=== PATIENT | male | born 1945 | race African-American/Black ===

== ENCOUNTER 2016-12-11 17:01 | Inpatient (IN) | payer MEDICARE, MEDICAID ==
[~2016-12-11] VITALS: Ht 182.9 cm; Wt 89.8 kg
[~2016-12-11 17:01] MED LIST: AMLO-512 PO; BUME1TAB30 PO; CILO100T PO; CLOP75 PO; COLE625 PO; FINA5TAB41 PO; HYDR-4173 PO; INSLAN SQ; INSU3INS5 SQ; ISOS30TA6 PO; PRED20 PO; ROSU20 PO; SODI650T PO; TAMS0.4C32 PO; TIOT4MIS3 IH
[2016-12-11] MEDS ORDERED: ALBUTEROL SULFATE 5 MG/ML 20 ML NEB SOLN [BULK] NEB ONE ×2 (17:15→19:00)
[2016-12-11] MEDS ORDERED: IPRATROPIUM BROMIDE 0.5 MG/2.5 ML NEB SOLUTION NEB ONE ×2 (17:15→19:00)
[2016-12-11] MEDS ORDERED: MethylPREDNISolone SOD SUCC 125 MG/2 ML VIAL IVP ONE (17:15)
[2016-12-11] MEDS ORDERED: 0.9% SODIUM CHLORIDE 5 ML NEB SOLUTION NEB ONE (17:16)
[2016-12-11 17:22] LABS: GLUCOSE,POINT OF CARE 289 MG/DL (70-110)
[2016-12-11] MEDS ORDERED: LISI-661 PO (17:35)
[2016-12-11] MEDS ORDERED: METO50 PO (17:35)
[2016-12-11] MEDS ORDERED: GABA-529 PO (17:35)
[2016-12-11] MEDS ORDERED: FURO40 PO (17:35)
[2016-12-11] MEDS ORDERED: RANO500T3 PO (17:35)
[2016-12-11 17:37] LABS: BASOPHILS % (AUTO) 0.8 % (0.0-2.0); EOSINOPHILS % (AUTO) 13.3 % (1.0-6.0); HEMATOCRIT 28.8 % (41-53); HEMOGLOBIN 9.4 g/dL (13.5-17.5); LYMPHOCYTES # (AUTO) 1.6 K/uL (1.0-4.8); LYMPHOCYTES % (AUTO) 28.7 % (22.0-44.0); MEAN CORPUSCULAR HEMOGLOBIN 30.2 pg (26.0-34.0); MEAN CORPUSCULAR HGB CONC 32.7 G/dL (31.0-37.0); MEAN CORPUSCULAR VOLUME 92 fL (80-100); MONOCYTES # (AUTO) 0.5 K/uL (0.1-1.0); MONOCYTES % (AUTO) 9.9 % (2.0-9.0); NEUTROPHILS # (AUTO) 2.6 K/uL (1.8-7.7); NEUTROPHILS % (AUTO) 47.3 % (40.0-70.0); PLATELET COUNT (AUTO) 243 K/uL (150-450); RED BLOOD CELL COUNT(AUTO) 3.12 MIL/uL (4.50-5.90); RED CELL DISTRIBUTION WIDTH 14.6 % (11.5-14.5); WHITE BLOOD COUNT (AUTO) 5.5 K/uL (4.5-11.0)
[2016-12-11 17:49] LABS: CALCIUM, TOTAL 8.4 mg/dL (8.8-10.5); CREATININE 2.38 mg/dL (0.60-1.30); POTASSIUM 4.8 mmol/L (3.5-5.1)
[2016-12-11 17:55] LABS: ALBUMIN 3.3 g/dL (3.4-5.0); BILIRUBIN,TOTAL 0.3 mg/dL (0.1-1.0); TOTAL PROTEIN, SERUM 6.7 g/dL (6.4-8.2)
[2016-12-11] MEDS ORDERED: ONDANSETRON HCL 4 MG/2 ML VIAL IVP PRN (18:45)
[2016-12-11] MEDS ORDERED: ACETAMINOPHEN 325 MG TABLET PO PRN (18:45)
[2016-12-11] MEDS ORDERED: CefTRIAXone 1 GM/DEXTROSE 50 ML IV ONE (18:45)
[2016-12-11] MEDS ORDERED: 0.9% SODIUM CHLORIDE 10 ML SYRINGE IVP PRN (18:45)
[2016-12-11] MEDS ORDERED: GABA-531 PO (18:49)
[2016-12-11] MEDS ORDERED: IPRATROPIUM BROMIDE 0.5 MG/2.5 ML NEB SOLUTION NEB SCH (19:00)
[2016-12-11] MEDS ORDERED: ALBUTEROL SULFATE 2.5 MG/0.5 ML NEB SOLUTION NEB SCH (19:00)
[2016-12-11] MEDS ORDERED: OXYGEN THERAPY IH SCH (20:00)
[2016-12-11 21:06] VITALS: BP 180/82
[2016-12-11] MEDS ORDERED: INSULIN DETEMIR 100 UNITS/ML SQ SCH (22:30)
[2016-12-11 22:33] VITALS: BP 159/73
[2016-12-11] MEDS ORDERED: DEXTROSE 50%-WATER 25 GM/50 ML SYRINGE IVP PRN (22:45)
[2016-12-11] MEDS: METOPROLOL TARTRATE 50 MG TABLET PO SCH (22:48)
[2016-12-11] MEDS: INSULIN DETEMIR 100 UNITS/ML SQ SCH (22:50)
[2016-12-11] MEDS: INSULIN ASPART 100 UNITS/ML SQ PRN (22:51)
[2016-12-11 23:17] VITALS: BP 155/76
[2016-12-11] MEDS: ALBUTEROL SULFATE 2.5 MG/0.5 ML NEB SOLUTION NEB PRN (23:53)
[2016-12-11] MEDS: IPRATROPIUM BROMIDE 0.5 MG/2.5 ML NEB SOLUTION NEB PRN (23:53)
[2016-12-12] MEDS: RANOLAZINE 500 MG SR TABLET PO SCH ×3 (00:12→21:02)
[2016-12-12] MEDS: HydrALAZINE HCL 25 MG TABLET PO SCH ×3 (00:12→21:02)
[2016-12-12] MEDS: SODIUM BICARBONATE 650 MG TABLET PO SCH ×3 (00:12→21:02)
[2016-12-12] MEDS: HEPARIN SODIUM,PORCINE 5,000 UNITS/ML VIAL SQ SCH ×4 (00:13→23:34)
[2016-12-12] MEDS: MethylPREDNISolone SOD SUCC 40 MG/ML VIAL IVP SCH ×4 (00:13→23:34)
[2016-12-12] MEDS: ROSUVASTATIN CALCIUM 20 MG TABLET PO SCH ×2 (00:13→21:02)
[2016-12-12] MEDS ORDERED: INFLUENZA VIRUS VACCINE QVS 2016-17 (3YR+)/PF 60 MCG/0.5 ML SYRINGE IM ONE (00:30)
[2016-12-12] MEDS ORDERED: CALCIUM CARBONATE 500 MG CHEWABLE TABLET CHEW PRN (02:45)
[2016-12-12 04:35] VITALS: BP 149/71
[2016-12-12] MEDS: ALBUTEROL SULFATE 2.5 MG/0.5 ML NEB SOLUTION NEB PRN ×3 (04:39→15:53)
[2016-12-12] MEDS: IPRATROPIUM BROMIDE 0.5 MG/2.5 ML NEB SOLUTION NEB PRN ×3 (04:39→15:53)
[2016-12-12] MEDS: CILOSTAZOL 100 MG TABLET PO SCH ×2 (06:25→17:26)
[2016-12-12] MEDS: INSULIN ASPART 100 UNITS/ML SQ PRN ×4 (06:27→21:12)
[2016-12-12 06:37] LABS: EOSINOPHILS % (AUTO) 0.04 % (1.0-6.0); HEMOGLOBIN 9.5 g/dL (13.5-17.5); LYMPHOCYTES # (AUTO) 0.6 K/uL (1.0-4.8); LYMPHOCYTES % (AUTO) 11.2 % (22.0-44.0); MEAN CORPUSCULAR HEMOGLOBIN 30.9 pg (26.0-34.0); MEAN CORPUSCULAR HGB CONC 33.9 G/dL (31.0-37.0); MEAN CORPUSCULAR VOLUME 91 fL (80-100); MONOCYTES % (AUTO) 0.5 % (2.0-9.0); NEUTROPHILS # (AUTO) 4.5 K/uL (1.8-7.7); PLATELET COUNT (AUTO) 236 K/uL (150-450); RED BLOOD CELL COUNT(AUTO) 3.08 MIL/uL (4.50-5.90); WHITE BLOOD COUNT (AUTO) 5.1 K/uL (4.5-11.0)
[2016-12-12 06:47] LABS: GLUCOSE COMMENT 1 Doctor Notified; GLUCOSE,POINT OF CARE 425 MG/DL (70-110)
[2016-12-12 07:02] LABS: ALBUMIN 3.1 g/dL (3.4-5.0); BILIRUBIN,TOTAL 0.2 mg/dL (0.1-1.0); CALCIUM, TOTAL 8.8 mg/dL (8.8-10.5); CREATININE 2.14 mg/dL (0.60-1.30); MAGNESIUM 1.6 mg/dL (1.80-2.40); POTASSIUM 5.5 mmol/L (3.5-5.1); TOTAL PROTEIN, SERUM 6.6 g/dL (6.4-8.2)
[2016-12-12 07:03] LABS: NEUTROPHILS % (AUTO) 88.3 % (40.0-70.0)
[2016-12-12 07:21] VITALS: BP 170/85
[2016-12-12] MEDS: COLESEVELAM HCL 625 MG TABLET PO SCH ×3 (07:45→17:26)
[2016-12-12] MEDS: PANTOPRAZOLE SODIUM 40 MG/VIAL IVP SCH (07:46)
[2016-12-12] MEDS: TAMSULOSIN HCL 0.4 MG CAPSULE PO SCH (07:46)
[2016-12-12] MEDS: ISOSORBIDE MONONITRATE 30 MG ER TABLET PO SCH (07:46)
[2016-12-12] MEDS: GABAPENTIN 300 MG CAPSULE PO SCH ×3 (07:47→21:02)
[2016-12-12] MEDS: CLOPIDOGREL BISULFATE 75 MG TABLET PO SCH (07:47)
[2016-12-12] MEDS: FINASTERIDE 5 MG TABLET PO SCH (07:47)
[2016-12-12] MEDS: AmLODIPine BESYLATE 10 MG TABLET PO SCH (07:47)
[2016-12-12] MEDS: FUROSEMIDE 40 MG TABLET PO SCH (07:47)
[2016-12-12] MEDS: METOPROLOL TARTRATE 50 MG TABLET PO SCH ×2 (07:47→21:02)
[2016-12-12] MEDS: LISINOPRIL 10 MG TABLET PO SCH (07:48)
[2016-12-12 09:18] LABS: GLUCOSE COMMENT 1 Received Meds; GLUCOSE,POINT OF CARE 312 MG/DL (70-110)
[2016-12-12 10:37] VITALS: BP 123/62
[2016-12-12 11:37] VITALS: BP 131/71
[2016-12-12] MEDS ORDERED: OLODATEROL IH SCH (12:45)
[2016-12-12] MEDS ORDERED: TIOTROPIUM IH SCH (12:45)
[2016-12-12 15:46] VITALS: BP 152/74
[2016-12-12] MEDS ORDERED: SODIUM POLYSTYRENE SULFONATE 15 GM/60 ML SUSPENSION BOTTLE PO ONE (16:30)
[2016-12-12] MEDS ORDERED: SODIUM CHLORIDE 0.9% 100 ML ONE (17:23)
[2016-12-12] MEDS: CefTRIAXone 1 GM/DEXTROSE 50 ML IV SCH (17:26)
[2016-12-12] MEDS ORDERED: MAGNESIUM SULFATE 2 GM in DEXTROSE 5%-WATER 50 ML IV ONE (19:45)
[2016-12-12 20:15] VITALS: BP 129/71
[2016-12-12] MEDS: TIOTROPIUM IH SCH (21:00)
[2016-12-12] MEDS: OLODATEROL IH SCH (21:00)
[2016-12-12] MEDS: INSULIN DETEMIR 100 UNITS/ML SQ SCH (21:11)
[2016-12-13 00:06] VITALS: BP 117/62
[2016-12-13] MEDS: TIOTROPIUM IH SCH (01:20)
[2016-12-13] MEDS: OLODATEROL IH SCH (01:20)
[2016-12-13 05:39] VITALS: BP 139/74
[2016-12-13 05:47] LABS: GLUCOSE COMMENT 1 Received Meds; GLUCOSE,POINT OF CARE 142 MG/DL (70-110)
[2016-12-13] MEDS: CILOSTAZOL 100 MG TABLET PO SCH ×2 (06:29→16:41)
[2016-12-13 07:04] LABS: BASOPHILS % (AUTO) 0.1 % (0.0-2.0); EOSINOPHILS % (AUTO) 0 % (1.0-6.0); HEMATOCRIT 28.4 % (41-53); HEMOGLOBIN 9.3 g/dL (13.5-17.5); LYMPHOCYTES # (AUTO) 0.7 K/uL (1.0-4.8); LYMPHOCYTES % (AUTO) 7.3 % (22.0-44.0); MEAN CORPUSCULAR HEMOGLOBIN 30.5 pg (26.0-34.0); MEAN CORPUSCULAR HGB CONC 32.7 G/dL (31.0-37.0); MEAN CORPUSCULAR VOLUME 93 fL (80-100); MONOCYTES # (AUTO) 0.3 K/uL (0.1-1.0); MONOCYTES % (AUTO) 2.6 % (2.0-9.0); NEUTROPHILS # (AUTO) 9.1 K/uL (1.8-7.7); PLATELET COUNT (AUTO) 254 K/uL (150-450); RED BLOOD CELL COUNT(AUTO) 3.05 MIL/uL (4.50-5.90); RED CELL DISTRIBUTION WIDTH 14.8 % (11.5-14.5); WHITE BLOOD COUNT (AUTO) 10.1 K/uL (4.5-11.0)
[2016-12-13 07:29] LABS: CALCIUM, TOTAL 8.6 mg/dL (8.8-10.5); CREATININE 2.36 mg/dL (0.60-1.30); POTASSIUM 4.4 mmol/L (3.5-5.1)
[2016-12-13 07:53] LABS: MAGNESIUM 2.1 mg/dL (1.80-2.40)
[2016-12-13 07:56] VITALS: BP 148/73
[2016-12-13] MEDS: PANTOPRAZOLE SODIUM 40 MG/VIAL IVP SCH (08:36)
[2016-12-13] MEDS: MethylPREDNISolone SOD SUCC 40 MG/ML VIAL IVP SCH (08:36)
[2016-12-13] MEDS: HEPARIN SODIUM,PORCINE 5,000 UNITS/ML VIAL SQ SCH ×3 (08:36→23:56)
[2016-12-13] MEDS: COLESEVELAM HCL 625 MG TABLET PO SCH ×3 (08:36→16:42)
[2016-12-13] MEDS: GABAPENTIN 300 MG CAPSULE PO SCH ×3 (08:37→20:32)
[2016-12-13] MEDS: METOPROLOL TARTRATE 50 MG TABLET PO SCH ×2 (08:37→20:35)
[2016-12-13] MEDS: AmLODIPine BESYLATE 10 MG TABLET PO SCH (08:37)
[2016-12-13] MEDS: FUROSEMIDE 40 MG TABLET PO SCH (08:37)
[2016-12-13] MEDS: TAMSULOSIN HCL 0.4 MG CAPSULE PO SCH (08:37)
[2016-12-13] MEDS: ISOSORBIDE MONONITRATE 30 MG ER TABLET PO SCH (08:37)
[2016-12-13] MEDS: HydrALAZINE HCL 25 MG TABLET PO SCH ×2 (08:37→20:32)
[2016-12-13] MEDS: RANOLAZINE 500 MG SR TABLET PO SCH ×2 (08:38→20:32)
[2016-12-13] MEDS: LISINOPRIL 10 MG TABLET PO SCH (08:38)
[2016-12-13] MEDS: FINASTERIDE 5 MG TABLET PO SCH (08:38)
[2016-12-13] MEDS: CLOPIDOGREL BISULFATE 75 MG TABLET PO SCH (08:38)
[2016-12-13] MEDS: SODIUM BICARBONATE 650 MG TABLET PO SCH ×2 (08:38→20:32)
[2016-12-13 11:43] VITALS: BP 131/61
[2016-12-13] MEDS: INSULIN ASPART 100 UNITS/ML SQ PRN ×3 (12:00→20:33)
[2016-12-13 14:23] LABS: GLUCOSE COMMENT 1 Received Meds; GLUCOSE,POINT OF CARE 219 MG/DL (70-110)
[2016-12-13 14:23] LABS: GLUCOSE COMMENT 1 Received Meds; GLUCOSE,POINT OF CARE 358 MG/DL (70-110)
[2016-12-13 14:23] LABS: GLUCOSE,POINT OF CARE 173 MG/DL (70-110)
[2016-12-13 15:30] VITALS: BP 140/61
[2016-12-13] MEDS: ALBUTEROL SULFATE 2.5 MG/0.5 ML NEB SOLUTION NEB PRN (16:55)
[2016-12-13] MEDS: IPRATROPIUM BROMIDE 0.5 MG/2.5 ML NEB SOLUTION NEB PRN (16:56)
[2016-12-13] MEDS: CefTRIAXone 1 GM/DEXTROSE 50 ML IV SCH (17:08)
[2016-12-13 19:26] VITALS: BP 134/71
[2016-12-13] MEDS: ROSUVASTATIN CALCIUM 20 MG TABLET PO SCH (20:32)
[2016-12-13] MEDS: PredniSONE 20 MG TABLET PO SCH (20:32)
[2016-12-13] MEDS: INSULIN DETEMIR 100 UNITS/ML SQ SCH (20:34)
[2016-12-14 00:34] VITALS: BP 119/62
[2016-12-14 04:33] VITALS: BP 116/52
[2016-12-14] MEDS: CILOSTAZOL 100 MG TABLET PO SCH (06:01)
[2016-12-14 07:27] LABS: GLUCOSE,POINT OF CARE 268 MG/DL (70-110)
[2016-12-14 07:27] LABS: GLUCOSE,POINT OF CARE 81 MG/DL (70-110)
[2016-12-14 07:27] LABS: GLUCOSE COMMENT 1 Received Meds; GLUCOSE,POINT OF CARE 265 MG/DL (70-110)
[2016-12-14 07:32] VITALS: BP 155/76
[2016-12-14] MEDS: COLESEVELAM HCL 625 MG TABLET PO SCH ×2 (08:07→12:14)
[2016-12-14] MEDS: PANTOPRAZOLE SODIUM 40 MG/VIAL IVP SCH (08:09)
[2016-12-14] MEDS: HEPARIN SODIUM,PORCINE 5,000 UNITS/ML VIAL SQ SCH ×2 (08:09→16:00)
[2016-12-14] MEDS: TAMSULOSIN HCL 0.4 MG CAPSULE PO SCH (08:09)
[2016-12-14] MEDS: PredniSONE 20 MG TABLET PO SCH (08:09)
[2016-12-14] MEDS: ISOSORBIDE MONONITRATE 30 MG ER TABLET PO SCH (08:09)
[2016-12-14] MEDS: AmLODIPine BESYLATE 10 MG TABLET PO SCH (08:09)
[2016-12-14] MEDS: GABAPENTIN 300 MG CAPSULE PO SCH ×2 (08:09→16:00)
[2016-12-14] MEDS: CLOPIDOGREL BISULFATE 75 MG TABLET PO SCH (08:09)
[2016-12-14] MEDS: FUROSEMIDE 40 MG TABLET PO SCH (08:10)
[2016-12-14] MEDS: LISINOPRIL 10 MG TABLET PO SCH (08:10)
[2016-12-14] MEDS: METOPROLOL TARTRATE 50 MG TABLET PO SCH (08:10)
[2016-12-14] MEDS: FINASTERIDE 5 MG TABLET PO SCH (08:10)
[2016-12-14] MEDS: SODIUM BICARBONATE 650 MG TABLET PO SCH (08:10)
[2016-12-14] MEDS: RANOLAZINE 500 MG SR TABLET PO SCH (08:11)
[2016-12-14] MEDS: HydrALAZINE HCL 25 MG TABLET PO SCH (08:11)
[2016-12-14 11:16] VITALS: BP 130/70
[2016-12-14] MEDS: INSULIN ASPART 100 UNITS/ML SQ PRN (12:18)
[2016-12-18 06:58] LABS: GLUCOSE,POINT OF CARE 98 MG/DL (70-110)
[2016-12-18 06:58] LABS: GLUCOSE COMMENT 1 Received Meds; GLUCOSE,POINT OF CARE 203 MG/DL (70-110)
[2016-12-18 06:59] LABS: GLUCOSE COMMENT 1 Received Meds; GLUCOSE,POINT OF CARE 146 MG/DL (70-110)
== END 2016-12-14 16:09 | disposition home or self-care (01) | DRG 291 ==
LOC: EMS 17:03 → 5S 19:08
PROVIDERS: ADMIT Family Medicine; ATTEND Family Medicine
DX: I13.0 Hypertensive heart and chronic kidney disease with heart failure and stage 1 through stage 4 chronic kidney disease, or unspecified chronic kidney disease (principal); I50.33 Acute on chronic diastolic (congestive) heart failure; J96.00 Acute respiratory failure, unspecified whether with hypoxia or hypercapnia; N17.9 Acute kidney failure, unspecified; J44.1 Chronic obstructive pulmonary disease with (acute) exacerbation; I25.10 Atherosclerotic heart disease of native coronary artery without angina pectoris; E78.5 Hyperlipidemia, unspecified; E11.22 Type 2 diabetes mellitus with diabetic chronic kidney disease; E11.65 Type 2 diabetes mellitus with hyperglycemia; E11.51 Type 2 diabetes mellitus with diabetic peripheral angiopathy without gangrene; E78.00 Pure hypercholesterolemia, unspecified; E87.6 Hypokalemia; E87.5 Hyperkalemia; I73.9 Peripheral vascular disease, unspecified; K27.9 Peptic ulcer, site unspecified, unspecified as acute or chronic, without hemorrhage or perforation; N18.3 Chronic kidney disease, stage 3 (moderate); Z87.891 Personal history of nicotine dependence; Z88.8 Allergy status to other drugs, medicaments and biological substances; Z28.21 Immunization not carried out because of patient refusal; Z79.02 Long term (current) use of antithrombotics/antiplatelets; Z79.4 Long term (current) use of insulin; Z79.51 Long term (current) use of inhaled steroids; Z79.899 Other long term (current) drug therapy
CPT/HCPCS: 82962; 83605; 83735; 87040; 93005; 93306; 94640; 94644; 96365; 96375; 99285; C9113; J0696; J1644; J2920; J2930; J3475; J7050; J7060

== ENCOUNTER 2016-12-22 10:23 | Emergency (ER) | payer MEDICARE, MEDICAID ==
[~2016-12-22] VITALS: Ht 185.4 cm; Wt 109.0 kg
[~2016-12-22 10:23] MED LIST changes: -BUME1TAB30 PO; +FURO40 PO; +GABA-531 PO; +LISI-661 PO; +METO50 PO; +RANO500T3 PO
[2016-12-22 12:21] LABS: BASOPHILS # (AUTO) 0.02 K/uL (0.00-0.20); BASOPHILS % (AUTO) 0.3 % (0.0-2.0); EOSINOPHILS # (AUTO) 0.21 K/uL (0.00-0.70); EOSINOPHILS % (AUTO) 3.64 % (1.0-6.0); HEMATOCRIT 25.9 % (41-53); HEMOGLOBIN 8.7 g/dL (13.5-17.5); LYMPHOCYTES % (AUTO) 18.3 % (22.0-44.0); MEAN CORPUSCULAR HEMOGLOBIN 30.8 pg (26.0-34.0); MEAN CORPUSCULAR HGB CONC 33.6 G/dL (31.0-37.0); MEAN CORPUSCULAR VOLUME 92 fL (80-100); MONOCYTES # (AUTO) 0.6 K/uL (0.1-1.0); MONOCYTES % (AUTO) 10.8 % (2.0-9.0); NEUTROPHILS # (AUTO) 3.8 K/uL (1.8-7.7); NEUTROPHILS % (AUTO) 66.9 % (40.0-70.0); PLATELET COUNT (AUTO) 200 K/uL (150-450); RED BLOOD CELL COUNT(AUTO) 2.82 MIL/uL (4.50-5.90); RED CELL DISTRIBUTION WIDTH 14.9 % (11.5-14.5); WHITE BLOOD COUNT (AUTO) 5.7 K/uL (4.5-11.0)
[2016-12-22 12:36] LABS: ANION GAP 8 mmol/L (8-16); CALCIUM, TOTAL 8.7 mg/dL (8.8-10.5); CARBON DIOXIDE 30 mmol/L (22-29); CHLORIDE 98 mmol/L (98-107); CREATININE 2.72 mg/dL (0.60-1.30); GLOMERULAR FILTR. RATE CALC 28 mL/min (>60); POTASSIUM 4.9 mmol/L (3.5-5.1); SODIUM SERUM 136 mmol/L (136-145); UREA NITROGEN, BLOOD 41 mg/dL (7-18)
[2016-12-22 12:54] LABS: B-TYPE NATRIURETIC PEPTIDE 106 pg/mL (0-100)
[2016-12-22 13:02] LABS: GLUCOSE,POINT OF CARE 275 MG/DL (70-110)
[2016-12-22 13:05] LABS: ALANINE AMINOTRANSFERASE 23 U/L (12-78); ALBUMIN 3.1 g/dL (3.4-5.0); ASPARTATE AMINOTRANSFERASE 12 U/L (15-37); BILIRUBIN,TOTAL 0.3 mg/dL (0.1-1.0); CREATINE KINASE MB 1.9 ng/mL (0-5); CREATINE KINASE, TOTAL 161 U/L (39-308); TOTAL PROTEIN, SERUM 6.9 g/dL (6.4-8.2)
[2016-12-22] MEDS ORDERED: HydrALAZINE HCL 25 MG TABLET PO ONE (13:15)
[2016-12-22] MEDS ORDERED: LISINOPRIL 10 MG TABLET PO ONE (13:15)
[2016-12-22] MEDS ORDERED: AmLODIPine BESYLATE 5 MG TABLET PO ONE (13:15)
[2016-12-22] MEDS ORDERED: ISOSORBIDE MONONITRATE 20 MG TABLET PO ONE (13:15)
[2016-12-22] MEDS ORDERED: FUROSEMIDE 20 MG TABLET PO ONE (13:15)
[2016-12-22] MEDS ORDERED: METOPROLOL TARTRATE 50 MG TABLET PO ONE (13:15)
[2016-12-22] MEDS ORDERED: INSULIN REGULAR, HUMAN 100 UNITS/ML SQ ONE (13:15)
[2016-12-22 13:43] LABS: ADD UA MICROSCOPIC YES; APPEARANCE,URINE CLEAR (CLEAR); GLUCOSE, URINE (UA) 250 mg/dL (NEGATIVE); KETONES,URINE NEGATIVE (NEGATIVE); LEUKOCYTE ESTERASE ,URINE NEGATIVE (NEGATIVE); OCCULT BLOOD,URINE NEGATIVE (NEGATIVE); PH,URINE 7.5 (5.0-8.0); PROTEIN,URINE TRACE (NEGATIVE)
[2016-12-22 13:47] LABS: RBC,URINE None Seen /HPF (0-2); WBC,URINE None Seen /HPF (0-5)
[2016-12-22] MEDS ORDERED: ALBUTEROL SULFATE 2.5 MG/0.5 ML NEB SOLUTION NEB ONE (16:00)
[2016-12-22] MEDS ORDERED: IPRATROPIUM BROMIDE 0.5 MG/2.5 ML NEB SOLUTION NEB ONE (16:00)
[2016-12-22] MEDS ORDERED: MORPHINE SULFATE 4 MG/ML SYRINGE IVP ONE (16:15)
[2016-12-22] MEDS ORDERED: ONDANSETRON HCL 4 MG/2 ML VIAL IVP ONE (16:15)
[2016-12-22 17:54] VITALS: BP 145/72
== END 2016-12-22 18:04 | disposition home or self-care (01) ==
LOC: EMS 10:24
DX: I80.01 Phlebitis and thrombophlebitis of superficial vessels of right lower extremity (principal); R60.9 Edema, unspecified; E11.65 Type 2 diabetes mellitus with hyperglycemia; D64.9 Anemia, unspecified; E11.22 Type 2 diabetes mellitus with diabetic chronic kidney disease; N18.9 Chronic kidney disease, unspecified; I11.0 Hypertensive heart disease with heart failure; I50.9 Heart failure, unspecified; E78.00 Pure hypercholesterolemia, unspecified; J45.909 Unspecified asthma, uncomplicated; J44.9 Chronic obstructive pulmonary disease, unspecified; Z79.4 Long term (current) use of insulin
CPT/HCPCS: 36415; 71010; 80053; 81001; 82550; 82553; 82962; 83690; 83735; 83880; 84484; 85025; 85379; 93970; 94640; 96372; 96374; 96375; 99285; J1815; J2270; J2405; 93005

== ENCOUNTER 2017-01-21 22:35 | Emergency (ER) | payer MEDICARE, MEDICAID ==
[~2017-01-21] VITALS: Ht 182.9 cm; Wt 118.2 kg
[2017-01-21 23:06] LABS: GLUCOSE,POINT OF CARE 247 MG/DL (70-110)
[2017-01-21 23:12] LABS: BASOPHILS # (AUTO) 0.04 K/uL (0.00-0.20); BASOPHILS % (AUTO) 0.8 % (0.0-2.0); EOSINOPHILS # (AUTO) 0.18 K/uL (0.00-0.70); EOSINOPHILS % (AUTO) 3.42 % (1.0-6.0); HEMATOCRIT 24.7 % (41-53); HEMOGLOBIN 8.1 g/dL (13.5-17.5); LYMPHOCYTES # (AUTO) 1.5 K/uL (1.0-4.8); LYMPHOCYTES % (AUTO) 26.7 % (22.0-44.0); MEAN CORPUSCULAR HEMOGLOBIN 30.7 pg (26.0-34.0); MEAN CORPUSCULAR HGB CONC 32.6 G/dL (31.0-37.0); MEAN CORPUSCULAR VOLUME 94 fL (80-100); MONOCYTES # (AUTO) 0.7 K/uL (0.1-1.0); MONOCYTES % (AUTO) 12.3 % (2.0-9.0); NEUTROPHILS # (AUTO) 3.1 K/uL (1.8-7.7); NEUTROPHILS % (AUTO) 56.7 % (40.0-70.0); PLATELET COUNT (AUTO) 404 K/uL (150-450); RED BLOOD CELL COUNT(AUTO) 2.63 MIL/uL (4.50-5.90); RED CELL DISTRIBUTION WIDTH 16.6 % (11.5-14.5); WHITE BLOOD COUNT (AUTO) 5.4 K/uL (4.5-11.0)
[2017-01-21 23:24] LABS: INR 1.1 (0.9-1.1); PROTHROMBIN TIME 11.4 SEC (9.4-11.6)
[2017-01-21 23:25] LABS: APPEARANCE,URINE CLEAR (CLEAR); GLUCOSE, URINE (UA) 500 mg/dL (NEGATIVE); KETONES,URINE NEGATIVE (NEGATIVE); LEUKOCYTE ESTERASE ,URINE NEGATIVE (NEGATIVE); OCCULT BLOOD,URINE NEGATIVE (NEGATIVE); PH,URINE 6.5 (5.0-8.0); PROTEIN,URINE POS 1+ (NEGATIVE)
[2017-01-21 23:28] LABS: ANION GAP 9 mmol/L (8-16); CALCIUM, TOTAL 8.7 mg/dL (8.8-10.5); CARBON DIOXIDE 27 mmol/L (22-29); CHLORIDE 103 mmol/L (98-107); CREATININE 2.13 mg/dL (0.60-1.30); GLOMERULAR FILTR. RATE CALC 37 mL/min (>60); POTASSIUM 4.5 mmol/L (3.5-5.1); SODIUM SERUM 139 mmol/L (136-145); UREA NITROGEN, BLOOD 26 mg/dL (7-18)
[2017-01-21 23:28] LABS: ADD UA MICROSCOPIC YES
[2017-01-21 23:39] LABS: B-TYPE NATRIURETIC PEPTIDE 125 pg/mL (0-100)
[2017-01-21 23:47] LABS: RBC,URINE None Seen /HPF (0-2); WBC,URINE None Seen /HPF (0-5)
[2017-01-21 23:53] LABS: ALANINE AMINOTRANSFERASE 18 U/L (12-78); ALBUMIN 2.7 g/dL (3.4-5.0); ASPARTATE AMINOTRANSFERASE 10 U/L (15-37); BILIRUBIN,TOTAL 0.2 mg/dL (0.1-1.0); CREATINE KINASE MB 1.2 ng/mL (0-5); CREATINE KINASE, TOTAL 129 U/L (39-308)
[2017-01-22] MEDS ORDERED: 0.9% SODIUM CHLORIDE 5 ML NEB SOLUTION NEB ONE (00:09)
[2017-01-22] MEDS ORDERED: ALBUTEROL SULFATE 5 MG/ML 20 ML NEB SOLN [BULK] NEB ONE (00:15)
[2017-01-22] MEDS ORDERED: MethylPREDNISolone SOD SUCC 125 MG/2 ML VIAL IVP ONE (00:15)
[2017-01-22] MEDS ORDERED: IPRATROPIUM BROMIDE 0.5 MG/2.5 ML NEB SOLUTION NEB ONE (00:15)
[2017-01-22 01:35] VITALS: BP 159/73
== END 2017-01-22 01:40 | disposition home or self-care (01) ==
LOC: EMS 23:31
DX: J40 Bronchitis, not specified as acute or chronic (principal); J44.9 Chronic obstructive pulmonary disease, unspecified; J45.909 Unspecified asthma, uncomplicated; I25.10 Atherosclerotic heart disease of native coronary artery without angina pectoris; I11.0 Hypertensive heart disease with heart failure; E78.00 Pure hypercholesterolemia, unspecified; I50.9 Heart failure, unspecified; E11.9 Type 2 diabetes mellitus without complications; Z79.4 Long term (current) use of insulin
CPT/HCPCS: 36415; 71010; 80053; 81001; 82550; 82553; 82962; 83880; 84484; 85025; 85610; 85730; 93005; 94640; 96374; 99285; J2930

== ENCOUNTER 2017-04-30 11:21 | Emergency (ER) | payer MEDICARE, MEDICAID ==
[~2017-04-30] VITALS: Ht 182.9 cm; Wt 90.9 kg
[~2017-04-30 11:21] MED LIST changes: +CEFTR1IV IV; +CHLO240L TP; -INSLAN SQ; +INSU100V12 SQ; +MULT-1203 PO
[2017-04-30 11:37] LABS: GLUCOSE,POINT OF CARE 291 MG/DL (70-110)
[2017-04-30 14:50] VITALS: BP 200/108
== END 2017-04-30 15:17 | disposition home or self-care (01) ==
LOC: EMS 11:23
DX: R60.0 Localized edema (principal); I11.0 Hypertensive heart disease with heart failure; I50.9 Heart failure, unspecified; I25.10 Atherosclerotic heart disease of native coronary artery without angina pectoris; E11.9 Type 2 diabetes mellitus without complications; E78.00 Pure hypercholesterolemia, unspecified; J45.909 Unspecified asthma, uncomplicated; J44.9 Chronic obstructive pulmonary disease, unspecified; Z79.4 Long term (current) use of insulin
CPT/HCPCS: 82962; 93971; 99284

== ENCOUNTER 2017-05-20 07:56 | Emergency (ER) | payer MEDICARE, MEDICAID ==
[~2017-05-20] VITALS: Ht 182.9 cm; Wt 88.6 kg
[~2017-05-20 07:56] MED LIST changes: -CEFTR1IV IV; -CHLO240L TP; -TIOT4MIS3 IH
[2017-05-20 08:33] LABS: GLUCOSE,POINT OF CARE 301 MG/DL (70-110)
[2017-05-20 08:59] VITALS: BP 141/82
[2017-05-20] MEDS ORDERED: BACITRACIN 0.9 GM PACKET OINTMENT TP ONE (09:00)
== END 2017-05-20 09:43 | disposition home or self-care (01) ==
LOC: EMS 08:00
DX: S80.811A Abrasion, right lower leg, initial encounter (principal); J45.909 Unspecified asthma, uncomplicated; I11.0 Hypertensive heart disease with heart failure; I50.9 Heart failure, unspecified; E11.9 Type 2 diabetes mellitus without complications; J44.9 Chronic obstructive pulmonary disease, unspecified; E78.00 Pure hypercholesterolemia, unspecified; I25.10 Atherosclerotic heart disease of native coronary artery without angina pectoris; Z79.4 Long term (current) use of insulin; X58.XXXA Exposure to other specified factors, initial encounter; Y93.89 Activity, other specified; Y92.89 Other specified places as the place of occurrence of the external cause; Y99.8 Other external cause status
CPT/HCPCS: 82962; 99283

== ENCOUNTER 2017-06-03 07:56 | Emergency (ER) | payer MEDICARE, MEDICAID ==
[~2017-06-03] VITALS: Ht 182.9 cm; Wt 90.9 kg
[2017-06-03 08:08] LABS: GLUCOSE,POINT OF CARE 291 MG/DL (70-110)
[2017-06-03] MEDS ORDERED: SODIUM CHLORIDE 0.9% 500 ML IV ONE (08:45)
[2017-06-03 09:12] LABS: BASOPHILS % (AUTO) 1.1 % (0.0-2.0); EOSINOPHILS % (AUTO) 7.8 % (1.0-6.0); HEMATOCRIT 26.3 % (41-53); HEMOGLOBIN 8.8 g/dL (13.5-17.5); LYMPHOCYTES # (AUTO) 1.1 K/uL (1.0-4.8); LYMPHOCYTES % (AUTO) 25.8 % (22.0-44.0); MEAN CORPUSCULAR HEMOGLOBIN 30.3 pg (26.0-34.0); MEAN CORPUSCULAR HGB CONC 33.4 G/dL (31.0-37.0); MEAN CORPUSCULAR VOLUME 91 fL (80-100); MONOCYTES # (AUTO) 0.5 K/uL (0.1-1.0); MONOCYTES % (AUTO) 12.8 % (2.0-9.0); NEUTROPHILS # (AUTO) 2.2 K/uL (1.8-7.7); NEUTROPHILS % (AUTO) 52.5 % (40.0-70.0); PLATELET COUNT (AUTO) 292 K/uL (150-450); RED CELL DISTRIBUTION WIDTH 16.1 % (11.5-14.5); WHITE BLOOD COUNT (AUTO) 4.2 K/uL (4.5-11.0)
[2017-06-03 09:19] LABS: CALCIUM, TOTAL 8.8 mg/dL (8.8-10.5); CREATININE 2.79 mg/dL (0.60-1.30); POTASSIUM 5.1 mmol/L (3.5-5.1)
[2017-06-03 09:25] LABS: ALBUMIN 3.1 g/dL (3.4-5.0); BILIRUBIN,TOTAL 0.3 mg/dL (0.1-1.0); TOTAL PROTEIN, SERUM 6.5 g/dL (6.4-8.2)
[2017-06-03 09:42] LABS: APPEARANCE,URINE CLEAR (CLEAR); GLUCOSE, URINE (UA) 250 mg/dL (NEGATIVE); KETONES,URINE NEGATIVE (NEGATIVE); LEUKOCYTE ESTERASE ,URINE NEGATIVE (NEGATIVE); OCCULT BLOOD,URINE NEGATIVE (NEGATIVE); PH,URINE 5.5 (5.0-8.0); PROTEIN,URINE POS 1+ (NEGATIVE)
[2017-06-03 09:43] LABS: ADD UA MICROSCOPIC YES
[2017-06-03 09:51] LABS: RBC,URINE 0-2 /HPF (0-2); SQUAMOUS EPITHELIAL CELL,UR Few /LPF (None Seen); WBC,URINE 0-2 /HPF (0-5)
[2017-06-03 10:07] LABS: GLUCOSE,POINT OF CARE 250 MG/DL (70-110)
[2017-06-03 10:17] LABS: GLUCOSE,POINT OF CARE 248 MG/DL (70-110)
[2017-06-03 12:55] VITALS: BP 118/75
== END 2017-06-03 16:20 | disposition left against medical advice (07) ==
LOC: EMS 07:59
DX: M54.5 Low back pain (principal); F99 Mental disorder, not otherwise specified; G89.29 Other chronic pain; J45.909 Unspecified asthma, uncomplicated; I11.0 Hypertensive heart disease with heart failure; I50.9 Heart failure, unspecified; E11.9 Type 2 diabetes mellitus without complications; J44.9 Chronic obstructive pulmonary disease, unspecified; I25.10 Atherosclerotic heart disease of native coronary artery without angina pectoris; E78.00 Pure hypercholesterolemia, unspecified; Z79.4 Long term (current) use of insulin
CPT/HCPCS: 36415; 72148; 80053; 81001; 82962; 85025; 96360; 99285; J7040

== ENCOUNTER 2017-06-20 14:18 | Emergency (ER) | payer MEDICARE, MEDICAID ==
[~2017-06-20] VITALS: Ht 182.9 cm; Wt 90.9 kg
[2017-06-20 14:40] VITALS: BP 149/79
== END 2017-06-20 15:42 | disposition home or self-care (01) ==
LOC: EMS 14:20
DX: B01.9 Varicella without complication (principal); B02.9 Zoster without complications; J45.909 Unspecified asthma, uncomplicated; I25.10 Atherosclerotic heart disease of native coronary artery without angina pectoris; I11.0 Hypertensive heart disease with heart failure; I50.9 Heart failure, unspecified; E11.9 Type 2 diabetes mellitus without complications; J44.9 Chronic obstructive pulmonary disease, unspecified; E78.00 Pure hypercholesterolemia, unspecified; Z79.4 Long term (current) use of insulin
CPT/HCPCS: 82962; 99282

== ENCOUNTER 2017-10-22 06:39 | Emergency (ER) | payer MEDICARE, MEDICAID ==
[~2017-10-22] VITALS: Ht 182.9 cm; Wt 94.5 kg
[2017-10-22 07:14] LABS: BASOPHILS # (AUTO) 0.03 K/uL (0.00-0.20); BASOPHILS % (AUTO) 0.6 % (0.0-2.0); EOSINOPHILS # (AUTO) 0.12 K/uL (0.00-0.70); EOSINOPHILS % (AUTO) 2.37 % (1.0-6.0); HEMATOCRIT 27.5 % (41-53); HEMOGLOBIN 9.2 g/dL (13.5-17.5); LYMPHOCYTES # (AUTO) 0.9 K/uL (1.0-4.8); LYMPHOCYTES % (AUTO) 18.6 % (22.0-44.0); MEAN CORPUSCULAR HEMOGLOBIN 30.7 pg (26.0-34.0); MEAN CORPUSCULAR HGB CONC 33.5 G/dL (31.0-37.0); MEAN CORPUSCULAR VOLUME 92 fL (80-100); MONOCYTES # (AUTO) 0.5 K/uL (0.1-1.0); MONOCYTES % (AUTO) 10.7 % (2.0-9.0); NEUTROPHILS # (AUTO) 3.4 K/uL (1.8-7.7); NEUTROPHILS % (AUTO) 67.7 % (40.0-70.0); PLATELET COUNT (AUTO) 193 K/uL (150-450); RED CELL DISTRIBUTION WIDTH 15.6 % (11.5-14.5)
[2017-10-22] MEDS ORDERED: IPRATROPIUM BROMIDE 0.5 MG/2.5 ML NEB SOLUTION NEB ONE (07:15)
[2017-10-22] MEDS ORDERED: ALBUTEROL SULFATE 2.5 MG/0.5 ML NEB SOLUTION NEB ONE (07:15)
[2017-10-22] MEDS ORDERED: ALBUTEROL SULFATE HFA 90 MCG/PUFF 8 GM INHALER IH ONE (07:15)
[2017-10-22 07:24] LABS: ANION GAP 7 mmol/L (8-16); CALCIUM, TOTAL 8.4 mg/dL (8.8-10.5); CARBON DIOXIDE 26 mmol/L (22-29); CHLORIDE 105 mmol/L (98-107); CREATININE 2.46 mg/dL (0.60-1.30); GLOMERULAR FILTR. RATE CALC 31 mL/min (>60); GLUCOSE,RANDOM 100 mg/dL (70-110); POTASSIUM 4.7 mmol/L (3.5-5.1); SODIUM SERUM 138 mmol/L (136-145); UREA NITROGEN, BLOOD 26 mg/dL (7-18)
[2017-10-22 07:28] LABS: B-TYPE NATRIURETIC PEPTIDE 176 pg/mL (0-100)
[2017-10-22 07:32] LABS: GLUCOSE,POINT OF CARE 95 MG/DL (70-110)
[2017-10-22 07:49] LABS: ALANINE AMINOTRANSFERASE 25 U/L (12-78); ALBUMIN 3.1 g/dL (3.4-5.0); ALKALINE PHOSPHATASE 113 U/L (46-116); ASPARTATE AMINOTRANSFERASE 19 U/L (15-37); BILIRUBIN,TOTAL 0.3 mg/dL (0.1-1.0); CREATINE KINASE MB 3.4 ng/mL (0-5); CREATINE KINASE, TOTAL 226 U/L (39-308); TOTAL PROTEIN, SERUM 6.7 g/dL (6.4-8.2)
[2017-10-22 07:53] LABS: PROTHROMBIN TIME 10.9 SEC (9.4-11.6)
[2017-10-22 08:23] LABS: APPEARANCE,URINE CLEAR (CLEAR); BILIRUBIN,URINE NEGATIVE (NEGATIVE); GLUCOSE, URINE (UA) NEGATIVE (NEGATIVE); KETONES,URINE NEGATIVE (NEGATIVE); LEUKOCYTE ESTERASE ,URINE NEGATIVE (NEGATIVE); NITRATE,URINE NEGATIVE (NEGATIVE); OCCULT BLOOD,URINE NEGATIVE (NEGATIVE); PH,URINE 6.5 (5.0-8.0); UROBILINOGEN,URINE 0.2 mg/dL (<=1.0)
[2017-10-22] MEDS ORDERED: FUROSEMIDE 20 MG TABLET PO ONE (08:30)
[2017-10-22 09:31] LABS: PROTEIN,URINE SEE CONFIRM (NEGATIVE); SULFOSALICYLIC ACID,URINE 2+ (Negative)
[2017-10-22 09:40] LABS: BACTERIA,URINE None Seen /HPF (None Seen); RBC,URINE 0-2 /HPF (0-2); WBC,URINE 0-2 /HPF (0-5)
[2017-10-22 09:41] LABS: SQUAMOUS EPITHELIAL CELL,UR Few /LPF (None Seen)
[2017-10-22 09:42] LABS: RENAL EPITHELIAL CELLS,URINE Rare /LPF (None Seen); TRANSITIONAL EPI CELLS,URINE None Seen /LPF (None Seen)
[2017-10-22 10:05] VITALS: BP 152/75
== END 2017-10-22 10:32 | disposition home or self-care (01) ==
LOC: EMS 06:41
DX: I11.0 Hypertensive heart disease with heart failure (principal); I50.9 Heart failure, unspecified; J32.9 Chronic sinusitis, unspecified; J06.9 Acute upper respiratory infection, unspecified; I25.10 Atherosclerotic heart disease of native coronary artery without angina pectoris; E78.00 Pure hypercholesterolemia, unspecified; J45.909 Unspecified asthma, uncomplicated; J44.9 Chronic obstructive pulmonary disease, unspecified; E11.9 Type 2 diabetes mellitus without complications; Z79.4 Long term (current) use of insulin
CPT/HCPCS: 82962; 93005; 94640; 99285; J3535

== ENCOUNTER 2017-10-25 01:41 | Emergency (ER) | payer MEDICARE, MEDICAID ==
[~2017-10-25] VITALS: Ht 182.9 cm; Wt 94.5 kg
[2017-10-25 01:57] LABS: GLUCOSE,POINT OF CARE 242 MG/DL (70-110)
[2017-10-25 02:11] LABS: BASOPHILS % (AUTO) 0.8 % (0.0-2.0); EOSINOPHILS % (AUTO) 3.5 % (1.0-6.0); HEMATOCRIT 28.2 % (41-53); HEMOGLOBIN 9.5 g/dL (13.5-17.5); LYMPHOCYTES % (AUTO) 20.3 % (22.0-44.0); MEAN CORPUSCULAR HEMOGLOBIN 30.4 pg (26.0-34.0); MEAN CORPUSCULAR HGB CONC 33.9 G/dL (31.0-37.0); MEAN CORPUSCULAR VOLUME 90 fL (80-100); MONOCYTES # (AUTO) 0.7 K/uL (0.1-1.0); MONOCYTES % (AUTO) 14.1 % (2.0-9.0); NEUTROPHILS # (AUTO) 3.1 K/uL (1.8-7.7); NEUTROPHILS % (AUTO) 61.3 % (40.0-70.0); PLATELET COUNT (AUTO) 201 K/uL (150-450); RED BLOOD CELL COUNT(AUTO) 3.14 MIL/uL (4.50-5.90); RED CELL DISTRIBUTION WIDTH 14.7 % (11.5-14.5)
[2017-10-25] MEDS ORDERED: MethylPREDNISolone SOD SUCC 125 MG/2 ML VIAL IVP ONE (02:15)
[2017-10-25] MEDS ORDERED: ALBUTEROL SULFATE 2.5 MG/0.5 ML NEB SOLUTION NEB ONE (02:15)
[2017-10-25] MEDS ORDERED: IPRATROPIUM BROMIDE 0.5 MG/2.5 ML NEB SOLUTION NEB ONE (02:15)
[2017-10-25 02:23] LABS: PROTHROMBIN TIME 10.5 SEC (9.4-11.6)
[2017-10-25 02:24] LABS: ANION GAP 7 mmol/L (8-16); CALCIUM, TOTAL 8.2 mg/dL (8.8-10.5); CARBON DIOXIDE 26 mmol/L (22-29); CHLORIDE 102 mmol/L (98-107); CREATININE 2.67 mg/dL (0.60-1.30); GLOMERULAR FILTR. RATE CALC 29 mL/min (>60); GLUCOSE,RANDOM 245 mg/dL (70-110); POTASSIUM 4.4 mmol/L (3.5-5.1); SODIUM SERUM 135 mmol/L (136-145); UREA NITROGEN, BLOOD 30 mg/dL (7-18)
[2017-10-25 02:34] LABS: B-TYPE NATRIURETIC PEPTIDE 68 pg/mL (0-100)
[2017-10-25 02:48] LABS: ALANINE AMINOTRANSFERASE 21 U/L (12-78); ALBUMIN 3.1 g/dL (3.4-5.0); ALKALINE PHOSPHATASE 129 U/L (46-116); ASPARTATE AMINOTRANSFERASE 19 U/L (15-37); BILIRUBIN,TOTAL 0.3 mg/dL (0.1-1.0); CREATINE KINASE MB 4.1 ng/mL (0-5); CREATINE KINASE, TOTAL 379 U/L (39-308); TOTAL PROTEIN, SERUM 6.6 g/dL (6.4-8.2)
[2017-10-25 03:55] VITALS: BP 155/80
[2017-10-25] MEDS ORDERED: ALBUTEROL SULFATE HFA 90 MCG/PUFF 8 GM INHALER IH ONE (05:00)
== END 2017-10-25 04:56 | disposition home or self-care (01) ==
LOC: EMS 01:43
DX: J44.1 Chronic obstructive pulmonary disease with (acute) exacerbation (principal); I11.0 Hypertensive heart disease with heart failure; I50.9 Heart failure, unspecified; I25.10 Atherosclerotic heart disease of native coronary artery without angina pectoris; E11.9 Type 2 diabetes mellitus without complications; E78.00 Pure hypercholesterolemia, unspecified; J45.901 Unspecified asthma with (acute) exacerbation; Z79.4 Long term (current) use of insulin
CPT/HCPCS: 36415; 71045; 80053; 82550; 82553; 82962; 83605; 83880; 84484; 85025; 85610; 85730; 93005; 94640; 96374; 99285; J2930; J3535

== ENCOUNTER 2017-11-14 06:18 | Day surgery (SDC) | payer MEDICARE, MEDICAID ==
[~2017-11-14] VITALS: Ht 175.3 cm; Wt 93.6 kg
[2017-11-14] MEDS ORDERED: MIDAZOLAM HCL 2 MG/2 ML VIAL IVP ONE (06:19)
[2017-11-14] MEDS ORDERED: FentaNYL CITRATE-PF 100 MCG/2 ML VIAL IVP ONE (06:19)
[2017-11-14] MEDS ORDERED: RINGERS SOLUTION,LACTATED 0 ML IV ONE (06:29)
[2017-11-14] MEDS ORDERED: MOXIFLOXACIN HCL 0.5% 3 ML OPHTHALMIC SOLUTION ONE (06:30)
[2017-11-14] MEDS ORDERED: KETOROLAC TROMETHAMINE 0.5% 5 ML OPHTHALMIC SOLUTION ONE (06:30)
[2017-11-14] MEDS ORDERED: PHENYLEPHRINE HCL 2.5% 2 ML OPHTHALMIC SOLUTION ONE (06:30)
[2017-11-14] MEDS ORDERED: TROPICAMIDE 1% 2 ML OPHTHALMIC SOLUTION ONE (06:30)
[2017-11-14] MEDS ORDERED: KETOROLAC TROMETHAMINE 0.5% 5 ML OPHTHALMIC SOLUTION OD ONE (06:45)
[2017-11-14] MEDS ORDERED: MOXIFLOXACIN HCL 0.5% 3 ML OPHTHALMIC SOLUTION OD ONE (07:00)
[2017-11-14] MEDS ORDERED: 0.9% SODIUM CHLORIDE 10 ML SYRINGE IVP PRN (07:00)
[2017-11-14] MEDS ORDERED: DICLOFENAC SODIUM 0.1% 2.5 ML OPHTHALMIC SOLUTION OD ONE (07:00)
[2017-11-14] MEDS ORDERED: SODIUM CHLORIDE 0.9% 500 ML IV ONE ×2 (07:00→07:17)
[2017-11-14 07:18] LABS: GLUCOMETER DEV NAME(LOC) SDS 5; GLUCOSE,POINT OF CARE 251 MG/DL (70-110)
[2017-11-14] MEDS: TROPICAMIDE 1% 2 ML OPHTHALMIC SOLUTION OD SCH ×2 (07:23→07:28)
[2017-11-14] MEDS: PHENYLEPHRINE HCL 2.5% 2 ML OPHTHALMIC SOLUTION OD SCH ×2 (07:23→07:28)
[2017-11-14] MEDS ORDERED: TETRACAINE HCL VISCOUS 0.5% 5 ML OPHTHALMIC SOLUTION ONE (18:16)
[2017-11-14] MEDS ORDERED: HYALURONATE SOD/CHONDROITIN SOD 0.5 ML VIAL IO ONE (18:16)
[2017-11-14] MEDS ORDERED: POVIDONE-IODINE 10% 15 ML SOLUTION UD ONE (18:16)
[2017-11-14] MEDS ORDERED: HYALURONATE SODIUM 12 MG/ML 0.8 ML SYRINGE IO ONE (18:16)
[2017-11-14] MEDS ORDERED: LIDOCAINE HCL 1% 20 ML VIAL ONE (18:16)
[2017-11-14] MEDS ORDERED: DEXAMETHASONE SOD PHOS 4 MG/ML VIAL ONE (18:16)
== END 2017-11-14 09:35 | disposition home or self-care (01) ==
LOC: SURGERY 06:18
PROVIDERS: ATTEND Specialist
DX: E11.36 Type 2 diabetes mellitus with diabetic cataract (principal); H25.011 Cortical age-related cataract, right eye; F10.21 Alcohol dependence, in remission; J44.9 Chronic obstructive pulmonary disease, unspecified; E11.22 Type 2 diabetes mellitus with diabetic chronic kidney disease; I12.9 Hypertensive chronic kidney disease with stage 1 through stage 4 chronic kidney disease, or unspecified chronic kidney disease; N18.9 Chronic kidney disease, unspecified; M19.90 Unspecified osteoarthritis, unspecified site; I11.0 Hypertensive heart disease with heart failure; I50.9 Heart failure, unspecified; I25.10 Atherosclerotic heart disease of native coronary artery without angina pectoris; E78.00 Pure hypercholesterolemia, unspecified; F14.11 Cocaine abuse, in remission; Z95.1 Presence of aortocoronary bypass graft; Z79.4 Long term (current) use of insulin; Z95.5 Presence of coronary angioplasty implant and graft; Z98.890 Other specified postprocedural states; Z87.891 Personal history of nicotine dependence; Z79.899 Other long term (current) drug therapy
CPT/HCPCS: 66982; 82962; C1780; J2250; J3010; J7040; J1100; J3490; J7120

== ENCOUNTER 2017-11-20 09:08 | Emergency (ER) | payer MEDICARE, MEDICAID ==
[~2017-11-20] VITALS: Ht 182.9 cm; Wt 91.8 kg
[2017-11-20 09:23] LABS: GLUCOSE,POINT OF CARE 289 MG/DL (70-110)
[2017-11-20] MEDS ORDERED: HYDROCODONE/ACETAMINOPHEN 5-325 MG TABLET PO ONE (10:45)
[2017-11-20 11:18] LABS: BASOPHILS % (AUTO) 0.4 % (0.0-2.0); EOSINOPHILS % (AUTO) 1.9 % (1.0-6.0); HEMATOCRIT 30.4 % (41-53); HEMOGLOBIN 10.4 g/dL (13.5-17.5); LYMPHOCYTES % (AUTO) 26.5 % (22.0-44.0); MEAN CORPUSCULAR HEMOGLOBIN 30.5 pg (26.0-34.0); MEAN CORPUSCULAR HGB CONC 34.2 G/dL (31.0-37.0); MEAN CORPUSCULAR VOLUME 89 fL (80-100); MONOCYTES # (AUTO) 0.5 K/uL (0.1-1.0); MONOCYTES % (AUTO) 12.8 % (2.0-9.0); NEUTROPHILS # (AUTO) 2.2 K/uL (1.8-7.7); NEUTROPHILS % (AUTO) 58.4 % (40.0-70.0); PLATELET COUNT (AUTO) 197 K/uL (150-450); RED CELL DISTRIBUTION WIDTH 14.9 % (11.5-14.5)
[2017-11-20 11:23] LABS: CALCIUM, TOTAL 8.5 mg/dL (8.8-10.5); CREATININE 2.48 mg/dL (0.60-1.30)
[2017-11-20 11:30] LABS: ALBUMIN 2.9 g/dL (3.4-5.0); BILIRUBIN,TOTAL 0.3 mg/dL (0.1-1.0); TOTAL PROTEIN, SERUM 6.2 g/dL (6.4-8.2)
[2017-11-20 12:20] LABS: PROTHROMBIN TIME 10.5 SEC (9.4-11.6)
[2017-11-20 13:56] VITALS: BP 162/91
== END 2017-11-20 14:25 | disposition home or self-care (01) ==
LOC: EMS 09:11
DX: R60.0 Localized edema (principal); M79.89 Other specified soft tissue disorders; J45.909 Unspecified asthma, uncomplicated; I25.10 Atherosclerotic heart disease of native coronary artery without angina pectoris; J44.9 Chronic obstructive pulmonary disease, unspecified; I11.0 Hypertensive heart disease with heart failure; I50.9 Heart failure, unspecified; E78.00 Pure hypercholesterolemia, unspecified; E11.9 Type 2 diabetes mellitus without complications; Z79.4 Long term (current) use of insulin
CPT/HCPCS: 82962; 85379; 86850; 86900; 86901; 93925; 93970; 99285

== ENCOUNTER 2017-12-10 19:26 | Emergency (ER) | payer MEDICARE, MEDICAID ==
[~2017-12-10] VITALS: Ht 182.9 cm; Wt 113.6 kg
[2017-12-10 19:56] VITALS: BP 121/67
[2017-12-10] MEDS ORDERED: OXYC30TA2 PO (20:01)
[2017-12-10] MEDS ORDERED: MORP100T6 PO (20:01)
[2017-12-10 20:02] LABS: GLUCOSE,POINT OF CARE 241 MG/DL (70-110)
[2017-12-10 20:39] LABS: BASOPHILS % (AUTO) 0.5 % (0.0-2.0); EOSINOPHILS % (AUTO) 2.2 % (1.0-6.0); HEMATOCRIT 30.7 % (41-53); HEMOGLOBIN 10.6 g/dL (13.5-17.5); LYMPHOCYTES # (AUTO) 1.3 K/uL (1.0-4.8); LYMPHOCYTES % (AUTO) 28.7 % (22.0-44.0); MEAN CORPUSCULAR HEMOGLOBIN 30.7 pg (26.0-34.0); MEAN CORPUSCULAR HGB CONC 34.5 G/dL (31.0-37.0); MEAN CORPUSCULAR VOLUME 89 fL (80-100); MONOCYTES # (AUTO) 0.6 K/uL (0.1-1.0); MONOCYTES % (AUTO) 13.5 % (2.0-9.0); NEUTROPHILS # (AUTO) 2.4 K/uL (1.8-7.7); NEUTROPHILS % (AUTO) 55.1 % (40.0-70.0); PLATELET COUNT (AUTO) 260 K/uL (150-450); RED BLOOD CELL COUNT(AUTO) 3.46 MIL/uL (4.50-5.90); RED CELL DISTRIBUTION WIDTH 14.9 % (11.5-14.5)
[2017-12-10 20:48] LABS: CREATININE 3.15 mg/dL (0.60-1.30); POTASSIUM 3.9 mmol/L (3.5-5.1)
[2017-12-10 20:53] LABS: ALBUMIN 3.1 g/dL (3.4-5.0); BILIRUBIN,TOTAL 0.2 mg/dL (0.1-1.0); TOTAL PROTEIN, SERUM 6.6 g/dL (6.4-8.2)
== END 2017-12-10 21:14 | disposition left against medical advice (07) ==
LOC: EMS 19:28
DX: R25.2 Cramp and spasm (principal); Z53.21 Procedure and treatment not carried out due to patient leaving prior to being seen by health care provider
CPT/HCPCS: 82962

== ENCOUNTER 2018-02-17 10:42 | Emergency (ER) | payer MEDICARE, MEDICAID ==
[~2018-02-17] VITALS: Ht 182.9 cm; Wt 90.5 kg
[~2018-02-17 10:42] MED LIST changes: -CLOP75 PO; -COLE625 PO; +MORP100T6 PO; +OXYC30TA2 PO
[2018-02-17 10:57] LABS: GLUCOSE,POINT OF CARE 277 MG/DL (70-110)
[2018-02-17 11:09] LABS: BASOPHILS % (AUTO) 1.1 % (0.0-2.0); EOSINOPHILS % (AUTO) 4.3 % (1.0-6.0); HEMATOCRIT 31.2 % (41-53); HEMOGLOBIN 10.8 g/dL (13.5-17.5); LYMPHOCYTES # (AUTO) 1.6 K/uL (1.0-4.8); LYMPHOCYTES % (AUTO) 36.4 % (22.0-44.0); MEAN CORPUSCULAR HEMOGLOBIN 30.9 pg (26.0-34.0); MEAN CORPUSCULAR HGB CONC 34.5 G/dL (31.0-37.0); MEAN CORPUSCULAR VOLUME 90 fL (80-100); MONOCYTES # (AUTO) 0.5 K/uL (0.1-1.0); MONOCYTES % (AUTO) 10.4 % (2.0-9.0); NEUTROPHILS # (AUTO) 2.1 K/uL (1.8-7.7); NEUTROPHILS % (AUTO) 47.8 % (40.0-70.0); PLATELET COUNT (AUTO) 215 K/uL (150-450); RED BLOOD CELL COUNT(AUTO) 3.48 MIL/uL (4.50-5.90); RED CELL DISTRIBUTION WIDTH 13.8 % (11.5-14.5)
[2018-02-17 11:24] LABS: CALCIUM, TOTAL 8.6 mg/dL (8.8-10.5); CREATININE 2.88 mg/dL (0.60-1.30); POTASSIUM 4.5 mmol/L (3.5-5.1)
[2018-02-17 11:30] LABS: ALBUMIN 3.1 g/dL (3.4-5.0); BILIRUBIN,TOTAL 0.3 mg/dL (0.1-1.0); TOTAL PROTEIN, SERUM 6.8 g/dL (6.4-8.2)
[2018-02-17] MEDS ORDERED: ALBUTEROL SULFATE HFA 90 MCG/PUFF 8 GM INHALER IH ONE (12:15)
[2018-02-17] MEDS ORDERED: PredniSONE 20 MG TABLET PO ONE (12:15)
[2018-02-17 13:10] VITALS: BP 161/100
== END 2018-02-17 13:11 | disposition home or self-care (01) ==
LOC: EMS 10:43
DX: J45.901 Unspecified asthma with (acute) exacerbation (principal); J44.1 Chronic obstructive pulmonary disease with (acute) exacerbation; E11.65 Type 2 diabetes mellitus with hyperglycemia; N19 Unspecified kidney failure; I11.0 Hypertensive heart disease with heart failure; I50.9 Heart failure, unspecified; I25.10 Atherosclerotic heart disease of native coronary artery without angina pectoris; E78.00 Pure hypercholesterolemia, unspecified; Z79.4 Long term (current) use of insulin
CPT/HCPCS: 36415; 71045; 80053; 82962; 83880; 84484; 85025; 93005; 94640; 99285; J7512; J3535

== ENCOUNTER 2018-05-26 01:05 | Inpatient (IN) | payer MEDICARE, MEDICAID ==
[~2018-05-26] VITALS: Ht 182.9 cm; Wt 94.4 kg
[~2018-05-26 01:05] MED LIST changes: +ADV250 IH; -AMLO-512 PO; +ASPI-1182 PO; +CLOP75TA32 PO; +COLE625 PO; -HYDR-4173 PO; +INSLAN SQ; -INSU100V12 SQ; -ISOS30TA6 PO; -LISI-661 PO; +METO-558 PO; -METO50 PO; -MORP100T6 PO; -OXYC30TA2 PO; +PRED10 PO
[2018-05-26 01:23] LABS: GLUCOSE,POINT OF CARE 201 MG/DL (70-110)
[2018-05-26 01:42] LABS: BASOPHILS % (AUTO) 1.1 % (0.0-2.0); EOSINOPHILS % (AUTO) 6.5 % (1.0-6.0); HEMATOCRIT 29.7 % (41-53); HEMOGLOBIN 10.2 g/dL (13.5-17.5); LYMPHOCYTES # (AUTO) 1.9 K/uL (1.0-4.8); MEAN CORPUSCULAR HEMOGLOBIN 31.3 pg (26.0-34.0); MEAN CORPUSCULAR HGB CONC 34.5 G/dL (31.0-37.0); MEAN CORPUSCULAR VOLUME 91 fL (80-100); MONOCYTES # (AUTO) 0.6 K/uL (0.1-1.0); MONOCYTES % (AUTO) 11.4 % (2.0-9.0); NEUTROPHILS # (AUTO) 2.5 K/uL (1.8-7.7); PLATELET COUNT (AUTO) 282 K/uL (150-450); RED BLOOD CELL COUNT(AUTO) 3.27 MIL/uL (4.50-5.90); RED CELL DISTRIBUTION WIDTH 14.3 % (11.5-14.5)
[2018-05-26 01:46] LABS: CALCIUM, TOTAL 8.7 mg/dL (8.8-10.5); CREATININE 2.57 mg/dL (0.60-1.30); POTASSIUM 3.4 mmol/L (3.5-5.1)
[2018-05-26 01:48] LABS: PROTHROMBIN TIME 10.5 SEC (9.4-11.6)
[2018-05-26 02:12] LABS: ALBUMIN 2.7 g/dL (3.4-5.0); BILIRUBIN,TOTAL 0.2 mg/dL (0.1-1.0); CKMB RELATIVE INDEX 1.3 % (0.0-4.0); CREATINE KINASE MB 5.9 ng/mL (0-5); TOTAL PROTEIN, SERUM 6.7 g/dL (6.4-8.2)
[2018-05-26] MEDS ORDERED: FUROSEMIDE 40 MG/4 ML VIAL IVP ONE ×2 (02:30→14:00)
[2018-05-26] MEDS ORDERED: ALBUTEROL SULFATE 5 MG/ML 20 ML NEB SOLN [BULK] NEB ONE (02:30)
[2018-05-26] MEDS ORDERED: ASPIRIN 81 MG CHEWABLE TABLET PO ONE (02:30)
[2018-05-26] MEDS ORDERED: NITROGLYCERIN 2% (1 GM=INCH) PACKET TP ONE (02:30)
[2018-05-26] MEDS ORDERED: IPRATROPIUM BROMIDE 0.5 MG/2.5 ML NEB SOLUTION NEB ONE (02:30)
[2018-05-26] MEDS ORDERED: 0.9% SODIUM CHLORIDE 10 ML SYRINGE IVP PRN (02:45)
[2018-05-26] MEDS ORDERED: ONDANSETRON HCL 4 MG/2 ML VIAL IVP PRN ×2 (02:45→10:30)
[2018-05-26] MEDS ORDERED: ACETAMINOPHEN 325 MG TABLET PO PRN ×2 (02:45→10:30)
[2018-05-26] MEDS ORDERED: 0.9% SODIUM CHLORIDE 5 ML NEB SOLUTION NEB ONE (02:45)
[2018-05-26] MEDS: IPRATROPIUM BROMIDE 0.5 MG/2.5 ML NEB SOLUTION NEB SCH ×5 (03:00→18:56)
[2018-05-26] MEDS: ALBUTEROL SULFATE 2.5 MG/0.5 ML NEB SOLUTION NEB SCH ×5 (03:00→18:56)
[2018-05-26 03:37] LABS: APPEARANCE,URINE CLEAR (CLEAR); BILIRUBIN,URINE NEGATIVE (NEGATIVE); GLUCOSE, URINE (UA) 250 mg/dL (NEGATIVE); KETONES,URINE NEGATIVE (NEGATIVE); LEUKOCYTE ESTERASE ,URINE NEGATIVE (NEGATIVE); NITRATE,URINE NEGATIVE (NEGATIVE); OCCULT BLOOD,URINE TRACE (NEGATIVE); PROTEIN,URINE SEE CONFIRM (NEGATIVE); UROBILINOGEN,URINE 0.2 mg/dL (<=1.0)
[2018-05-26 04:16] LABS: BACTERIA,URINE None Seen /HPF (None Seen); SQUAMOUS EPITHELIAL CELL,UR Rare /LPF (None Seen); SULFOSALICYLIC ACID,URINE 2+ (Negative); WBC,URINE 0-2 /HPF (0-5)
[2018-05-26] MEDS ORDERED: NITROGLYCERIN 0.4 MG SUBLINGUAL TABLET #25 SL ONE (04:30)
[2018-05-26] MEDS ORDERED: ZOLPIDEM TARTRATE 5 MG TABLET PO PRN (10:30)
[2018-05-26] MEDS ORDERED: DEXTROSE 50%-WATER 25 GM/50 ML SYRINGE IVP PRN (10:45)
[2018-05-26] MEDS: FUROSEMIDE 40 MG/4 ML VIAL IVP SCH ×2 (11:11→20:56)
[2018-05-26] MEDS: TAMSULOSIN HCL 0.4 MG CAPSULE PO SCH (11:12)
[2018-05-26] MEDS: PANTOPRAZOLE SODIUM 40 MG/VIAL IVP SCH (11:12)
[2018-05-26] MEDS: DOCUSATE SODIUM 100 MG CAPSULE PO SCH ×2 (11:12→20:56)
[2018-05-26] MEDS: ASPIRIN 81 MG CHEWABLE TABLET PO SCH (11:12)
[2018-05-26] MEDS: CLOPIDOGREL BISULFATE 75 MG TABLET PO SCH (11:12)
[2018-05-26] MEDS: RANOLAZINE 500 MG SR TABLET PO SCH ×2 (11:13→22:14)
[2018-05-26] MEDS: METOPROLOL SUCCINATE 50 MG ER TABLET PO SCH ×2 (11:13→20:57)
[2018-05-26] MEDS: FINASTERIDE 5 MG TABLET PO SCH (11:13)
[2018-05-26] MEDS: SODIUM BICARBONATE 650 MG TABLET PO SCH ×2 (11:13→22:14)
[2018-05-26 11:23] LABS: GLUCOSE,POINT OF CARE 192 MG/DL (70-110)
[2018-05-26] MEDS: INSULIN LISPRO 100 UNITS/ML SQ PRN ×3 (11:25→21:01)
[2018-05-26] MEDS: IPRATROPIUM BROMIDE 0.5 MG/2.5 ML NEB SOLUTION NEB PRN ×3 (12:35→23:36)
[2018-05-26] MEDS: ALBUTEROL SULFATE 2.5 MG/0.5 ML NEB SOLUTION NEB PRN ×3 (12:35→23:36)
[2018-05-26] MEDS ORDERED: HydrALAZINE HCL 20 MG/ML VIAL IVP PRN (14:00)
[2018-05-26] MEDS: GABAPENTIN 300 MG CAPSULE PO SCH ×2 (15:25→20:57)
[2018-05-26] MEDS ORDERED: HydrALAZINE HCL 25 MG TABLET PO ONE (16:00)
[2018-05-26] MEDS ORDERED: MethylPREDNISolone SOD SUCC 40 MG/ML VIAL IVP ONE (16:00)
[2018-05-26] MEDS ORDERED: CARVEDILOL 3.125 MG TABLET PO ONE (17:00)
[2018-05-26 17:06] VITALS: BP 177/101
[2018-05-26] MEDS: CILOSTAZOL 100 MG TABLET PO SCH (17:30)
[2018-05-26] MEDS: COLESEVELAM HCL 625 MG TABLET PO SCH (18:00)
[2018-05-26 19:35] VITALS: BP 169/96
[2018-05-26] MEDS: ROSUVASTATIN CALCIUM 20 MG TABLET PO SCH (20:57)
[2018-05-26] MEDS: INSULIN GLARGINE,HUM.REC.ANLOG 100 UNITS/ML SQ SCH (21:00)
[2018-05-26 21:48] LABS: GLUCOMETER DEV NAME(LOC) 5N 1P; GLUCOSE,POINT OF CARE 299 MG/DL (70-110)
[2018-05-26] MEDS: MethylPREDNISolone SOD SUCC 125 MG/2 ML VIAL IVP SCH (23:37)
[2018-05-26 23:38] VITALS: BP 179/99
[2018-05-27] MEDS: IPRATROPIUM BROMIDE 0.5 MG/2.5 ML NEB SOLUTION NEB SCH ×4 (02:19→19:57)
[2018-05-27] MEDS: ALBUTEROL SULFATE 2.5 MG/0.5 ML NEB SOLUTION NEB SCH ×4 (02:19→19:57)
[2018-05-27 05:00] VITALS: BP 179/88
[2018-05-27] MEDS: CILOSTAZOL 100 MG TABLET PO SCH ×2 (05:39→18:01)
[2018-05-27] MEDS: INSULIN LISPRO 100 UNITS/ML SQ PRN ×3 (05:41→18:04)
[2018-05-27 07:44] VITALS: BP 152/77
[2018-05-27 07:55] LABS: BASOPHILS % (AUTO) 0.2 % (0.0-2.0); EOSINOPHILS % (AUTO) 0 % (1.0-6.0); HEMATOCRIT 31.4 % (41-53); HEMOGLOBIN 10.6 g/dL (13.5-17.5); LYMPHOCYTES # (AUTO) 0.8 K/uL (1.0-4.8); LYMPHOCYTES % (AUTO) 13.5 % (22.0-44.0); MEAN CORPUSCULAR HEMOGLOBIN 30.9 pg (26.0-34.0); MEAN CORPUSCULAR HGB CONC 33.8 G/dL (31.0-37.0); MEAN CORPUSCULAR VOLUME 91 fL (80-100); MONOCYTES % (AUTO) 0.7 % (2.0-9.0); NEUTROPHILS # (AUTO) 4.8 K/uL (1.8-7.7); PLATELET COUNT (AUTO) 314 K/uL (150-450); RED BLOOD CELL COUNT(AUTO) 3.43 MIL/uL (4.50-5.90); RED CELL DISTRIBUTION WIDTH 14.5 % (11.5-14.5)
[2018-05-27 08:00] LABS: NEUTROPHILS % (AUTO) 85.6 % (40.0-70.0)
[2018-05-27] MEDS: MethylPREDNISolone SOD SUCC 125 MG/2 ML VIAL IVP SCH (08:05)
[2018-05-27] MEDS: COLESEVELAM HCL 625 MG TABLET PO SCH ×3 (08:05→18:00)
[2018-05-27] MEDS: PANTOPRAZOLE SODIUM 40 MG/VIAL IVP SCH (08:06)
[2018-05-27] MEDS: ASPIRIN 81 MG CHEWABLE TABLET PO SCH (08:06)
[2018-05-27] MEDS: FUROSEMIDE 40 MG/4 ML VIAL IVP SCH ×2 (08:06→20:20)
[2018-05-27] MEDS: RANOLAZINE 500 MG SR TABLET PO SCH ×2 (08:07→20:20)
[2018-05-27] MEDS: TAMSULOSIN HCL 0.4 MG CAPSULE PO SCH (08:07)
[2018-05-27] MEDS: GABAPENTIN 300 MG CAPSULE PO SCH ×3 (08:07→20:21)
[2018-05-27] MEDS: FINASTERIDE 5 MG TABLET PO SCH (08:07)
[2018-05-27] MEDS: CLOPIDOGREL BISULFATE 75 MG TABLET PO SCH (08:07)
[2018-05-27] MEDS: METOPROLOL SUCCINATE 50 MG ER TABLET PO SCH ×2 (08:08→20:21)
[2018-05-27] MEDS: SODIUM BICARBONATE 650 MG TABLET PO SCH ×2 (08:08→20:20)
[2018-05-27] MEDS: DOCUSATE SODIUM 100 MG CAPSULE PO SCH ×2 (08:11→20:21)
[2018-05-27 08:34] LABS: ALBUMIN 2.7 g/dL (3.4-5.0); BILIRUBIN,TOTAL 0.3 mg/dL (0.1-1.0); CALCIUM, TOTAL 8.7 mg/dL (8.8-10.5); CREATININE 2.81 mg/dL (0.60-1.30); MAGNESIUM 1.8 mg/dL (1.80-2.40); POTASSIUM 4.6 mmol/L (3.5-5.1); TOTAL PROTEIN, SERUM 6.9 g/dL (6.4-8.2)
[2018-05-27 08:43] LABS: GLUCOMETER DEV NAME(LOC) 5N 1P; GLUCOSE,POINT OF CARE 377 MG/DL (70-110)
[2018-05-27] MEDS: IPRATROPIUM BROMIDE 0.5 MG/2.5 ML NEB SOLUTION NEB PRN ×2 (11:38→16:58)
[2018-05-27] MEDS: ALBUTEROL SULFATE 2.5 MG/0.5 ML NEB SOLUTION NEB PRN ×2 (11:38→16:58)
[2018-05-27 11:40] VITALS: BP 134/69
[2018-05-27 12:35] LABS: GLUCOMETER DEV NAME(LOC) 5S 1M; GLUCOSE,POINT OF CARE 160 MG/DL (70-110)
[2018-05-27] MEDS ORDERED: INSULIN GLARGINE,HUM.REC.ANLOG 100 UNITS/ML SQ ONE (12:45)
[2018-05-27 15:50] VITALS: BP 130/86
[2018-05-27] MEDS ORDERED: INSULIN LISPRO 100 UNITS/ML SQ ONE (17:00)
[2018-05-27] MEDS: PredniSONE 20 MG TABLET PO SCH (20:16)
[2018-05-27] MEDS: ROSUVASTATIN CALCIUM 20 MG TABLET PO SCH (20:20)
[2018-05-27] MEDS: INSULIN GLARGINE,HUM.REC.ANLOG 100 UNITS/ML SQ SCH (20:23)
[2018-05-27 20:34] VITALS: BP 143/78
[2018-05-27 21:08] LABS: GLUCOMETER DEV NAME(LOC) 5N 1P; GLUCOSE,POINT OF CARE 360 MG/DL (70-110)
[2018-05-27 21:09] LABS: GLUCOMETER DEV NAME(LOC) 5N 1P; GLUCOSE,POINT OF CARE 452 MG/DL (70-110)
[2018-05-27 21:09] LABS: GLUCOMETER DEV NAME(LOC) 5N 1P; GLUCOSE,POINT OF CARE 431 MG/DL (70-110)
[2018-05-27 21:09] LABS: GLUCOMETER DEV NAME(LOC) 5N 1P; GLUCOSE,POINT OF CARE 314 MG/DL (70-110)
[2018-05-27 21:09] LABS: GLUCOMETER DEV NAME(LOC) 5N 1P; GLUCOSE,POINT OF CARE 449 MG/DL (70-110)
[2018-05-28 00:24] VITALS: BP 149/82
[2018-05-28] MEDS: IPRATROPIUM BROMIDE 0.5 MG/2.5 ML NEB SOLUTION NEB PRN ×4 (00:39→21:35)
[2018-05-28] MEDS: ALBUTEROL SULFATE 2.5 MG/0.5 ML NEB SOLUTION NEB PRN ×4 (00:39→21:35)
[2018-05-28 01:39] LABS: GLUCOMETER DEV NAME(LOC) 5S 1M; GLUCOSE,POINT OF CARE 164 MG/DL (70-110)
[2018-05-28] MEDS: IPRATROPIUM BROMIDE 0.5 MG/2.5 ML NEB SOLUTION NEB SCH ×4 (02:00→18:58)
[2018-05-28] MEDS: ALBUTEROL SULFATE 2.5 MG/0.5 ML NEB SOLUTION NEB SCH ×4 (02:00→18:58)
[2018-05-28 04:33] VITALS: BP 156/80
[2018-05-28] MEDS: CILOSTAZOL 100 MG TABLET PO SCH ×2 (06:10→17:05)
[2018-05-28] MEDS: INSULIN LISPRO 100 UNITS/ML SQ PRN ×3 (06:11→20:18)
[2018-05-28 07:46] VITALS: BP 170/89
[2018-05-28] MEDS: PANTOPRAZOLE SODIUM 40 MG/VIAL IVP SCH (08:30)
[2018-05-28] MEDS: COLESEVELAM HCL 625 MG TABLET PO SCH ×3 (08:31→17:05)
[2018-05-28] MEDS: RANOLAZINE 500 MG SR TABLET PO SCH ×2 (08:32→20:08)
[2018-05-28] MEDS: SODIUM BICARBONATE 650 MG TABLET PO SCH ×2 (08:32→20:08)
[2018-05-28] MEDS: FUROSEMIDE 40 MG/4 ML VIAL IVP SCH (08:41)
[2018-05-28] MEDS: FINASTERIDE 5 MG TABLET PO SCH (08:41)
[2018-05-28] MEDS: ASPIRIN 81 MG CHEWABLE TABLET PO SCH (08:41)
[2018-05-28] MEDS: GABAPENTIN 300 MG CAPSULE PO SCH ×3 (08:41→20:08)
[2018-05-28] MEDS: METOPROLOL SUCCINATE 50 MG ER TABLET PO SCH ×2 (08:41→20:08)
[2018-05-28] MEDS: CLOPIDOGREL BISULFATE 75 MG TABLET PO SCH (08:42)
[2018-05-28] MEDS: DOCUSATE SODIUM 100 MG CAPSULE PO SCH ×2 (08:43→20:08)
[2018-05-28] MEDS: TAMSULOSIN HCL 0.4 MG CAPSULE PO SCH (08:55)
[2018-05-28] MEDS: PredniSONE 20 MG TABLET PO SCH (08:56)
[2018-05-28 11:40] VITALS: BP 144/85
[2018-05-28 15:39] VITALS: BP 141/81
[2018-05-28] MEDS ORDERED: DEXTROSE 50%-WATER 25 GM/50 ML SYRINGE IVP PRN (17:30)
[2018-05-28] MEDS ORDERED: INSULIN LISPRO 100 UNITS/ML SQ ONE (17:30)
[2018-05-28] MEDS: ROSUVASTATIN CALCIUM 20 MG TABLET PO SCH (20:08)
[2018-05-28 20:25] VITALS: BP 152/89
[2018-05-28 20:39] LABS: GLUCOMETER DEV NAME(LOC) 5N 1P; GLUCOSE,POINT OF CARE 345 MG/DL (70-110)
[2018-05-28 20:39] LABS: GLUCOMETER DEV NAME(LOC) 5N 1P; GLUCOSE,POINT OF CARE 286 MG/DL (70-110)
[2018-05-28 20:39] LABS: GLUCOMETER DEV NAME(LOC) 5N 1P; GLUCOSE,POINT OF CARE 396 MG/DL (70-110)
[2018-05-28] MEDS ORDERED: INSULIN GLARGINE,HUM.REC.ANLOG 100 UNITS/ML SQ SCH (21:00)
[2018-05-29 00:25] VITALS: BP 158/97
[2018-05-29] MEDS: IPRATROPIUM BROMIDE 0.5 MG/2.5 ML NEB SOLUTION NEB SCH ×3 (02:37→14:29)
[2018-05-29] MEDS: ALBUTEROL SULFATE 2.5 MG/0.5 ML NEB SOLUTION NEB SCH ×3 (02:38→14:29)
[2018-05-29 05:22] VITALS: BP 155/91
[2018-05-29 05:59] LABS: GLUCOMETER DEV NAME(LOC) 5S 1M; GLUCOSE,POINT OF CARE 500 MG/DL (70-110)
[2018-05-29 05:59] LABS: GLUCOMETER DEV NAME(LOC) 5S 1M; GLUCOSE,POINT OF CARE 496 MG/DL (70-110)
[2018-05-29] MEDS: CILOSTAZOL 100 MG TABLET PO SCH ×2 (06:20→17:11)
[2018-05-29] MEDS: INSULIN LISPRO 100 UNITS/ML SQ PRN ×2 (06:21→18:03)
[2018-05-29 07:34] LABS: GLUCOMETER DEV NAME(LOC) 5N 1P; GLUCOSE,POINT OF CARE 253 MG/DL (70-110)
[2018-05-29 07:49] VITALS: BP 184/102
[2018-05-29] MEDS: METOPROLOL SUCCINATE 50 MG ER TABLET PO SCH (08:27)
[2018-05-29] MEDS: SODIUM BICARBONATE 650 MG TABLET PO SCH (08:27)
[2018-05-29] MEDS: TAMSULOSIN HCL 0.4 MG CAPSULE PO SCH (08:27)
[2018-05-29] MEDS: RANOLAZINE 500 MG SR TABLET PO SCH (08:27)
[2018-05-29] MEDS: COLESEVELAM HCL 625 MG TABLET PO SCH ×3 (08:28→18:01)
[2018-05-29] MEDS: CLOPIDOGREL BISULFATE 75 MG TABLET PO SCH (08:28)
[2018-05-29] MEDS: GABAPENTIN 300 MG CAPSULE PO SCH ×2 (08:28→17:11)
[2018-05-29] MEDS: DOCUSATE SODIUM 100 MG CAPSULE PO SCH (08:28)
[2018-05-29] MEDS: ASPIRIN 81 MG CHEWABLE TABLET PO SCH (08:28)
[2018-05-29] MEDS: FINASTERIDE 5 MG TABLET PO SCH (08:28)
[2018-05-29] MEDS: PredniSONE 20 MG TABLET PO SCH (08:28)
[2018-05-29] MEDS: PANTOPRAZOLE SODIUM 40 MG/VIAL IVP SCH (08:29)
[2018-05-29] MEDS ORDERED: TIOTROPIUM BROMIDE 18 MCG/INH HANDIHALER [5] IH SCH (10:00)
[2018-05-29 11:30] VITALS: BP 135/92
[2018-05-29 16:01] VITALS: BP 153/88
[2018-05-29] MEDS ORDERED: PRED5 PO (17:28)
[2018-05-29] MEDS: ALBUTEROL SULFATE 2.5 MG/0.5 ML NEB SOLUTION NEB PRN (17:48)
[2018-05-29] MEDS: IPRATROPIUM BROMIDE 0.5 MG/2.5 ML NEB SOLUTION NEB PRN (17:48)
[2018-05-29 17:53] LABS: GLUCOMETER DEV NAME(LOC) 5N 1P; GLUCOSE,POINT OF CARE 209 MG/DL (70-110)
[2018-05-29 17:53] LABS: GLUCOMETER DEV NAME(LOC) 5N 1P; GLUCOSE,POINT OF CARE 488 MG/DL (70-110)
[2018-05-30] MEDS ORDERED: PredniSONE 20 MG TABLET PO SCH (09:00)
== END 2018-05-29 18:10 | disposition home or self-care (01) | DRG 291 ==
LOC: EMS 01:06 → 5N 16:02
PROVIDERS: ADMIT Internal Medicine; ATTEND Internal Medicine
DX: I13.0 Hypertensive heart and chronic kidney disease with heart failure and stage 1 through stage 4 chronic kidney disease, or unspecified chronic kidney disease (principal); I50.33 Acute on chronic diastolic (congestive) heart failure; J44.1 Chronic obstructive pulmonary disease with (acute) exacerbation; N18.4 Chronic kidney disease, stage 4 (severe); I25.10 Atherosclerotic heart disease of native coronary artery without angina pectoris; E78.00 Pure hypercholesterolemia, unspecified; D64.9 Anemia, unspecified; E11.22 Type 2 diabetes mellitus with diabetic chronic kidney disease; R62.7 Adult failure to thrive; E78.5 Hyperlipidemia, unspecified; E11.65 Type 2 diabetes mellitus with hyperglycemia; K27.9 Peptic ulcer, site unspecified, unspecified as acute or chronic, without hemorrhage or perforation; Z86.718 Personal history of other venous thrombosis and embolism; Z82.5 Family history of asthma and other chronic lower respiratory diseases; Z82.49 Family history of ischemic heart disease and other diseases of the circulatory system; Z83.3 Family history of diabetes mellitus; Z87.891 Personal history of nicotine dependence; Z95.5 Presence of coronary angioplasty implant and graft; Z91.19 Patient's noncompliance with other medical treatment and regimen
CPT/HCPCS: 83735; 93005; 93306; 94640; 94644; 96374; 99285; C9113; J0360; J1815; J1940; J2920; J2930

== ENCOUNTER 2018-06-15 10:15 | Emergency (ER) | payer MEDICARE, MEDICAID ==
[~2018-06-15] VITALS: Ht 182.9 cm; Wt 93.2 kg
[~2018-06-15 10:15] MED LIST changes: -FURO40 PO; -INSU3INS5 SQ; -METO-558 PO; +METO25 PO; -PRED10 PO; -PRED20 PO; +PRED5 PO
[2018-06-15] MEDS ORDERED: SODIUM CHLORIDE 0.9% 2,000 ML IV ONE (11:04)
[2018-06-15 11:13] LABS: BASOPHILS % (AUTO) 0.9 % (0.0-2.0); EOSINOPHILS % (AUTO) 0.2 % (1.0-6.0); HEMATOCRIT 32.8 % (41-53); LYMPHOCYTES # (AUTO) 0.9 K/uL (1.0-4.8); LYMPHOCYTES % (AUTO) 14.8 % (22.0-44.0); MEAN CORPUSCULAR HEMOGLOBIN 30.8 pg (26.0-34.0); MEAN CORPUSCULAR HGB CONC 33.4 G/dL (31.0-37.0); MEAN CORPUSCULAR VOLUME 92 fL (80-100); MONOCYTES # (AUTO) 0.7 K/uL (0.1-1.0); MONOCYTES % (AUTO) 11.8 % (2.0-9.0); NEUTROPHILS # (AUTO) 4.3 K/uL (1.8-7.7); NEUTROPHILS % (AUTO) 72.3 % (40.0-70.0); PLATELET COUNT (AUTO) 220 K/uL (150-450); RED BLOOD CELL COUNT(AUTO) 3.56 MIL/uL (4.50-5.90); RED CELL DISTRIBUTION WIDTH 14.5 % (11.5-14.5)
[2018-06-15] MEDS ORDERED: INSULIN REGULAR, HUMAN 100 UNITS/ML IVP ONE (11:15)
[2018-06-15 11:19] LABS: APPEARANCE,URINE CLEAR (CLEAR); BILIRUBIN,URINE NEGATIVE (NEGATIVE); GLUCOSE, URINE (UA) >=1000 mg/dL (NEGATIVE); KETONES,URINE NEGATIVE (NEGATIVE); LEUKOCYTE ESTERASE ,URINE NEGATIVE (NEGATIVE); NITRATE,URINE NEGATIVE (NEGATIVE); OCCULT BLOOD,URINE NEGATIVE (NEGATIVE); PH,URINE 5.5 (5.0-8.0); PROTEIN,URINE SEE CONFIRM (NEGATIVE); UROBILINOGEN,URINE 0.2 mg/dL (<=1.0)
[2018-06-15 11:28] LABS: BACTERIA,URINE None Seen /HPF (None Seen); RBC,URINE None Seen /HPF (0-2); SULFOSALICYLIC ACID,URINE 2+ (Negative); WBC,URINE 0-2 /HPF (0-5)
[2018-06-15 12:08] LABS: ALBUMIN 2.9 g/dL (3.4-5.0); BILIRUBIN,TOTAL 0.3 mg/dL (0.1-1.0); CALCIUM, TOTAL 8.7 mg/dL (8.8-10.5); CREATININE 2.94 mg/dL (0.60-1.30); POTASSIUM 4.4 mmol/L (3.5-5.1)
[2018-06-15 12:54] LABS: GLUCOSE,POINT OF CARE 206 MG/DL (70-110)
[2018-06-15 13:17] VITALS: BP 145/65
== END 2018-06-15 13:37 | disposition home or self-care (01) ==
LOC: EMS 10:19
DX: E11.65 Type 2 diabetes mellitus with hyperglycemia (principal); E11.22 Type 2 diabetes mellitus with diabetic chronic kidney disease; I13.0 Hypertensive heart and chronic kidney disease with heart failure and stage 1 through stage 4 chronic kidney disease, or unspecified chronic kidney disease; N17.9 Acute kidney failure, unspecified; N18.9 Chronic kidney disease, unspecified; I50.9 Heart failure, unspecified; E86.0 Dehydration; I25.10 Atherosclerotic heart disease of native coronary artery without angina pectoris; E78.00 Pure hypercholesterolemia, unspecified; Z86.718 Personal history of other venous thrombosis and embolism; Z79.01 Long term (current) use of anticoagulants; Z79.82 Long term (current) use of aspirin; Z79.4 Long term (current) use of insulin; Z79.899 Other long term (current) drug therapy
CPT/HCPCS: 36415; 80053; 81001; 82962; 83690; 83880; 84484; 85025; 96361; 96374; 99284; J1815; J7030

== ENCOUNTER 2018-07-02 20:22 | Inpatient (IN) | payer MEDICARE, MEDICAID ==
[~2018-07-02] VITALS: Ht 182.9 cm; Wt 92.8 kg
[2018-07-02 20:39] LABS: GLUCOSE,POINT OF CARE > 600 MG/DL (70-110)
[2018-07-02 20:51] LABS: BASOPHILS % (AUTO) 0.3 % (0.0-2.0); EOSINOPHILS % (AUTO) 0.1 % (1.0-6.0); HEMOGLOBIN 10.2 g/dL (13.5-17.5); LYMPHOCYTES # (AUTO) 0.5 K/uL (1.0-4.8); LYMPHOCYTES % (AUTO) 7.2 % (22.0-44.0); MEAN CORPUSCULAR HEMOGLOBIN 31.1 pg (26.0-34.0); MEAN CORPUSCULAR HGB CONC 32.9 G/dL (31.0-37.0); MEAN CORPUSCULAR VOLUME 94 fL (80-100); MONOCYTES % (AUTO) 0.5 % (2.0-9.0); NEUTROPHILS # (AUTO) 6.1 K/uL (1.8-7.7); NEUTROPHILS % (AUTO) 91.9 % (40.0-70.0); PLATELET COUNT (AUTO) 281 K/uL (150-450); RED BLOOD CELL COUNT(AUTO) 3.29 MIL/uL (4.50-5.90); RED CELL DISTRIBUTION WIDTH 14.6 % (11.5-14.5)
[2018-07-02 21:04] LABS: PROTHROMBIN TIME 10.3 SEC (9.4-11.6)
[2018-07-02 21:22] LABS: APPEARANCE,URINE CLEAR (CLEAR); BILIRUBIN,URINE NEGATIVE (NEGATIVE); GLUCOSE, URINE (UA) >=1000 mg/dL (NEGATIVE); KETONES,URINE NEGATIVE (NEGATIVE); LEUKOCYTE ESTERASE ,URINE NEGATIVE (NEGATIVE); NITRATE,URINE NEGATIVE (NEGATIVE); OCCULT BLOOD,URINE TRACE (NEGATIVE); PROTEIN,URINE SEE CONFIRM (NEGATIVE); UROBILINOGEN,URINE 0.2 mg/dL (<=1.0)
[2018-07-02 21:24] LABS: ALBUMIN 2.4 g/dL (3.4-5.0); BILIRUBIN,TOTAL 0.3 mg/dL (0.1-1.0); CALCIUM, TOTAL 8.6 mg/dL (8.8-10.5); CREATININE 2.8 mg/dL (0.60-1.30); POTASSIUM 5.7 mmol/L (3.5-5.1); TOTAL PROTEIN, SERUM 6.9 g/dL (6.4-8.2)
[2018-07-02] MEDS ORDERED: INSULIN REGULAR, HUMAN 100 UNITS/ML IVP ONE ×2 (21:30→23:15)
[2018-07-02 21:34] LABS: BACTERIA,URINE None Seen /HPF (None Seen); SQUAMOUS EPITHELIAL CELL,UR Rare /LPF (None Seen); SULFOSALICYLIC ACID,URINE 2+ (Negative); WBC,URINE 0-2 /HPF (0-5)
[2018-07-02] MEDS ORDERED: IPRATROPIUM BROMIDE 0.5 MG/2.5 ML NEB SOLUTION NEB ONE (21:45)
[2018-07-02] MEDS ORDERED: ALBUTEROL SULFATE 2.5 MG/0.5 ML NEB SOLUTION NEB ONE (21:45)
[2018-07-02] MEDS ORDERED: SODIUM CHLORIDE 0.9% 500 ML IV ONE (22:00)
[2018-07-02] MEDS ORDERED: SODIUM POLYSTYRENE SULFONATE 15 GM/60 ML SUSPENSION BOTTLE PO ONE ×2 (22:15→23:30)
[2018-07-02] MEDS ORDERED: CALCIUM GLUCONATE 0.465 MEQ/ML 10 ML VIAL IVP ONE (22:15)
[2018-07-02] MEDS ORDERED: ACETAMINOPHEN 325 MG TABLET PO PRN ×2 (22:30→23:00)
[2018-07-02] MEDS ORDERED: ONDANSETRON HCL 4 MG/2 ML VIAL IVP PRN ×2 (22:30→23:00)
[2018-07-02] MEDS ORDERED: 0.9% SODIUM CHLORIDE 10 ML SYRINGE IVP PRN (22:30)
[2018-07-02 22:54] LABS: GLUCOSE,POINT OF CARE 503 MG/DL (70-110)
[2018-07-02] MEDS ORDERED: MORPHINE SULFATE 2 MG/ML SYRINGE IVP PRN (23:00)
[2018-07-02] MEDS ORDERED: MAGNESIUM HYDROXIDE SUSPENSION 30 ML UDCUP PO PRN (23:00)
[2018-07-02] MEDS ORDERED: ZOLPIDEM TARTRATE 10 MG TABLET PO PRN (23:00)
[2018-07-02] MEDS ORDERED: HYDROCODONE/ACETAMINOPHEN 5-325 MG TABLET PO PRN (23:00)
[2018-07-02] MEDS ORDERED: DEXTROSE 50%-WATER 25 GM/50 ML SYRINGE IVP PRN (23:00)
[2018-07-03 00:29] LABS: GLUCOSE,POINT OF CARE 546 MG/DL (70-110)
[2018-07-03] MEDS: NITROGLYCERIN 2% (1 GM=INCH) PACKET TP SCH ×5 (00:34→23:59)
[2018-07-03] MEDS: MethylPREDNISolone SOD SUCC 125 MG/2 ML VIAL IVP SCH ×2 (00:35→07:00)
[2018-07-03 02:55] VITALS: BP 195/100
[2018-07-03] MEDS: ALBUTEROL SULFATE 2.5 MG/0.5 ML NEB SOLUTION NEB PRN ×2 (03:12→09:18)
[2018-07-03] MEDS: IPRATROPIUM BROMIDE 0.5 MG/2.5 ML NEB SOLUTION NEB PRN ×3 (03:12→14:44)
[2018-07-03] MEDS ORDERED: -PHARMACY VACCINE NOTE- MISC ONE (03:30)
[2018-07-03] MEDS: HydrALAZINE HCL 20 MG/ML VIAL IVP PRN ×2 (04:34→23:59)
[2018-07-03] MEDS: CILOSTAZOL 100 MG TABLET PO SCH ×2 (07:00→18:03)
[2018-07-03 07:18] LABS: CHOL/HDL RATIO 4.2 (4.2-7.3)
[2018-07-03] MEDS ORDERED: INSULIN LISPRO 100 UNITS/ML SQ ONE (07:30)
[2018-07-03 07:46] VITALS: BP 177/90
[2018-07-03] MEDS: INSULIN GLARGINE,HUM.REC.ANLOG 100 UNITS/ML SQ SCH ×2 (08:21→21:19)
[2018-07-03] MEDS: GABAPENTIN 300 MG CAPSULE PO SCH ×3 (08:22→21:03)
[2018-07-03] MEDS: ASPIRIN 81 MG EC TABLET PO SCH (08:22)
[2018-07-03] MEDS: MULTIVITAMINS, THERAPEUTIC TABLET PO SCH (08:22)
[2018-07-03] MEDS: RANOLAZINE 500 MG ER TABLET PO SCH ×2 (08:23→21:02)
[2018-07-03] MEDS: METOPROLOL TARTRATE 25 MG TABLET PO SCH ×2 (08:23→21:03)
[2018-07-03] MEDS: TAMSULOSIN HCL 0.4 MG CAPSULE PO SCH (08:23)
[2018-07-03] MEDS: COLESEVELAM HCL 625 MG TABLET PO SCH ×3 (08:23→18:04)
[2018-07-03] MEDS: FINASTERIDE 5 MG TABLET PO SCH (08:23)
[2018-07-03] MEDS: DOCUSATE SODIUM 100 MG CAPSULE PO SCH ×2 (08:23→21:03)
[2018-07-03] MEDS: CLOPIDOGREL BISULFATE 75 MG TABLET PO SCH (08:23)
[2018-07-03] MEDS: SODIUM BICARBONATE 650 MG TABLET PO SCH ×2 (08:23→21:02)
[2018-07-03] MEDS: PANTOPRAZOLE SODIUM 40 MG/VIAL IVP SCH (08:24)
[2018-07-03] MEDS ORDERED: ASPIRIN 81 MG CHEWABLE TABLET PO SCH (09:00)
[2018-07-03] MEDS ORDERED: CloNIDine HCL 0.1 MG TABLET PO PRN (11:15)
[2018-07-03 11:31] LABS: CALCIUM, TOTAL 8.9 mg/dL (8.8-10.5); CREATININE 2.63 mg/dL (0.60-1.30); POTASSIUM 4.7 mmol/L (3.5-5.1)
[2018-07-03 11:35] VITALS: BP 150/83
[2018-07-03] MEDS: MethylPREDNISolone SOD SUCC 40 MG/ML VIAL IVP SCH ×3 (11:55→23:59)
[2018-07-03] MEDS: LOSARTAN POTASSIUM 50 MG TABLET PO SCH ×2 (11:55→21:03)
[2018-07-03] MEDS: INSULIN LISPRO 100 UNITS/ML SQ PRN ×2 (11:56→21:20)
[2018-07-03 13:32] LABS: AMPHET/METH SCREEN,URINE NEGATIVE (NEGATIVE); BARBITURATE SCREEN, URINE NEGATIVE (NEGATIVE); BENZODIAZEPINES SCREEN,URINE NEGATIVE (NEGATIVE); CANNABINOID SCREEN,URINE NEGATIVE (NEGATIVE); COCAINE SCREEN,URINE NEGATIVE (NEGATIVE); METHADONE SCREEN, URINE NEGATIVE (NEGATIVE); OPIATE SCREEN,URINE NEGATIVE (NEGATIVE)
[2018-07-03 13:33] LABS: PHENCYCLIDINE SCREEN,URINE NEGATIVE (NEGATIVE)
[2018-07-03] MEDS: ALBUTEROL SULFATE 2.5 MG/0.5 ML NEB SOLUTION NEB SCH ×2 (14:44→19:41)
[2018-07-03 15:28] VITALS: BP 122/64
[2018-07-03 16:49] LABS: GLUCOMETER DEV NAME(LOC) 5N 1P; GLUCOSE,POINT OF CARE 452 MG/DL (70-110)
[2018-07-03 16:50] LABS: GLUCOMETER DEV NAME(LOC) 5S 2Q; GLUCOSE,POINT OF CARE 517 MG/DL (70-110)
[2018-07-03 16:50] LABS: GLUCOMETER DEV NAME(LOC) 5N 1P; GLUCOSE,POINT OF CARE 497 MG/DL (70-110)
[2018-07-03 16:50] LABS: GLUCOMETER DEV NAME(LOC) 5S 1M; GLUCOSE,POINT OF CARE 119 MG/DL (70-110)
[2018-07-03 16:50] LABS: GLUCOMETER DEV NAME(LOC) 5N 1P; GLUCOSE,POINT OF CARE 368 MG/DL (70-110)
[2018-07-03] MEDS: HEPARIN SODIUM,PORCINE 5,000 UNITS/ML VIAL SQ SCH ×2 (18:04→23:59)
[2018-07-03 19:16] VITALS: BP 139/74
[2018-07-03] MEDS: IPRATROPIUM BROMIDE 0.5 MG/2.5 ML NEB SOLUTION NEB SCH (19:41)
[2018-07-03] MEDS ORDERED: ROSUVASTATIN CALCIUM 20 MG TABLET PO SCH (21:00)
[2018-07-03 23:13] VITALS: BP 148/80
[2018-07-04] MEDS: ALBUTEROL SULFATE 2.5 MG/0.5 ML NEB SOLUTION NEB SCH ×2 (01:54→07:38)
[2018-07-04] MEDS: IPRATROPIUM BROMIDE 0.5 MG/2.5 ML NEB SOLUTION NEB SCH ×2 (01:54→07:37)
[2018-07-04 04:13] VITALS: BP 139/81
[2018-07-04] MEDS: CILOSTAZOL 100 MG TABLET PO SCH (05:41)
[2018-07-04] MEDS: MethylPREDNISolone SOD SUCC 40 MG/ML VIAL IVP SCH (05:42)
[2018-07-04] MEDS: NITROGLYCERIN 2% (1 GM=INCH) PACKET TP SCH (05:42)
[2018-07-04] MEDS: INSULIN LISPRO 100 UNITS/ML SQ PRN (05:49)
[2018-07-04 07:09] VITALS: BP 144/89
[2018-07-04] MEDS: PANTOPRAZOLE SODIUM 40 MG/VIAL IVP SCH (08:22)
[2018-07-04] MEDS: HEPARIN SODIUM,PORCINE 5,000 UNITS/ML VIAL SQ SCH (08:22)
[2018-07-04] MEDS: GABAPENTIN 300 MG CAPSULE PO SCH (08:22)
[2018-07-04] MEDS: TAMSULOSIN HCL 0.4 MG CAPSULE PO SCH (08:23)
[2018-07-04] MEDS: LOSARTAN POTASSIUM 50 MG TABLET PO SCH (08:23)
[2018-07-04] MEDS: DOCUSATE SODIUM 100 MG CAPSULE PO SCH (08:23)
[2018-07-04] MEDS: COLESEVELAM HCL 625 MG TABLET PO SCH (08:23)
[2018-07-04] MEDS: SODIUM BICARBONATE 650 MG TABLET PO SCH (08:23)
[2018-07-04] MEDS: FINASTERIDE 5 MG TABLET PO SCH (08:23)
[2018-07-04] MEDS: METOPROLOL TARTRATE 25 MG TABLET PO SCH (08:23)
[2018-07-04] MEDS: CLOPIDOGREL BISULFATE 75 MG TABLET PO SCH (08:23)
[2018-07-04] MEDS: MULTIVITAMINS, THERAPEUTIC TABLET PO SCH (08:23)
[2018-07-04] MEDS: RANOLAZINE 500 MG ER TABLET PO SCH (08:23)
[2018-07-04] MEDS: ASPIRIN 81 MG EC TABLET PO SCH (08:24)
[2018-07-04] MEDS: INSULIN GLARGINE,HUM.REC.ANLOG 100 UNITS/ML SQ SCH (09:53)
[2018-07-04 11:45] VITALS: BP 161/96
[2018-07-04 12:20] LABS: GLUCOMETER DEV NAME(LOC) 5N 1P; GLUCOSE,POINT OF CARE 339 MG/DL (70-110)
[2018-07-04 12:20] LABS: GLUCOMETER DEV NAME(LOC) 5N 1P; GLUCOSE,POINT OF CARE 373 MG/DL (70-110)
[2018-07-06 20:34] LABS: GLUCOMETER DEV NAME(LOC) 5S 1M; GLUCOSE,POINT OF CARE 176 MG/DL (70-110)
[2018-07-07 13:04] LABS: GLUCOMETER DEV NAME(LOC) 5S 2Q; GLUCOSE,POINT OF CARE 422 MG/DL (70-110)
== END 2018-07-04 11:30 | disposition home or self-care (01) | DRG 191 ==
LOC: EMS 20:23 → 5S 22:30
PROVIDERS: ADMIT Hospitalist; ATTEND Hospitalist
DX: J44.1 Chronic obstructive pulmonary disease with (acute) exacerbation (principal); N18.4 Chronic kidney disease, stage 4 (severe); I13.0 Hypertensive heart and chronic kidney disease with heart failure and stage 1 through stage 4 chronic kidney disease, or unspecified chronic kidney disease; E11.65 Type 2 diabetes mellitus with hyperglycemia; I25.10 Atherosclerotic heart disease of native coronary artery without angina pectoris; E11.22 Type 2 diabetes mellitus with diabetic chronic kidney disease; N40.0 Benign prostatic hyperplasia without lower urinary tract symptoms; E11.40 Type 2 diabetes mellitus with diabetic neuropathy, unspecified; E78.00 Pure hypercholesterolemia, unspecified; E78.5 Hyperlipidemia, unspecified; E87.5 Hyperkalemia; F17.200 Nicotine dependence, unspecified, uncomplicated; G89.4 Chronic pain syndrome; I50.9 Heart failure, unspecified; T38.0X5A Adverse effect of glucocorticoids and synthetic analogues, initial encounter; Z79.4 Long term (current) use of insulin; Z82.49 Family history of ischemic heart disease and other diseases of the circulatory system; Z83.3 Family history of diabetes mellitus; Z95.5 Presence of coronary angioplasty implant and graft; Z23 Encounter for immunization; Z79.899 Other long term (current) drug therapy; Z79.82 Long term (current) use of aspirin; Z91.19 Patient's noncompliance with other medical treatment and regimen; Y92.89 Other specified places as the place of occurrence of the external cause
CPT/HCPCS: 80307; 82948; 84132; 87081; 93005; 94640; 96361; 96374; 99285; C9113; J0360; J0610; J1644; J1815; J2920; J2930; J7030

== ENCOUNTER 2018-07-22 23:31 | Inpatient (IN) | payer MEDICARE, MEDICAID ==
[~2018-07-22] VITALS: Ht 182.9 cm; Wt 94.1 kg
[~2018-07-22 23:31] MED LIST changes: -CILO100T PO; -PRED5 PO
[2018-07-23] VITALS (7 sets, daily range): BP systolic 152–195; BP diastolic 85–111
[2018-07-23 00:03] LABS: BASOPHILS % (AUTO) 1.3 % (0.0-2.0); EOSINOPHILS % (AUTO) 3.7 % (1.0-6.0); HEMATOCRIT 28.3 % (41-53); HEMOGLOBIN 9.5 g/dL (13.5-17.5); LYMPHOCYTES # (AUTO) 1.6 K/uL (1.0-4.8); LYMPHOCYTES % (AUTO) 34.6 % (22.0-44.0); MEAN CORPUSCULAR HGB CONC 33.6 G/dL (31.0-37.0); MEAN CORPUSCULAR VOLUME 92 fL (80-100); MONOCYTES # (AUTO) 0.6 K/uL (0.1-1.0); MONOCYTES % (AUTO) 12.3 % (2.0-9.0); NEUTROPHILS # (AUTO) 2.2 K/uL (1.8-7.7); NEUTROPHILS % (AUTO) 48.1 % (40.0-70.0); PLATELET COUNT (AUTO) 254 K/uL (150-450); RED BLOOD CELL COUNT(AUTO) 3.07 MIL/uL (4.50-5.90); RED CELL DISTRIBUTION WIDTH 14.8 % (11.5-14.5)
[2018-07-23 00:13] LABS: PROTHROMBIN TIME 10.7 SEC (9.4-11.6)
[2018-07-23 00:14] LABS: CREATININE 2.22 mg/dL (0.60-1.30); POTASSIUM 3.9 mmol/L (3.5-5.1)
[2018-07-23 00:38] LABS: GLUCOSE,POINT OF CARE 77 MG/DL (70-110)
[2018-07-23 00:39] LABS: ALBUMIN 2.6 g/dL (3.4-5.0); BILIRUBIN,TOTAL 0.3 mg/dL (0.1-1.0); TOTAL PROTEIN, SERUM 6.5 g/dL (6.4-8.2)
[2018-07-23] MEDS ORDERED: 0.9% SODIUM CHLORIDE 5 ML NEB SOLUTION NEB ONE (00:45)
[2018-07-23] MEDS ORDERED: ALBUTEROL SULFATE 5 MG/ML 20 ML NEB SOLN [BULK] NEB ONE (00:45)
[2018-07-23] MEDS ORDERED: FUROSEMIDE 40 MG/4 ML VIAL IVP ONE (00:45)
[2018-07-23] MEDS ORDERED: MethylPREDNISolone SOD SUCC 125 MG/2 ML VIAL IVP ONE (00:45)
[2018-07-23] MEDS ORDERED: IPRATROPIUM BROMIDE 0.5 MG/2.5 ML NEB SOLUTION NEB ONE (00:45)
[2018-07-23] MEDS ORDERED: ASPIRIN 325 MG TABLET PO ONE (00:45)
[2018-07-23] MEDS ORDERED: IPRATROPIUM BROMIDE 0.5 MG/2.5 ML NEB SOLUTION NEB PRN (01:00)
[2018-07-23] MEDS ORDERED: ACETAMINOPHEN 325 MG TABLET PO PRN ×2 (01:00→01:45)
[2018-07-23] MEDS ORDERED: CefTRIAXone SODIUM 1 GM in DEXTROSE 5%-WATER 10 ML IV ONE (01:00)
[2018-07-23] MEDS ORDERED: ALBUTEROL SULFATE 2.5 MG/0.5 ML NEB SOLUTION NEB PRN ×2 (01:00→13:15)
[2018-07-23] MEDS ORDERED: ONDANSETRON HCL 4 MG/2 ML VIAL IVP PRN ×2 (01:00→01:45)
[2018-07-23] MEDS ORDERED: OXYGEN THERAPY IH SCH (01:00)
[2018-07-23] MEDS ORDERED: 0.9% SODIUM CHLORIDE 10 ML SYRINGE IVP PRN (01:00)
[2018-07-23] MEDS ORDERED: MAGNESIUM HYDROXIDE SUSPENSION 30 ML UDCUP PO PRN (01:45)
[2018-07-23] MEDS ORDERED: ZOLPIDEM TARTRATE 5 MG TABLET PO PRN (01:45)
[2018-07-23] MEDS ORDERED: BISACODYL 10 MG RECTAL RECTAL SUPPOSITORY PR PRN (01:45)
[2018-07-23] MEDS ORDERED: MORPHINE SULFATE 4 MG/ML SYRINGE IVP PRN (01:45)
[2018-07-23] MEDS ORDERED: OxyCODONE HCL/ACETAMINOPHEN 5-325 MG TABLET PO PRN (01:45)
[2018-07-23 02:05] LABS: APPEARANCE,URINE CLEAR (CLEAR); BILIRUBIN,URINE NEGATIVE (NEGATIVE); GLUCOSE, URINE (UA) NEGATIVE (NEGATIVE); KETONES,URINE NEGATIVE (NEGATIVE); LEUKOCYTE ESTERASE ,URINE NEGATIVE (NEGATIVE); NITRATE,URINE NEGATIVE (NEGATIVE); OCCULT BLOOD,URINE NEGATIVE (NEGATIVE); PROTEIN,URINE SEE CONFIRM (NEGATIVE); UROBILINOGEN,URINE 0.2 mg/dL (<=1.0)
[2018-07-23 02:23] LABS: SULFOSALICYLIC ACID,URINE 2+ (Negative)
[2018-07-23 02:24] LABS: BACTERIA,URINE None Seen /HPF (None Seen); RBC,URINE 0-2 /HPF (0-2); SQUAMOUS EPITHELIAL CELL,UR Rare /LPF (None Seen); WBC,URINE 0-2 /HPF (0-5)
[2018-07-23] MEDS ORDERED: IPRATROPIUM BROMIDE 0.5 MG/2.5 ML NEB SOLUTION NEB SCH (03:00)
[2018-07-23] MEDS ORDERED: ALBUTEROL SULFATE 2.5 MG/0.5 ML NEB SOLUTION NEB SCH (03:00)
[2018-07-23] MEDS ORDERED: GLUCAGON,HUMAN RECOMBINANT 1 MG VIAL IM PRN (05:30)
[2018-07-23] MEDS ORDERED: INSULIN LISPRO 100 UNITS/ML SQ PRN (05:30)
[2018-07-23] MEDS ORDERED: DEXTROSE 50%-WATER 25 GM/50 ML SYG IVP PRN (05:30)
[2018-07-23 07:49] LABS: INFLUENZA TYPE A NEGATIVE FOR TYPE A (NEGATIVE); INFLUENZA TYPE B NEGATIVE FOR TYPE B (NEGATIVE)
[2018-07-23] MEDS: HEPARIN SODIUM,PORCINE 5,000 UNITS/ML VIAL SQ SCH ×2 (07:54→20:55)
[2018-07-23] MEDS: RANOLAZINE 500 MG ER TABLET PO SCH ×2 (07:54→20:55)
[2018-07-23] MEDS: GABAPENTIN 300 MG CAPSULE PO SCH ×3 (07:54→20:54)
[2018-07-23] MEDS: FINASTERIDE 5 MG TABLET PO SCH (07:54)
[2018-07-23] MEDS: FUROSEMIDE 40 MG/4 ML VIAL IVP SCH (07:54)
[2018-07-23] MEDS: METOPROLOL TARTRATE 25 MG TABLET PO SCH ×2 (07:54→20:54)
[2018-07-23] MEDS: COLESEVELAM HCL 625 MG TABLET PO SCH ×3 (07:55→16:58)
[2018-07-23] MEDS: TAMSULOSIN HCL 0.4 MG CAPSULE PO SCH (07:55)
[2018-07-23] MEDS: SODIUM BICARBONATE 650 MG TABLET PO SCH ×2 (07:55→20:55)
[2018-07-23] MEDS: INSULIN GLARGINE,HUM.REC.ANLOG 100 UNITS/ML SQ SCH ×2 (07:57→21:00)
[2018-07-23 07:58] LABS: GLUCOMETER DEV NAME(LOC) 5S 1N; GLUCOSE,POINT OF CARE 109 MG/DL (70-110)
[2018-07-23] MEDS: IPRATROPIUM BROMIDE 0.5 MG/2.5 ML NEB SOLUTION NEB PRN ×3 (08:37→21:04)
[2018-07-23] MEDS: ALBUTEROL SULFATE 2.5 MG/0.5 ML NEB SOLUTION NEB PRN ×3 (08:37→21:04)
[2018-07-23] MEDS ORDERED: PANTOPRAZOLE SODIUM 40 MG/VIAL IVP SCH (09:00)
[2018-07-23] MEDS: CloNIDine HCL 0.1 MG TABLET PO PRN ×2 (11:45→20:54)
[2018-07-23] MEDS ORDERED: MULTIVITAMINS WITH IRON TABLET PO ONE (11:45)
[2018-07-23] MEDS: INSULIN LISPRO 100 UNITS/ML SQ PRN ×2 (11:47→17:01)
[2018-07-23] MEDS: ROSUVASTATIN CALCIUM 20 MG TABLET PO SCH (20:55)
[2018-07-23] MEDS ORDERED: METOPROLOL TARTRATE 25 MG TABLET PO SCH (21:00)
[2018-07-23 23:08] LABS: GLUCOMETER DEV NAME(LOC) 5S 2R; GLUCOSE,POINT OF CARE 204 MG/DL (70-110)
[2018-07-23 23:08] LABS: GLUCOMETER DEV NAME(LOC) 5S 2R; GLUCOSE,POINT OF CARE 360 MG/DL (70-110)
[2018-07-23 23:08] LABS: GLUCOMETER DEV NAME(LOC) 5S 2R; GLUCOSE,POINT OF CARE 222 MG/DL (70-110)
[2018-07-24 04:47] VITALS: BP 184/92
[2018-07-24] MEDS: CloNIDine HCL 0.1 MG TABLET PO PRN (04:50)
[2018-07-24] MEDS: INSULIN LISPRO 100 UNITS/ML SQ PRN ×3 (05:43→17:31)
[2018-07-24 06:10] LABS: BASOPHILS % (AUTO) 0.3 % (0.0-2.0); EOSINOPHILS % (AUTO) 0 % (1.0-6.0); HEMATOCRIT 26.2 % (41-53); LYMPHOCYTES % (AUTO) 15.7 % (22.0-44.0); MEAN CORPUSCULAR HEMOGLOBIN 31.4 pg (26.0-34.0); MEAN CORPUSCULAR HGB CONC 34.4 G/dL (31.0-37.0); MEAN CORPUSCULAR VOLUME 91 fL (80-100); MONOCYTES # (AUTO) 0.7 K/uL (0.1-1.0); MONOCYTES % (AUTO) 11.1 % (2.0-9.0); NEUTROPHILS # (AUTO) 4.7 K/uL (1.8-7.7); NEUTROPHILS % (AUTO) 72.9 % (40.0-70.0); PLATELET COUNT (AUTO) 262 K/uL (150-450); RED BLOOD CELL COUNT(AUTO) 2.87 MIL/uL (4.50-5.90); RED CELL DISTRIBUTION WIDTH 15.3 % (11.5-14.5)
[2018-07-24 06:22] LABS: ALBUMIN 2.5 g/dL (3.4-5.0); BILIRUBIN,TOTAL 0.2 mg/dL (0.1-1.0); CALCIUM, TOTAL 8.4 mg/dL (8.8-10.5); CREATININE 2.86 mg/dL (0.60-1.30); MAGNESIUM 1.8 mg/dL (1.80-2.40); PHOSPHORUS 4.6 mg/dL (2.5-4.9); TOTAL PROTEIN, SERUM 6.2 g/dL (6.4-8.2)
[2018-07-24 07:12] VITALS: BP 139/88
[2018-07-24] MEDS: HEPARIN SODIUM,PORCINE 5,000 UNITS/ML VIAL SQ SCH ×2 (08:03→20:41)
[2018-07-24] MEDS: FUROSEMIDE 40 MG/4 ML VIAL IVP SCH (08:03)
[2018-07-24] MEDS: COLESEVELAM HCL 625 MG TABLET PO SCH ×3 (08:04→17:30)
[2018-07-24] MEDS: FINASTERIDE 5 MG TABLET PO SCH (08:04)
[2018-07-24] MEDS: GABAPENTIN 300 MG CAPSULE PO SCH ×3 (08:04→20:40)
[2018-07-24] MEDS: SODIUM BICARBONATE 650 MG TABLET PO SCH ×2 (08:04→20:40)
[2018-07-24] MEDS: CefTRIAXone SODIUM 2 GM in DEXTROSE 5%-WATER 20 ML IV SCH (08:04)
[2018-07-24] MEDS: METOPROLOL TARTRATE 25 MG TABLET PO SCH ×2 (08:04→20:40)
[2018-07-24] MEDS: RANOLAZINE 500 MG ER TABLET PO SCH ×2 (08:04→20:40)
[2018-07-24] MEDS: TAMSULOSIN HCL 0.4 MG CAPSULE PO SCH (08:04)
[2018-07-24] MEDS: INSULIN GLARGINE,HUM.REC.ANLOG 100 UNITS/ML SQ SCH ×2 (08:14→20:44)
[2018-07-24] MEDS: ALBUTEROL SULFATE 2.5 MG/0.5 ML NEB SOLUTION NEB PRN ×2 (09:28→20:53)
[2018-07-24] MEDS: IPRATROPIUM BROMIDE 0.5 MG/2.5 ML NEB SOLUTION NEB PRN ×2 (09:28→20:53)
[2018-07-24 11:04] VITALS: BP 149/87
[2018-07-24 15:12] VITALS: BP 150/85
[2018-07-24 19:55] VITALS: BP 154/87
[2018-07-24] MEDS: ROSUVASTATIN CALCIUM 20 MG TABLET PO SCH (20:40)
[2018-07-24 21:09] LABS: GLUCOMETER DEV NAME(LOC) 5N 1P; GLUCOSE,POINT OF CARE 182 MG/DL (70-110)
[2018-07-24 21:09] LABS: GLUCOMETER DEV NAME(LOC) 5N 1P; GLUCOSE,POINT OF CARE 265 MG/DL (70-110)
[2018-07-24 21:09] LABS: GLUCOMETER DEV NAME(LOC) 5N 1P; GLUCOSE,POINT OF CARE 266 MG/DL (70-110)
[2018-07-24 21:09] LABS: GLUCOMETER DEV NAME(LOC) 5S 2R; GLUCOSE,POINT OF CARE 312 MG/DL (70-110)
[2018-07-24 21:09] LABS: GLUCOMETER DEV NAME(LOC) 5N 1P; GLUCOSE,POINT OF CARE 287 MG/DL (70-110)
[2018-07-24 21:10] LABS: GLUCOMETER DEV NAME(LOC) 5S 2R; GLUCOSE,POINT OF CARE 366 MG/DL (70-110)
[2018-07-25 00:41] VITALS: BP 154/90
[2018-07-25 05:09] VITALS: BP 142/87
[2018-07-25] MEDS: INSULIN LISPRO 100 UNITS/ML SQ PRN ×2 (06:03→12:19)
[2018-07-25 06:30] LABS: BASOPHILS % (AUTO) 0.9 % (0.0-2.0); EOSINOPHILS % (AUTO) 1.7 % (1.0-6.0); HEMATOCRIT 27.2 % (41-53); HEMOGLOBIN 9.3 g/dL (13.5-17.5); LYMPHOCYTES # (AUTO) 1.5 K/uL (1.0-4.8); MEAN CORPUSCULAR HEMOGLOBIN 31.8 pg (26.0-34.0); MEAN CORPUSCULAR HGB CONC 34.4 G/dL (31.0-37.0); MEAN CORPUSCULAR VOLUME 93 fL (80-100); MONOCYTES # (AUTO) 0.5 K/uL (0.1-1.0); MONOCYTES % (AUTO) 10.7 % (2.0-9.0); NEUTROPHILS # (AUTO) 2.8 K/uL (1.8-7.7); NEUTROPHILS % (AUTO) 56.7 % (40.0-70.0); PLATELET COUNT (AUTO) 269 K/uL (150-450); RED BLOOD CELL COUNT(AUTO) 2.94 MIL/uL (4.50-5.90); RED CELL DISTRIBUTION WIDTH 14.8 % (11.5-14.5)
[2018-07-25 06:35] LABS: CALCIUM, TOTAL 8.2 mg/dL (8.8-10.5); CREATININE 2.98 mg/dL (0.60-1.30); POTASSIUM 4.7 mmol/L (3.5-5.1)
[2018-07-25 07:43] VITALS: BP 148/78
[2018-07-25] MEDS: IPRATROPIUM BROMIDE 0.5 MG/2.5 ML NEB SOLUTION NEB PRN (08:30)
[2018-07-25] MEDS: ALBUTEROL SULFATE 2.5 MG/0.5 ML NEB SOLUTION NEB PRN (08:30)
[2018-07-25] MEDS: INSULIN GLARGINE,HUM.REC.ANLOG 100 UNITS/ML SQ SCH (09:00)
[2018-07-25] MEDS: COLESEVELAM HCL 625 MG TABLET PO SCH ×2 (09:17→12:18)
[2018-07-25] MEDS: CefTRIAXone SODIUM 2 GM in DEXTROSE 5%-WATER 20 ML IV SCH (09:18)
[2018-07-25] MEDS: TAMSULOSIN HCL 0.4 MG CAPSULE PO SCH (09:19)
[2018-07-25] MEDS: GABAPENTIN 300 MG CAPSULE PO SCH (09:19)
[2018-07-25] MEDS: METOPROLOL TARTRATE 25 MG TABLET PO SCH (09:19)
[2018-07-25] MEDS: FINASTERIDE 5 MG TABLET PO SCH (09:20)
[2018-07-25] MEDS: RANOLAZINE 500 MG ER TABLET PO SCH (09:21)
[2018-07-25] MEDS: SODIUM BICARBONATE 650 MG TABLET PO SCH (09:22)
[2018-07-25] MEDS: HEPARIN SODIUM,PORCINE 5,000 UNITS/ML VIAL SQ SCH (09:22)
[2018-07-25 11:21] VITALS: BP 144/79
[2018-07-25] MEDS ORDERED: METO25 PO (11:48)
[2018-07-26 06:03] LABS: GLUCOMETER DEV NAME(LOC) 5S 2R; GLUCOSE,POINT OF CARE 143 MG/DL (70-110)
[2018-07-26 06:03] LABS: GLUCOMETER DEV NAME(LOC) 5S 2R; GLUCOSE,POINT OF CARE 203 MG/DL (70-110)
[2018-07-26 12:04] LABS: GLUCOMETER DEV NAME(LOC) 5S 1N; GLUCOSE,POINT OF CARE 244 MG/DL (70-110)
[2018-07-26 12:04] LABS: GLUCOMETER DEV NAME(LOC) 5S 1N; GLUCOSE,POINT OF CARE 256 MG/DL (70-110)
[2018-07-26 12:04] LABS: GLUCOMETER DEV NAME(LOC) 5S 1N; GLUCOSE,POINT OF CARE 273 MG/DL (70-110)
== END 2018-07-25 13:15 | disposition home or self-care (01) | DRG 291 ==
LOC: EMS 23:31 → 5S 07-23 00:48
PROVIDERS: ADMIT Internal Medicine; ATTEND Internal Medicine
DX: I13.2 Hypertensive heart and chronic kidney disease with heart failure and with stage 5 chronic kidney disease, or end stage renal disease (principal); I50.43 Acute on chronic combined systolic (congestive) and diastolic (congestive) heart failure; J44.1 Chronic obstructive pulmonary disease with (acute) exacerbation; N25.81 Secondary hyperparathyroidism of renal origin; E87.1 Hypo-osmolality and hyponatremia; N18.5 Chronic kidney disease, stage 5; I25.10 Atherosclerotic heart disease of native coronary artery without angina pectoris; E78.00 Pure hypercholesterolemia, unspecified; D63.8 Anemia in other chronic diseases classified elsewhere; E11.22 Type 2 diabetes mellitus with diabetic chronic kidney disease; E11.65 Type 2 diabetes mellitus with hyperglycemia; E78.5 Hyperlipidemia, unspecified; E87.5 Hyperkalemia; R06.03 Acute respiratory distress; F32.9 Major depressive disorder, single episode, unspecified; G89.4 Chronic pain syndrome; K21.9 Gastro-esophageal reflux disease without esophagitis; R62.7 Adult failure to thrive; Z82.49 Family history of ischemic heart disease and other diseases of the circulatory system; Z83.3 Family history of diabetes mellitus; Z86.718 Personal history of other venous thrombosis and embolism; Z95.5 Presence of coronary angioplasty implant and graft; Z95.820 Peripheral vascular angioplasty status with implants and grafts; Z79.899 Other long term (current) drug therapy; Z79.82 Long term (current) use of aspirin; Z79.4 Long term (current) use of insulin
CPT/HCPCS: 83735; 84100; 87804; 93005; 93306; 94640; 94644; 96374; 96375; 99291; G0378; J0696; J1644; J1815; J1940; J2930; J7060

== ENCOUNTER → 2018-08-01 | Outpatient (CLI) | payer MEDICARE, MEDICAID ==
[~2018-08-01] VITALS: Ht 182.9 cm; Wt 92.0 kg
[2018-08-01 12:36] VITALS: BP 147/71
[2018-08-01 13:23] LABS: GLUCOMETER DEV NAME(LOC) SHC; GLUCOSE,POINT OF CARE 286 MG/DL (70-110)
== END | disposition home or self-care (01) ==
LOC: SRCNTR 12:34
PROVIDERS: ATTEND Hospitalist
DX: I11.0 Hypertensive heart disease with heart failure (principal); I50.9 Heart failure, unspecified; E78.5 Hyperlipidemia, unspecified; J44.9 Chronic obstructive pulmonary disease, unspecified; I25.10 Atherosclerotic heart disease of native coronary artery without angina pectoris; E11.9 Type 2 diabetes mellitus without complications; E78.00 Pure hypercholesterolemia, unspecified; I82.409 Acute embolism and thrombosis of unspecified deep veins of unspecified lower extremity
CPT/HCPCS: 82962; G0463

== ENCOUNTER 2018-08-06 22:59 | Emergency (ER) | payer MEDICARE, MEDICAID ==
[~2018-08-06] VITALS: Ht 182.9 cm; Wt 93.2 kg
[2018-08-06 23:39] LABS: BASOPHILS % (AUTO) 1.2 % (0.0-2.0); EOSINOPHILS % (AUTO) 2.1 % (1.0-6.0); HEMATOCRIT 29.8 % (41-53); HEMOGLOBIN 10.1 g/dL (13.5-17.5); LYMPHOCYTES # (AUTO) 1.5 K/uL (1.0-4.8); LYMPHOCYTES % (AUTO) 30.7 % (22.0-44.0); MEAN CORPUSCULAR HEMOGLOBIN 31.3 pg (26.0-34.0); MEAN CORPUSCULAR VOLUME 92 fL (80-100); MONOCYTES # (AUTO) 0.5 K/uL (0.1-1.0); MONOCYTES % (AUTO) 9.2 % (2.0-9.0); NEUTROPHILS # (AUTO) 2.8 K/uL (1.8-7.7); NEUTROPHILS % (AUTO) 56.8 % (40.0-70.0); PLATELET COUNT (AUTO) 215 K/uL (150-450); RED BLOOD CELL COUNT(AUTO) 3.24 MIL/uL (4.50-5.90); RED CELL DISTRIBUTION WIDTH 14.3 % (11.5-14.5)
[2018-08-06 23:51] LABS: CALCIUM, TOTAL 8.3 mg/dL (8.8-10.5); CREATININE 2.81 mg/dL (0.60-1.30); POTASSIUM 3.6 mmol/L (3.5-5.1); PROTHROMBIN TIME 10.6 SEC (9.4-11.6)
[2018-08-07] MEDS ORDERED: NITROGLYCERIN 2% (1 GM=INCH) PACKET TP ONE
[2018-08-07] MEDS ORDERED: FUROSEMIDE 40 MG/4 ML VIAL IVP ONE
[2018-08-07 00:15] LABS: ALBUMIN 2.8 g/dL (3.4-5.0); BILIRUBIN,TOTAL 0.2 mg/dL (0.1-1.0); TOTAL PROTEIN, SERUM 6.4 g/dL (6.4-8.2)
[2018-08-07 00:41] LABS: APPEARANCE,URINE CLEAR (CLEAR); BILIRUBIN,URINE NEGATIVE (NEGATIVE); GLUCOSE, URINE (UA) 250 mg/dL (NEGATIVE); KETONES,URINE NEGATIVE (NEGATIVE); LEUKOCYTE ESTERASE ,URINE NEGATIVE (NEGATIVE); NITRATE,URINE NEGATIVE (NEGATIVE); OCCULT BLOOD,URINE NEGATIVE (NEGATIVE); PROTEIN,URINE SEE CONFIRM (NEGATIVE); UROBILINOGEN,URINE 0.2 mg/dL (<=1.0)
[2018-08-07 00:58] LABS: SULFOSALICYLIC ACID,URINE 3+ (Negative)
[2018-08-07 00:59] LABS: BACTERIA,URINE Few /HPF (None Seen); RBC,URINE 0-2 /HPF (0-2); SQUAMOUS EPITHELIAL CELL,UR Few /LPF (None Seen); WBC,URINE 0-2 /HPF (0-5)
[2018-08-07] MEDS ORDERED: IPRATROPIUM BROMIDE 0.5 MG/2.5 ML NEB SOLUTION NEB ONE (02:00)
[2018-08-07] MEDS ORDERED: ALBUTEROL SULFATE 5 MG/ML 20 ML NEB SOLN [BULK] NEB ONE (02:00)
[2018-08-07] MEDS ORDERED: 0.9% SODIUM CHLORIDE 5 ML NEB SOLUTION NEB ONE (02:06)
[2018-08-07 03:37] VITALS: BP 139/70
== END 2018-08-07 04:39 | disposition home or self-care (01) ==
LOC: EMS 23:00
DX: J44.1 Chronic obstructive pulmonary disease with (acute) exacerbation (principal); I25.10 Atherosclerotic heart disease of native coronary artery without angina pectoris; I11.0 Hypertensive heart disease with heart failure; I50.9 Heart failure, unspecified; E11.9 Type 2 diabetes mellitus without complications; E78.00 Pure hypercholesterolemia, unspecified; Z86.718 Personal history of other venous thrombosis and embolism; Z98.890 Other specified postprocedural states; Z79.82 Long term (current) use of aspirin; Z79.4 Long term (current) use of insulin; Z79.899 Other long term (current) drug therapy
CPT/HCPCS: 36415; 71045; 80053; 81001; 82550; 83880; 84484; 85025; 85610; 85730; 93005; 94644; 96374; 99285; J1940

== ENCOUNTER 2018-08-29 22:17 | Emergency (ER) | payer MEDICARE, MEDICAID ==
[~2018-08-29] VITALS: Ht 182.9 cm; Wt 93.2 kg
[2018-08-29 22:38] LABS: GLUCOSE,POINT OF CARE 166 MG/DL (70-110)
[2018-08-29 22:42] LABS: BASOPHILS % (AUTO) 1.2 % (0.0-2.0); EOSINOPHILS % (AUTO) 4.3 % (1.0-6.0); HEMATOCRIT 29.7 % (41-53); HEMOGLOBIN 10.3 g/dL (13.5-17.5); LYMPHOCYTES # (AUTO) 1.4 K/uL (1.0-4.8); LYMPHOCYTES % (AUTO) 32.9 % (22.0-44.0); MEAN CORPUSCULAR HEMOGLOBIN 31.4 pg (26.0-34.0); MEAN CORPUSCULAR HGB CONC 34.5 G/dL (31.0-37.0); MEAN CORPUSCULAR VOLUME 91 fL (80-100); MONOCYTES # (AUTO) 0.5 K/uL (0.1-1.0); MONOCYTES % (AUTO) 12.1 % (2.0-9.0); NEUTROPHILS # (AUTO) 2.2 K/uL (1.8-7.7); NEUTROPHILS % (AUTO) 49.5 % (40.0-70.0); PLATELET COUNT (AUTO) 265 K/uL (150-450); RED BLOOD CELL COUNT(AUTO) 3.27 MIL/uL (4.50-5.90); RED CELL DISTRIBUTION WIDTH 14.3 % (11.5-14.5)
[2018-08-29 22:56] LABS: CALCIUM, TOTAL 8.3 mg/dL (8.8-10.5); CREATININE 2.71 mg/dL (0.60-1.30); POTASSIUM 4.1 mmol/L (3.5-5.1)
[2018-08-29] MEDS ORDERED: DiphenhydrAMINE HCL 50 MG/ML VIAL IVP ONE (23:15)
[2018-08-29 23:21] LABS: ALBUMIN 3.1 g/dL (3.4-5.0); BILIRUBIN,TOTAL 0.2 mg/dL (0.1-1.0); TOTAL PROTEIN, SERUM 6.5 g/dL (6.4-8.2)
[2018-08-29] MEDS ORDERED: PredniSONE 20 MG TABLET PO ONE (23:30)
[2018-08-30 00:06] VITALS: BP 190/78
== END 2018-08-30 00:16 | disposition home or self-care (01) ==
LOC: EMS 22:18
DX: I11.0 Hypertensive heart disease with heart failure (principal); I50.9 Heart failure, unspecified; R21 Rash and other nonspecific skin eruption; E11.9 Type 2 diabetes mellitus without complications; J44.9 Chronic obstructive pulmonary disease, unspecified; I25.10 Atherosclerotic heart disease of native coronary artery without angina pectoris; Z79.82 Long term (current) use of aspirin; Z79.84 Long term (current) use of oral hypoglycemic drugs
CPT/HCPCS: 71045; 80053; 82550; 82962; 83880; 84484; 85025; 85610; 85730; 93005; 96374; 99285; J1200; J7512

== ENCOUNTER 2018-08-30 06:37 | Emergency (ER) | payer MEDICARE, MEDICAID ==
[~2018-08-30] VITALS: Ht 182.9 cm; Wt 93.1 kg
[2018-08-30 06:49] LABS: GLUCOSE,POINT OF CARE 286 MG/DL (70-110)
[2018-08-30 06:53] VITALS: BP 128/95
[2018-08-30] MEDS: MethylPREDNISolone SOD SUCC 125 MG/2 ML VIAL IVP ONE (06:53)
[2018-08-30] MEDS ORDERED: 0.9% SODIUM CHLORIDE 5 ML NEB SOLUTION NEB ONE (06:56)
[2018-08-30] MEDS: IPRATROPIUM BROMIDE 0.5 MG/2.5 ML NEB SOLUTION NEB ONE (07:02)
[2018-08-30] MEDS: ALBUTEROL SULFATE 5 MG/ML 20 ML NEB SOLN [BULK] NEB ONE (07:02)
[2018-08-30] MEDS: ALBUTEROL SULFATE HFA 90 MCG/PUFF 8 GM INHALER IH ONE (08:25)
== END 2018-08-30 09:05 | disposition home or self-care (01) ==
LOC: EMS 06:38
DX: J44.9 Chronic obstructive pulmonary disease, unspecified (principal); L29.9 Pruritus, unspecified; I25.10 Atherosclerotic heart disease of native coronary artery without angina pectoris; I11.0 Hypertensive heart disease with heart failure; I50.9 Heart failure, unspecified; E11.9 Type 2 diabetes mellitus without complications; F19.90 Other psychoactive substance use, unspecified, uncomplicated; Z95.1 Presence of aortocoronary bypass graft; Z79.4 Long term (current) use of insulin; Z79.82 Long term (current) use of aspirin
CPT/HCPCS: 82962; 94644; 96374; 99285; J2930; J3535

== ENCOUNTER 2018-09-03 10:33 | Inpatient (IN) | payer MEDICARE, MEDICAID ==
[~2018-09-03] VITALS: Ht 182.9 cm; Wt 101.2 kg
[2018-09-03 10:59] LABS: GLUCOSE,POINT OF CARE 209 MG/DL (70-110)
[2018-09-03 11:01] LABS: BASOPHILS % (AUTO) 0.4 % (0.0-2.0); EOSINOPHILS % (AUTO) 1.1 % (1.0-6.0); HEMATOCRIT 31.8 % (41-53); HEMOGLOBIN 10.8 g/dL (13.5-17.5); LYMPHOCYTES # (AUTO) 1.5 K/uL (1.0-4.8); LYMPHOCYTES % (AUTO) 22.4 % (22.0-44.0); MEAN CORPUSCULAR HEMOGLOBIN 31.5 pg (26.0-34.0); MEAN CORPUSCULAR VOLUME 93 fL (80-100); MONOCYTES # (AUTO) 0.7 K/uL (0.1-1.0); MONOCYTES % (AUTO) 10.5 % (2.0-9.0); NEUTROPHILS # (AUTO) 4.5 K/uL (1.8-7.7); NEUTROPHILS % (AUTO) 65.6 % (40.0-70.0); PLATELET COUNT (AUTO) 258 K/uL (150-450); RED BLOOD CELL COUNT(AUTO) 3.43 MIL/uL (4.50-5.90); RED CELL DISTRIBUTION WIDTH 14.7 % (11.5-14.5)
[2018-09-03 11:09] LABS: PROTHROMBIN TIME 10.8 SEC (9.4-11.6)
[2018-09-03 11:12] LABS: CALCIUM, TOTAL 8.4 mg/dL (8.8-10.5); CREATININE 2.77 mg/dL (0.60-1.30); POTASSIUM 3.9 mmol/L (3.5-5.1)
[2018-09-03 11:38] LABS: BILIRUBIN,TOTAL 0.3 mg/dL (0.1-1.0); TOTAL PROTEIN, SERUM 6.5 g/dL (6.4-8.2)
[2018-09-03] MEDS ORDERED: NITROGLYCERIN 2% (1 GM=INCH) PACKET TP ONE (11:45)
[2018-09-03] MEDS ORDERED: IPRATROPIUM BROMIDE 0.5 MG/2.5 ML NEB SOLUTION NEB ONE (11:45)
[2018-09-03] MEDS ORDERED: ALBUTEROL SULFATE 2.5 MG/0.5 ML NEB SOLUTION NEB ONE (11:45)
[2018-09-03] MEDS ORDERED: ACETAMINOPHEN 325 MG TABLET PO PRN (12:30)
[2018-09-03] MEDS ORDERED: HYDROCODONE/ACETAMINOPHEN 5-325 MG TABLET PO PRN (12:30)
[2018-09-03 12:50] VITALS: BP 163/85
[2018-09-03] MEDS ORDERED: SODIUM CHLORIDE 0.9% 250 ML IV ONE (13:20)
[2018-09-03] MEDS: CefTRIAXone 1 GM/DEXTROSE 50 ML IV SCH (14:43)
[2018-09-03] MEDS: IPRATROPIUM BROMIDE 0.5 MG/2.5 ML NEB SOLUTION NEB SCH ×3 (15:00→23:00)
[2018-09-03] MEDS: ALBUTEROL SULFATE 2.5 MG/0.5 ML NEB SOLUTION NEB SCH ×3 (15:00→23:00)
[2018-09-03 15:19] VITALS: BP 141/80
[2018-09-03] MEDS: HEPARIN SODIUM,PORCINE 5,000 UNITS/ML VIAL SQ SCH ×2 (15:23→23:25)
[2018-09-03] MEDS: GABAPENTIN 300 MG CAPSULE PO SCH ×2 (15:23→20:17)
[2018-09-03] MEDS: AZITHROMYCIN 500 MG/NS 250 ML IV SCH (15:23)
[2018-09-03] MEDS: COLESEVELAM HCL 625 MG TABLET PO SCH (17:52)
[2018-09-03] MEDS: MethylPREDNISolone SOD SUCC 125 MG/2 ML VIAL IVP SCH ×2 (17:53→23:25)
[2018-09-03] MEDS: NITROGLYCERIN 2% (1 GM=INCH) PACKET TP SCH ×2 (17:53→23:25)
[2018-09-03] MEDS: ALBUTEROL SULFATE 2.5 MG/0.5 ML NEB SOLUTION NEB PRN (17:54)
[2018-09-03] MEDS: IPRATROPIUM BROMIDE 0.5 MG/2.5 ML NEB SOLUTION NEB PRN (17:54)
[2018-09-03 20:09] VITALS: BP 159/93
[2018-09-03 20:14] LABS: GLUCOMETER DEV NAME(LOC) 5N.2; GLUCOSE,POINT OF CARE 215 MG/DL (70-110)
[2018-09-03 20:14] LABS: GLUCOMETER DEV NAME(LOC) 5S.1; GLUCOSE,POINT OF CARE 183 MG/DL (70-110)
[2018-09-03] MEDS: SODIUM BICARBONATE 650 MG TABLET PO SCH (20:17)
[2018-09-03] MEDS: METOPROLOL TARTRATE 25 MG TABLET PO SCH (20:17)
[2018-09-03] MEDS: DOCUSATE SODIUM 100 MG CAPSULE PO SCH (20:17)
[2018-09-03] MEDS: RANOLAZINE 500 MG ER TABLET PO SCH (20:17)
[2018-09-03] MEDS: ROSUVASTATIN CALCIUM 20 MG TABLET PO SCH (20:18)
[2018-09-03] MEDS: INSULIN LISPRO 100 UNITS/ML SQ PRN (21:18)
[2018-09-03] MEDS: INSULIN GLARGINE,HUM.REC.ANLOG 100 UNITS/ML SQ SCH (21:18)
[2018-09-03 23:42] VITALS: BP 156/80
[2018-09-04] VITALS (7 sets, daily range): BP systolic 139–186; BP diastolic 78–106
[2018-09-04] MEDS: IPRATROPIUM BROMIDE 0.5 MG/2.5 ML NEB SOLUTION NEB PRN (01:41)
[2018-09-04] MEDS: ALBUTEROL SULFATE 2.5 MG/0.5 ML NEB SOLUTION NEB PRN (01:41)
[2018-09-04] MEDS: ALBUTEROL SULFATE 2.5 MG/0.5 ML NEB SOLUTION NEB SCH ×6 (03:47→23:02)
[2018-09-04] MEDS: IPRATROPIUM BROMIDE 0.5 MG/2.5 ML NEB SOLUTION NEB SCH ×6 (03:47→23:02)
[2018-09-04] MEDS: MethylPREDNISolone SOD SUCC 125 MG/2 ML VIAL IVP SCH ×4 (05:03→23:54)
[2018-09-04] MEDS: NITROGLYCERIN 2% (1 GM=INCH) PACKET TP SCH ×4 (05:13→23:54)
[2018-09-04] MEDS: LISINOPRIL 20 MG TABLET PO SCH (05:42)
[2018-09-04] MEDS: INSULIN LISPRO 100 UNITS/ML SQ PRN ×3 (06:13→21:00)
[2018-09-04] MEDS: HEPARIN SODIUM,PORCINE 5,000 UNITS/ML VIAL SQ SCH ×3 (07:44→23:54)
[2018-09-04] MEDS: COLESEVELAM HCL 625 MG TABLET PO SCH ×3 (07:44→17:36)
[2018-09-04] MEDS: METOPROLOL TARTRATE 25 MG TABLET PO SCH ×2 (07:47→20:58)
[2018-09-04] MEDS: ROSUVASTATIN CALCIUM 20 MG TABLET PO SCH (07:53)
[2018-09-04] MEDS: ASPIRIN 81 MG EC TABLET PO SCH (07:54)
[2018-09-04] MEDS: RANOLAZINE 500 MG ER TABLET PO SCH ×2 (07:54→20:58)
[2018-09-04] MEDS: GABAPENTIN 300 MG CAPSULE PO SCH ×3 (07:54→20:58)
[2018-09-04] MEDS: CLOPIDOGREL BISULFATE 75 MG TABLET PO SCH (07:54)
[2018-09-04] MEDS: TAMSULOSIN HCL 0.4 MG CAPSULE PO SCH (07:54)
[2018-09-04] MEDS: MULTIVITAMINS, THERAPEUTIC TABLET PO SCH (07:54)
[2018-09-04] MEDS: SODIUM BICARBONATE 650 MG TABLET PO SCH ×2 (07:54→20:58)
[2018-09-04] MEDS: PANTOPRAZOLE SODIUM 40 MG/VIAL IVP SCH (07:55)
[2018-09-04] MEDS: FINASTERIDE 5 MG TABLET PO SCH (07:55)
[2018-09-04] MEDS: DOCUSATE SODIUM 100 MG CAPSULE PO SCH ×2 (07:55→20:57)
[2018-09-04] MEDS: INSULIN GLARGINE,HUM.REC.ANLOG 100 UNITS/ML SQ SCH ×2 (07:56→21:01)
[2018-09-04] MEDS ORDERED: INSULIN LISPRO 100 UNITS/ML SQ ONE (12:15)
[2018-09-04] MEDS ORDERED: CloNIDine HCL 0.1 MG TABLET PO ONE (12:15)
[2018-09-04] MEDS: CefTRIAXone 1 GM/DEXTROSE 50 ML IV SCH (12:24)
[2018-09-04] MEDS: AZITHROMYCIN 500 MG/NS 250 ML IV SCH (13:37)
[2018-09-04 14:04] LABS: GLUCOMETER DEV NAME(LOC) 5N.2; GLUCOSE,POINT OF CARE 291 MG/DL (70-110)
[2018-09-04 14:04] LABS: GLUCOMETER DEV NAME(LOC) 5N.2; GLUCOSE,POINT OF CARE 405 MG/DL (70-110)
[2018-09-04 17:14] LABS: GLUCOMETER DEV NAME(LOC) 5N.1; GLUCOSE,POINT OF CARE 413 MG/DL (70-110)
[2018-09-04 17:15] LABS: GLUCOMETER DEV NAME(LOC) 5N.1; GLUCOSE,POINT OF CARE 306 MG/DL (70-110)
[2018-09-04 18:24] LABS: GLUCOMETER DEV NAME(LOC) 5S.1; GLUCOSE,POINT OF CARE 268 MG/DL (70-110)
[2018-09-05 00:04] LABS: GLUCOMETER DEV NAME(LOC) 5N.1; GLUCOSE,POINT OF CARE 373 MG/DL (70-110)
[2018-09-05] MEDS: ALBUTEROL SULFATE 2.5 MG/0.5 ML NEB SOLUTION NEB SCH ×6 (03:08→22:49)
[2018-09-05] MEDS: IPRATROPIUM BROMIDE 0.5 MG/2.5 ML NEB SOLUTION NEB SCH ×6 (03:08→22:49)
[2018-09-05 04:31] VITALS: BP 157/95
[2018-09-05] MEDS: NITROGLYCERIN 2% (1 GM=INCH) PACKET TP SCH ×3 (06:01→18:19)
[2018-09-05] MEDS: MethylPREDNISolone SOD SUCC 125 MG/2 ML VIAL IVP SCH ×3 (06:01→18:19)
[2018-09-05] MEDS: INSULIN LISPRO 100 UNITS/ML SQ PRN ×4 (06:09→20:50)
[2018-09-05 07:34] VITALS: BP 142/78
[2018-09-05] MEDS: CLOPIDOGREL BISULFATE 75 MG TABLET PO SCH (08:56)
[2018-09-05] MEDS: GABAPENTIN 300 MG CAPSULE PO SCH ×3 (08:56→20:46)
[2018-09-05] MEDS: TAMSULOSIN HCL 0.4 MG CAPSULE PO SCH (08:56)
[2018-09-05] MEDS: LISINOPRIL 20 MG TABLET PO SCH (08:57)
[2018-09-05] MEDS: METOPROLOL TARTRATE 25 MG TABLET PO SCH ×2 (08:57→20:46)
[2018-09-05] MEDS: ASPIRIN 81 MG EC TABLET PO SCH (08:57)
[2018-09-05] MEDS: FINASTERIDE 5 MG TABLET PO SCH (08:57)
[2018-09-05] MEDS: COLESEVELAM HCL 625 MG TABLET PO SCH ×3 (08:57→18:19)
[2018-09-05] MEDS: MULTIVITAMINS, THERAPEUTIC TABLET PO SCH (08:57)
[2018-09-05] MEDS: DOCUSATE SODIUM 100 MG CAPSULE PO SCH ×2 (08:57→20:46)
[2018-09-05] MEDS: PANTOPRAZOLE SODIUM 40 MG/VIAL IVP SCH (08:57)
[2018-09-05] MEDS: SODIUM BICARBONATE 650 MG TABLET PO SCH ×2 (08:57→20:46)
[2018-09-05] MEDS: RANOLAZINE 500 MG ER TABLET PO SCH ×2 (08:58→20:46)
[2018-09-05] MEDS: INSULIN GLARGINE,HUM.REC.ANLOG 100 UNITS/ML SQ SCH ×2 (09:01→20:51)
[2018-09-05] MEDS: HEPARIN SODIUM,PORCINE 5,000 UNITS/ML VIAL SQ SCH ×2 (09:12→15:51)
[2018-09-05 11:49] LABS: GLUCOMETER DEV NAME(LOC) 5N.2; GLUCOSE,POINT OF CARE 231 MG/DL (70-110)
[2018-09-05 12:20] VITALS: BP 162/99
[2018-09-05] MEDS: CefTRIAXone 1 GM/DEXTROSE 50 ML IV SCH (12:47)
[2018-09-05] MEDS: AZITHROMYCIN 500 MG/NS 250 ML IV SCH (13:54)
[2018-09-05 15:52] VITALS: BP 147/95
[2018-09-05 17:34] LABS: GLUCOMETER DEV NAME(LOC) 5N.1; GLUCOSE,POINT OF CARE 353 MG/DL (70-110)
[2018-09-05 19:28] VITALS: BP 151/93
[2018-09-05] MEDS: ROSUVASTATIN CALCIUM 20 MG TABLET PO SCH (20:46)
[2018-09-05 21:14] LABS: GLUCOMETER DEV NAME(LOC) 5S.1; GLUCOSE,POINT OF CARE 274 MG/DL (70-110)
[2018-09-05 21:14] LABS: GLUCOMETER DEV NAME(LOC) 5N.2; GLUCOSE,POINT OF CARE 310 MG/DL (70-110)
[2018-09-05 23:42] VITALS: BP 134/83
[2018-09-06] MEDS: NITROGLYCERIN 2% (1 GM=INCH) PACKET TP SCH ×5 (00:26→23:47)
[2018-09-06] MEDS: HEPARIN SODIUM,PORCINE 5,000 UNITS/ML VIAL SQ SCH ×4 (00:26→23:47)
[2018-09-06] MEDS: MethylPREDNISolone SOD SUCC 125 MG/2 ML VIAL IVP SCH ×5 (00:26→23:47)
[2018-09-06] MEDS: ALBUTEROL SULFATE 2.5 MG/0.5 ML NEB SOLUTION NEB SCH ×6 (02:41→23:40)
[2018-09-06] MEDS: IPRATROPIUM BROMIDE 0.5 MG/2.5 ML NEB SOLUTION NEB SCH ×6 (02:41→23:40)
[2018-09-06 04:37] VITALS: BP 145/99
[2018-09-06] MEDS: INSULIN LISPRO 100 UNITS/ML SQ PRN ×4 (06:10→20:51)
[2018-09-06 07:27] VITALS: BP 193/107
[2018-09-06 07:33] LABS: EOSINOPHILS % (AUTO) 0 % (1.0-6.0); HEMATOCRIT 29.2 % (41-53); LYMPHOCYTES # (AUTO) 0.5 K/uL (1.0-4.8); LYMPHOCYTES % (AUTO) 4.7 % (22.0-44.0); MEAN CORPUSCULAR HEMOGLOBIN 31.4 pg (26.0-34.0); MEAN CORPUSCULAR HGB CONC 34.4 G/dL (31.0-37.0); MEAN CORPUSCULAR VOLUME 91 fL (80-100); MONOCYTES # (AUTO) 0.1 K/uL (0.1-1.0); MONOCYTES % (AUTO) 1.4 % (2.0-9.0); NEUTROPHILS # (AUTO) 9.8 K/uL (1.8-7.7); PLATELET COUNT (AUTO) 251 K/uL (150-450); RED BLOOD CELL COUNT(AUTO) 3.19 MIL/uL (4.50-5.90); RED CELL DISTRIBUTION WIDTH 14.9 % (11.5-14.5)
[2018-09-06 07:38] LABS: NEUTROPHILS % (AUTO) 93.9 % (40.0-70.0)
[2018-09-06 07:39] LABS: GLUCOMETER DEV NAME(LOC) 5S.2; GLUCOSE,POINT OF CARE 282 MG/DL (70-110)
[2018-09-06 07:47] LABS: ALBUMIN 2.7 g/dL (3.4-5.0); BILIRUBIN,TOTAL 0.2 mg/dL (0.1-1.0); CALCIUM, TOTAL 8.8 mg/dL (8.8-10.5); CREATININE 3.25 mg/dL (0.60-1.30); MAGNESIUM 2.3 mg/dL (1.80-2.40); POTASSIUM 5.4 mmol/L (3.5-5.1); TOTAL PROTEIN, SERUM 6.3 g/dL (6.4-8.2)
[2018-09-06 08:14] LABS: APPEARANCE,URINE CLEAR (CLEAR); BILIRUBIN,URINE NEGATIVE (NEGATIVE); GLUCOSE, URINE (UA) 100 mg/dL (NEGATIVE); KETONES,URINE NEGATIVE (NEGATIVE); LEUKOCYTE ESTERASE ,URINE NEGATIVE (NEGATIVE); NITRATE,URINE NEGATIVE (NEGATIVE); OCCULT BLOOD,URINE NEGATIVE (NEGATIVE); PROTEIN,URINE SEE CONFIRM (NEGATIVE); UROBILINOGEN,URINE 0.2 mg/dL (<=1.0)
[2018-09-06 08:33] LABS: BACTERIA,URINE None Seen /HPF (None Seen); RBC,URINE None Seen /HPF (0-2); SULFOSALICYLIC ACID,URINE 2+ (Negative); WBC,URINE None Seen /HPF (0-5)
[2018-09-06] MEDS: ASPIRIN 81 MG EC TABLET PO SCH (08:43)
[2018-09-06] MEDS: PANTOPRAZOLE SODIUM 40 MG/VIAL IVP SCH (08:43)
[2018-09-06] MEDS: COLESEVELAM HCL 625 MG TABLET PO SCH ×3 (08:43→17:58)
[2018-09-06] MEDS: METOPROLOL TARTRATE 25 MG TABLET PO SCH (08:43)
[2018-09-06] MEDS: MULTIVITAMINS, THERAPEUTIC TABLET PO SCH (08:43)
[2018-09-06] MEDS: RANOLAZINE 500 MG ER TABLET PO SCH ×2 (08:43→20:53)
[2018-09-06] MEDS: LISINOPRIL 20 MG TABLET PO SCH (08:44)
[2018-09-06] MEDS: SODIUM BICARBONATE 650 MG TABLET PO SCH ×2 (08:44→20:52)
[2018-09-06] MEDS: DOCUSATE SODIUM 100 MG CAPSULE PO SCH ×2 (08:44→20:53)
[2018-09-06] MEDS: FINASTERIDE 5 MG TABLET PO SCH (08:44)
[2018-09-06] MEDS: CLOPIDOGREL BISULFATE 75 MG TABLET PO SCH (08:44)
[2018-09-06] MEDS: TAMSULOSIN HCL 0.4 MG CAPSULE PO SCH (08:44)
[2018-09-06] MEDS: GABAPENTIN 300 MG CAPSULE PO SCH ×3 (08:44→20:53)
[2018-09-06] MEDS: INSULIN GLARGINE,HUM.REC.ANLOG 100 UNITS/ML SQ SCH ×2 (08:49→20:51)
[2018-09-06 10:58] VITALS: BP 159/106
[2018-09-06] MEDS ORDERED: SODIUM POLYSTYRENE SULFONATE 15 GM/60 ML SUSPENSION BOTTLE PO ONE (11:00)
[2018-09-06] MEDS: OxyCODONE HCL/ACETAMINOPHEN 5-325 MG TABLET PO PRN (11:08)
[2018-09-06] MEDS: AmLODIPine BESYLATE 5 MG TABLET PO SCH (11:09)
[2018-09-06] MEDS: CefTRIAXone 1 GM/DEXTROSE 50 ML IV SCH (13:24)
[2018-09-06] MEDS: AZITHROMYCIN 500 MG/NS 250 ML IV SCH (14:00)
[2018-09-06 15:28] VITALS: BP 157/100
[2018-09-06] MEDS: MAGNESIUM HYDROXIDE SUSPENSION 30 ML UDCUP PO PRN (15:32)
[2018-09-06] MEDS: ISOSORB DINIT/HYDRALAZINE HCL 20-37.5 MG TABLET PO SCH ×2 (15:33→20:52)
[2018-09-06] MEDS ORDERED: MAGNESIUM CITRATE 300 ML ORAL SOLUTION PO ONE (16:45)
[2018-09-06 17:20] LABS: GLUCOMETER DEV NAME(LOC) 5N.1; GLUCOSE,POINT OF CARE 314 MG/DL (70-110)
[2018-09-06] MEDS: ONDANSETRON HCL 4 MG/2 ML VIAL IVP PRN (20:12)
[2018-09-06 20:22] VITALS: BP 145/77
[2018-09-06] MEDS: CARVEDILOL 3.125 MG TABLET PO SCH (20:53)
[2018-09-06] MEDS: ROSUVASTATIN CALCIUM 20 MG TABLET PO SCH (20:53)
[2018-09-06 23:51] VITALS: BP 130/66
[2018-09-07] MEDS: GuaiFENesin/CODEINE [SUGAR FREE] 200-20MG/10 ML SYRUP UDCUP PO PRN (02:07)
[2018-09-07] MEDS: ALBUTEROL SULFATE 2.5 MG/0.5 ML NEB SOLUTION NEB SCH ×6 (02:55→23:10)
[2018-09-07] MEDS: IPRATROPIUM BROMIDE 0.5 MG/2.5 ML NEB SOLUTION NEB SCH ×6 (02:55→23:11)
[2018-09-07 03:21] VITALS: BP 152/77
[2018-09-07] MEDS: MethylPREDNISolone SOD SUCC 125 MG/2 ML VIAL IVP SCH ×4 (05:54→23:34)
[2018-09-07] MEDS: NITROGLYCERIN 2% (1 GM=INCH) PACKET TP SCH ×4 (05:54→23:34)
[2018-09-07 06:20] LABS: EOSINOPHILS % (AUTO) 0 % (1.0-6.0); HEMATOCRIT 30.4 % (41-53); HEMOGLOBIN 10.3 g/dL (13.5-17.5); LYMPHOCYTES # (AUTO) 0.4 K/uL (1.0-4.8); LYMPHOCYTES % (AUTO) 5.3 % (22.0-44.0); MEAN CORPUSCULAR HEMOGLOBIN 31.5 pg (26.0-34.0); MEAN CORPUSCULAR HGB CONC 33.8 G/dL (31.0-37.0); MEAN CORPUSCULAR VOLUME 93 fL (80-100); MONOCYTES # (AUTO) 0.2 K/uL (0.1-1.0); MONOCYTES % (AUTO) 2.1 % (2.0-9.0); NEUTROPHILS # (AUTO) 7.1 K/uL (1.8-7.7); PLATELET COUNT (AUTO) 244 K/uL (150-450); RED BLOOD CELL COUNT(AUTO) 3.26 MIL/uL (4.50-5.90); RED CELL DISTRIBUTION WIDTH 15.2 % (11.5-14.5)
[2018-09-07 06:41] LABS: ALBUMIN 2.8 g/dL (3.4-5.0); BILIRUBIN,TOTAL 0.2 mg/dL (0.1-1.0); CALCIUM, TOTAL 8.4 mg/dL (8.8-10.5); CREATININE 3.92 mg/dL (0.60-1.30); MAGNESIUM 3.8 mg/dL (1.80-2.40); TOTAL PROTEIN, SERUM 6.1 g/dL (6.4-8.2)
[2018-09-07 06:43] LABS: NEUTROPHILS % (AUTO) 92.6 % (40.0-70.0)
[2018-09-07 07:47] VITALS: BP 156/85
[2018-09-07 08:39] LABS: GLUCOMETER DEV NAME(LOC) 5N.2; GLUCOSE,POINT OF CARE 231 MG/DL (70-110)
[2018-09-07] MEDS: MAGNESIUM HYDROXIDE SUSPENSION 30 ML UDCUP PO PRN (08:49)
[2018-09-07] MEDS: PANTOPRAZOLE SODIUM 40 MG/VIAL IVP SCH (08:49)
[2018-09-07] MEDS: MULTIVITAMINS, THERAPEUTIC TABLET PO SCH (08:50)
[2018-09-07] MEDS: SODIUM BICARBONATE 650 MG TABLET PO SCH ×2 (08:50→20:28)
[2018-09-07] MEDS: RANOLAZINE 500 MG ER TABLET PO SCH ×2 (08:50→20:28)
[2018-09-07] MEDS: ISOSORB DINIT/HYDRALAZINE HCL 20-37.5 MG TABLET PO SCH ×3 (08:50→20:28)
[2018-09-07] MEDS: CLOPIDOGREL BISULFATE 75 MG TABLET PO SCH (08:50)
[2018-09-07] MEDS: CARVEDILOL 3.125 MG TABLET PO SCH ×2 (08:50→20:28)
[2018-09-07] MEDS: COLESEVELAM HCL 625 MG TABLET PO SCH ×3 (08:50→18:22)
[2018-09-07] MEDS: DOCUSATE SODIUM 100 MG CAPSULE PO SCH ×2 (08:50→20:28)
[2018-09-07] MEDS: TAMSULOSIN HCL 0.4 MG CAPSULE PO SCH (08:50)
[2018-09-07] MEDS: AmLODIPine BESYLATE 5 MG TABLET PO SCH (08:50)
[2018-09-07] MEDS: HEPARIN SODIUM,PORCINE 5,000 UNITS/ML VIAL SQ SCH ×3 (08:51→23:34)
[2018-09-07] MEDS: FINASTERIDE 5 MG TABLET PO SCH (08:51)
[2018-09-07] MEDS: GABAPENTIN 300 MG CAPSULE PO SCH ×3 (08:51→20:28)
[2018-09-07] MEDS: ASPIRIN 81 MG EC TABLET PO SCH (08:51)
[2018-09-07] MEDS: INSULIN GLARGINE,HUM.REC.ANLOG 100 UNITS/ML SQ SCH ×2 (08:57→20:29)
[2018-09-07] MEDS ORDERED: PEG 3350/NA SULF,BICARB,CL/KCL 4000 ML SOLUTION PO ONE (11:00)
[2018-09-07 11:38] VITALS: BP_SYST 137
[2018-09-07] MEDS ORDERED: BISACODYL 10 MG RECTAL RECTAL SUPPOSITORY PR ONE (11:45)
[2018-09-07] MEDS: INSULIN LISPRO 100 UNITS/ML SQ PRN (11:50)
[2018-09-07] MEDS: CefTRIAXone 1 GM/DEXTROSE 50 ML IV SCH (12:45)
[2018-09-07] MEDS: AZITHROMYCIN 500 MG/NS 250 ML IV SCH (13:50)
[2018-09-07 15:33] VITALS: BP 112/47
[2018-09-07 16:19] LABS: GLUCOMETER DEV NAME(LOC) 5S.1; GLUCOSE,POINT OF CARE 325 MG/DL (70-110)
[2018-09-07 16:19] LABS: GLUCOMETER DEV NAME(LOC) 5S.1; GLUCOSE,POINT OF CARE 297 MG/DL (70-110)
[2018-09-07] MEDS: ALBUTEROL SULFATE 2.5 MG/0.5 ML NEB SOLUTION NEB PRN (19:30)
[2018-09-07] MEDS: IPRATROPIUM BROMIDE 0.5 MG/2.5 ML NEB SOLUTION NEB PRN (19:31)
[2018-09-07 19:48] VITALS: BP 122/59
[2018-09-07] MEDS: ROSUVASTATIN CALCIUM 20 MG TABLET PO SCH (20:28)
[2018-09-07] MEDS: MORPHINE SULFATE 4 MG/ML SYRINGE IVP PRN (21:17)
[2018-09-07 23:37] VITALS: BP 123/65
[2018-09-08] MEDS: ALBUTEROL SULFATE 2.5 MG/0.5 ML NEB SOLUTION NEB SCH ×6 (03:15→22:40)
[2018-09-08] MEDS: IPRATROPIUM BROMIDE 0.5 MG/2.5 ML NEB SOLUTION NEB SCH ×6 (03:15→22:40)
[2018-09-08 03:20] VITALS: BP 147/74
[2018-09-08] MEDS: MORPHINE SULFATE 4 MG/ML SYRINGE IVP PRN ×2 (03:22→22:36)
[2018-09-08] MEDS: MethylPREDNISolone SOD SUCC 125 MG/2 ML VIAL IVP SCH ×3 (05:33→17:11)
[2018-09-08] MEDS: NITROGLYCERIN 2% (1 GM=INCH) PACKET TP SCH ×3 (05:33→17:11)
[2018-09-08] MEDS: INSULIN LISPRO 100 UNITS/ML SQ PRN ×2 (05:41→11:50)
[2018-09-08 06:12] LABS: GLUCOMETER DEV NAME(LOC) 5S.1; GLUCOSE,POINT OF CARE 136 MG/DL (70-110)
[2018-09-08 06:12] LABS: GLUCOMETER DEV NAME(LOC) 5S.1; GLUCOSE,POINT OF CARE 160 MG/DL (70-110)
[2018-09-08] MEDS: PANTOPRAZOLE SODIUM 40 MG/VIAL IVP SCH (08:16)
[2018-09-08] MEDS: ASPIRIN 81 MG EC TABLET PO SCH (08:17)
[2018-09-08] MEDS: TAMSULOSIN HCL 0.4 MG CAPSULE PO SCH (08:17)
[2018-09-08] MEDS: MULTIVITAMINS, THERAPEUTIC TABLET PO SCH (08:17)
[2018-09-08] MEDS: FINASTERIDE 5 MG TABLET PO SCH (08:17)
[2018-09-08] MEDS: CARVEDILOL 3.125 MG TABLET PO SCH ×2 (08:17→21:17)
[2018-09-08] MEDS: DOCUSATE SODIUM 100 MG CAPSULE PO SCH ×2 (08:17→21:16)
[2018-09-08] MEDS: CLOPIDOGREL BISULFATE 75 MG TABLET PO SCH (08:17)
[2018-09-08] MEDS: GABAPENTIN 300 MG CAPSULE PO SCH ×3 (08:17→21:17)
[2018-09-08] MEDS: AmLODIPine BESYLATE 5 MG TABLET PO SCH (08:17)
[2018-09-08] MEDS: COLESEVELAM HCL 625 MG TABLET PO SCH ×3 (08:18→17:11)
[2018-09-08] MEDS: RANOLAZINE 500 MG ER TABLET PO SCH (08:18)
[2018-09-08] MEDS: ISOSORB DINIT/HYDRALAZINE HCL 20-37.5 MG TABLET PO SCH ×3 (08:18→21:16)
[2018-09-08] MEDS: HEPARIN SODIUM,PORCINE 5,000 UNITS/ML VIAL SQ SCH ×2 (08:18→17:11)
[2018-09-08] MEDS: SODIUM BICARBONATE 650 MG TABLET PO SCH ×2 (08:18→21:17)
[2018-09-08] MEDS: INSULIN GLARGINE,HUM.REC.ANLOG 100 UNITS/ML SQ SCH ×2 (08:20→21:00)
[2018-09-08 08:44] VITALS: BP 134/70
[2018-09-08 11:35] LABS: GLUCOMETER DEV NAME(LOC) 5S.2; GLUCOSE,POINT OF CARE 217 MG/DL (70-110)
[2018-09-08 11:35] LABS: GLUCOMETER DEV NAME(LOC) 5S.2; GLUCOSE,POINT OF CARE 213 MG/DL (70-110)
[2018-09-08 12:10] LABS: GLUCOMETER DEV NAME(LOC) 5N.2; GLUCOSE,POINT OF CARE 94 MG/DL (70-110)
[2018-09-08 12:10] LABS: GLUCOMETER DEV NAME(LOC) 5N.2; GLUCOSE,POINT OF CARE 263 MG/DL (70-110)
[2018-09-08 12:38] VITALS: BP 148/74
[2018-09-08] MEDS: CefTRIAXone 1 GM/DEXTROSE 50 ML IV SCH (13:47)
[2018-09-08] MEDS: AZITHROMYCIN 500 MG/NS 250 ML IV SCH (14:21)
[2018-09-08 15:46] LABS: CREATININE 5.04 mg/dL (0.60-1.30)
[2018-09-08 15:47] LABS: POTASSIUM 6.3 mmol/L (3.5-5.1)
[2018-09-08] MEDS ORDERED: INSULIN LISPRO 100 UNITS/ML SQ ONE (16:45)
[2018-09-08] MEDS ORDERED: SODIUM POLYSTYRENE SULFONATE 15 GM/60 ML SUSPENSION BOTTLE PO ONE ×2 (16:45→22:15)
[2018-09-08 17:02] VITALS: BP 118/76
[2018-09-08 19:51] VITALS: BP 119/63
[2018-09-08 19:54] LABS: GLUCOMETER DEV NAME(LOC) 5S.1; GLUCOSE,POINT OF CARE 163 MG/DL (70-110)
[2018-09-08 19:54] LABS: GLUCOMETER DEV NAME(LOC) 5S.2; GLUCOSE,POINT OF CARE 190 MG/DL (70-110)
[2018-09-08] MEDS: BUMETANIDE 0.25 MG/ML 4 ML VIAL IVP SCH (21:16)
[2018-09-08] MEDS: ROSUVASTATIN CALCIUM 20 MG TABLET PO SCH (21:17)
[2018-09-08] MEDS: GuaiFENesin/CODEINE [SUGAR FREE] 200-20MG/10 ML SYRUP UDCUP PO PRN (21:23)
[2018-09-08 21:47] LABS: ALBUMIN 2.8 g/dL (3.4-5.0); CALCIUM, TOTAL 8.1 mg/dL (8.8-10.5); CREATININE 5.54 mg/dL (0.60-1.30); PHOSPHORUS 7.5 mg/dL (2.5-4.9)
[2018-09-08 21:49] LABS: POTASSIUM 6.3 mmol/L (3.5-5.1)
[2018-09-08] MEDS: ONDANSETRON HCL 4 MG/2 ML VIAL IVP PRN (22:00)
[2018-09-08 23:40] VITALS: BP 128/55
[2018-09-09] MEDS: NITROGLYCERIN 2% (1 GM=INCH) PACKET TP SCH ×5 (00:03→23:32)
[2018-09-09] MEDS: MethylPREDNISolone SOD SUCC 125 MG/2 ML VIAL IVP SCH ×5 (00:04→23:32)
[2018-09-09] MEDS: IPRATROPIUM BROMIDE 0.5 MG/2.5 ML NEB SOLUTION NEB SCH ×6 (02:57→22:40)
[2018-09-09] MEDS: ALBUTEROL SULFATE 2.5 MG/0.5 ML NEB SOLUTION NEB SCH ×6 (02:57→22:40)
[2018-09-09 03:09] LABS: GLUCOMETER DEV NAME(LOC) 5S.1; GLUCOSE,POINT OF CARE 74 MG/DL (70-110)
[2018-09-09] MEDS: SODIUM BICARBONATE 650 MG TABLET PO SCH ×7 (03:54→23:32)
[2018-09-09 05:10] VITALS: BP 130/54
[2018-09-09 06:14] LABS: EOSINOPHILS % (AUTO) 0 % (1.0-6.0); HEMATOCRIT 29.5 % (41-53); LYMPHOCYTES # (AUTO) 0.4 K/uL (1.0-4.8); LYMPHOCYTES % (AUTO) 4.7 % (22.0-44.0); MEAN CORPUSCULAR HEMOGLOBIN 31.8 pg (26.0-34.0); MEAN CORPUSCULAR HGB CONC 34.1 G/dL (31.0-37.0); MEAN CORPUSCULAR VOLUME 93 fL (80-100); MONOCYTES # (AUTO) 0.2 K/uL (0.1-1.0); MONOCYTES % (AUTO) 2.3 % (2.0-9.0); NEUTROPHILS # (AUTO) 7.3 K/uL (1.8-7.7); PLATELET COUNT (AUTO) 219 K/uL (150-450); RED BLOOD CELL COUNT(AUTO) 3.16 MIL/uL (4.50-5.90)
[2018-09-09 06:30] LABS: ALBUMIN 2.6 g/dL (3.4-5.0); BILIRUBIN,TOTAL 0.3 mg/dL (0.1-1.0); CALCIUM, TOTAL 8.3 mg/dL (8.8-10.5); CREATININE 5.79 mg/dL (0.60-1.30); PHOSPHORUS 7.9 mg/dL (2.5-4.9); TOTAL PROTEIN, SERUM 5.9 g/dL (6.4-8.2)
[2018-09-09 07:14] LABS: MAGNESIUM 4.6 mg/dL (1.80-2.40); POTASSIUM 6.2 mmol/L (3.5-5.1)
[2018-09-09 07:15] VITALS: BP 137/72
[2018-09-09 07:19] LABS: GLUCOMETER DEV NAME(LOC) 5S.2; GLUCOSE,POINT OF CARE 160 MG/DL (70-110)
[2018-09-09] MEDS: COLESEVELAM HCL 625 MG TABLET PO SCH ×3 (08:00→17:15)
[2018-09-09] MEDS ORDERED: SODIUM POLYSTYRENE SULFONATE 15 GM/60 ML SUSPENSION BOTTLE PO ONE (08:00)
[2018-09-09] MEDS: HEPARIN SODIUM,PORCINE 5,000 UNITS/ML VIAL SQ SCH ×4 (08:00→23:32)
[2018-09-09] MEDS: MAGNESIUM HYDROXIDE SUSPENSION 30 ML UDCUP PO PRN (08:46)
[2018-09-09] MEDS: ISOSORB DINIT/HYDRALAZINE HCL 20-37.5 MG TABLET PO SCH ×3 (09:00→20:46)
[2018-09-09] MEDS: BUMETANIDE 0.25 MG/ML 4 ML VIAL IVP SCH ×2 (09:00→20:45)
[2018-09-09] MEDS: ASPIRIN 81 MG EC TABLET PO SCH (09:00)
[2018-09-09] MEDS: CLOPIDOGREL BISULFATE 75 MG TABLET PO SCH (09:00)
[2018-09-09] MEDS: CARVEDILOL 3.125 MG TABLET PO SCH ×2 (09:00→20:46)
[2018-09-09] MEDS: TAMSULOSIN HCL 0.4 MG CAPSULE PO SCH (09:00)
[2018-09-09] MEDS: MULTIVITAMINS, THERAPEUTIC TABLET PO SCH (09:00)
[2018-09-09] MEDS: INSULIN GLARGINE,HUM.REC.ANLOG 100 UNITS/ML SQ SCH ×2 (09:00→20:44)
[2018-09-09] MEDS: FINASTERIDE 5 MG TABLET PO SCH (09:00)
[2018-09-09] MEDS: GABAPENTIN 100 MG CAPSULE PO SCH ×3 (09:00→20:45)
[2018-09-09] MEDS ORDERED: LIDOCAINE/PF 1% 30 ML VIAL ONE (09:27)
[2018-09-09] MEDS ORDERED: HEPARIN SODIUM 1000 UNITS/NS 500 ML ONE (09:27)
[2018-09-09] MEDS ORDERED: HEPARIN SODIUM,PORCINE 1,000 UNITS/ML 10 ML VIAL ONE (09:27)
[2018-09-09 11:25] VITALS: BP 156/79
[2018-09-09] MEDS ORDERED: HEPARIN SODIUM,PORCINE 1,000 UNITS/ML VIAL IVP ONE ×3 (12:00→15:00)
[2018-09-09] MEDS: INSULIN LISPRO 100 UNITS/ML SQ PRN ×2 (12:02→20:45)
[2018-09-09] MEDS ORDERED: SODIUM CHLORIDE 0.9% 1,000 ML IV ONE (13:55)
[2018-09-09] MEDS ORDERED: MANNITOL 25%-12.5 GM/50 ML VIAL IVP PRN (15:00)
[2018-09-09] MEDS: ONDANSETRON HCL 4 MG/2 ML VIAL IVP PRN ×2 (15:38→21:56)
[2018-09-09 15:43] VITALS: BP 132/72
[2018-09-09] MEDS: CefTRIAXone 1 GM/DEXTROSE 50 ML IV SCH (16:57)
[2018-09-09] MEDS: PANTOPRAZOLE SODIUM 40 MG/VIAL IVP SCH (17:03)
[2018-09-09] MEDS: DOCUSATE SODIUM 100 MG CAPSULE PO SCH ×2 (17:09→20:46)
[2018-09-09] MEDS: AZITHROMYCIN 500 MG/NS 250 ML IV SCH (18:14)
[2018-09-09 19:44] LABS: GLUCOMETER DEV NAME(LOC) 5S.2; GLUCOSE,POINT OF CARE 157 MG/DL (70-110)
[2018-09-09 19:49] LABS: GLUCOMETER DEV NAME(LOC) 5S.1; GLUCOSE,POINT OF CARE 171 MG/DL (70-110)
[2018-09-09 19:49] LABS: GLUCOMETER DEV NAME(LOC) 5S.1; GLUCOSE,POINT OF CARE 190 MG/DL (70-110)
[2018-09-09 19:49] LABS: GLUCOMETER DEV NAME(LOC) 5S.1; GLUCOSE,POINT OF CARE 212 MG/DL (70-110)
[2018-09-09 19:51] VITALS: BP 140/84
[2018-09-09] MEDS: ROSUVASTATIN CALCIUM 10 MG TABLET PO SCH (20:49)
[2018-09-09 23:11] VITALS: BP 153/56
[2018-09-10] VITALS (7 sets, daily range): BP systolic 121–163; BP diastolic 69–87
[2018-09-10] MEDS: ALBUTEROL SULFATE 2.5 MG/0.5 ML NEB SOLUTION NEB SCH ×6 (02:43→23:25)
[2018-09-10] MEDS: IPRATROPIUM BROMIDE 0.5 MG/2.5 ML NEB SOLUTION NEB SCH ×6 (02:43→23:25)
[2018-09-10] MEDS: SODIUM BICARBONATE 650 MG TABLET PO SCH ×5 (03:30→20:30)
[2018-09-10] MEDS: ONDANSETRON HCL 4 MG/2 ML VIAL IVP PRN ×2 (04:02→11:39)
[2018-09-10 05:40] LABS: EOSINOPHILS % (AUTO) 0 % (1.0-6.0); HEMATOCRIT 29.8 % (41-53); LYMPHOCYTES # (AUTO) 0.3 K/uL (1.0-4.8); LYMPHOCYTES % (AUTO) 3.5 % (22.0-44.0); MEAN CORPUSCULAR HEMOGLOBIN 31.4 pg (26.0-34.0); MEAN CORPUSCULAR HGB CONC 33.7 G/dL (31.0-37.0); MEAN CORPUSCULAR VOLUME 93 fL (80-100); MONOCYTES # (AUTO) 0.2 K/uL (0.1-1.0); NEUTROPHILS # (AUTO) 7.1 K/uL (1.8-7.7); PLATELET COUNT (AUTO) 194 K/uL (150-450); RED CELL DISTRIBUTION WIDTH 14.7 % (11.5-14.5)
[2018-09-10 05:45] LABS: NEUTROPHILS % (AUTO) 93.5 % (40.0-70.0)
[2018-09-10] MEDS: MethylPREDNISolone SOD SUCC 125 MG/2 ML VIAL IVP SCH ×2 (05:59→12:47)
[2018-09-10] MEDS: NITROGLYCERIN 2% (1 GM=INCH) PACKET TP SCH ×4 (05:59→23:59)
[2018-09-10] MEDS: INSULIN LISPRO 100 UNITS/ML SQ PRN ×2 (06:01→18:32)
[2018-09-10 06:04] LABS: ALBUMIN 2.5 g/dL (3.4-5.0); BILIRUBIN,TOTAL 0.2 mg/dL (0.1-1.0); CALCIUM, TOTAL 7.8 mg/dL (8.8-10.5); CREATININE 4.62 mg/dL (0.60-1.30); MAGNESIUM 3.9 mg/dL (1.80-2.40); TOTAL PROTEIN, SERUM 5.8 g/dL (6.4-8.2)
[2018-09-10] MEDS ORDERED: SODIUM CHLORIDE 0.9% 1,000 ML IV ONE (06:27)
[2018-09-10] MEDS: HEPARIN SODIUM,PORCINE 5,000 UNITS/ML VIAL SQ SCH (08:00)
[2018-09-10] MEDS: COLESEVELAM HCL 625 MG TABLET PO SCH ×3 (08:00→18:30)
[2018-09-10] MEDS ORDERED: DiphenhydrAMINE HCL 50 MG/ML VIAL IVP ONE (08:30)
[2018-09-10] MEDS: PANTOPRAZOLE SODIUM 40 MG/VIAL IVP SCH (08:41)
[2018-09-10] MEDS: MULTIVITAMINS, THERAPEUTIC TABLET PO SCH ×2 (09:00→18:30)
[2018-09-10] MEDS: GABAPENTIN 100 MG CAPSULE PO SCH ×3 (09:00→20:28)
[2018-09-10] MEDS: ISOSORB DINIT/HYDRALAZINE HCL 20-37.5 MG TABLET PO SCH ×3 (09:00→20:30)
[2018-09-10] MEDS: CLOPIDOGREL BISULFATE 75 MG TABLET PO SCH (09:00)
[2018-09-10] MEDS: CARVEDILOL 3.125 MG TABLET PO SCH ×2 (09:00→20:29)
[2018-09-10] MEDS: INSULIN GLARGINE,HUM.REC.ANLOG 100 UNITS/ML SQ SCH ×2 (09:00→21:00)
[2018-09-10] MEDS: FINASTERIDE 5 MG TABLET PO SCH ×2 (09:00→18:30)
[2018-09-10] MEDS: TAMSULOSIN HCL 0.4 MG CAPSULE PO SCH ×2 (09:00→18:30)
[2018-09-10] MEDS: DOCUSATE SODIUM 100 MG CAPSULE PO SCH ×2 (09:00→20:28)
[2018-09-10] MEDS: EPOETIN ALFA 10,000 UNITS/ML VIAL SQ SCH (11:39)
[2018-09-10] MEDS ORDERED: MANNITOL 25%-12.5 GM/50 ML VIAL IVP ONE (12:00)
[2018-09-10] MEDS ORDERED: HEPARIN SODIUM,PORCINE 1,000 UNITS/ML VIAL IVP ONE (12:00)
[2018-09-10] MEDS: CefTRIAXone 1 GM/DEXTROSE 50 ML IV SCH (12:48)
[2018-09-10 13:29] LABS: GLUCOMETER DEV NAME(LOC) 5S.2; GLUCOSE,POINT OF CARE 160 MG/DL (70-110)
[2018-09-10 13:29] LABS: GLUCOMETER DEV NAME(LOC) 5S.2; GLUCOSE,POINT OF CARE 244 MG/DL (70-110)
[2018-09-10 13:29] LABS: GLUCOMETER DEV NAME(LOC) 5S.2; GLUCOSE,POINT OF CARE 173 MG/DL (70-110)
[2018-09-10 13:30] LABS: GLUCOMETER DEV NAME(LOC) 5S.1; GLUCOSE,POINT OF CARE 171 MG/DL (70-110)
[2018-09-10] MEDS: AZITHROMYCIN 500 MG/NS 250 ML IV SCH (14:11)
[2018-09-10] MEDS ORDERED: HydrALAZINE HCL 20 MG/ML VIAL IVP PRN (16:45)
[2018-09-10] MEDS: ROSUVASTATIN CALCIUM 10 MG TABLET PO SCH (20:28)
[2018-09-10 21:18] LABS: GLUCOMETER DEV NAME(LOC) 5S.1; GLUCOSE,POINT OF CARE 189 MG/DL (70-110)
[2018-09-10 21:19] LABS: GLUCOMETER DEV NAME(LOC) 5S.2; GLUCOSE,POINT OF CARE 192 MG/DL (70-110)
[2018-09-11 01:31] LABS: EOSINOPHILS % (AUTO) 0 % (1.0-6.0); HEMATOCRIT 26.1 % (41-53); HEMOGLOBIN 8.9 g/dL (13.5-17.5); LYMPHOCYTES # (AUTO) 0.4 K/uL (1.0-4.8); LYMPHOCYTES % (AUTO) 5.5 % (22.0-44.0); MEAN CORPUSCULAR HEMOGLOBIN 31.6 pg (26.0-34.0); MEAN CORPUSCULAR VOLUME 93 fL (80-100); MONOCYTES # (AUTO) 0.8 K/uL (0.1-1.0); MONOCYTES % (AUTO) 9.7 % (2.0-9.0); NEUTROPHILS # (AUTO) 6.9 K/uL (1.8-7.7); NEUTROPHILS % (AUTO) 84.8 % (40.0-70.0); PLATELET COUNT (AUTO) 154 K/uL (150-450); RED BLOOD CELL COUNT(AUTO) 2.81 MIL/uL (4.50-5.90); RED CELL DISTRIBUTION WIDTH 14.8 % (11.5-14.5)
[2018-09-11] MEDS: ALBUTEROL SULFATE 2.5 MG/0.5 ML NEB SOLUTION NEB SCH ×6 (03:42→23:00)
[2018-09-11] MEDS: IPRATROPIUM BROMIDE 0.5 MG/2.5 ML NEB SOLUTION NEB SCH ×6 (03:42→23:00)
[2018-09-11] MEDS: SODIUM BICARBONATE 650 MG TABLET PO SCH ×7 (04:00→23:51)
[2018-09-11 04:14] VITALS: BP 155/84
[2018-09-11] MEDS: MethylPREDNISolone SOD SUCC 40 MG/ML VIAL IVP SCH ×2 (05:20)
[2018-09-11] MEDS: NITROGLYCERIN 2% (1 GM=INCH) PACKET TP SCH ×4 (05:20→23:51)
[2018-09-11] MEDS ORDERED: SODIUM CHLORIDE 0.9% 1,000 ML IV ONE ×2 (06:30→06:36)
[2018-09-11 06:41] LABS: BASOPHILS % (AUTO) 0.1 % (0.0-2.0); EOSINOPHILS % (AUTO) 0 % (1.0-6.0); HEMATOCRIT 27.8 % (41-53); HEMOGLOBIN 9.6 g/dL (13.5-17.5); LYMPHOCYTES # (AUTO) 0.5 K/uL (1.0-4.8); MEAN CORPUSCULAR HEMOGLOBIN 31.4 pg (26.0-34.0); MEAN CORPUSCULAR HGB CONC 34.4 G/dL (31.0-37.0); MEAN CORPUSCULAR VOLUME 91 fL (80-100); MONOCYTES # (AUTO) 0.4 K/uL (0.1-1.0); MONOCYTES % (AUTO) 3.9 % (2.0-9.0); NEUTROPHILS # (AUTO) 8.6 K/uL (1.8-7.7); PLATELET COUNT (AUTO) 165 K/uL (150-450); RED BLOOD CELL COUNT(AUTO) 3.05 MIL/uL (4.50-5.90); RED CELL DISTRIBUTION WIDTH 14.2 % (11.5-14.5)
[2018-09-11 06:49] LABS: INR 1.1 (0.9-1.1); PROTHROMBIN TIME 11.3 SEC (9.4-11.6)
[2018-09-11] MEDS ORDERED: FentaNYL CITRATE-PF 100 MCG/2 ML VIAL ONE (06:50)
[2018-09-11] MEDS ORDERED: MIDAZOLAM HCL 5 MG/ML VIAL ONE (06:50)
[2018-09-11 07:20] LABS: ALBUMIN 2.3 g/dL (3.4-5.0); BILIRUBIN,TOTAL 0.3 mg/dL (0.1-1.0); CALCIUM, TOTAL 7.7 mg/dL (8.8-10.5); CREATININE 3.89 mg/dL (0.60-1.30); MAGNESIUM 3.1 mg/dL (1.80-2.40); POTASSIUM 4.8 mmol/L (3.5-5.1); TOTAL PROTEIN, SERUM 5.4 g/dL (6.4-8.2)
[2018-09-11] MEDS ORDERED: PEG 3350/NA SULF,BICARB,CL/KCL 4000 ML SOLUTION PO ONE (07:45)
[2018-09-11 08:43] VITALS: BP 166/78
[2018-09-11] MEDS ORDERED: PredniSONE 10 MG TABLET PO SCH (09:00)
[2018-09-11] MEDS: CLOPIDOGREL BISULFATE 75 MG TABLET PO SCH (09:00)
[2018-09-11] MEDS: PANTOPRAZOLE SODIUM 40 MG/VIAL IVP SCH (09:35)
[2018-09-11] MEDS: TAMSULOSIN HCL 0.4 MG CAPSULE PO SCH (09:35)
[2018-09-11] MEDS: DOCUSATE SODIUM 100 MG CAPSULE PO SCH ×2 (09:35→20:02)
[2018-09-11] MEDS: ISOSORB DINIT/HYDRALAZINE HCL 20-37.5 MG TABLET PO SCH ×3 (09:35→20:01)
[2018-09-11] MEDS: FINASTERIDE 5 MG TABLET PO SCH (09:36)
[2018-09-11] MEDS: MULTIVITAMINS, THERAPEUTIC TABLET PO SCH (09:36)
[2018-09-11] MEDS: GABAPENTIN 100 MG CAPSULE PO SCH ×3 (09:36→20:01)
[2018-09-11] MEDS: COLESEVELAM HCL 625 MG TABLET PO SCH ×3 (09:36→17:42)
[2018-09-11] MEDS: CARVEDILOL 3.125 MG TABLET PO SCH ×2 (09:36→20:02)
[2018-09-11] MEDS: INSULIN GLARGINE,HUM.REC.ANLOG 100 UNITS/ML SQ SCH ×2 (09:38→20:05)
[2018-09-11 11:33] VITALS: BP 142/90
[2018-09-11] MEDS ORDERED: LIDOCAINE/PF 2% 5 ML SYRINGE IVP ONE (12:00)
[2018-09-11] MEDS ORDERED: PROPOFOL 1% 20 ML VIAL IVP ONE (12:00)
[2018-09-11] MEDS: CefTRIAXone 1 GM/DEXTROSE 50 ML IV SCH (12:02)
[2018-09-11] MEDS: INSULIN LISPRO 100 UNITS/ML SQ PRN ×3 (12:03→20:04)
[2018-09-11] MEDS: AZITHROMYCIN 500 MG/NS 250 ML IV SCH (13:29)
[2018-09-11 15:09] LABS: GLUCOMETER DEV NAME(LOC) 5S.2; GLUCOSE,POINT OF CARE 200 MG/DL (70-110)
[2018-09-11 15:46] VITALS: BP 150/88
[2018-09-11 19:50] VITALS: BP 152/73
[2018-09-11] MEDS: ROSUVASTATIN CALCIUM 10 MG TABLET PO SCH (20:01)
[2018-09-11 21:39] LABS: GLUCOMETER DEV NAME(LOC) 5N.2; GLUCOSE,POINT OF CARE 298 MG/DL (70-110)
[2018-09-11 21:39] LABS: GLUCOMETER DEV NAME(LOC) 5N.2; GLUCOSE,POINT OF CARE 382 MG/DL (70-110)
[2018-09-12] VITALS (7 sets, daily range): BP systolic 97–146; BP diastolic 51–92
[2018-09-12] MEDS: MORPHINE SULFATE 4 MG/ML SYRINGE IVP PRN ×2 (01:41→16:10)
[2018-09-12] MEDS: IPRATROPIUM BROMIDE 0.5 MG/2.5 ML NEB SOLUTION NEB SCH ×6 (02:48→22:32)
[2018-09-12] MEDS: ALBUTEROL SULFATE 2.5 MG/0.5 ML NEB SOLUTION NEB SCH ×6 (02:48→22:32)
[2018-09-12] MEDS: SODIUM BICARBONATE 650 MG TABLET PO SCH ×6 (03:13→23:24)
[2018-09-12] MEDS: NITROGLYCERIN 2% (1 GM=INCH) PACKET TP SCH ×4 (05:53→23:15)
[2018-09-12] MEDS: INSULIN LISPRO 100 UNITS/ML SQ PRN ×2 (05:54→17:31)
[2018-09-12 06:33] LABS: BASOPHILS % (AUTO) 0.1 % (0.0-2.0); EOSINOPHILS % (AUTO) 0 % (1.0-6.0); HEMATOCRIT 25.3 % (41-53); HEMOGLOBIN 8.8 g/dL (13.5-17.5); LYMPHOCYTES # (AUTO) 0.7 K/uL (1.0-4.8); LYMPHOCYTES % (AUTO) 8.1 % (22.0-44.0); MEAN CORPUSCULAR HGB CONC 34.7 G/dL (31.0-37.0); MEAN CORPUSCULAR VOLUME 92 fL (80-100); MONOCYTES # (AUTO) 0.9 K/uL (0.1-1.0); MONOCYTES % (AUTO) 10.1 % (2.0-9.0); NEUTROPHILS # (AUTO) 7.5 K/uL (1.8-7.7); NEUTROPHILS % (AUTO) 81.7 % (40.0-70.0); PLATELET COUNT (AUTO) 128 K/uL (150-450); RED BLOOD CELL COUNT(AUTO) 2.74 MIL/uL (4.50-5.90); RED CELL DISTRIBUTION WIDTH 14.2 % (11.5-14.5)
[2018-09-12 07:05] LABS: ALBUMIN 2.2 g/dL (3.4-5.0); BILIRUBIN,TOTAL 0.2 mg/dL (0.1-1.0); CALCIUM, TOTAL 7.5 mg/dL (8.8-10.5); CREATININE 3.73 mg/dL (0.60-1.30); MAGNESIUM 3.2 mg/dL (1.80-2.40); POTASSIUM 4.1 mmol/L (3.5-5.1); TOTAL PROTEIN, SERUM 5.3 g/dL (6.4-8.2)
[2018-09-12] MEDS: INSULIN GLARGINE,HUM.REC.ANLOG 100 UNITS/ML SQ SCH ×2 (08:29→20:20)
[2018-09-12] MEDS: ISOSORB DINIT/HYDRALAZINE HCL 20-37.5 MG TABLET PO SCH ×3 (09:00→19:47)
[2018-09-12] MEDS: ONDANSETRON HCL 4 MG/2 ML VIAL IVP PRN ×2 (11:32→21:50)
[2018-09-12] MEDS: COLESEVELAM HCL 625 MG TABLET PO SCH ×3 (12:00→17:24)
[2018-09-12] MEDS: PANTOPRAZOLE SODIUM 40 MG/VIAL IVP SCH (12:37)
[2018-09-12] MEDS: EPOETIN ALFA 10,000 UNITS/ML VIAL SQ SCH (12:37)
[2018-09-12] MEDS: TAMSULOSIN HCL 0.4 MG CAPSULE PO SCH (12:40)
[2018-09-12] MEDS: FINASTERIDE 5 MG TABLET PO SCH (12:41)
[2018-09-12] MEDS: GABAPENTIN 100 MG CAPSULE PO SCH ×3 (12:41→19:47)
[2018-09-12] MEDS: DOCUSATE SODIUM 100 MG CAPSULE PO SCH ×2 (12:41→19:47)
[2018-09-12] MEDS: MULTIVITAMINS, THERAPEUTIC TABLET PO SCH (12:45)
[2018-09-12] MEDS: CLOPIDOGREL BISULFATE 75 MG TABLET PO SCH (12:46)
[2018-09-12] MEDS: CARVEDILOL 6.25 MG TABLET PO SCH ×2 (12:46→20:20)
[2018-09-12] MEDS: CefTRIAXone 1 GM/DEXTROSE 50 ML IV SCH (13:37)
[2018-09-12] MEDS: AZITHROMYCIN 500 MG/NS 250 ML IV SCH (13:47)
[2018-09-12 16:54] LABS: GLUCOMETER DEV NAME(LOC) 5S.2; GLUCOSE,POINT OF CARE 159 MG/DL (70-110)
[2018-09-12] MEDS: ROSUVASTATIN CALCIUM 10 MG TABLET PO SCH (19:47)
[2018-09-12] MEDS ORDERED: HEPARIN SODIUM,PORCINE 1,000 UNITS/ML VIAL ONE (20:49)
[2018-09-13] MEDS: ALBUTEROL SULFATE 2.5 MG/0.5 ML NEB SOLUTION NEB SCH ×6 (03:00→22:37)
[2018-09-13] MEDS: IPRATROPIUM BROMIDE 0.5 MG/2.5 ML NEB SOLUTION NEB SCH ×6 (03:00→22:36)
[2018-09-13] MEDS: SODIUM BICARBONATE 650 MG TABLET PO SCH ×6 (03:11→23:58)
[2018-09-13 05:23] VITALS: BP 122/53
[2018-09-13] MEDS: NITROGLYCERIN 2% (1 GM=INCH) PACKET TP SCH ×4 (06:07→23:58)
[2018-09-13 06:09] LABS: GLUCOMETER DEV NAME(LOC) 5S.2; GLUCOSE,POINT OF CARE 321 MG/DL (70-110)
[2018-09-13 06:12] LABS: BASOPHILS % (AUTO) 0.1 % (0.0-2.0); EOSINOPHILS % (AUTO) 0.4 % (1.0-6.0); HEMATOCRIT 22.7 % (41-53); HEMOGLOBIN 7.8 g/dL (13.5-17.5); LYMPHOCYTES # (AUTO) 0.7 K/uL (1.0-4.8); LYMPHOCYTES % (AUTO) 9.1 % (22.0-44.0); MEAN CORPUSCULAR HEMOGLOBIN 31.9 pg (26.0-34.0); MEAN CORPUSCULAR HGB CONC 34.4 G/dL (31.0-37.0); MEAN CORPUSCULAR VOLUME 93 fL (80-100); MONOCYTES % (AUTO) 13.2 % (2.0-9.0); NEUTROPHILS % (AUTO) 77.2 % (40.0-70.0); PLATELET COUNT (AUTO) 110 K/uL (150-450); RED BLOOD CELL COUNT(AUTO) 2.44 MIL/uL (4.50-5.90); RED CELL DISTRIBUTION WIDTH 14.2 % (11.5-14.5)
[2018-09-13 06:28] LABS: ALBUMIN 1.9 g/dL (3.4-5.0); BILIRUBIN,TOTAL 0.2 mg/dL (0.1-1.0); CALCIUM, TOTAL 7.4 mg/dL (8.8-10.5); CREATININE 3.31 mg/dL (0.60-1.30); MAGNESIUM 2.5 mg/dL (1.80-2.40); POTASSIUM 4.2 mmol/L (3.5-5.1); TOTAL PROTEIN, SERUM 4.2 g/dL (6.4-8.2)
[2018-09-13 07:45] VITALS: BP 138/73
[2018-09-13] MEDS: INSULIN GLARGINE,HUM.REC.ANLOG 100 UNITS/ML SQ SCH ×2 (08:26→20:12)
[2018-09-13] MEDS: TAMSULOSIN HCL 0.4 MG CAPSULE PO SCH (08:27)
[2018-09-13] MEDS: CARVEDILOL 6.25 MG TABLET PO SCH ×2 (08:27→20:11)
[2018-09-13] MEDS: PANTOPRAZOLE SODIUM 40 MG/VIAL IVP SCH (08:27)
[2018-09-13] MEDS: DOCUSATE SODIUM 100 MG CAPSULE PO SCH ×2 (08:27→20:11)
[2018-09-13] MEDS: FINASTERIDE 5 MG TABLET PO SCH (08:27)
[2018-09-13] MEDS: MULTIVITAMINS, THERAPEUTIC TABLET PO SCH (08:27)
[2018-09-13] MEDS: ISOSORB DINIT/HYDRALAZINE HCL 20-37.5 MG TABLET PO SCH ×3 (08:28→20:11)
[2018-09-13] MEDS: PARICALCITOL 1 MCG CAPSULE PO SCH (08:28)
[2018-09-13] MEDS: GABAPENTIN 100 MG CAPSULE PO SCH ×3 (08:28→20:11)
[2018-09-13] MEDS: COLESEVELAM HCL 625 MG TABLET PO SCH ×3 (08:28→17:24)
[2018-09-13 11:04] LABS: GLUCOMETER DEV NAME(LOC) 5N.1; GLUCOSE,POINT OF CARE 252 MG/DL (70-110)
[2018-09-13 11:04] LABS: GLUCOMETER DEV NAME(LOC) 5N.1; GLUCOSE,POINT OF CARE 286 MG/DL (70-110)
[2018-09-13 11:04] LABS: GLUCOMETER DEV NAME(LOC) 5N.1; GLUCOSE,POINT OF CARE 293 MG/DL (70-110)
[2018-09-13 11:09] LABS: GLUCOMETER DEV NAME(LOC) 5N.1; GLUCOSE,POINT OF CARE 148 MG/DL (70-110)
[2018-09-13 11:09] LABS: GLUCOMETER DEV NAME(LOC) 5S.1; GLUCOSE,POINT OF CARE 168 MG/DL (70-110)
[2018-09-13 11:14] VITALS: BP 111/57
[2018-09-13] MEDS: INSULIN LISPRO 100 UNITS/ML SQ PRN ×3 (11:42→20:13)
[2018-09-13] MEDS: CefTRIAXone 1 GM/DEXTROSE 50 ML IV SCH (12:09)
[2018-09-13] MEDS: AZITHROMYCIN 500 MG/NS 250 ML IV SCH (12:09)
[2018-09-13] MEDS: LACTULOSE 20 GM/30 ML SOLUTION UDCUP PO PRN (14:34)
[2018-09-13 14:58] VITALS: BP 122/67
[2018-09-13 15:30] LABS: PHOSPHORUS 5.5 mg/dL (2.5-4.9)
[2018-09-13 18:04] LABS: GLUCOMETER DEV NAME(LOC) 5S.2; GLUCOSE,POINT OF CARE 158 MG/DL (70-110)
[2018-09-13 18:04] LABS: GLUCOMETER DEV NAME(LOC) 5S.2; GLUCOSE,POINT OF CARE 230 MG/DL (70-110)
[2018-09-13 20:11] VITALS: BP 133/59
[2018-09-13] MEDS: ROSUVASTATIN CALCIUM 10 MG TABLET PO SCH (20:11)
[2018-09-14 00:19] VITALS: BP 140/70
[2018-09-14] MEDS: SODIUM BICARBONATE 650 MG TABLET PO SCH ×5 (03:17→20:06)
[2018-09-14] MEDS: MORPHINE SULFATE 4 MG/ML SYRINGE IVP PRN ×2 (03:18→22:07)
[2018-09-14 03:54] LABS: GLUCOMETER DEV NAME(LOC) 5N.1; GLUCOSE,POINT OF CARE 229 MG/DL (70-110)
[2018-09-14] MEDS: IPRATROPIUM BROMIDE 0.5 MG/2.5 ML NEB SOLUTION NEB SCH ×6 (04:32→22:22)
[2018-09-14] MEDS: ALBUTEROL SULFATE 2.5 MG/0.5 ML NEB SOLUTION NEB SCH ×6 (04:32→22:22)
[2018-09-14 04:57] VITALS: BP 146/81
[2018-09-14] MEDS: INSULIN LISPRO 100 UNITS/ML SQ PRN ×3 (05:54→20:09)
[2018-09-14] MEDS: NITROGLYCERIN 2% (1 GM=INCH) PACKET TP SCH ×3 (05:55→18:05)
[2018-09-14 06:20] LABS: BASOPHILS % (AUTO) 0.1 % (0.0-2.0); EOSINOPHILS % (AUTO) 1.6 % (1.0-6.0); LYMPHOCYTES # (AUTO) 0.8 K/uL (1.0-4.8); LYMPHOCYTES % (AUTO) 9.5 % (22.0-44.0); MEAN CORPUSCULAR HEMOGLOBIN 32.1 pg (26.0-34.0); MEAN CORPUSCULAR HGB CONC 34.8 G/dL (31.0-37.0); MEAN CORPUSCULAR VOLUME 92 fL (80-100); MONOCYTES # (AUTO) 0.9 K/uL (0.1-1.0); MONOCYTES % (AUTO) 10.7 % (2.0-9.0); NEUTROPHILS # (AUTO) 6.6 K/uL (1.8-7.7); NEUTROPHILS % (AUTO) 78.1 % (40.0-70.0); PLATELET COUNT (AUTO) 118 K/uL (150-450); RED CELL DISTRIBUTION WIDTH 14.5 % (11.5-14.5)
[2018-09-14 06:49] LABS: CALCIUM, TOTAL 8.1 mg/dL (8.8-10.5); CREATININE 3.63 mg/dL (0.60-1.30); PHOSPHORUS 4.8 mg/dL (2.5-4.9); POTASSIUM 4.5 mmol/L (3.5-5.1)
[2018-09-14] MEDS ORDERED: SODIUM CHLORIDE 0.9% 2,000 ML IV ONE (07:49)
[2018-09-14 07:51] VITALS: BP 158/81
[2018-09-14] MEDS: COLESEVELAM HCL 625 MG TABLET PO SCH ×2 (08:00→12:22)
[2018-09-14] MEDS: INSULIN GLARGINE,HUM.REC.ANLOG 100 UNITS/ML SQ SCH ×2 (09:00→20:08)
[2018-09-14] MEDS: ISOSORB DINIT/HYDRALAZINE HCL 20-37.5 MG TABLET PO SCH ×3 (09:00→20:06)
[2018-09-14 11:45] VITALS: BP 136/65
[2018-09-14] MEDS ORDERED: EPOETIN ALFA 10,000 UNITS/ML VIAL SQ ONE (11:45)
[2018-09-14] MEDS: TAMSULOSIN HCL 0.4 MG CAPSULE PO SCH (12:21)
[2018-09-14] MEDS: VITAMIN B COMP/VIT C/FOLIC ACID CAPSULE PO SCH (12:21)
[2018-09-14] MEDS: PANTOPRAZOLE SODIUM 40 MG/VIAL IVP SCH (12:21)
[2018-09-14] MEDS: DOCUSATE SODIUM 100 MG CAPSULE PO SCH ×2 (12:21→20:14)
[2018-09-14] MEDS: FOLIC ACID 1 MG TABLET PO SCH (12:21)
[2018-09-14] MEDS: CARVEDILOL 6.25 MG TABLET PO SCH ×2 (12:22→20:07)
[2018-09-14] MEDS: FINASTERIDE 5 MG TABLET PO SCH (12:22)
[2018-09-14] MEDS: GABAPENTIN 100 MG CAPSULE PO SCH ×3 (12:23→20:07)
[2018-09-14] MEDS: PredniSONE 20 MG TABLET PO SCH (12:24)
[2018-09-14] MEDS: EPOETIN ALFA 10,000 UNITS/ML VIAL SQ SCH (12:24)
[2018-09-14] MEDS: PYRIDOXINE HCL 50 MG TABLET PO SCH (12:35)
[2018-09-14] MEDS: SOD FERRIC GLUC COMPLX/SUCROSE 125 MG in SODIUM CHLORIDE 0.9% 100 ML IV SCH (12:35)
[2018-09-14] MEDS: CefTRIAXone 1 GM/DEXTROSE 50 ML IV SCH (14:39)
[2018-09-14] MEDS ORDERED: BISACODYL 10 MG RECTAL RECTAL SUPPOSITORY PR PRN (14:45)
[2018-09-14] MEDS: AZITHROMYCIN 500 MG/NS 250 ML IV SCH (15:20)
[2018-09-14 15:47] VITALS: BP 158/76
[2018-09-14 20:02] VITALS: BP 143/69
[2018-09-14] MEDS: ROSUVASTATIN CALCIUM 10 MG TABLET PO SCH (20:07)
[2018-09-14 20:44] LABS: GLUCOMETER DEV NAME(LOC) 5N.1; GLUCOSE,POINT OF CARE 323 MG/DL (70-110)
[2018-09-15] VITALS (7 sets, daily range): BP systolic 115–153; BP diastolic 57–81
[2018-09-15] MEDS: NITROGLYCERIN 2% (1 GM=INCH) PACKET TP SCH ×5 (00:12→23:51)
[2018-09-15] MEDS: SODIUM BICARBONATE 650 MG TABLET PO SCH ×7 (00:12→23:51)
[2018-09-15 01:19] LABS: GLUCOMETER DEV NAME(LOC) 5N.2; GLUCOSE,POINT OF CARE 107 MG/DL (70-110)
[2018-09-15 01:19] LABS: GLUCOMETER DEV NAME(LOC) 5N.2; GLUCOSE,POINT OF CARE 198 MG/DL (70-110)
[2018-09-15] MEDS: ALBUTEROL SULFATE 2.5 MG/0.5 ML NEB SOLUTION NEB SCH ×6 (03:00→23:00)
[2018-09-15] MEDS: IPRATROPIUM BROMIDE 0.5 MG/2.5 ML NEB SOLUTION NEB SCH ×6 (03:00→23:00)
[2018-09-15] MEDS: ALBUTEROL SULFATE 2.5 MG/0.5 ML NEB SOLUTION NEB PRN (04:23)
[2018-09-15] MEDS: IPRATROPIUM BROMIDE 0.5 MG/2.5 ML NEB SOLUTION NEB PRN (04:23)
[2018-09-15 06:09] LABS: BASOPHILS % (AUTO) 0.1 % (0.0-2.0); EOSINOPHILS % (AUTO) 0.3 % (1.0-6.0); HEMATOCRIT 22.7 % (41-53); LYMPHOCYTES # (AUTO) 0.7 K/uL (1.0-4.8); LYMPHOCYTES % (AUTO) 7.1 % (22.0-44.0); MEAN CORPUSCULAR HEMOGLOBIN 32.1 pg (26.0-34.0); MEAN CORPUSCULAR VOLUME 92 fL (80-100); MONOCYTES # (AUTO) 0.6 K/uL (0.1-1.0); MONOCYTES % (AUTO) 6.2 % (2.0-9.0); NEUTROPHILS # (AUTO) 8.9 K/uL (1.8-7.7); PLATELET COUNT (AUTO) 123 K/uL (150-450); RED BLOOD CELL COUNT(AUTO) 2.48 MIL/uL (4.50-5.90); RED CELL DISTRIBUTION WIDTH 14.3 % (11.5-14.5)
[2018-09-15 06:24] LABS: ALBUMIN 1.9 g/dL (3.4-5.0); CALCIUM, TOTAL 7.7 mg/dL (8.8-10.5); CREATININE 2.52 mg/dL (0.60-1.30); PHOSPHORUS 3.5 mg/dL (2.5-4.9); POTASSIUM 4.1 mmol/L (3.5-5.1)
[2018-09-15 06:55] LABS: NEUTROPHILS % (AUTO) 86.3 % (40.0-70.0)
[2018-09-15 07:54] LABS: GLUCOMETER DEV NAME(LOC) 5S.1; GLUCOSE,POINT OF CARE 366 MG/DL (70-110)
[2018-09-15] MEDS: PANTOPRAZOLE SODIUM 40 MG/VIAL IVP SCH (08:54)
[2018-09-15] MEDS: VITAMIN B COMP/VIT C/FOLIC ACID CAPSULE PO SCH (08:55)
[2018-09-15] MEDS: CARVEDILOL 6.25 MG TABLET PO SCH ×2 (08:55→20:11)
[2018-09-15] MEDS: FOLIC ACID 1 MG TABLET PO SCH (08:56)
[2018-09-15] MEDS: FINASTERIDE 5 MG TABLET PO SCH (08:56)
[2018-09-15] MEDS: PredniSONE 20 MG TABLET PO SCH (08:56)
[2018-09-15] MEDS: TAMSULOSIN HCL 0.4 MG CAPSULE PO SCH (08:56)
[2018-09-15] MEDS: DOCUSATE SODIUM 100 MG CAPSULE PO SCH ×2 (08:56→20:10)
[2018-09-15] MEDS: ISOSORB DINIT/HYDRALAZINE HCL 20-37.5 MG TABLET PO SCH ×3 (08:57→20:10)
[2018-09-15] MEDS: GABAPENTIN 100 MG CAPSULE PO SCH ×3 (08:57→20:10)
[2018-09-15] MEDS: PYRIDOXINE HCL 50 MG TABLET PO SCH (08:57)
[2018-09-15] MEDS: INSULIN GLARGINE,HUM.REC.ANLOG 100 UNITS/ML SQ SCH ×2 (09:00→20:38)
[2018-09-15] MEDS: SOD FERRIC GLUC COMPLX/SUCROSE 125 MG in SODIUM CHLORIDE 0.9% 100 ML IV SCH (12:17)
[2018-09-15] MEDS: INSULIN LISPRO 100 UNITS/ML SQ PRN ×3 (12:24→20:37)
[2018-09-15 13:58] LABS: GLUCOMETER DEV NAME(LOC) 5S.2; GLUCOSE,POINT OF CARE 130 MG/DL (70-110)
[2018-09-15 13:59] LABS: GLUCOMETER DEV NAME(LOC) 5S.2; GLUCOSE,POINT OF CARE 167 MG/DL (70-110)
[2018-09-15] MEDS ORDERED: BUME1TAB17 PO (13:59)
[2018-09-15] MEDS: CefTRIAXone 1 GM/DEXTROSE 50 ML IV SCH (14:00)
[2018-09-15] MEDS: AZITHROMYCIN 500 MG/NS 250 ML IV SCH (15:04)
[2018-09-15] MEDS: LACTULOSE 20 GM/30 ML SOLUTION UDCUP PO PRN (15:57)
[2018-09-15] MEDS ORDERED: LIDOCAINE/PF 1% 2 ML VIAL INJ ONE (18:20)
[2018-09-15] MEDS ORDERED: HEPARIN SODIUM,PORCINE 1,000 UNITS/ML VIAL IVP ONE (18:20)
[2018-09-15] MEDS: ROSUVASTATIN CALCIUM 10 MG TABLET PO SCH (20:10)
[2018-09-15] MEDS: MORPHINE SULFATE 4 MG/ML SYRINGE IVP PRN (20:14)
[2018-09-15 23:24] LABS: GLUCOMETER DEV NAME(LOC) 5S.1; GLUCOSE,POINT OF CARE 222 MG/DL (70-110)
[2018-09-15 23:24] LABS: GLUCOMETER DEV NAME(LOC) 5S.1; GLUCOSE,POINT OF CARE 393 MG/DL (70-110)
[2018-09-15 23:24] LABS: GLUCOMETER DEV NAME(LOC) 5N.1; GLUCOSE,POINT OF CARE 341 MG/DL (70-110)
[2018-09-16] VITALS (7 sets, daily range): BP systolic 124–169; BP diastolic 60–101
[2018-09-16] MEDS: IPRATROPIUM BROMIDE 0.5 MG/2.5 ML NEB SOLUTION NEB PRN (00:03)
[2018-09-16] MEDS: ALBUTEROL SULFATE 2.5 MG/0.5 ML NEB SOLUTION NEB PRN (00:03)
[2018-09-16] MEDS: IPRATROPIUM BROMIDE 0.5 MG/2.5 ML NEB SOLUTION NEB SCH ×6 (02:41→22:01)
[2018-09-16] MEDS: ALBUTEROL SULFATE 2.5 MG/0.5 ML NEB SOLUTION NEB SCH ×6 (02:41→22:01)
[2018-09-16] MEDS: SODIUM BICARBONATE 650 MG TABLET PO SCH ×6 (03:00→23:52)
[2018-09-16] MEDS: MORPHINE SULFATE 4 MG/ML SYRINGE IVP PRN (03:01)
[2018-09-16] MEDS: INSULIN LISPRO 100 UNITS/ML SQ PRN ×2 (06:10→21:29)
[2018-09-16 06:45] LABS: BASOPHILS % (AUTO) 0.2 % (0.0-2.0); EOSINOPHILS % (AUTO) 0.4 % (1.0-6.0); HEMATOCRIT 22.4 % (41-53); HEMOGLOBIN 7.6 g/dL (13.5-17.5); LYMPHOCYTES # (AUTO) 1.1 K/uL (1.0-4.8); MEAN CORPUSCULAR HEMOGLOBIN 31.4 pg (26.0-34.0); MEAN CORPUSCULAR HGB CONC 33.9 G/dL (31.0-37.0); MEAN CORPUSCULAR VOLUME 93 fL (80-100); MONOCYTES % (AUTO) 7.1 % (2.0-9.0); NEUTROPHILS # (AUTO) 11.6 K/uL (1.8-7.7); NEUTROPHILS % (AUTO) 84.3 % (40.0-70.0); PLATELET COUNT (AUTO) 161 K/uL (150-450); RED BLOOD CELL COUNT(AUTO) 2.42 MIL/uL (4.50-5.90); RED CELL DISTRIBUTION WIDTH 14.3 % (11.5-14.5)
[2018-09-16 06:47] LABS: CALCIUM, TOTAL 8.2 mg/dL (8.8-10.5); CREATININE 2.65 mg/dL (0.60-1.30)
[2018-09-16] MEDS: NITROGLYCERIN 2% (1 GM=INCH) PACKET TP SCH ×4 (06:57→23:52)
[2018-09-16] MEDS: GABAPENTIN 100 MG CAPSULE PO SCH ×3 (09:00→21:23)
[2018-09-16] MEDS: ISOSORB DINIT/HYDRALAZINE HCL 20-37.5 MG TABLET PO SCH ×3 (09:00→21:23)
[2018-09-16] MEDS: CARVEDILOL 6.25 MG TABLET PO SCH ×2 (09:00→21:23)
[2018-09-16] MEDS: INSULIN GLARGINE,HUM.REC.ANLOG 100 UNITS/ML SQ SCH ×2 (09:00→21:00)
[2018-09-16] MEDS: PANTOPRAZOLE SODIUM 40 MG/VIAL IVP SCH (09:16)
[2018-09-16] MEDS: DOCUSATE SODIUM 100 MG CAPSULE PO SCH ×2 (09:16→21:23)
[2018-09-16] MEDS ORDERED: LIDOCAINE/PF 1% 30 ML VIAL ONE (11:59)
[2018-09-16] MEDS ORDERED: HEPARIN SODIUM 1000 UNITS/NS 500 ML ONE (11:59)
[2018-09-16] MEDS ORDERED: HEPARIN SODIUM,PORCINE 1,000 UNITS/ML 10 ML VIAL ONE (11:59)
[2018-09-16] MEDS: SOD FERRIC GLUC COMPLX/SUCROSE 125 MG in SODIUM CHLORIDE 0.9% 100 ML IV SCH (12:00)
[2018-09-16] MEDS: OxyCODONE HCL/ACETAMINOPHEN 5-325 MG TABLET PO PRN (12:09)
[2018-09-16] MEDS ORDERED: SODIUM CHLORIDE 0.9% 500 ML IV ONE (15:23)
[2018-09-16] MEDS: PYRIDOXINE HCL 50 MG TABLET PO SCH (16:11)
[2018-09-16] MEDS: TAMSULOSIN HCL 0.4 MG CAPSULE PO SCH (16:11)
[2018-09-16] MEDS: FOLIC ACID 1 MG TABLET PO SCH (16:11)
[2018-09-16] MEDS: CefTRIAXone 1 GM/DEXTROSE 50 ML IV SCH (16:13)
[2018-09-16] MEDS: SENNA 187 MG TABLET PO PRN (16:13)
[2018-09-16] MEDS: FINASTERIDE 5 MG TABLET PO SCH (16:14)
[2018-09-16] MEDS: VITAMIN B COMP/VIT C/FOLIC ACID CAPSULE PO SCH (16:14)
[2018-09-16] MEDS: PARICALCITOL 1 MCG CAPSULE PO SCH (16:14)
[2018-09-16] MEDS: AZITHROMYCIN 500 MG/NS 250 ML IV SCH (16:57)
[2018-09-16] MEDS ORDERED: HEPARIN SODIUM,PORCINE 1,000 UNITS/ML VIAL IVP ONE (18:25)
[2018-09-16 20:04] LABS: GLUCOMETER DEV NAME(LOC) 5N.1; GLUCOSE,POINT OF CARE 198 MG/DL (70-110)
[2018-09-16 20:04] LABS: GLUCOMETER DEV NAME(LOC) 5N.1; GLUCOSE,POINT OF CARE 146 MG/DL (70-110)
[2018-09-16 20:04] LABS: GLUCOMETER DEV NAME(LOC) 5N.2; GLUCOSE,POINT OF CARE 213 MG/DL (70-110)
[2018-09-16] MEDS: ROSUVASTATIN CALCIUM 10 MG TABLET PO SCH (21:23)
[2018-09-16] MEDS: ZOLPIDEM TARTRATE 10 MG TABLET PO PRN (21:23)
[2018-09-16] MEDS: LACTULOSE 20 GM/30 ML SOLUTION UDCUP PO PRN (21:24)
[2018-09-17] VITALS (7 sets, daily range): BP systolic 118–160; BP diastolic 68–77
[2018-09-17] MEDS: ALBUTEROL SULFATE 2.5 MG/0.5 ML NEB SOLUTION NEB PRN (00:34)
[2018-09-17] MEDS: IPRATROPIUM BROMIDE 0.5 MG/2.5 ML NEB SOLUTION NEB PRN (00:34)
[2018-09-17 01:28] LABS: GLUCOMETER DEV NAME(LOC) 5S.2; GLUCOSE,POINT OF CARE 214 MG/DL (70-110)
[2018-09-17] MEDS: ALBUTEROL SULFATE 2.5 MG/0.5 ML NEB SOLUTION NEB SCH ×6 (03:00→23:53)
[2018-09-17] MEDS: IPRATROPIUM BROMIDE 0.5 MG/2.5 ML NEB SOLUTION NEB SCH ×6 (03:00→23:53)
[2018-09-17] MEDS: MORPHINE SULFATE 4 MG/ML SYRINGE IVP PRN (03:03)
[2018-09-17] MEDS: SODIUM BICARBONATE 650 MG TABLET PO SCH ×5 (04:49→21:33)
[2018-09-17] MEDS: NITROGLYCERIN 2% (1 GM=INCH) PACKET TP SCH ×3 (05:19→18:00)
[2018-09-17] MEDS: INSULIN LISPRO 100 UNITS/ML SQ PRN ×3 (05:22→18:04)
[2018-09-17 07:28] LABS: BASOPHILS % (AUTO) 0.1 % (0.0-2.0); EOSINOPHILS % (AUTO) 1.4 % (1.0-6.0); HEMATOCRIT 22.3 % (41-53); HEMOGLOBIN 7.5 g/dL (13.5-17.5); LYMPHOCYTES # (AUTO) 0.9 K/uL (1.0-4.8); LYMPHOCYTES % (AUTO) 10.2 % (22.0-44.0); MEAN CORPUSCULAR HEMOGLOBIN 31.5 pg (26.0-34.0); MEAN CORPUSCULAR HGB CONC 33.8 G/dL (31.0-37.0); MEAN CORPUSCULAR VOLUME 93 fL (80-100); MONOCYTES # (AUTO) 0.9 K/uL (0.1-1.0); MONOCYTES % (AUTO) 10.1 % (2.0-9.0); NEUTROPHILS # (AUTO) 6.9 K/uL (1.8-7.7); NEUTROPHILS % (AUTO) 78.2 % (40.0-70.0); PLATELET COUNT (AUTO) 140 K/uL (150-450); RED BLOOD CELL COUNT(AUTO) 2.38 MIL/uL (4.50-5.90); RED CELL DISTRIBUTION WIDTH 14.1 % (11.5-14.5)
[2018-09-17 07:49] LABS: ALBUMIN 2.1 g/dL (3.4-5.0); BILIRUBIN,TOTAL 0.2 mg/dL (0.1-1.0); CALCIUM, TOTAL 7.8 mg/dL (8.8-10.5); CREATININE 2.29 mg/dL (0.60-1.30); MAGNESIUM 1.9 mg/dL (1.80-2.40); POTASSIUM 4.3 mmol/L (3.5-5.1); TOTAL PROTEIN, SERUM 4.9 g/dL (6.4-8.2)
[2018-09-17] MEDS: FOLIC ACID 1 MG TABLET PO SCH (08:05)
[2018-09-17] MEDS: FINASTERIDE 5 MG TABLET PO SCH (08:05)
[2018-09-17] MEDS: VITAMIN B COMP/VIT C/FOLIC ACID CAPSULE PO SCH (08:06)
[2018-09-17] MEDS: DOCUSATE SODIUM 100 MG CAPSULE PO SCH ×2 (08:06→21:33)
[2018-09-17] MEDS: PredniSONE 10 MG TABLET PO SCH (08:06)
[2018-09-17] MEDS: TAMSULOSIN HCL 0.4 MG CAPSULE PO SCH (08:07)
[2018-09-17] MEDS: GABAPENTIN 100 MG CAPSULE PO SCH ×3 (08:07→21:34)
[2018-09-17] MEDS: PYRIDOXINE HCL 50 MG TABLET PO SCH (08:08)
[2018-09-17] MEDS: PANTOPRAZOLE SODIUM 40 MG/VIAL IVP SCH (08:08)
[2018-09-17] MEDS: CARVEDILOL 6.25 MG TABLET PO SCH ×2 (08:09→21:33)
[2018-09-17] MEDS: ISOSORB DINIT/HYDRALAZINE HCL 20-37.5 MG TABLET PO SCH ×3 (08:09→21:33)
[2018-09-17] MEDS: INSULIN GLARGINE,HUM.REC.ANLOG 100 UNITS/ML SQ SCH ×2 (08:11→21:46)
[2018-09-17] MEDS: EPOETIN ALFA 10,000 UNITS/ML VIAL SQ SCH (08:12)
[2018-09-17] MEDS: SOD FERRIC GLUC COMPLX/SUCROSE 125 MG in SODIUM CHLORIDE 0.9% 100 ML IV SCH (12:24)
[2018-09-17 19:04] LABS: GLUCOMETER DEV NAME(LOC) 5S.2; GLUCOSE,POINT OF CARE 171 MG/DL (70-110)
[2018-09-17] MEDS: OxyCODONE HCL/ACETAMINOPHEN 5-325 MG TABLET PO PRN (19:58)
[2018-09-17] MEDS: ROSUVASTATIN CALCIUM 10 MG TABLET PO SCH (21:34)
[2018-09-17] MEDS: ZOLPIDEM TARTRATE 10 MG TABLET PO PRN (22:24)
[2018-09-18] VITALS (7 sets, daily range): BP systolic 127–190; BP diastolic 63–98
[2018-09-18] MEDS: SODIUM BICARBONATE 650 MG TABLET PO SCH ×7 (01:06→23:38)
[2018-09-18] MEDS: NITROGLYCERIN 2% (1 GM=INCH) PACKET TP SCH ×5 (01:06→23:38)
[2018-09-18] MEDS: IPRATROPIUM BROMIDE 0.5 MG/2.5 ML NEB SOLUTION NEB SCH ×6 (03:00→22:41)
[2018-09-18] MEDS: ALBUTEROL SULFATE 2.5 MG/0.5 ML NEB SOLUTION NEB SCH ×6 (03:00→22:41)
[2018-09-18 06:52] LABS: BASOPHILS % (AUTO) 0.2 % (0.0-2.0); EOSINOPHILS % (AUTO) 0.2 % (1.0-6.0); HEMATOCRIT 22.4 % (41-53); HEMOGLOBIN 7.8 g/dL (13.5-17.5); MEAN CORPUSCULAR HEMOGLOBIN 32.4 pg (26.0-34.0); MEAN CORPUSCULAR HGB CONC 34.8 G/dL (31.0-37.0); MEAN CORPUSCULAR VOLUME 93 fL (80-100); MONOCYTES # (AUTO) 1.1 K/uL (0.1-1.0); NEUTROPHILS # (AUTO) 7.8 K/uL (1.8-7.7); NEUTROPHILS % (AUTO) 78.6 % (40.0-70.0); PLATELET COUNT (AUTO) 145 K/uL (150-450); RED BLOOD CELL COUNT(AUTO) 2.41 MIL/uL (4.50-5.90); RED CELL DISTRIBUTION WIDTH 14.3 % (11.5-14.5)
[2018-09-18 07:22] LABS: ALBUMIN 2.3 g/dL (3.4-5.0); BILIRUBIN,TOTAL 0.2 mg/dL (0.1-1.0); CALCIUM, TOTAL 8.4 mg/dL (8.8-10.5); CREATININE 2.61 mg/dL (0.60-1.30); MAGNESIUM 2.1 mg/dL (1.80-2.40); POTASSIUM 4.3 mmol/L (3.5-5.1); TOTAL PROTEIN, SERUM 5.3 g/dL (6.4-8.2)
[2018-09-18 07:39] LABS: GLUCOMETER DEV NAME(LOC) 5S.2; GLUCOSE,POINT OF CARE 206 MG/DL (70-110)
[2018-09-18 07:39] LABS: GLUCOMETER DEV NAME(LOC) 5S.2; GLUCOSE,POINT OF CARE 307 MG/DL (70-110)
[2018-09-18 07:39] LABS: GLUCOMETER DEV NAME(LOC) 5S.2; GLUCOSE,POINT OF CARE 351 MG/DL (70-110)
[2018-09-18] MEDS: INSULIN GLARGINE,HUM.REC.ANLOG 100 UNITS/ML SQ SCH ×3 (08:48→23:51)
[2018-09-18] MEDS: ISOSORB DINIT/HYDRALAZINE HCL 20-37.5 MG TABLET PO SCH ×3 (09:51→20:21)
[2018-09-18] MEDS: CARVEDILOL 6.25 MG TABLET PO SCH ×2 (09:52→20:21)
[2018-09-18] MEDS: ONDANSETRON HCL 4 MG/2 ML VIAL IVP PRN (10:39)
[2018-09-18] MEDS: OxyCODONE HCL/ACETAMINOPHEN 5-325 MG TABLET PO PRN (11:14)
[2018-09-18 11:24] LABS: GLUCOMETER DEV NAME(LOC) 5N.1; GLUCOSE,POINT OF CARE 451 MG/DL (70-110)
[2018-09-18 11:24] LABS: GLUCOMETER DEV NAME(LOC) 5N.1; GLUCOSE,POINT OF CARE 405 MG/DL (70-110)
[2018-09-18 12:14] LABS: GLUCOMETER DEV NAME(LOC) 5S.1; GLUCOSE,POINT OF CARE 194 MG/DL (70-110)
[2018-09-18 12:14] LABS: GLUCOMETER DEV NAME(LOC) 5S.1; GLUCOSE,POINT OF CARE 158 MG/DL (70-110)
[2018-09-18] MEDS: SOD FERRIC GLUC COMPLX/SUCROSE 125 MG in SODIUM CHLORIDE 0.9% 100 ML IV SCH (13:20)
[2018-09-18] MEDS: PANTOPRAZOLE SODIUM 40 MG/VIAL IVP SCH (13:25)
[2018-09-18] MEDS: VITAMIN B COMP/VIT C/FOLIC ACID CAPSULE PO SCH (13:26)
[2018-09-18] MEDS: FINASTERIDE 5 MG TABLET PO SCH (13:26)
[2018-09-18] MEDS: DOCUSATE SODIUM 100 MG CAPSULE PO SCH ×2 (13:26→20:21)
[2018-09-18] MEDS: TAMSULOSIN HCL 0.4 MG CAPSULE PO SCH (13:26)
[2018-09-18] MEDS: FOLIC ACID 1 MG TABLET PO SCH (13:26)
[2018-09-18] MEDS: PYRIDOXINE HCL 50 MG TABLET PO SCH (13:27)
[2018-09-18] MEDS: GABAPENTIN 100 MG CAPSULE PO SCH ×3 (13:27→20:21)
[2018-09-18] MEDS: PredniSONE 10 MG TABLET PO SCH (13:27)
[2018-09-18] MEDS: PARICALCITOL 1 MCG CAPSULE PO SCH (13:28)
[2018-09-18] MEDS: INSULIN LISPRO 100 UNITS/ML SQ PRN (17:41)
[2018-09-18] MEDS ORDERED: DiphenhydrAMINE HCL 50 MG/ML VIAL IM ONE (18:27)
[2018-09-18] MEDS ORDERED: HEPARIN SODIUM,PORCINE 1,000 UNITS/ML VIAL IVP ONE (18:27)
[2018-09-18 19:34] LABS: GLUCOMETER DEV NAME(LOC) 5S.2; GLUCOSE,POINT OF CARE 311 MG/DL (70-110)
[2018-09-18] MEDS: ROSUVASTATIN CALCIUM 10 MG TABLET PO SCH (20:21)
[2018-09-19] MEDS: IPRATROPIUM BROMIDE 0.5 MG/2.5 ML NEB SOLUTION NEB SCH ×5 (02:30→18:49)
[2018-09-19] MEDS: ALBUTEROL SULFATE 2.5 MG/0.5 ML NEB SOLUTION NEB SCH ×5 (02:30→18:49)
[2018-09-19 02:54] LABS: GLUCOMETER DEV NAME(LOC) 5S.2; GLUCOSE,POINT OF CARE 332 MG/DL (70-110)
[2018-09-19 02:54] LABS: GLUCOMETER DEV NAME(LOC) 5S.1; GLUCOSE,POINT OF CARE 274 MG/DL (70-110)
[2018-09-19] MEDS: SODIUM BICARBONATE 650 MG TABLET PO SCH ×5 (04:04→20:49)
[2018-09-19 04:26] VITALS: BP 151/90
[2018-09-19] MEDS: INSULIN LISPRO 100 UNITS/ML SQ PRN ×3 (05:47→20:55)
[2018-09-19] MEDS: NITROGLYCERIN 2% (1 GM=INCH) PACKET TP SCH ×3 (05:54→18:04)
[2018-09-19 07:14] VITALS: BP 150/86
[2018-09-19] MEDS: PANTOPRAZOLE SODIUM 40 MG/VIAL IVP SCH (08:32)
[2018-09-19] MEDS: FOLIC ACID 1 MG TABLET PO SCH (08:33)
[2018-09-19] MEDS: FINASTERIDE 5 MG TABLET PO SCH (08:33)
[2018-09-19] MEDS: VITAMIN B COMP/VIT C/FOLIC ACID CAPSULE PO SCH (08:33)
[2018-09-19] MEDS: DOCUSATE SODIUM 100 MG CAPSULE PO SCH ×2 (08:33→20:49)
[2018-09-19] MEDS: CARVEDILOL 6.25 MG TABLET PO SCH ×2 (08:33→20:49)
[2018-09-19] MEDS: TAMSULOSIN HCL 0.4 MG CAPSULE PO SCH (08:33)
[2018-09-19] MEDS: EPOETIN ALFA 10,000 UNITS/ML VIAL SQ SCH (08:34)
[2018-09-19] MEDS: PYRIDOXINE HCL 50 MG TABLET PO SCH (08:35)
[2018-09-19] MEDS: SENNA 187 MG TABLET PO PRN (08:35)
[2018-09-19] MEDS: ISOSORB DINIT/HYDRALAZINE HCL 20-37.5 MG TABLET PO SCH ×3 (08:35→20:49)
[2018-09-19] MEDS: PredniSONE 10 MG TABLET PO SCH (08:36)
[2018-09-19] MEDS: GABAPENTIN 100 MG CAPSULE PO SCH ×3 (08:36→20:49)
[2018-09-19] MEDS: INSULIN GLARGINE,HUM.REC.ANLOG 100 UNITS/ML SQ SCH ×2 (08:37→22:49)
[2018-09-19 11:25] VITALS: BP 138/66
[2018-09-19] MEDS: SOD FERRIC GLUC COMPLX/SUCROSE 125 MG in SODIUM CHLORIDE 0.9% 100 ML IV SCH (11:59)
[2018-09-19 12:25] LABS: GLUCOMETER DEV NAME(LOC) 5S.1; GLUCOSE,POINT OF CARE 249 MG/DL (70-110)
[2018-09-19 16:37] VITALS: BP 158/80
[2018-09-19 18:45] LABS: GLUCOMETER DEV NAME(LOC) 5S.2; GLUCOSE,POINT OF CARE 341 MG/DL (70-110)
[2018-09-19 19:57] VITALS: BP 118/62
[2018-09-19] MEDS: BUMETANIDE 0.25 MG/ML 4 ML VIAL IVP SCH (20:49)
[2018-09-19] MEDS: ROSUVASTATIN CALCIUM 10 MG TABLET PO SCH (20:49)
[2018-09-19 22:49] LABS: GLUCOMETER DEV NAME(LOC) 5S.1; GLUCOSE,POINT OF CARE 444 MG/DL (70-110)
[2018-09-19 22:49] LABS: GLUCOMETER DEV NAME(LOC) 5S.1; GLUCOSE,POINT OF CARE 347 MG/DL (70-110)
[2018-09-19] MEDS: MORPHINE SULFATE 4 MG/ML SYRINGE IVP PRN (23:06)
[2018-09-20] MEDS: ALBUTEROL SULFATE 2.5 MG/0.5 ML NEB SOLUTION NEB SCH ×6 (00:21→19:00)
[2018-09-20] MEDS: IPRATROPIUM BROMIDE 0.5 MG/2.5 ML NEB SOLUTION NEB SCH ×6 (00:21→19:00)
[2018-09-20] MEDS: NITROGLYCERIN 2% (1 GM=INCH) PACKET TP SCH ×4 (00:37→17:45)
[2018-09-20] MEDS: SODIUM BICARBONATE 650 MG TABLET PO SCH ×6 (00:37→21:23)
[2018-09-20 00:48] VITALS: BP 132/63
[2018-09-20 00:59] LABS: GLUCOMETER DEV NAME(LOC) 5S.2; GLUCOSE,POINT OF CARE 249 MG/DL (70-110)
[2018-09-20] MEDS: OxyCODONE HCL/ACETAMINOPHEN 5-325 MG TABLET PO PRN (03:08)
[2018-09-20 04:05] VITALS: BP 133/73
[2018-09-20 06:40] LABS: GLUCOMETER DEV NAME(LOC) 5S.2; GLUCOSE,POINT OF CARE 107 MG/DL (70-110)
[2018-09-20 06:40] LABS: GLUCOMETER DEV NAME(LOC) 5S.2; GLUCOSE,POINT OF CARE 79 MG/DL (70-110)
[2018-09-20 07:44] VITALS: BP 133/79
[2018-09-20] MEDS: BUMETANIDE 0.25 MG/ML 4 ML VIAL IVP SCH ×2 (08:01→21:24)
[2018-09-20] MEDS: PANTOPRAZOLE SODIUM 40 MG/VIAL IVP SCH (08:01)
[2018-09-20] MEDS: FOLIC ACID 1 MG TABLET PO SCH (08:02)
[2018-09-20] MEDS: DOCUSATE SODIUM 100 MG CAPSULE PO SCH ×2 (08:02→21:26)
[2018-09-20] MEDS: PARICALCITOL 1 MCG CAPSULE PO SCH (08:02)
[2018-09-20] MEDS: TAMSULOSIN HCL 0.4 MG CAPSULE PO SCH (08:02)
[2018-09-20] MEDS: ISOSORB DINIT/HYDRALAZINE HCL 20-37.5 MG TABLET PO SCH ×3 (08:02→21:24)
[2018-09-20] MEDS: VITAMIN B COMP/VIT C/FOLIC ACID CAPSULE PO SCH (08:02)
[2018-09-20] MEDS: CARVEDILOL 6.25 MG TABLET PO SCH ×2 (08:02→21:25)
[2018-09-20] MEDS: FINASTERIDE 5 MG TABLET PO SCH (08:02)
[2018-09-20] MEDS: PYRIDOXINE HCL 50 MG TABLET PO SCH (08:03)
[2018-09-20] MEDS: GABAPENTIN 100 MG CAPSULE PO SCH ×3 (08:03→21:25)
[2018-09-20] MEDS: PredniSONE 10 MG TABLET PO SCH (08:03)
[2018-09-20] MEDS: INSULIN GLARGINE,HUM.REC.ANLOG 100 UNITS/ML SQ SCH ×2 (08:04→21:29)
[2018-09-20] MEDS: ONDANSETRON HCL 4 MG/2 ML VIAL IVP PRN (08:48)
[2018-09-20 11:29] VITALS: BP 143/67
[2018-09-20] MEDS ORDERED: SODIUM CHLORIDE 0.9% 100 ML ONE (11:45)
[2018-09-20] MEDS: SOD FERRIC GLUC COMPLX/SUCROSE 125 MG in SODIUM CHLORIDE 0.9% 100 ML IV SCH (11:54)
[2018-09-20] MEDS ORDERED: SODIUM CHLORIDE 0.9% 2,000 ML IV ONE (12:12)
[2018-09-20] MEDS ORDERED: HEPARIN SODIUM,PORCINE 1,000 UNITS/ML VIAL IVP ONE ×3 (14:00→16:50)
[2018-09-20] MEDS: GuaiFENesin/CODEINE [SUGAR FREE] 200-20MG/10 ML SYRUP UDCUP PO PRN (16:01)
[2018-09-20 16:40] VITALS: BP 139/72
[2018-09-20 20:02] VITALS: BP 114/85
[2018-09-20] MEDS: ROSUVASTATIN CALCIUM 10 MG TABLET PO SCH (21:24)
[2018-09-20] MEDS: INSULIN LISPRO 100 UNITS/ML SQ PRN (21:30)
[2018-09-21] VITALS (7 sets, daily range): BP systolic 128–159; BP diastolic 55–88
[2018-09-21 00:39] LABS: GLUCOMETER DEV NAME(LOC) 5S.1; GLUCOSE,POINT OF CARE 167 MG/DL (70-110)
[2018-09-21 00:40] LABS: GLUCOMETER DEV NAME(LOC) 5S.1; GLUCOSE,POINT OF CARE 306 MG/DL (70-110)
[2018-09-21 00:40] LABS: GLUCOMETER DEV NAME(LOC) 5S.2; GLUCOSE,POINT OF CARE 260 MG/DL (70-110)
[2018-09-21] MEDS: ALBUTEROL SULFATE 2.5 MG/0.5 ML NEB SOLUTION NEB SCH ×7 (00:50→23:03)
[2018-09-21] MEDS: SODIUM BICARBONATE 650 MG TABLET PO SCH ×7 (00:50→23:27)
[2018-09-21] MEDS: NITROGLYCERIN 2% (1 GM=INCH) PACKET TP SCH ×4 (00:50→23:28)
[2018-09-21] MEDS: IPRATROPIUM BROMIDE 0.5 MG/2.5 ML NEB SOLUTION NEB SCH ×7 (00:50→23:03)
[2018-09-21] MEDS: FINASTERIDE 5 MG TABLET PO SCH (07:55)
[2018-09-21] MEDS: FOLIC ACID 1 MG TABLET PO SCH (07:56)
[2018-09-21] MEDS: VITAMIN B COMP/VIT C/FOLIC ACID CAPSULE PO SCH (07:56)
[2018-09-21] MEDS: DOCUSATE SODIUM 100 MG CAPSULE PO SCH ×2 (07:56→20:15)
[2018-09-21] MEDS: TAMSULOSIN HCL 0.4 MG CAPSULE PO SCH (07:56)
[2018-09-21] MEDS: CARVEDILOL 6.25 MG TABLET PO SCH ×2 (07:56→20:16)
[2018-09-21] MEDS: ISOSORB DINIT/HYDRALAZINE HCL 20-37.5 MG TABLET PO SCH ×3 (07:56→20:15)
[2018-09-21] MEDS: PANTOPRAZOLE SODIUM 40 MG/VIAL IVP SCH (07:57)
[2018-09-21] MEDS: GABAPENTIN 100 MG CAPSULE PO SCH ×3 (07:57→20:16)
[2018-09-21] MEDS: PredniSONE 10 MG TABLET PO SCH (07:57)
[2018-09-21] MEDS: PYRIDOXINE HCL 50 MG TABLET PO SCH (07:57)
[2018-09-21 07:59] LABS: GLUCOMETER DEV NAME(LOC) 5S.1; GLUCOSE,POINT OF CARE 157 MG/DL (70-110)
[2018-09-21 07:59] LABS: GLUCOMETER DEV NAME(LOC) 5S.1; GLUCOSE,POINT OF CARE 99 MG/DL (70-110)
[2018-09-21] MEDS: EPOETIN ALFA 10,000 UNITS/ML VIAL SQ SCH (07:59)
[2018-09-21] MEDS: INSULIN GLARGINE,HUM.REC.ANLOG 100 UNITS/ML SQ SCH ×2 (08:08→20:18)
[2018-09-21] MEDS: BUMETANIDE 0.25 MG/ML 4 ML VIAL IVP SCH ×2 (08:56→20:15)
[2018-09-21] MEDS: IPRATROPIUM BROMIDE 0.5 MG/2.5 ML NEB SOLUTION NEB PRN (09:11)
[2018-09-21] MEDS: ALBUTEROL SULFATE 2.5 MG/0.5 ML NEB SOLUTION NEB PRN (09:11)
[2018-09-21] MEDS: SOD FERRIC GLUC COMPLX/SUCROSE 125 MG in SODIUM CHLORIDE 0.9% 100 ML IV SCH (11:10)
[2018-09-21] MEDS: INSULIN LISPRO 100 UNITS/ML SQ PRN ×2 (12:04→17:41)
[2018-09-21] MEDS: LACTULOSE 20 GM/30 ML SOLUTION UDCUP PO PRN (15:59)
[2018-09-21] MEDS: OxyCODONE HCL/ACETAMINOPHEN 5-325 MG TABLET PO PRN (17:44)
[2018-09-21 18:21] LABS: BASOPHILS % (AUTO) 0.3 % (0.0-2.0); EOSINOPHILS % (AUTO) 0 % (1.0-6.0); HEMATOCRIT 23.6 % (41-53); HEMOGLOBIN 7.9 g/dL (13.5-17.5); LYMPHOCYTES # (AUTO) 0.6 K/uL (1.0-4.8); LYMPHOCYTES % (AUTO) 6.9 % (22.0-44.0); MEAN CORPUSCULAR HEMOGLOBIN 32.6 pg (26.0-34.0); MEAN CORPUSCULAR HGB CONC 33.3 G/dL (31.0-37.0); MEAN CORPUSCULAR VOLUME 98 fL (80-100); MONOCYTES # (AUTO) 0.3 K/uL (0.1-1.0); MONOCYTES % (AUTO) 3.6 % (2.0-9.0); NEUTROPHILS # (AUTO) 7.4 K/uL (1.8-7.7); PLATELET COUNT (AUTO) 145 K/uL (150-450); RED BLOOD CELL COUNT(AUTO) 2.41 MIL/uL (4.50-5.90); RED CELL DISTRIBUTION WIDTH 15.3 % (11.5-14.5)
[2018-09-21 18:22] LABS: NEUTROPHILS % (AUTO) 89.2 % (40.0-70.0)
[2018-09-21 18:28] LABS: CALCIUM, TOTAL 8.3 mg/dL (8.8-10.5); CREATININE 2.92 mg/dL (0.60-1.30); POTASSIUM 5.3 mmol/L (3.5-5.1)
[2018-09-21] MEDS: ROSUVASTATIN CALCIUM 10 MG TABLET PO SCH (20:35)
[2018-09-22] MEDS: NITROGLYCERIN 2% (1 GM=INCH) PACKET TP SCH ×5 (00:47→23:42)
[2018-09-22] MEDS: MORPHINE SULFATE 4 MG/ML SYRINGE IVP PRN (01:44)
[2018-09-22] MEDS: IPRATROPIUM BROMIDE 0.5 MG/2.5 ML NEB SOLUTION NEB SCH ×6 (03:08→21:55)
[2018-09-22] MEDS: ALBUTEROL SULFATE 2.5 MG/0.5 ML NEB SOLUTION NEB SCH ×6 (03:08→21:55)
[2018-09-22] MEDS: SODIUM BICARBONATE 650 MG TABLET PO SCH ×6 (03:23→23:42)
[2018-09-22 04:24] VITALS: BP 159/78
[2018-09-22 07:32] VITALS: BP 128/75
[2018-09-22 07:50] LABS: GLUCOMETER DEV NAME(LOC) 5S.2; GLUCOSE,POINT OF CARE 310 MG/DL (70-110)
[2018-09-22 07:50] LABS: GLUCOMETER DEV NAME(LOC) 5S.1; GLUCOSE,POINT OF CARE 228 MG/DL (70-110)
[2018-09-22 07:50] LABS: GLUCOMETER DEV NAME(LOC) 5S.2; GLUCOSE,POINT OF CARE 308 MG/DL (70-110)
[2018-09-22 07:51] LABS: GLUCOMETER DEV NAME(LOC) 5S.1; GLUCOSE,POINT OF CARE 114 MG/DL (70-110)
[2018-09-22] MEDS: BUMETANIDE 0.25 MG/ML 4 ML VIAL IVP SCH ×2 (07:52→20:14)
[2018-09-22] MEDS: PYRIDOXINE HCL 50 MG TABLET PO SCH (08:49)
[2018-09-22] MEDS: VITAMIN B COMP/VIT C/FOLIC ACID CAPSULE PO SCH (08:49)
[2018-09-22] MEDS: DOCUSATE SODIUM 100 MG CAPSULE PO SCH ×2 (08:49→20:14)
[2018-09-22] MEDS: FINASTERIDE 5 MG TABLET PO SCH (08:49)
[2018-09-22] MEDS: TAMSULOSIN HCL 0.4 MG CAPSULE PO SCH (08:49)
[2018-09-22] MEDS: PANTOPRAZOLE SODIUM 40 MG/VIAL IVP SCH (08:49)
[2018-09-22] MEDS: ISOSORB DINIT/HYDRALAZINE HCL 20-37.5 MG TABLET PO SCH ×3 (08:50→20:14)
[2018-09-22] MEDS: FOLIC ACID 1 MG TABLET PO SCH (08:50)
[2018-09-22] MEDS: CARVEDILOL 6.25 MG TABLET PO SCH ×2 (08:50→20:14)
[2018-09-22] MEDS: PredniSONE 10 MG TABLET PO SCH (08:50)
[2018-09-22] MEDS: GABAPENTIN 100 MG CAPSULE PO SCH ×3 (08:50→20:14)
[2018-09-22] MEDS: INSULIN GLARGINE,HUM.REC.ANLOG 100 UNITS/ML SQ SCH ×2 (08:52→20:18)
[2018-09-22 11:34] VITALS: BP 129/68
[2018-09-22] MEDS: SOD FERRIC GLUC COMPLX/SUCROSE 125 MG in SODIUM CHLORIDE 0.9% 100 ML IV SCH (12:23)
[2018-09-22] MEDS: INSULIN LISPRO 100 UNITS/ML SQ PRN ×2 (12:25→18:16)
[2018-09-22 15:21] VITALS: BP 167/87
[2018-09-22 20:10] VITALS: BP 121/61
[2018-09-22] MEDS: FLUTICASONE PROPIONATE 50 MCG/SPRAY 16 GM NASAL SPRAY NASAL SCH (20:13)
[2018-09-22] MEDS: ROSUVASTATIN CALCIUM 10 MG TABLET PO SCH (20:14)
[2018-09-22] MEDS: ALBUTEROL SULFATE 2.5 MG/0.5 ML NEB SOLUTION NEB PRN (21:55)
[2018-09-22] MEDS: IPRATROPIUM BROMIDE 0.5 MG/2.5 ML NEB SOLUTION NEB PRN (21:55)
[2018-09-22 22:55] LABS: GLUCOMETER DEV NAME(LOC) 5S.1; GLUCOSE,POINT OF CARE 288 MG/DL (70-110)
[2018-09-22 22:55] LABS: GLUCOMETER DEV NAME(LOC) 5S.1; GLUCOSE,POINT OF CARE 309 MG/DL (70-110)
[2018-09-22 22:55] LABS: GLUCOMETER DEV NAME(LOC) 5S.1; GLUCOSE,POINT OF CARE 242 MG/DL (70-110)
[2018-09-23] VITALS (7 sets, daily range): BP systolic 134–176; BP diastolic 66–89
[2018-09-23] MEDS: MORPHINE SULFATE 4 MG/ML SYRINGE IVP PRN (00:47)
[2018-09-23] MEDS: IPRATROPIUM BROMIDE 0.5 MG/2.5 ML NEB SOLUTION NEB SCH ×6 (02:30→22:58)
[2018-09-23] MEDS: ALBUTEROL SULFATE 2.5 MG/0.5 ML NEB SOLUTION NEB SCH ×6 (02:31→22:58)
[2018-09-23] MEDS: SODIUM BICARBONATE 650 MG TABLET PO SCH ×6 (03:29→23:37)
[2018-09-23] MEDS: NITROGLYCERIN 2% (1 GM=INCH) PACKET TP SCH ×4 (05:19→23:37)
[2018-09-23] MEDS: FOLIC ACID 1 MG TABLET PO SCH (08:15)
[2018-09-23] MEDS: FLUTICASONE PROPIONATE 50 MCG/SPRAY 16 GM NASAL SPRAY NASAL SCH (08:15)
[2018-09-23] MEDS: CARVEDILOL 6.25 MG TABLET PO SCH ×2 (08:15→21:17)
[2018-09-23] MEDS: BUMETANIDE 0.25 MG/ML 4 ML VIAL IVP SCH ×2 (08:16→21:17)
[2018-09-23] MEDS: PYRIDOXINE HCL 50 MG TABLET PO SCH (08:17)
[2018-09-23] MEDS: FINASTERIDE 5 MG TABLET PO SCH (08:17)
[2018-09-23] MEDS: PANTOPRAZOLE SODIUM 40 MG/VIAL IVP SCH (08:18)
[2018-09-23] MEDS: TAMSULOSIN HCL 0.4 MG CAPSULE PO SCH (08:18)
[2018-09-23] MEDS: PARICALCITOL 1 MCG CAPSULE PO SCH (08:18)
[2018-09-23] MEDS: GABAPENTIN 100 MG CAPSULE PO SCH ×3 (08:21→21:18)
[2018-09-23] MEDS: DOCUSATE SODIUM 100 MG CAPSULE PO SCH ×2 (08:21→21:17)
[2018-09-23] MEDS: VITAMIN B COMP/VIT C/FOLIC ACID CAPSULE PO SCH (08:21)
[2018-09-23] MEDS: ISOSORB DINIT/HYDRALAZINE HCL 20-37.5 MG TABLET PO SCH ×2 (08:22→17:09)
[2018-09-23] MEDS: PredniSONE 10 MG TABLET PO SCH (08:22)
[2018-09-23] MEDS: INSULIN GLARGINE,HUM.REC.ANLOG 100 UNITS/ML SQ SCH ×2 (08:49→22:18)
[2018-09-23 11:34] LABS: GLUCOMETER DEV NAME(LOC) 5S.1; GLUCOSE,POINT OF CARE 167 MG/DL (70-110)
[2018-09-23 12:00] LABS: GLUCOMETER DEV NAME(LOC) 5S.2; GLUCOSE,POINT OF CARE 220 MG/DL (70-110)
[2018-09-23] MEDS: INSULIN LISPRO 100 UNITS/ML SQ PRN ×3 (12:09→22:14)
[2018-09-23 13:37] LABS: BASOPHILS % (AUTO) 0.5 % (0.0-2.0); EOSINOPHILS % (AUTO) 0 % (1.0-6.0); HEMATOCRIT 24.8 % (41-53); HEMOGLOBIN 8.4 g/dL (13.5-17.5); LYMPHOCYTES # (AUTO) 0.6 K/uL (1.0-4.8); LYMPHOCYTES % (AUTO) 6.7 % (22.0-44.0); MEAN CORPUSCULAR HEMOGLOBIN 33.4 pg (26.0-34.0); MEAN CORPUSCULAR HGB CONC 33.9 G/dL (31.0-37.0); MEAN CORPUSCULAR VOLUME 99 fL (80-100); MONOCYTES # (AUTO) 0.2 K/uL (0.1-1.0); MONOCYTES % (AUTO) 2.5 % (2.0-9.0); NEUTROPHILS # (AUTO) 7.9 K/uL (1.8-7.7); PLATELET COUNT (AUTO) 170 K/uL (150-450); RED BLOOD CELL COUNT(AUTO) 2.51 MIL/uL (4.50-5.90); RED CELL DISTRIBUTION WIDTH 16.4 % (11.5-14.5)
[2018-09-23 13:38] LABS: NEUTROPHILS % (AUTO) 90.3 % (40.0-70.0)
[2018-09-23 13:52] LABS: CALCIUM, TOTAL 8.3 mg/dL (8.8-10.5); CREATININE 2.77 mg/dL (0.60-1.30); POTASSIUM 5.1 mmol/L (3.5-5.1)
[2018-09-23] MEDS: SOD FERRIC GLUC COMPLX/SUCROSE 125 MG in SODIUM CHLORIDE 0.9% 100 ML IV SCH (13:56)
[2018-09-23 13:58] LABS: ALBUMIN 2.5 g/dL (3.4-5.0); BILIRUBIN,TOTAL 0.2 mg/dL (0.1-1.0); TOTAL PROTEIN, SERUM 5.5 g/dL (6.4-8.2)
[2018-09-23 16:03] LABS: CREATININE,URINE 78.3 mg/dL (30.0-125.0)
[2018-09-23 16:07] LABS: CREATININE,SERUM FOR CRCL 2.77 mg/dL (0.60-1.30)
[2018-09-23 18:11] LABS: GLUCOMETER DEV NAME(LOC) 5S.1; GLUCOSE,POINT OF CARE 353 MG/DL (70-110)
[2018-09-23] MEDS: ROSUVASTATIN CALCIUM 10 MG TABLET PO SCH (21:18)
[2018-09-24] VITALS (7 sets, daily range): BP systolic 111–154; BP diastolic 57–83
[2018-09-24] MEDS: ISOSORB DINIT/HYDRALAZINE HCL 20-37.5 MG TABLET PO SCH ×4 (00:14→21:30)
[2018-09-24] MEDS: MORPHINE SULFATE 4 MG/ML SYRINGE IVP PRN ×2 (02:27→16:45)
[2018-09-24] MEDS: IPRATROPIUM BROMIDE 0.5 MG/2.5 ML NEB SOLUTION NEB SCH ×6 (04:03→23:16)
[2018-09-24] MEDS: ALBUTEROL SULFATE 2.5 MG/0.5 ML NEB SOLUTION NEB SCH ×6 (04:03→23:16)
[2018-09-24] MEDS: SODIUM BICARBONATE 650 MG TABLET PO SCH ×6 (05:43→23:48)
[2018-09-24] MEDS: NITROGLYCERIN 2% (1 GM=INCH) PACKET TP SCH ×4 (05:44→23:47)
[2018-09-24 06:29] LABS: BASOPHILS % (AUTO) 0.6 % (0.0-2.0); EOSINOPHILS % (AUTO) 0.2 % (1.0-6.0); HEMOGLOBIN 7.9 g/dL (13.5-17.5); LYMPHOCYTES % (AUTO) 15.9 % (22.0-44.0); MEAN CORPUSCULAR HEMOGLOBIN 33.4 pg (26.0-34.0); MEAN CORPUSCULAR HGB CONC 34.4 G/dL (31.0-37.0); MEAN CORPUSCULAR VOLUME 97 fL (80-100); MONOCYTES # (AUTO) 0.6 K/uL (0.1-1.0); MONOCYTES % (AUTO) 9.8 % (2.0-9.0); NEUTROPHILS # (AUTO) 4.6 K/uL (1.8-7.7); NEUTROPHILS % (AUTO) 73.5 % (40.0-70.0); PLATELET COUNT (AUTO) 183 K/uL (150-450); RED BLOOD CELL COUNT(AUTO) 2.37 MIL/uL (4.50-5.90); RED CELL DISTRIBUTION WIDTH 17.8 % (11.5-14.5)
[2018-09-24] MEDS: INSULIN LISPRO 100 UNITS/ML SQ PRN ×3 (06:51→21:15)
[2018-09-24 07:24] LABS: ALBUMIN 2.5 g/dL (3.4-5.0); BILIRUBIN,TOTAL 0.2 mg/dL (0.1-1.0); CALCIUM, TOTAL 8.5 mg/dL (8.8-10.5); CREATININE 2.49 mg/dL (0.60-1.30); POTASSIUM 4.2 mmol/L (3.5-5.1); TOTAL PROTEIN, SERUM 5.4 g/dL (6.4-8.2)
[2018-09-24] MEDS: INSULIN GLARGINE,HUM.REC.ANLOG 100 UNITS/ML SQ SCH ×2 (08:30→21:16)
[2018-09-24] MEDS: EPOETIN ALFA 10,000 UNITS/ML VIAL SQ SCH (08:31)
[2018-09-24] MEDS: PANTOPRAZOLE SODIUM 40 MG/VIAL IVP SCH (08:32)
[2018-09-24] MEDS: CARVEDILOL 6.25 MG TABLET PO SCH ×2 (08:32→20:40)
[2018-09-24] MEDS: FINASTERIDE 5 MG TABLET PO SCH (08:32)
[2018-09-24] MEDS: GABAPENTIN 100 MG CAPSULE PO SCH ×3 (08:32→20:41)
[2018-09-24] MEDS: FOLIC ACID 1 MG TABLET PO SCH (08:32)
[2018-09-24] MEDS: TAMSULOSIN HCL 0.4 MG CAPSULE PO SCH (08:32)
[2018-09-24] MEDS: DOCUSATE SODIUM 100 MG CAPSULE PO SCH ×2 (08:32→20:40)
[2018-09-24] MEDS: VITAMIN B COMP/VIT C/FOLIC ACID CAPSULE PO SCH (08:32)
[2018-09-24] MEDS: PredniSONE 10 MG TABLET PO SCH (08:33)
[2018-09-24] MEDS: FLUTICASONE PROPIONATE 50 MCG/SPRAY 16 GM NASAL SPRAY NASAL SCH (08:33)
[2018-09-24] MEDS: PYRIDOXINE HCL 50 MG TABLET PO SCH (08:33)
[2018-09-24] MEDS: BUMETANIDE 0.25 MG/ML 4 ML VIAL IVP SCH (08:35)
[2018-09-24 11:25] LABS: SOURCE, BLOOD GAS ARTERIAL
[2018-09-24 11:42] LABS: ABG A-A DIFF O2 41.4 mmHg (10-20.0); ABG BASE EXCESS 2.5 mmol/L (-2.0-3.0); ABG CARBOXYHEMOGLOBIN 1.8 % (0.0-1.5); ABG HCO3 26.3 mmol/L (22.0-26.0); ABG METHEMOGLOBIN 0.6 % (0.0-1.5); ABG OXYGEN CONTENT 11.8 mL/dL (15.0-23.0); ABG OXYGEN SATURATION 89.2 % (95.0-98.0); ABG OXYHEMOGLOBIN 87.1 % (94.0-100.0); ABG PCO2 43 mmHg (35-45); ABG PH 7.414 (7.35-7.450); ABG TOTAL HEMOGLOBIN 9.6 G/dL (12.0-18.0); PO2, ARTERIAL BG 56.7 mmHg (75.0-83.0); SITE, BLOOD GAS LFT RADIAL
[2018-09-24 11:43] LABS: O2 DEVICE,BLOOD GAS ROOM AIR (ROOM AIR)
[2018-09-24 12:09] LABS: GLUCOMETER DEV NAME(LOC) 5S.1; GLUCOSE,POINT OF CARE 296 MG/DL (70-110)
[2018-09-24] MEDS: SOD FERRIC GLUC COMPLX/SUCROSE 125 MG in SODIUM CHLORIDE 0.9% 100 ML IV SCH (12:29)
[2018-09-24 12:30] LABS: GLUCOMETER DEV NAME(LOC) 5S.2; GLUCOSE,POINT OF CARE 194 MG/DL (70-110)
[2018-09-24] MEDS ORDERED: 0.9% SODIUM CHLORIDE 5 ML NEB SOLUTION NEB ONE (18:59)
[2018-09-24 19:54] LABS: GLUCOMETER DEV NAME(LOC) 5S.2; GLUCOSE,POINT OF CARE 266 MG/DL (70-110)
[2018-09-24] MEDS: ROSUVASTATIN CALCIUM 10 MG TABLET PO SCH (20:40)
[2018-09-24] MEDS: BUMETANIDE 1 MG TABLET PO SCH (20:41)
[2018-09-25 00:44] LABS: GLUCOMETER DEV NAME(LOC) 5S.1; GLUCOSE,POINT OF CARE 275 MG/DL (70-110)
[2018-09-25] MEDS: IPRATROPIUM BROMIDE 0.5 MG/2.5 ML NEB SOLUTION NEB SCH ×6 (03:35→19:50)
[2018-09-25] MEDS: ALBUTEROL SULFATE 2.5 MG/0.5 ML NEB SOLUTION NEB SCH ×6 (03:36→19:50)
[2018-09-25 04:30] VITALS: BP 131/67
[2018-09-25] MEDS: SODIUM BICARBONATE 650 MG TABLET PO SCH ×4 (04:41→15:34)
[2018-09-25] MEDS: NITROGLYCERIN 2% (1 GM=INCH) PACKET TP SCH ×3 (05:01→17:40)
[2018-09-25] MEDS: DEXTROSE 50%-WATER 25 GM/50 ML SYRINGE IVP PRN ×2 (05:23→12:16)
[2018-09-25 06:26] LABS: EOSINOPHILS % (AUTO) 0.2 % (1.0-6.0); HEMATOCRIT 23.6 % (41-53); HEMOGLOBIN 8.1 g/dL (13.5-17.5); LYMPHOCYTES # (AUTO) 0.8 K/uL (1.0-4.8); LYMPHOCYTES % (AUTO) 14.8 % (22.0-44.0); MEAN CORPUSCULAR HEMOGLOBIN 33.7 pg (26.0-34.0); MEAN CORPUSCULAR HGB CONC 34.3 G/dL (31.0-37.0); MEAN CORPUSCULAR VOLUME 98 fL (80-100); MONOCYTES # (AUTO) 0.5 K/uL (0.1-1.0); MONOCYTES % (AUTO) 9.9 % (2.0-9.0); NEUTROPHILS # (AUTO) 3.9 K/uL (1.8-7.7); NEUTROPHILS % (AUTO) 74.1 % (40.0-70.0); PLATELET COUNT (AUTO) 206 K/uL (150-450); RED BLOOD CELL COUNT(AUTO) 2.41 MIL/uL (4.50-5.90); RED CELL DISTRIBUTION WIDTH 18.2 % (11.5-14.5)
[2018-09-25 06:35] LABS: GLUCOMETER DEV NAME(LOC) 5S.2; GLUCOSE,POINT OF CARE 68 MG/DL (70-110)
[2018-09-25 06:37] LABS: ALBUMIN 2.4 g/dL (3.4-5.0); BILIRUBIN,TOTAL 0.2 mg/dL (0.1-1.0); CALCIUM, TOTAL 8.3 mg/dL (8.8-10.5); CREATININE 2.46 mg/dL (0.60-1.30); POTASSIUM 4.1 mmol/L (3.5-5.1); TOTAL PROTEIN, SERUM 5.2 g/dL (6.4-8.2)
[2018-09-25 07:18] VITALS: BP 144/76
[2018-09-25] MEDS: DOCUSATE SODIUM 100 MG CAPSULE PO SCH (08:43)
[2018-09-25] MEDS: VITAMIN B COMP/VIT C/FOLIC ACID CAPSULE PO SCH (08:43)
[2018-09-25] MEDS: PYRIDOXINE HCL 50 MG TABLET PO SCH (08:43)
[2018-09-25] MEDS: CARVEDILOL 6.25 MG TABLET PO SCH (08:43)
[2018-09-25] MEDS: FINASTERIDE 5 MG TABLET PO SCH (08:43)
[2018-09-25] MEDS: FOLIC ACID 1 MG TABLET PO SCH (08:43)
[2018-09-25] MEDS: GABAPENTIN 100 MG CAPSULE PO SCH ×2 (08:43→15:35)
[2018-09-25] MEDS: TAMSULOSIN HCL 0.4 MG CAPSULE PO SCH (08:43)
[2018-09-25] MEDS: PARICALCITOL 1 MCG CAPSULE PO SCH (08:44)
[2018-09-25] MEDS: FLUTICASONE PROPIONATE 50 MCG/SPRAY 16 GM NASAL SPRAY NASAL SCH (08:44)
[2018-09-25] MEDS: INSULIN GLARGINE,HUM.REC.ANLOG 100 UNITS/ML SQ SCH (08:44)
[2018-09-25] MEDS: PredniSONE 10 MG TABLET PO SCH (08:44)
[2018-09-25] MEDS: BUMETANIDE 1 MG TABLET PO SCH (08:44)
[2018-09-25] MEDS: PANTOPRAZOLE SODIUM 40 MG/VIAL IVP SCH (08:44)
[2018-09-25] MEDS: ISOSORB DINIT/HYDRALAZINE HCL 20-37.5 MG TABLET PO SCH ×2 (08:44→15:34)
[2018-09-25 11:28] VITALS: BP 155/79
[2018-09-25] MEDS: SOD FERRIC GLUC COMPLX/SUCROSE 125 MG in SODIUM CHLORIDE 0.9% 100 ML IV SCH (12:17)
[2018-09-25 15:52] VITALS: BP 176/90
[2018-09-25 16:32] VITALS: BP 142/78
[2018-09-25] MEDS ORDERED: AUD NEB (16:49)
[2018-09-25] MEDS ORDERED: EPOE20002 SQ (16:50)
[2018-09-25] MEDS ORDERED: FOLI1 PO (16:51)
[2018-09-25] MEDS ORDERED: ISOS1TAB2 PO (16:52)
[2018-09-25] MEDS ORDERED: NTP TD (16:54)
[2018-09-25] MEDS ORDERED: PARI1CAP PO (16:55)
[2018-09-25] MEDS ORDERED: PYRI50 PO (16:56)
[2018-09-25] MEDS ORDERED: PRED20 PO (16:57)
[2018-09-25] MEDS ORDERED: SODI650T PO (16:57)
[2018-09-25] MEDS ORDERED: FOLI1CAP2 PO (16:58)
[2018-09-25] MEDS ORDERED: INSU100V SQ (16:59)
[2018-09-25] MEDS ORDERED: GUAI5SYR4 PO (16:59)
[2018-09-25 17:20] LABS: GLUCOMETER DEV NAME(LOC) 5S.2; GLUCOSE,POINT OF CARE 58 MG/DL (70-110)
[2018-09-25 17:20] LABS: GLUCOMETER DEV NAME(LOC) 5S.2; GLUCOSE,POINT OF CARE 94 MG/DL (70-110)
[2018-09-25 17:20] LABS: GLUCOMETER DEV NAME(LOC) 5S.2; GLUCOSE,POINT OF CARE 219 MG/DL (70-110)
[2018-09-25 17:20] LABS: GLUCOMETER DEV NAME(LOC) 5S.2; GLUCOSE,POINT OF CARE 133 MG/DL (70-110)
[2018-09-25 17:20] LABS: GLUCOMETER DEV NAME(LOC) 5S.2; GLUCOSE,POINT OF CARE 72 MG/DL (70-110)
[2018-09-25] MEDS: INSULIN LISPRO 100 UNITS/ML SQ PRN (17:40)
[2018-09-25] MEDS: IPRATROPIUM BROMIDE 0.5 MG/2.5 ML NEB SOLUTION NEB PRN (18:01)
[2018-09-25] MEDS: ALBUTEROL SULFATE 2.5 MG/0.5 ML NEB SOLUTION NEB PRN (18:01)
[2018-09-25 19:32] VITALS: BP 156/87
[2018-09-26] LABS: GLUCOMETER DEV NAME(LOC) 5N.1; GLUCOSE,POINT OF CARE 143 MG/DL (70-110)
[2018-09-26 05:25] LABS: GLUCOMETER DEV NAME(LOC) 5S.1; GLUCOSE,POINT OF CARE 227 MG/DL (70-110)
== END 2018-09-25 20:00 | DRG 286 ==
LOC: EMS 10:35 → 5S 11:59
PROVIDERS: ADMIT Hospitalist; ATTEND Hospitalist
PROC: B548ZZA Ultrasonography of Superior Vena Cava, Guidance (ICD-10-PCS; 2018-09-09)
PROC: B5181ZA Fluoroscopy of Superior Vena Cava using Low Osmolar Contrast, Guidance (ICD-10-PCS; 2018-09-09)
PROC: B548ZZA Ultrasonography of Superior Vena Cava, Guidance (ICD-10-PCS; 2018-09-09)
PROC: 5A1D70Z Performance of Urinary Filtration, Intermittent, Less than 6 Hours Per Day (ICD-10-PCS; 2018-09-09)
PROC: 5A1D70Z Performance of Urinary Filtration, Intermittent, Less than 6 Hours Per Day (ICD-10-PCS; 2018-09-10)
PROC: 0DJ08ZZ Inspection of Upper Intestinal Tract, Via Natural or Artificial Opening Endoscopic (ICD-10-PCS; principal; 2018-09-11 07:30)
PROC: 5A1D70Z Performance of Urinary Filtration, Intermittent, Less than 6 Hours Per Day (ICD-10-PCS; 2018-09-12)
PROC: 5A1D70Z Performance of Urinary Filtration, Intermittent, Less than 6 Hours Per Day (ICD-10-PCS; 2018-09-14)
PROC: B2141ZZ Fluoroscopy of Right Heart using Low Osmolar Contrast (ICD-10-PCS; 2018-09-16)
PROC: 0JH63XZ Insertion of Tunneled Vascular Access Device into Chest Subcutaneous Tissue and Fascia, Percutaneous Approach (ICD-10-PCS; 2018-09-16)
PROC: 02H633Z Insertion of Infusion Device into Right Atrium, Percutaneous Approach (ICD-10-PCS; 2018-09-16)
PROC: B244ZZZ Ultrasonography of Right Heart (ICD-10-PCS; 2018-09-16)
PROC: 5A1D70Z Performance of Urinary Filtration, Intermittent, Less than 6 Hours Per Day (ICD-10-PCS; 2018-09-16)
PROC: 5A1D70Z Performance of Urinary Filtration, Intermittent, Less than 6 Hours Per Day (ICD-10-PCS; 2018-09-18)
PROC: 5A1D70Z Performance of Urinary Filtration, Intermittent, Less than 6 Hours Per Day (ICD-10-PCS; 2018-09-20)
DX: I13.2 Hypertensive heart and chronic kidney disease with heart failure and with stage 5 chronic kidney disease, or end stage renal disease (principal); N18.6 End stage renal disease; I50.43 Acute on chronic combined systolic (congestive) and diastolic (congestive) heart failure; J44.1 Chronic obstructive pulmonary disease with (acute) exacerbation; N25.81 Secondary hyperparathyroidism of renal origin; E46 Unspecified protein-calorie malnutrition; K92.2 Gastrointestinal hemorrhage, unspecified; N17.9 Acute kidney failure, unspecified; E11.9 Type 2 diabetes mellitus without complications; K20.9 Esophagitis, unspecified; J44.9 Chronic obstructive pulmonary disease, unspecified; N40.0 Benign prostatic hyperplasia without lower urinary tract symptoms; D63.1 Anemia in chronic kidney disease; I34.0 Nonrheumatic mitral (valve) insufficiency; E78.5 Hyperlipidemia, unspecified; I25.10 Atherosclerotic heart disease of native coronary artery without angina pectoris; E11.51 Type 2 diabetes mellitus with diabetic peripheral angiopathy without gangrene; E11.22 Type 2 diabetes mellitus with diabetic chronic kidney disease; E11.65 Type 2 diabetes mellitus with hyperglycemia; E83.39 Other disorders of phosphorus metabolism; E83.41 Hypermagnesemia; E83.51 Hypocalcemia; E87.5 Hyperkalemia; G89.4 Chronic pain syndrome; K59.00 Constipation, unspecified; R62.7 Adult failure to thrive; Z82.49 Family history of ischemic heart disease and other diseases of the circulatory system; Z87.891 Personal history of nicotine dependence; Z83.3 Family history of diabetes mellitus; Z95.5 Presence of coronary angioplasty implant and graft; Z99.2 Dependence on renal dialysis
CPT/HCPCS: 36245; 36556; 36561; 74018; 74176; 76000; 76770; 76937; 82575; 82728; 82805; 83540; 83550; 83735; 84100; 84132; 84153; 84156; 84166; 84466; 86704; 86706; 86850; 86900; 86901; 87081; 87340; 90686; 90935; 93005; 93306; 94640; 97116; 97161; 97166; 97535; C9113; G0378; J0360; J0456; J0696; J0885; J1200; J1644; J1815; J2150; J2250; J2270; J2405; J2704; J2916; J2920; J2930; J3010; J3490; J7030; J7040; J7050

== ENCOUNTER → 2018-10-10 | Outpatient (CLI) | payer MEDICARE, MEDICAID ==
[~2018-10-10] VITALS: Ht 182.9 cm; Wt 89.0 kg
[~2018-10-10] MED LIST changes: +ALBU8.5H8 IH; +APIX5TAB PO; +AUD NEB; +BUME1TAB17 PO; +CARV6 PO; -COLE625 PO; +DIPH25 PO; +EPOE20002 SQ; +FOLI1 PO; +FOLI1CAP2 PO; +HYDR25TA84 PO; +INSU100V; +IPRA4AER IH; +ISOS1TAB2 PO; +METR500 PO; +NTP TD; +PANT40TA25 PO; +PARI1CAP PO; +PRED20 PO; +PYRI100T2 PO; +PYRI50 PO; -ROSU20 PO; +ROSU20TA23 PO
[2018-10-10 08:28] VITALS: BP 193/91
== END | disposition home or self-care (01) ==
LOC: SRCNTR 08:19
PROVIDERS: ATTEND Hospitalist
DX: E78.5 Hyperlipidemia, unspecified (principal); J44.9 Chronic obstructive pulmonary disease, unspecified; I10 Essential (primary) hypertension; E11.65 Type 2 diabetes mellitus with hyperglycemia; I82.409 Acute embolism and thrombosis of unspecified deep veins of unspecified lower extremity
CPT/HCPCS: G0463

== ENCOUNTER 2018-10-22 01:49 | Emergency (ER) | payer MEDICARE, MEDICAID ==
[~2018-10-22] VITALS: Ht 182.9 cm; Wt 104.5 kg
[~2018-10-22 01:49] MED LIST changes: -APIX5TAB PO; -ASPI-1182 PO; -FOLI1 PO; -HYDR25TA84 PO; -INSU100V; +INSU100V SQ; -METR500 PO; -MULT-1203 PO; -PYRI100T2 PO; +ROSU20 PO; -ROSU20TA23 PO
[2018-10-22] MEDS ORDERED: MethylPREDNISolone SOD SUCC 125 MG/2 ML VIAL IVP ONE (02:15)
[2018-10-22] MEDS ORDERED: 0.9% SODIUM CHLORIDE 5 ML NEB SOLUTION NEB ONE (02:23)
[2018-10-22] MEDS ORDERED: ALBUTEROL SULFATE 5 MG/ML 20 ML NEB SOLN [BULK] NEB ONE (02:30)
[2018-10-22] MEDS ORDERED: IPRATROPIUM BROMIDE 0.5 MG/2.5 ML NEB SOLUTION NEB ONE (02:30)
[2018-10-22 02:44] LABS: BASOPHILS % (AUTO) 0.4 % (0.0-2.0); EOSINOPHILS % (AUTO) 0.4 % (1.0-6.0); HEMATOCRIT 32.9 % (41-53); HEMOGLOBIN 10.7 g/dL (13.5-17.5); LYMPHOCYTES # (AUTO) 1.2 K/uL (1.0-4.8); LYMPHOCYTES % (AUTO) 23.4 % (22.0-44.0); MEAN CORPUSCULAR HEMOGLOBIN 31.3 pg (26.0-34.0); MEAN CORPUSCULAR HGB CONC 32.6 G/dL (31.0-37.0); MEAN CORPUSCULAR VOLUME 96 fL (80-100); MONOCYTES # (AUTO) 0.7 K/uL (0.1-1.0); MONOCYTES % (AUTO) 12.3 % (2.0-9.0); NEUTROPHILS # (AUTO) 3.4 K/uL (1.8-7.7); NEUTROPHILS % (AUTO) 63.5 % (40.0-70.0); PLATELET COUNT (AUTO) 152 K/uL (150-450); RED BLOOD CELL COUNT(AUTO) 3.43 MIL/uL (4.50-5.90); RED CELL DISTRIBUTION WIDTH 17.1 % (11.5-14.5)
[2018-10-22 02:54] LABS: APPEARANCE,URINE CLEAR (CLEAR); BILIRUBIN,URINE NEGATIVE (NEGATIVE); GLUCOSE, URINE (UA) NEGATIVE (NEGATIVE); KETONES,URINE NEGATIVE (NEGATIVE); LEUKOCYTE ESTERASE ,URINE NEGATIVE (NEGATIVE); NITRATE,URINE NEGATIVE (NEGATIVE); OCCULT BLOOD,URINE SMALL (NEGATIVE); PH,URINE 5.5 (5.0-8.0); PROTEIN,URINE SEE CONFIRM (NEGATIVE); UROBILINOGEN,URINE 0.2 mg/dL (<=1.0)
[2018-10-22 02:55] LABS: CALCIUM, TOTAL 8.1 mg/dL (8.8-10.5); CREATININE 2.62 mg/dL (0.60-1.30); POTASSIUM 4.7 mmol/L (3.5-5.1)
[2018-10-22 02:56] LABS: PROTHROMBIN TIME 10.6 SEC (9.4-11.6)
[2018-10-22 03:02] LABS: ALBUMIN 2.5 g/dL (3.4-5.0); BILIRUBIN,TOTAL 0.3 mg/dL (0.1-1.0); TOTAL PROTEIN, SERUM 5.2 g/dL (6.4-8.2)
[2018-10-22 03:13] LABS: WBC,URINE 0-2 /HPF (0-5)
[2018-10-22 03:14] LABS: BACTERIA,URINE None Seen /HPF (None Seen); SQUAMOUS EPITHELIAL CELL,UR Few /LPF (None Seen); SULFOSALICYLIC ACID,URINE 3+ (Negative)
[2018-10-22 04:56] VITALS: BP 141/96
== END 2018-10-22 05:00 | disposition home or self-care (01) ==
LOC: EMS 01:50
DX: J44.9 Chronic obstructive pulmonary disease, unspecified (principal); N28.9 Disorder of kidney and ureter, unspecified; M79.89 Other specified soft tissue disorders; E11.9 Type 2 diabetes mellitus without complications; I25.10 Atherosclerotic heart disease of native coronary artery without angina pectoris; I11.0 Hypertensive heart disease with heart failure; I50.9 Heart failure, unspecified; Z95.1 Presence of aortocoronary bypass graft; F15.90 Other stimulant use, unspecified, uncomplicated; Z95.5 Presence of coronary angioplasty implant and graft; Z79.899 Other long term (current) drug therapy; Z79.4 Long term (current) use of insulin; Z88.8 Allergy status to other drugs, medicaments and biological substances
CPT/HCPCS: 36415; 71045; 80053; 81001; 82550; 82962; 83880; 84484; 85025; 85610; 85730; 93005; 93971; 94644; 96374; 99285; J2930

== ENCOUNTER → 2018-10-31 | Outpatient (CLI) | payer MEDICARE, MEDICAID ==
[~2018-10-31] VITALS: Ht 182.9 cm; Wt 94.0 kg
[~2018-10-31] MED LIST changes: +APIX5TAB PO; +ASPI-1182 PO; +FOLI1 PO; +HYDR25TA84 PO; +INSU100V; -INSU100V SQ; +METR500 PO; +MULT-1203 PO; +PYRI100T2 PO; -ROSU20 PO; +ROSU20TA23 PO
[2018-10-31 15:48] VITALS: BP 165/71
== END | disposition home or self-care (01) ==
LOC: SRCNTR 08:17
PROVIDERS: ATTEND Hospitalist
DX: E78.5 Hyperlipidemia, unspecified (principal); I10 Essential (primary) hypertension; E11.65 Type 2 diabetes mellitus with hyperglycemia; J44.9 Chronic obstructive pulmonary disease, unspecified; J18.9 Pneumonia, unspecified organism; R60.1 Generalized edema; I82.409 Acute embolism and thrombosis of unspecified deep veins of unspecified lower extremity
CPT/HCPCS: G0463

== ENCOUNTER 2018-11-07 22:49 | Inpatient (IN) | payer MEDICARE, MEDICAID ==
[~2018-11-07] VITALS: Ht 182.9 cm; Wt 91.8 kg
[~2018-11-07 22:49] MED LIST changes: -ASPI-1182 PO; -FOLI1 PO; -GABA-531 PO; -HYDR25TA84 PO; -INSU100V; +INSU100V SQ; -METO25 PO; -METR500 PO; -MULT-1203 PO; -NTP TD; -PRED20 PO; -PYRI100T2 PO; -PYRI50 PO; +ROSU20 PO; -ROSU20TA23 PO
[2018-11-07] MEDS ORDERED: ALBUTEROL SULFATE 5 MG/ML 20 ML NEB SOLN [BULK] NEB ONE (23:15)
[2018-11-07] MEDS ORDERED: IPRATROPIUM BROMIDE 0.5 MG/2.5 ML NEB SOLUTION NEB ONE (23:15)
[2018-11-07 23:26] LABS: BASOPHILS % (AUTO) 0.5 % (0.0-2.0); EOSINOPHILS % (AUTO) 0.3 % (1.0-6.0); HEMATOCRIT 29.9 % (41-53); HEMOGLOBIN 9.9 g/dL (13.5-17.5); LYMPHOCYTES # (AUTO) 1.5 K/uL (1.0-4.8); LYMPHOCYTES % (AUTO) 25.8 % (22.0-44.0); MEAN CORPUSCULAR HEMOGLOBIN 31.2 pg (26.0-34.0); MEAN CORPUSCULAR HGB CONC 33.1 G/dL (31.0-37.0); MEAN CORPUSCULAR VOLUME 94 fL (80-100); MONOCYTES # (AUTO) 0.6 K/uL (0.1-1.0); MONOCYTES % (AUTO) 11.2 % (2.0-9.0); NEUTROPHILS # (AUTO) 3.5 K/uL (1.8-7.7); NEUTROPHILS % (AUTO) 62.2 % (40.0-70.0); PLATELET COUNT (AUTO) 185 K/uL (150-450); RED BLOOD CELL COUNT(AUTO) 3.17 MIL/uL (4.50-5.90); RED CELL DISTRIBUTION WIDTH 16.6 % (11.5-14.5)
[2018-11-07] MEDS ORDERED: 0.9% SODIUM CHLORIDE 15 ML NEB SOLUTION NEB ONE (23:27)
[2018-11-07 23:38] LABS: CALCIUM, TOTAL 8.7 mg/dL (8.8-10.5); CREATININE 3.47 mg/dL (0.60-1.30); POTASSIUM 4.2 mmol/L (3.5-5.1)
[2018-11-07 23:44] LABS: ALBUMIN 2.5 g/dL (3.4-5.0); BILIRUBIN,TOTAL 0.2 mg/dL (0.1-1.0); TOTAL PROTEIN, SERUM 5.9 g/dL (6.4-8.2)
[2018-11-08 00:38] LABS: APPEARANCE,URINE CLEAR (CLEAR); BILIRUBIN,URINE NEGATIVE (NEGATIVE); GLUCOSE, URINE (UA) 250 mg/dL (NEGATIVE); KETONES,URINE NEGATIVE (NEGATIVE); LEUKOCYTE ESTERASE ,URINE NEGATIVE (NEGATIVE); NITRATE,URINE NEGATIVE (NEGATIVE); OCCULT BLOOD,URINE NEGATIVE (NEGATIVE); PROTEIN,URINE SEE CONFIRM (NEGATIVE)
[2018-11-08] MEDS ORDERED: NITROGLYCERIN 2% (1 GM=INCH) PACKET TP ONE (00:45)
[2018-11-08] MEDS ORDERED: FUROSEMIDE 40 MG/4 ML VIAL IVP ONE (00:45)
[2018-11-08 00:50] LABS: BACTERIA,URINE None Seen /HPF (None Seen); SQUAMOUS EPITHELIAL CELL,UR Few /LPF (None Seen); SULFOSALICYLIC ACID,URINE 3+ (Negative); WBC,URINE 0-2 /HPF (0-5)
[2018-11-08 01:09] LABS: GLUCOSE,POINT OF CARE 263 MG/DL (70-110)
[2018-11-08] MEDS ORDERED: ACETAMINOPHEN 325 MG TABLET PO PRN (02:00)
[2018-11-08] MEDS ORDERED: ONDANSETRON HCL 4 MG/2 ML VIAL IVP PRN ×2 (02:00→05:45)
[2018-11-08] MEDS ORDERED: 0.9% SODIUM CHLORIDE 10 ML SYRINGE IVP PRN ×2 (02:00→05:45)
[2018-11-08] MEDS ORDERED: ASPIRIN 81 MG CHEWABLE TABLET PO ONE (02:00)
[2018-11-08] MEDS ORDERED: CARVEDILOL 3.125 MG TABLET PO ONE (02:15)
[2018-11-08] MEDS ORDERED: NITROGLYCERIN 0.4 MG SUBLINGUAL TABLET #25 SL ONE (02:15)
[2018-11-08 03:00] VITALS: BP 167/102
[2018-11-08] MEDS ORDERED: ALBUTEROL SULFATE 2.5 MG/0.5 ML NEB SOLUTION NEB SCH (03:00)
[2018-11-08] MEDS ORDERED: IPRATROPIUM BROMIDE 0.5 MG/2.5 ML NEB SOLUTION NEB SCH (03:00)
[2018-11-08 05:00] VITALS: BP 166/100
[2018-11-08] MEDS ORDERED: ZOLPIDEM TARTRATE 5 MG TABLET PO PRN (05:45)
[2018-11-08] MEDS ORDERED: INSULIN LISPRO 100 UNITS/ML SQ PRN (05:45)
[2018-11-08] MEDS ORDERED: GLUCAGON,HUMAN RECOMBINANT 1 MG VIAL IM PRN (05:45)
[2018-11-08] MEDS: IPRATROPIUM BROMIDE 0.5 MG/2.5 ML NEB SOLUTION NEB SCH ×3 (07:32→19:53)
[2018-11-08] MEDS: ALBUTEROL SULFATE 2.5 MG/0.5 ML NEB SOLUTION NEB SCH ×3 (07:32→19:53)
[2018-11-08 08:01] VITALS: BP 185/103
[2018-11-08] MEDS: INSULIN GLARGINE,HUM.REC.ANLOG 100 UNITS/ML SQ SCH ×2 (09:00→21:00)
[2018-11-08] MEDS: FINASTERIDE 5 MG TABLET PO SCH (09:29)
[2018-11-08] MEDS: PANTOPRAZOLE SODIUM 40 MG/VIAL IVP SCH (09:29)
[2018-11-08] MEDS: TAMSULOSIN HCL 0.4 MG CAPSULE PO SCH (09:30)
[2018-11-08] MEDS: CLOPIDOGREL BISULFATE 75 MG TABLET PO SCH (09:30)
[2018-11-08] MEDS: RANOLAZINE 500 MG ER TABLET PO SCH ×2 (09:30→22:08)
[2018-11-08] MEDS: SODIUM BICARBONATE 650 MG TABLET PO SCH ×2 (09:31→22:08)
[2018-11-08] MEDS: FLUTICASONE/VILANTEROL 200-25 MCG/INH INHALER [14] IH SCH (09:31)
[2018-11-08] MEDS: PARICALCITOL 1 MCG CAPSULE PO SCH (09:32)
[2018-11-08] MEDS: ISOSORB DINIT/HYDRALAZINE HCL 20-37.5 MG TABLET PO SCH ×3 (09:32→22:08)
[2018-11-08] MEDS: APIXABAN 5 MG TABLET PO SCH ×2 (09:33→22:08)
[2018-11-08] MEDS: BUMETANIDE 1 MG TABLET PO SCH ×2 (09:33→22:08)
[2018-11-08] MEDS: CARVEDILOL 6.25 MG TABLET PO SCH ×2 (09:40→22:08)
[2018-11-08 11:38] VITALS: BP 137/83
[2018-11-08 14:59] LABS: GLUCOMETER DEV NAME(LOC) 5N.1; GLUCOSE,POINT OF CARE 196 MG/DL (70-110)
[2018-11-08 14:59] LABS: GLUCOMETER DEV NAME(LOC) 5N.1; GLUCOSE,POINT OF CARE 206 MG/DL (70-110)
[2018-11-08 14:59] LABS: GLUCOMETER DEV NAME(LOC) 5N.2; GLUCOSE,POINT OF CARE 203 MG/DL (70-110)
[2018-11-08] MEDS ORDERED: MethylPREDNISolone SOD SUCC 125 MG/2 ML VIAL IVP ONE (15:15)
[2018-11-08 16:05] VITALS: BP 145/81
[2018-11-08 17:59] LABS: GLUCOMETER DEV NAME(LOC) 5N.2; GLUCOSE,POINT OF CARE 223 MG/DL (70-110)
[2018-11-08 20:22] VITALS: BP 152/95
[2018-11-08] MEDS: ROSUVASTATIN CALCIUM 20 MG TABLET PO SCH (22:08)
[2018-11-08] MEDS: ALBUTEROL SULFATE 2.5 MG/0.5 ML NEB SOLUTION NEB PRN (22:46)
[2018-11-08] MEDS: IPRATROPIUM BROMIDE 0.5 MG/2.5 ML NEB SOLUTION NEB PRN (22:46)
[2018-11-09 00:37] VITALS: BP 169/94
[2018-11-09] MEDS ORDERED: DEXTROSE 50%-WATER 25 GM/50 ML SYG IVP PRN (01:15)
[2018-11-09] MEDS: IPRATROPIUM BROMIDE 0.5 MG/2.5 ML NEB SOLUTION NEB SCH ×4 (02:00→18:42)
[2018-11-09] MEDS: ALBUTEROL SULFATE 2.5 MG/0.5 ML NEB SOLUTION NEB SCH ×4 (02:00→18:42)
[2018-11-09] MEDS: IPRATROPIUM BROMIDE 0.5 MG/2.5 ML NEB SOLUTION NEB PRN ×2 (02:38→05:23)
[2018-11-09] MEDS: ALBUTEROL SULFATE 2.5 MG/0.5 ML NEB SOLUTION NEB PRN ×2 (02:38→05:23)
[2018-11-09 04:50] VITALS: BP 155/93
[2018-11-09 05:39] LABS: GLUCOMETER DEV NAME(LOC) 5N.1; GLUCOSE,POINT OF CARE 214 MG/DL (70-110)
[2018-11-09 06:35] LABS: BASOPHILS % (AUTO) 0.1 % (0.0-2.0); EOSINOPHILS % (AUTO) 0 % (1.0-6.0); LYMPHOCYTES # (AUTO) 0.7 K/uL (1.0-4.8); LYMPHOCYTES % (AUTO) 13.4 % (22.0-44.0); MEAN CORPUSCULAR HEMOGLOBIN 31.6 pg (26.0-34.0); MEAN CORPUSCULAR HGB CONC 33.4 G/dL (31.0-37.0); MEAN CORPUSCULAR VOLUME 95 fL (80-100); MONOCYTES # (AUTO) 0.1 K/uL (0.1-1.0); MONOCYTES % (AUTO) 1.2 % (2.0-9.0); NEUTROPHILS # (AUTO) 4.6 K/uL (1.8-7.7); PLATELET COUNT (AUTO) 190 K/uL (150-450); RED BLOOD CELL COUNT(AUTO) 3.18 MIL/uL (4.50-5.90); RED CELL DISTRIBUTION WIDTH 15.9 % (11.5-14.5)
[2018-11-09] MEDS: INSULIN LISPRO 100 UNITS/ML SQ PRN ×3 (06:46→17:57)
[2018-11-09 06:47] LABS: ALBUMIN 2.4 g/dL (3.4-5.0); BILIRUBIN,TOTAL 0.3 mg/dL (0.1-1.0); CALCIUM, TOTAL 8.5 mg/dL (8.8-10.5); CREATININE 2.88 mg/dL (0.60-1.30); MAGNESIUM 1.9 mg/dL (1.80-2.40); POTASSIUM 4.9 mmol/L (3.5-5.1); TOTAL PROTEIN, SERUM 5.7 g/dL (6.4-8.2)
[2018-11-09 07:01] LABS: NEUTROPHILS % (AUTO) 85.3 % (40.0-70.0)
[2018-11-09 07:04] LABS: GLUCOMETER DEV NAME(LOC) 5N.2; GLUCOSE,POINT OF CARE 384 MG/DL (70-110)
[2018-11-09 07:14] LABS: INR 1.1 (0.9-1.1); PROTHROMBIN TIME 11.4 SEC (9.4-11.6)
[2018-11-09 07:46] VITALS: BP 156/105
[2018-11-09] MEDS: FLUTICASONE/VILANTEROL 200-25 MCG/INH INHALER [14] IH SCH (08:49)
[2018-11-09] MEDS: FINASTERIDE 5 MG TABLET PO SCH (08:49)
[2018-11-09] MEDS: CARVEDILOL 6.25 MG TABLET PO SCH ×2 (08:49→20:23)
[2018-11-09] MEDS: CLOPIDOGREL BISULFATE 75 MG TABLET PO SCH (08:49)
[2018-11-09] MEDS: TAMSULOSIN HCL 0.4 MG CAPSULE PO SCH (08:49)
[2018-11-09] MEDS: PANTOPRAZOLE SODIUM 40 MG/VIAL IVP SCH (08:49)
[2018-11-09] MEDS: APIXABAN 5 MG TABLET PO SCH (08:50)
[2018-11-09] MEDS: SODIUM BICARBONATE 650 MG TABLET PO SCH ×2 (08:50→20:22)
[2018-11-09] MEDS: BUMETANIDE 1 MG TABLET PO SCH ×2 (08:50→20:22)
[2018-11-09] MEDS: RANOLAZINE 500 MG ER TABLET PO SCH ×2 (08:50→20:23)
[2018-11-09] MEDS: ISOSORB DINIT/HYDRALAZINE HCL 20-37.5 MG TABLET PO SCH ×3 (08:50→20:22)
[2018-11-09] MEDS: INSULIN GLARGINE,HUM.REC.ANLOG 100 UNITS/ML SQ SCH ×2 (08:56→21:00)
[2018-11-09] MEDS ORDERED: HYDR25TA84 PO (09:00)
[2018-11-09 10:09] LABS: GLUCOMETER DEV NAME(LOC) 5N.2; GLUCOSE,POINT OF CARE 316 MG/DL (70-110)
[2018-11-09] MEDS ORDERED: BISACODYL 5 MG EC TABLET PO PRN (10:15)
[2018-11-09] MEDS: DOCUSATE SODIUM 100 MG CAPSULE PO SCH ×2 (10:37→20:23)
[2018-11-09 11:07] VITALS: BP 151/72
[2018-11-09] MEDS ORDERED: VANCOMYCIN HCL 1 GM/D5% WATER 200 ML IV PRN (14:00)
[2018-11-09] MEDS ORDERED: VANCOMYCIN HCL 1.25 GM in DEXTROSE 5%-WATER 250 ML IV ONE (14:00)
[2018-11-09] MEDS ORDERED: SODIUM CHLORIDE 0.9% 100 ML ONE ×2 (14:18→15:22)
[2018-11-09 15:04] VITALS: BP 142/73
[2018-11-09] MEDS ORDERED: 0.9% SODIUM CHLORIDE 5 ML NEB SOLUTION NEB ONE (18:38)
[2018-11-09 19:44] VITALS: BP 129/67
[2018-11-09] MEDS: ROSUVASTATIN CALCIUM 20 MG TABLET PO SCH (20:23)
[2018-11-09] MEDS: APIXABAN 2.5 MG TABLET PO SCH (20:27)
[2018-11-09 20:43] LABS: GLUCOMETER DEV NAME(LOC) 5N.2; GLUCOSE,POINT OF CARE 309 MG/DL (70-110)
[2018-11-09 20:43] LABS: GLUCOMETER DEV NAME(LOC) 5N.2; GLUCOSE,POINT OF CARE 217 MG/DL (70-110)
[2018-11-09 20:59] LABS: GLUCOMETER DEV NAME(LOC) 5N.1; GLUCOSE,POINT OF CARE 282 MG/DL (70-110)
[2018-11-10 00:33] VITALS: BP 142/77
[2018-11-10] MEDS: ALBUTEROL SULFATE 2.5 MG/0.5 ML NEB SOLUTION NEB SCH ×4 (01:53→19:00)
[2018-11-10] MEDS: IPRATROPIUM BROMIDE 0.5 MG/2.5 ML NEB SOLUTION NEB SCH ×4 (01:53→19:00)
[2018-11-10 04:58] VITALS: BP 146/90
[2018-11-10 06:49] LABS: GLUCOMETER DEV NAME(LOC) 5N.2; GLUCOSE,POINT OF CARE 164 MG/DL (70-110)
[2018-11-10 06:49] LABS: GLUCOMETER DEV NAME(LOC) 5N.1; GLUCOSE,POINT OF CARE 257 MG/DL (70-110)
[2018-11-10 06:54] LABS: CALCIUM, TOTAL 8.5 mg/dL (8.8-10.5); CREATININE 2.75 mg/dL (0.60-1.30); POTASSIUM 4.1 mmol/L (3.5-5.1); VANCOMYCIN,RANDOM 12.1 mcg/mL (25.0-50.0)
[2018-11-10 07:36] VITALS: BP 171/86
[2018-11-10] MEDS: DOCUSATE SODIUM 100 MG CAPSULE PO SCH ×2 (08:21→20:44)
[2018-11-10] MEDS: FLUTICASONE/VILANTEROL 200-25 MCG/INH INHALER [14] IH SCH (08:21)
[2018-11-10] MEDS: RANOLAZINE 500 MG ER TABLET PO SCH ×2 (08:22→20:45)
[2018-11-10] MEDS: BUMETANIDE 1 MG TABLET PO SCH ×2 (08:22→20:45)
[2018-11-10] MEDS: APIXABAN 2.5 MG TABLET PO SCH ×2 (08:22→20:44)
[2018-11-10] MEDS: ISOSORB DINIT/HYDRALAZINE HCL 20-37.5 MG TABLET PO SCH ×3 (08:22→20:45)
[2018-11-10] MEDS: SODIUM BICARBONATE 650 MG TABLET PO SCH ×2 (08:22→20:44)
[2018-11-10] MEDS: CARVEDILOL 6.25 MG TABLET PO SCH ×2 (08:23→20:44)
[2018-11-10] MEDS: FINASTERIDE 5 MG TABLET PO SCH (08:23)
[2018-11-10] MEDS: CLOPIDOGREL BISULFATE 75 MG TABLET PO SCH (08:23)
[2018-11-10] MEDS: TAMSULOSIN HCL 0.4 MG CAPSULE PO SCH (08:23)
[2018-11-10] MEDS: INSULIN GLARGINE,HUM.REC.ANLOG 100 UNITS/ML SQ SCH ×2 (08:27→20:50)
[2018-11-10 12:08] VITALS: BP 143/79
[2018-11-10 14:39] LABS: GLUCOMETER DEV NAME(LOC) 5N.2; GLUCOSE,POINT OF CARE 247 MG/DL (70-110)
[2018-11-10 14:39] LABS: GLUCOMETER DEV NAME(LOC) 5N.2; GLUCOSE,POINT OF CARE 237 MG/DL (70-110)
[2018-11-10 14:39] LABS: GLUCOMETER DEV NAME(LOC) 5N.1; GLUCOSE,POINT OF CARE 201 MG/DL (70-110)
[2018-11-10 15:40] VITALS: BP 168/65
[2018-11-10] MEDS ORDERED: 0.9% SODIUM CHLORIDE 5 ML NEB SOLUTION NEB ONE (18:56)
[2018-11-10 19:54] LABS: GLUCOMETER DEV NAME(LOC) 5N.1; GLUCOSE,POINT OF CARE 224 MG/DL (70-110)
[2018-11-10 19:54] LABS: GLUCOMETER DEV NAME(LOC) 5N.1; GLUCOSE,POINT OF CARE 225 MG/DL (70-110)
[2018-11-10] MEDS ORDERED: VANCOMYCIN HCL 1 GM/D5% WATER 200 ML IV ONE (20:00)
[2018-11-10 20:01] VITALS: BP 150/74
[2018-11-10] MEDS: ROSUVASTATIN CALCIUM 20 MG TABLET PO SCH (20:44)
[2018-11-10] MEDS: ZOLPIDEM TARTRATE 10 MG TABLET PO PRN (22:07)
[2018-11-11 01:14] LABS: GLUCOMETER DEV NAME(LOC) 5N.1; GLUCOSE,POINT OF CARE 286 MG/DL (70-110)
[2018-11-11 01:14] LABS: GLUCOMETER DEV NAME(LOC) 5N.2; GLUCOSE,POINT OF CARE 235 MG/DL (70-110)
[2018-11-11 01:14] LABS: GLUCOMETER DEV NAME(LOC) 5N.2; GLUCOSE,POINT OF CARE 218 MG/DL (70-110)
[2018-11-11] MEDS ORDERED: 0.9% SODIUM CHLORIDE 5 ML NEB SOLUTION NEB ONE (01:53)
[2018-11-11] MEDS: ALBUTEROL SULFATE 2.5 MG/0.5 ML NEB SOLUTION NEB SCH ×4 (01:58→20:00)
[2018-11-11] MEDS: IPRATROPIUM BROMIDE 0.5 MG/2.5 ML NEB SOLUTION NEB SCH ×4 (01:58→20:00)
[2018-11-11 05:24] VITALS: BP 161/74
[2018-11-11 06:24] LABS: CALCIUM, TOTAL 8.5 mg/dL (8.8-10.5); CREATININE 2.35 mg/dL (0.60-1.30); MAGNESIUM 1.8 mg/dL (1.80-2.40)
[2018-11-11 07:34] LABS: GLUCOMETER DEV NAME(LOC) 5N.1; GLUCOSE,POINT OF CARE 167 MG/DL (70-110)
[2018-11-11 07:42] VITALS: BP 157/89
[2018-11-11] MEDS: INSULIN GLARGINE,HUM.REC.ANLOG 100 UNITS/ML SQ SCH ×2 (09:00→21:00)
[2018-11-11 09:39] LABS: GLUCOMETER DEV NAME(LOC) 5N.2; GLUCOSE,POINT OF CARE 202 MG/DL (70-110)
[2018-11-11] MEDS: CARVEDILOL 6.25 MG TABLET PO SCH ×2 (10:17→20:59)
[2018-11-11] MEDS: ISOSORB DINIT/HYDRALAZINE HCL 20-37.5 MG TABLET PO SCH ×3 (10:17→20:59)
[2018-11-11] MEDS: BUMETANIDE 1 MG TABLET PO SCH ×2 (10:17→20:58)
[2018-11-11] MEDS: RANOLAZINE 500 MG ER TABLET PO SCH ×2 (10:17→20:58)
[2018-11-11] MEDS: SODIUM BICARBONATE 650 MG TABLET PO SCH ×2 (10:17→20:58)
[2018-11-11] MEDS: FINASTERIDE 5 MG TABLET PO SCH (10:17)
[2018-11-11] MEDS: TAMSULOSIN HCL 0.4 MG CAPSULE PO SCH (10:17)
[2018-11-11] MEDS: APIXABAN 2.5 MG TABLET PO SCH ×2 (10:17→20:59)
[2018-11-11] MEDS: PARICALCITOL 1 MCG CAPSULE PO SCH (10:17)
[2018-11-11] MEDS: DOCUSATE SODIUM 100 MG CAPSULE PO SCH ×2 (10:17→20:59)
[2018-11-11] MEDS: CLOPIDOGREL BISULFATE 75 MG TABLET PO SCH (10:17)
[2018-11-11] MEDS: FLUTICASONE/VILANTEROL 200-25 MCG/INH INHALER [14] IH SCH (10:18)
[2018-11-11 12:07] VITALS: BP 145/67
[2018-11-11] MEDS: CefTAZidime PENTAHYDRATE 1 GM in DEXTROSE 5%-WATER 50 ML IV SCH (13:34)
[2018-11-11 14:50] LABS: GLUCOMETER DEV NAME(LOC) 5N.1; GLUCOSE,POINT OF CARE 224 MG/DL (70-110)
[2018-11-11 14:50] LABS: GLUCOMETER DEV NAME(LOC) 5N.1; GLUCOSE,POINT OF CARE 197 MG/DL (70-110)
[2018-11-11 15:25] VITALS: BP 148/75
[2018-11-11 20:54] LABS: GLUCOMETER DEV NAME(LOC) 5N.2; GLUCOSE,POINT OF CARE 212 MG/DL (70-110)
[2018-11-11] MEDS: ROSUVASTATIN CALCIUM 20 MG TABLET PO SCH (20:59)
[2018-11-11 21:13] VITALS: BP 134/78
[2018-11-11] MEDS: ZOLPIDEM TARTRATE 10 MG TABLET PO PRN (21:47)
[2018-11-11 23:14] LABS: GLUCOMETER DEV NAME(LOC) 5N.1; GLUCOSE,POINT OF CARE 208 MG/DL (70-110)
[2018-11-12] VITALS (7 sets, daily range): BP systolic 120–193; BP diastolic 64–109
[2018-11-12] MEDS: CefTAZidime PENTAHYDRATE 1 GM in DEXTROSE 5%-WATER 50 ML IV SCH ×2 (00:50→17:05)
[2018-11-12] MEDS: ALBUTEROL SULFATE 2.5 MG/0.5 ML NEB SOLUTION NEB SCH ×4 (02:28→20:00)
[2018-11-12] MEDS: IPRATROPIUM BROMIDE 0.5 MG/2.5 ML NEB SOLUTION NEB SCH ×4 (02:28→20:00)
[2018-11-12 06:20] LABS: GLUCOMETER DEV NAME(LOC) 5N.1; GLUCOSE,POINT OF CARE 159 MG/DL (70-110)
[2018-11-12 06:24] LABS: GLUCOMETER DEV NAME(LOC) 5N.2; GLUCOSE,POINT OF CARE 205 MG/DL (70-110)
[2018-11-12 07:40] LABS: CALCIUM, TOTAL 8.4 mg/dL (8.8-10.5); CREATININE 2.42 mg/dL (0.60-1.30); POTASSIUM 3.9 mmol/L (3.5-5.1); VANCOMYCIN,RANDOM 12.5 mcg/mL (25.0-50.0)
[2018-11-12] MEDS: INSULIN GLARGINE,HUM.REC.ANLOG 100 UNITS/ML SQ SCH ×2 (09:00→21:00)
[2018-11-12] MEDS ORDERED: SESTAMIBI TC99M/UD ISOTOPE 1 EA INJ INJ ONE ×2 (10:15→13:35)
[2018-11-12 10:59] LABS: GLUCOMETER DEV NAME(LOC) 5N.1; GLUCOSE,POINT OF CARE 185 MG/DL (70-110)
[2018-11-12] MEDS ORDERED: VANCOMYCIN HCL 1 GM/D5% WATER 200 ML IV ONE (12:00)
[2018-11-12] MEDS ORDERED: ONDANSETRON HCL 4 MG/2 ML VIAL IVP PRN (13:00)
[2018-11-12 13:19] LABS: GLUCOMETER DEV NAME(LOC) 5N.2; GLUCOSE,POINT OF CARE 145 MG/DL (70-110)
[2018-11-12] MEDS ORDERED: DOBUTamine HCL/D5W 500 MG/250 ML IV BAG [STRESS LAB ONLY] IV ONE ×2 (13:21→14:54)
[2018-11-12 13:40] LABS: BASOPHILS % (AUTO) 0.7 % (0.0-2.0); HEMATOCRIT 28.2 % (41-53); HEMOGLOBIN 9.9 g/dL (13.5-17.5); LYMPHOCYTES % (AUTO) 32.9 % (22.0-44.0); MEAN CORPUSCULAR HEMOGLOBIN 31.9 pg (26.0-34.0); MEAN CORPUSCULAR VOLUME 91 fL (80-100); MONOCYTES # (AUTO) 0.4 K/uL (0.1-1.0); MONOCYTES % (AUTO) 13.9 % (2.0-9.0); NEUTROPHILS # (AUTO) 1.5 K/uL (1.8-7.7); NEUTROPHILS % (AUTO) 51.5 % (40.0-70.0); PLATELET COUNT (AUTO) 196 K/uL (150-450); RED CELL DISTRIBUTION WIDTH 15.5 % (11.5-14.5)
[2018-11-12] MEDS: FLUTICASONE/VILANTEROL 200-25 MCG/INH INHALER [14] IH SCH (14:12)
[2018-11-12] MEDS: BUMETANIDE 1 MG TABLET PO SCH ×2 (14:14→21:00)
[2018-11-12] MEDS: ISOSORB DINIT/HYDRALAZINE HCL 20-37.5 MG TABLET PO SCH ×3 (14:16→21:00)
[2018-11-12] MEDS: CARVEDILOL 6.25 MG TABLET PO SCH ×2 (14:16→20:31)
[2018-11-12] MEDS: TAMSULOSIN HCL 0.4 MG CAPSULE PO SCH (14:16)
[2018-11-12] MEDS: DOCUSATE SODIUM 100 MG CAPSULE PO SCH ×2 (14:16→20:31)
[2018-11-12] MEDS: APIXABAN 2.5 MG TABLET PO SCH ×2 (14:16→20:31)
[2018-11-12] MEDS: FINASTERIDE 5 MG TABLET PO SCH (14:16)
[2018-11-12] MEDS: RANOLAZINE 500 MG ER TABLET PO SCH ×2 (14:17→20:31)
[2018-11-12] MEDS: SODIUM BICARBONATE 650 MG TABLET PO SCH ×2 (14:17→20:31)
[2018-11-12] MEDS: CLOPIDOGREL BISULFATE 75 MG TABLET PO SCH (14:17)
[2018-11-12] MEDS: INSULIN LISPRO 100 UNITS/ML SQ PRN (17:08)
[2018-11-12 18:14] LABS: GLUCOMETER DEV NAME(LOC) 5N.1; GLUCOSE,POINT OF CARE 354 MG/DL (70-110)
[2018-11-12] MEDS: MetroNIDAZOLE 500 MG/NACL 100 ML IV SCH ×2 (18:14→23:38)
[2018-11-12] MEDS: ROSUVASTATIN CALCIUM 20 MG TABLET PO SCH (20:31)
[2018-11-13 00:04] VITALS: BP 134/69
[2018-11-13] MEDS: ALBUTEROL SULFATE 2.5 MG/0.5 ML NEB SOLUTION NEB SCH ×2 (02:43→07:39)
[2018-11-13] MEDS: IPRATROPIUM BROMIDE 0.5 MG/2.5 ML NEB SOLUTION NEB SCH ×2 (02:43→07:39)
[2018-11-13] MEDS: MetroNIDAZOLE 500 MG/NACL 100 ML IV SCH (06:58)
[2018-11-13 07:38] LABS: CALCIUM, TOTAL 8.3 mg/dL (8.8-10.5); CREATININE 2.51 mg/dL (0.60-1.30); POTASSIUM 4.5 mmol/L (3.5-5.1)
[2018-11-13 08:06] VITALS: BP 160/97
[2018-11-13] MEDS: CARVEDILOL 6.25 MG TABLET PO SCH (08:19)
[2018-11-13] MEDS: CLOPIDOGREL BISULFATE 75 MG TABLET PO SCH (08:19)
[2018-11-13] MEDS: TAMSULOSIN HCL 0.4 MG CAPSULE PO SCH (08:19)
[2018-11-13] MEDS: FINASTERIDE 5 MG TABLET PO SCH (08:19)
[2018-11-13] MEDS: RANOLAZINE 500 MG ER TABLET PO SCH (08:20)
[2018-11-13] MEDS: APIXABAN 2.5 MG TABLET PO SCH (08:20)
[2018-11-13] MEDS: DOCUSATE SODIUM 100 MG CAPSULE PO SCH (08:20)
[2018-11-13] MEDS: ISOSORB DINIT/HYDRALAZINE HCL 20-37.5 MG TABLET PO SCH (08:20)
[2018-11-13] MEDS: BUMETANIDE 1 MG TABLET PO SCH (08:21)
[2018-11-13] MEDS: PARICALCITOL 1 MCG CAPSULE PO SCH (08:22)
[2018-11-13] MEDS: SODIUM BICARBONATE 650 MG TABLET PO SCH (08:22)
[2018-11-13] MEDS: INSULIN GLARGINE,HUM.REC.ANLOG 100 UNITS/ML SQ SCH (08:22)
[2018-11-13] MEDS: FLUTICASONE/VILANTEROL 200-25 MCG/INH INHALER [14] IH SCH (09:00)
[2018-11-13 09:28] LABS: GLUCOMETER DEV NAME(LOC) 5N.1; GLUCOSE,POINT OF CARE 209 MG/DL (70-110)
[2018-11-13 09:39] LABS: GLUCOMETER DEV NAME(LOC) 5N.1; GLUCOSE,POINT OF CARE 143 MG/DL (70-110)
[2018-11-13 09:50] LABS: GLUCOMETER DEV NAME(LOC) 5N.2; GLUCOSE,POINT OF CARE 227 MG/DL (70-110)
[2018-11-13 09:50] LABS: GLUCOMETER DEV NAME(LOC) 5N.2; GLUCOSE,POINT OF CARE 200 MG/DL (70-110)
[2018-11-13 09:50] LABS: GLUCOMETER DEV NAME(LOC) 5N.2; GLUCOSE,POINT OF CARE 193 MG/DL (70-110)
[2018-11-13 09:50] LABS: GLUCOMETER DEV NAME(LOC) 5N.2; GLUCOSE,POINT OF CARE 173 MG/DL (70-110)
[2018-11-13 10:06] LABS: GLUCOMETER DEV NAME(LOC) 5N.1; GLUCOSE,POINT OF CARE 249 MG/DL (70-110)
[2018-11-13 10:06] LABS: GLUCOMETER DEV NAME(LOC) 5N.1; GLUCOSE,POINT OF CARE 222 MG/DL (70-110)
[2018-11-13 10:55] LABS: GLUCOMETER DEV NAME(LOC) 5N.1; GLUCOSE,POINT OF CARE 258 MG/DL (70-110)
[2018-11-13] MEDS ORDERED: METR500 PO (11:56)
[2018-11-13 11:57] VITALS: BP 114/65
[2018-11-13] MEDS: ALBUTEROL SULFATE 2.5 MG/0.5 ML NEB SOLUTION NEB PRN (12:01)
[2018-11-13] MEDS: IPRATROPIUM BROMIDE 0.5 MG/2.5 ML NEB SOLUTION NEB PRN (12:01)
[2018-11-13 14:21] LABS: GLUCOMETER DEV NAME(LOC) 5N.2; GLUCOSE,POINT OF CARE 223 MG/DL (70-110)
== END 2018-11-13 14:55 | disposition home or self-care (01) | DRG 871 ==
LOC: EMS 22:50 → 5N 11-08 01:57
PROVIDERS: ADMIT Internal Medicine; ATTEND Internal Medicine
DX: A41.9 Sepsis, unspecified organism (principal); I50.33 Acute on chronic diastolic (congestive) heart failure; I13.0 Hypertensive heart and chronic kidney disease with heart failure and stage 1 through stage 4 chronic kidney disease, or unspecified chronic kidney disease; E44.0 Moderate protein-calorie malnutrition; I45.2 Bifascicular block; I82.402 Acute embolism and thrombosis of unspecified deep veins of left lower extremity; J44.1 Chronic obstructive pulmonary disease with (acute) exacerbation; N18.4 Chronic kidney disease, stage 4 (severe); N25.81 Secondary hyperparathyroidism of renal origin; B95.7 Other staphylococcus as the cause of diseases classified elsewhere; E83.39 Other disorders of phosphorus metabolism; E83.51 Hypocalcemia; F15.10 Other stimulant abuse, uncomplicated; I16.0 Hypertensive urgency; I44.0 Atrioventricular block, first degree; I70.0 Atherosclerosis of aorta; R62.7 Adult failure to thrive; D63.8 Anemia in other chronic diseases classified elsewhere; E11.22 Type 2 diabetes mellitus with diabetic chronic kidney disease; I25.10 Atherosclerotic heart disease of native coronary artery without angina pectoris; Z91.19 Patient's noncompliance with other medical treatment and regimen; Z68.27 Body mass index [BMI] 27.0-27.9, adult; Z79.2 Long term (current) use of antibiotics; Z79.4 Long term (current) use of insulin; Z82.49 Family history of ischemic heart disease and other diseases of the circulatory system; Z83.3 Family history of diabetes mellitus; Z86.718 Personal history of other venous thrombosis and embolism; Z87.891 Personal history of nicotine dependence; Z91.11 Patient's noncompliance with dietary regimen; Z95.1 Presence of aortocoronary bypass graft; Z95.5 Presence of coronary angioplasty implant and graft
CPT/HCPCS: 74176; 78452; 83735; 87040; 87081; 87205; 93005; 93017; 93306; 94640; 94644; 96374; 99291; A9500; C9113; G0378; J0713; J1250; J1815; J1940; J2405; J2930; J3370; J3490; J7050; J7060

== ENCOUNTER → 2018-11-18 | Outpatient (CLI) | payer MEDICARE, MEDICAID ==
[~2018-11-18] VITALS: Ht 182.9 cm; Wt 90.5 kg
[~2018-11-18] MED LIST changes: +ASPI-1182 PO; +FOLI1 PO; +GABA-531 PO; +HYDR25TA84 PO; +INSU100V; -INSU100V SQ; +METO25 PO; +METR500 PO; +MULT-1203 PO; +NTP TD; +PRED20 PO; +PYRI100T2 PO; +PYRI50 PO; -ROSU20 PO; +ROSU20TA23 PO
[2018-11-18 15:15] VITALS: BP 180/82
== END | disposition home or self-care (01) ==
LOC: SRCNTR 10:16
PROVIDERS: ATTEND Hospitalist
DX: I13.0 Hypertensive heart and chronic kidney disease with heart failure and stage 1 through stage 4 chronic kidney disease, or unspecified chronic kidney disease (principal); E11.22 Type 2 diabetes mellitus with diabetic chronic kidney disease; N18.4 Chronic kidney disease, stage 4 (severe); I50.33 Acute on chronic diastolic (congestive) heart failure; E78.5 Hyperlipidemia, unspecified; J45.909 Unspecified asthma, uncomplicated; I82.409 Acute embolism and thrombosis of unspecified deep veins of unspecified lower extremity; I25.10 Atherosclerotic heart disease of native coronary artery without angina pectoris; E78.00 Pure hypercholesterolemia, unspecified; K27.9 Peptic ulcer, site unspecified, unspecified as acute or chronic, without hemorrhage or perforation
CPT/HCPCS: G0463

== ENCOUNTER → 2018-11-28 | Outpatient (CLI) | payer MEDICARE, MEDICAID ==
[~2018-11-28] MED LIST changes: -ADV250 IH; -ASPI-1182 PO; -DIPH25 PO; -EPOE20002 SQ; +FURO40 PO; -GABA-531 PO; +HYDR-2924 PO; -INSLAN SQ; -ISOS1TAB2 PO; -METO25 PO; -METR500 PO; -MULT-1203 PO; -NTP TD; -PARI1CAP PO; -PRED20 PO; +PYRI-12 PO; -PYRI50 PO
[2018-11-28 11:53] VITALS: BP 134/91
== END | disposition home or self-care (01) ==
LOC: SRCNTR 11:44
PROVIDERS: ATTEND Hospitalist
DX: I13.0 Hypertensive heart and chronic kidney disease with heart failure and stage 1 through stage 4 chronic kidney disease, or unspecified chronic kidney disease (principal); I50.9 Heart failure, unspecified; N18.3 Chronic kidney disease, stage 3 (moderate); J44.9 Chronic obstructive pulmonary disease, unspecified; I25.10 Atherosclerotic heart disease of native coronary artery without angina pectoris; E78.00 Pure hypercholesterolemia, unspecified; I82.409 Acute embolism and thrombosis of unspecified deep veins of unspecified lower extremity; E11.22 Type 2 diabetes mellitus with diabetic chronic kidney disease; G89.29 Other chronic pain
CPT/HCPCS: G0463

== ENCOUNTER 2018-12-05 23:12 | Emergency (ER) | payer MEDICARE, MEDICAID ==
[~2018-12-05] VITALS: Ht 190.5 cm; Wt 93.2 kg
[~2018-12-05 23:12] MED LIST changes: -FOLI1CAP2 PO; -FURO40 PO; -HYDR-2924 PO; -PYRI-12 PO
[2018-12-06 01:29] LABS: EOSINOPHILS % (AUTO) 0 % (1.0-6.0); HEMATOCRIT 28.7 % (41-53); HEMOGLOBIN 9.5 g/dL (13.5-17.5); LYMPHOCYTES # (AUTO) 0.4 K/uL (1.0-4.8); LYMPHOCYTES % (AUTO) 7.3 % (22.0-44.0); MEAN CORPUSCULAR HEMOGLOBIN 31.3 pg (26.0-34.0); MEAN CORPUSCULAR HGB CONC 33.1 G/dL (31.0-37.0); MEAN CORPUSCULAR VOLUME 95 fL (80-100); MONOCYTES # (AUTO) 0.4 K/uL (0.1-1.0); MONOCYTES % (AUTO) 6.6 % (2.0-9.0); NEUTROPHILS # (AUTO) 5.2 K/uL (1.8-7.7); PLATELET COUNT (AUTO) 229 K/uL (150-450); RED BLOOD CELL COUNT(AUTO) 3.03 MIL/uL (4.50-5.90); RED CELL DISTRIBUTION WIDTH 16.3 % (11.5-14.5)
[2018-12-06 01:32] LABS: NEUTROPHILS % (AUTO) 86.1 % (40.0-70.0)
[2018-12-06 01:38] LABS: PROTHROMBIN TIME 10.7 SEC (9.4-11.6)
[2018-12-06 02:05] LABS: ALBUMIN 2.7 g/dL (3.4-5.0); BILIRUBIN,TOTAL 0.2 mg/dL (0.1-1.0); CALCIUM, TOTAL 8.5 mg/dL (8.8-10.5); CREATININE 3.1 mg/dL (0.60-1.30); POTASSIUM 4.6 mmol/L (3.5-5.1)
[2018-12-06] MEDS ORDERED: ALBUTEROL SULFATE HFA 90 MCG/PUFF 8 GM INHALER IH ONE (03:30)
[2018-12-06 03:43] LABS: GLUCOSE,POINT OF CARE 324 MG/DL (70-110)
[2018-12-06] MEDS ORDERED: INSULIN REGULAR, HUMAN 100 UNITS/ML IVP ONE (04:00)
[2018-12-06 04:48] LABS: GLUCOSE,POINT OF CARE 219 MG/DL (70-110)
[2018-12-06 04:51] VITALS: BP 134/78
== END 2018-12-06 04:55 | disposition home or self-care (01) ==
LOC: EMS 23:12
DX: E11.65 Type 2 diabetes mellitus with hyperglycemia (principal); F41.9 Anxiety disorder, unspecified; I11.0 Hypertensive heart disease with heart failure; I50.9 Heart failure, unspecified; I25.10 Atherosclerotic heart disease of native coronary artery without angina pectoris; J45.909 Unspecified asthma, uncomplicated; F19.90 Other psychoactive substance use, unspecified, uncomplicated; Z79.4 Long term (current) use of insulin
CPT/HCPCS: 36415; 71045; 80053; 82550; 82962; 83880; 84484; 85025; 85610; 85730; 93005; 94640; 96374; 99285; J1815; J3535

== ENCOUNTER 2019-01-07 17:19 | Emergency (ER) | payer MEDICARE, MEDICAID ==
[~2019-01-07] VITALS: Ht 182.9 cm; Wt 93.2 kg
[~2019-01-07 17:19] MED LIST changes: -CLOP75TA32 PO; -FINA5TAB41 PO; -FOLI1 PO; -PYRI100T2 PO; -RANO500T3 PO
[2019-01-07 18:24] LABS: GLUCOSE,POINT OF CARE 293 MG/DL (70-110)
[2019-01-07 18:31] LABS: BASOPHILS % (AUTO) 1.1 % (0.0-2.0); EOSINOPHILS % (AUTO) 2.7 % (1.0-6.0); HEMATOCRIT 27.4 % (41-53); HEMOGLOBIN 9.2 g/dL (13.5-17.5); LYMPHOCYTES # (AUTO) 1.4 K/uL (1.0-4.8); LYMPHOCYTES % (AUTO) 29.5 % (22.0-44.0); MEAN CORPUSCULAR HEMOGLOBIN 31.8 pg (26.0-34.0); MEAN CORPUSCULAR HGB CONC 33.7 G/dL (31.0-37.0); MEAN CORPUSCULAR VOLUME 95 fL (80-100); MONOCYTES # (AUTO) 0.5 K/uL (0.1-1.0); MONOCYTES % (AUTO) 10.7 % (2.0-9.0); NEUTROPHILS # (AUTO) 2.6 K/uL (1.8-7.7); PLATELET COUNT (AUTO) 261 K/uL (150-450); RED CELL DISTRIBUTION WIDTH 14.9 % (11.5-14.5)
[2019-01-07 18:43] LABS: CALCIUM, TOTAL 8.5 mg/dL (8.8-10.5); CREATININE 2.63 mg/dL (0.60-1.30); POTASSIUM 4.5 mmol/L (3.5-5.1)
[2019-01-07 18:49] LABS: ALBUMIN 2.9 g/dL (3.4-5.0); BILIRUBIN,TOTAL 0.3 mg/dL (0.1-1.0)
[2019-01-07] MEDS ORDERED: OxyCODONE HCL/ACETAMINOPHEN 5-325 MG TABLET PO ONE (19:15)
[2019-01-07] MEDS ORDERED: ALBUTEROL SULFATE 2.5 MG/0.5 ML NEB SOLUTION NEB ONE (19:30)
[2019-01-07] MEDS ORDERED: 0.9% SODIUM CHLORIDE 5 ML NEB SOLUTION NEB ONE (19:36)
[2019-01-07 22:41] VITALS: BP 165/80
[2019-01-07] MEDS ORDERED: ALBUTEROL SULFATE HFA 90 MCG/PUFF 8 GM INHALER IH ONE (22:45)
== END 2019-01-07 22:45 | disposition home or self-care (01) ==
LOC: EMS 17:21
DX: J44.9 Chronic obstructive pulmonary disease, unspecified (principal); N19 Unspecified kidney failure; I80.02 Phlebitis and thrombophlebitis of superficial vessels of left lower extremity; E11.65 Type 2 diabetes mellitus with hyperglycemia; I25.10 Atherosclerotic heart disease of native coronary artery without angina pectoris; I11.0 Hypertensive heart disease with heart failure; I50.9 Heart failure, unspecified; F15.10 Other stimulant abuse, uncomplicated; Z79.01 Long term (current) use of anticoagulants; Z79.899 Other long term (current) drug therapy
CPT/HCPCS: 93005; 93971; 94640; J3535

== ENCOUNTER 2019-02-19 17:40 | Emergency (ER) | payer MEDICARE, MEDICAID ==
[~2019-02-19] VITALS: Ht 175.3 cm; Wt 88.6 kg
[~2019-02-19 17:40] MED LIST changes: -BUME1TAB17 PO; +FOLI1 PO; +FURO40 PO; +HYDR-2924 PO; -HYDR25TA84 PO; -INSU100V; +PYRI-12 PO; +RANO500T3 PO; -SODI650T PO
[2019-02-19 17:59] LABS: GLUCOSE,POINT OF CARE 224 MG/DL (70-110)
[2019-02-19 19:09] LABS: BASOPHILS % (AUTO) 0.7 % (0.0-2.0); EOSINOPHILS % (AUTO) 6.2 % (1.0-6.0); HEMATOCRIT 25.2 % (41-53); HEMOGLOBIN 8.4 g/dL (13.5-17.5); LYMPHOCYTES # (AUTO) 1.3 K/uL (1.0-4.8); LYMPHOCYTES % (AUTO) 20.3 % (22.0-44.0); MEAN CORPUSCULAR HEMOGLOBIN 32.2 pg (26.0-34.0); MEAN CORPUSCULAR HGB CONC 33.5 G/dL (31.0-37.0); MEAN CORPUSCULAR VOLUME 96 fL (80-100); MONOCYTES % (AUTO) 15.5 % (2.0-9.0); NEUTROPHILS # (AUTO) 3.6 K/uL (1.8-7.7); NEUTROPHILS % (AUTO) 57.3 % (40.0-70.0); PLATELET COUNT (AUTO) 342 K/uL (150-450); RED BLOOD CELL COUNT(AUTO) 2.62 MIL/uL (4.50-5.90); RED CELL DISTRIBUTION WIDTH 14.4 % (11.5-14.5)
[2019-02-19 19:19] LABS: GLUCOSE,POINT OF CARE 190 MG/DL (70-110)
[2019-02-19 19:37] LABS: CALCIUM, TOTAL 8.5 mg/dL (8.8-10.5); CREATININE 2.72 mg/dL (0.60-1.30); POTASSIUM 4.4 mmol/L (3.5-5.1)
[2019-02-19 19:45] LABS: ALBUMIN 2.6 g/dL (3.4-5.0); BILIRUBIN,TOTAL 0.2 mg/dL (0.1-1.0); TOTAL PROTEIN, SERUM 6.1 g/dL (6.4-8.2)
[2019-02-19] MEDS ORDERED: ALBUTEROL SULFATE HFA 90 MCG/PUFF 8 GM INHALER IH ONE (20:00)
[2019-02-19] MEDS ORDERED: FUROSEMIDE 20 MG TABLET PO ONE (20:00)
[2019-02-19 20:55] VITALS: BP 178/89
== END 2019-02-19 20:58 | disposition home or self-care (01) ==
LOC: EMS 17:40
DX: J44.1 Chronic obstructive pulmonary disease with (acute) exacerbation (principal); I11.0 Hypertensive heart disease with heart failure; I50.9 Heart failure, unspecified; I25.10 Atherosclerotic heart disease of native coronary artery without angina pectoris; E11.9 Type 2 diabetes mellitus without complications; F19.90 Other psychoactive substance use, unspecified, uncomplicated; Z79.899 Other long term (current) drug therapy
CPT/HCPCS: 93005; 94640; J3535

== ENCOUNTER 2019-04-09 00:20 | Emergency (ER) | payer MEDICARE, MEDICAID ==
[~2019-04-09] VITALS: Ht 182.9 cm; Wt 93.2 kg
[2019-04-09 01:02] LABS: BASOPHILS % (AUTO) 1.1 % (0.0-2.0); EOSINOPHILS % (AUTO) 5.3 % (1.0-6.0); HEMATOCRIT 26.1 % (41-53); HEMOGLOBIN 8.8 g/dL (13.5-17.5); LYMPHOCYTES # (AUTO) 1.3 K/uL (1.0-4.8); LYMPHOCYTES % (AUTO) 32.3 % (22.0-44.0); MEAN CORPUSCULAR HEMOGLOBIN 32.4 pg (26.0-34.0); MEAN CORPUSCULAR HGB CONC 33.7 G/dL (31.0-37.0); MEAN CORPUSCULAR VOLUME 96 fL (80-100); MONOCYTES # (AUTO) 0.6 K/uL (0.1-1.0); MONOCYTES % (AUTO) 15.6 % (2.0-9.0); NEUTROPHILS # (AUTO) 1.8 K/uL (1.8-7.7); NEUTROPHILS % (AUTO) 45.7 % (40.0-70.0); PLATELET COUNT (AUTO) 272 K/uL (150-450); RED BLOOD CELL COUNT(AUTO) 2.71 MIL/uL (4.50-5.90); RED CELL DISTRIBUTION WIDTH 14.2 % (11.5-14.5)
[2019-04-09 01:11] LABS: CALCIUM, TOTAL 9.1 mg/dL (8.8-10.5); CREATININE 2.65 mg/dL (0.60-1.30); POTASSIUM 4.1 mmol/L (3.5-5.1)
[2019-04-09] MEDS ORDERED: FUROSEMIDE 40 MG/4 ML VIAL IVP ONE (01:15)
[2019-04-09] MEDS ORDERED: IPRATROPIUM BROMIDE 0.5 MG/2.5 ML NEB SOLUTION NEB ONE (01:15)
[2019-04-09] MEDS ORDERED: ONDANSETRON HCL 4 MG/2 ML VIAL IVP ONE (01:15)
[2019-04-09] MEDS ORDERED: ALBUTEROL SULFATE 2.5 MG/0.5 ML NEB SOLUTION NEB ONE ×2 (01:15→04:00)
[2019-04-09 01:16] LABS: PROTHROMBIN TIME 10.6 SEC (9.4-11.6)
[2019-04-09 01:36] LABS: ALBUMIN 2.5 g/dL (3.4-5.0); BILIRUBIN,TOTAL 0.2 mg/dL (0.1-1.0); TOTAL PROTEIN, SERUM 5.8 g/dL (6.4-8.2)
[2019-04-09 02:19] LABS: APPEARANCE,URINE CLEAR (CLEAR); BILIRUBIN,URINE NEGATIVE (NEGATIVE); GLUCOSE, URINE (UA) NEGATIVE (NEGATIVE); KETONES,URINE NEGATIVE (NEGATIVE); LEUKOCYTE ESTERASE ,URINE NEGATIVE (NEGATIVE); NITRATE,URINE NEGATIVE (NEGATIVE); OCCULT BLOOD,URINE NEGATIVE (NEGATIVE); PROTEIN,URINE SEE CONFIRM (NEGATIVE); UROBILINOGEN,URINE 0.2 mg/dL (<=1.0)
[2019-04-09 02:25] LABS: SULFOSALICYLIC ACID,URINE 2+ (Negative)
[2019-04-09 02:26] LABS: BACTERIA,URINE None Seen /HPF (None Seen); RBC,URINE 0-2 /HPF (0-2); SQUAMOUS EPITHELIAL CELL,UR Rare /LPF (None Seen); WBC,URINE 0-2 /HPF (0-5)
[2019-04-09 02:49] LABS: GLUCOSE,POINT OF CARE 144 MG/DL (70-110)
[2019-04-09 03:35] LABS: GLUCOSE,POINT OF CARE 159 MG/DL (70-110)
[2019-04-09] MEDS ORDERED: 0.9% SODIUM CHLORIDE 5 ML NEB SOLUTION NEB ONE (03:59)
[2019-04-09] MEDS ORDERED: LORazepam 1 MG TABLET PO ONE (04:45)
[2019-04-09 04:50] VITALS: BP 186/100
[2019-04-09 04:50] LABS: GLUCOSE,POINT OF CARE 169 MG/DL (70-110)
== END 2019-04-09 05:13 | disposition home or self-care (01) ==
LOC: EMS 00:22
DX: J44.9 Chronic obstructive pulmonary disease, unspecified (principal); F41.9 Anxiety disorder, unspecified; D64.9 Anemia, unspecified; R60.0 Localized edema; I13.0 Hypertensive heart and chronic kidney disease with heart failure and stage 1 through stage 4 chronic kidney disease, or unspecified chronic kidney disease; E11.22 Type 2 diabetes mellitus with diabetic chronic kidney disease; N18.9 Chronic kidney disease, unspecified; I50.9 Heart failure, unspecified; I25.10 Atherosclerotic heart disease of native coronary artery without angina pectoris; F19.90 Other psychoactive substance use, unspecified, uncomplicated; Z79.899 Other long term (current) drug therapy
CPT/HCPCS: 36415; 71045; 80053; 81001; 82550; 82962; 83880; 84484; 85025; 85610; 85730; 93005; 94640; 96374; 96375; 99285; J1940; J2405

== ENCOUNTER 2019-04-17 14:29 | Emergency (ER) | payer MEDICARE, MEDICAID ==
[~2019-04-17] VITALS: Ht 182.9 cm; Wt 93.2 kg
[2019-04-17] MEDS ORDERED: METF-960 PO (15:17)
[2019-04-17] MEDS ORDERED: INSREG SQ (15:36)
[2019-04-17] MEDS ORDERED: INSLAN SQ (15:36)
[2019-04-17 16:23] LABS: BASOPHILS % (AUTO) 0.9 % (0.0-2.0); HEMATOCRIT 29.9 % (41-53); HEMOGLOBIN 9.8 g/dL (13.5-17.5); LYMPHOCYTES # (AUTO) 1.6 K/uL (1.0-4.8); LYMPHOCYTES % (AUTO) 30.7 % (22.0-44.0); MEAN CORPUSCULAR HEMOGLOBIN 31.3 pg (26.0-34.0); MEAN CORPUSCULAR HGB CONC 32.6 G/dL (31.0-37.0); MEAN CORPUSCULAR VOLUME 96 fL (80-100); MONOCYTES # (AUTO) 0.7 K/uL (0.1-1.0); MONOCYTES % (AUTO) 13.4 % (2.0-9.0); NEUTROPHILS # (AUTO) 2.5 K/uL (1.8-7.7); PLATELET COUNT (AUTO) 358 K/uL (150-450); RED BLOOD CELL COUNT(AUTO) 3.11 MIL/uL (4.50-5.90); RED CELL DISTRIBUTION WIDTH 14.3 % (11.5-14.5)
[2019-04-17 16:36] LABS: CREATININE 2.84 mg/dL (0.60-1.30)
[2019-04-17 16:44] LABS: BILIRUBIN,TOTAL 0.2 mg/dL (0.1-1.0); TOTAL PROTEIN, SERUM 6.8 g/dL (6.4-8.2)
[2019-04-17 16:55] LABS: GLUCOSE,POINT OF CARE 134 MG/DL (70-110)
[2019-04-17] MEDS ORDERED: DEXAMETHASONE SOD PHOS 4 MG/ML 5 ML VIAL IVP ONE (17:45)
[2019-04-17] MEDS ORDERED: ALBUTEROL SULFATE 2.5 MG/0.5 ML NEB SOLUTION NEB ONE (17:45)
[2019-04-17] MEDS ORDERED: IPRATROPIUM BROMIDE 0.5 MG/2.5 ML NEB SOLUTION NEB ONE (17:45)
[2019-04-17] MEDS ORDERED: ALBUTEROL SULFATE HFA 90 MCG/PUFF 8 GM INHALER IH ONE (18:39)
[2019-04-17 19:00] VITALS: BP 173/84
== END 2019-04-17 19:09 | disposition home or self-care (01) ==
LOC: EMS 14:32
DX: J44.1 Chronic obstructive pulmonary disease with (acute) exacerbation (principal); R06.02 Shortness of breath; I11.0 Hypertensive heart disease with heart failure; I50.9 Heart failure, unspecified; I25.10 Atherosclerotic heart disease of native coronary artery without angina pectoris; E11.9 Type 2 diabetes mellitus without complications; F15.90 Other stimulant use, unspecified, uncomplicated; Z79.4 Long term (current) use of insulin; Z79.899 Other long term (current) drug therapy
CPT/HCPCS: 36415; 71045; 80053; 82962; 83880; 84484; 85025; 93005; 94640; 96374; 99285; J1100; J3535

== ENCOUNTER 2019-04-25 01:05 | Inpatient (IN) | payer MEDICARE, MEDICAID ==
[~2019-04-25] VITALS: Ht 167.6 cm; Wt 93.3 kg
[~2019-04-25 01:05] MED LIST changes: +INSLAN SQ; +INSREG SQ
[2019-04-25 01:24] LABS: EOSINOPHILS % (AUTO) 3.5 % (1.0-6.0); HEMATOCRIT 25.8 % (41-53); HEMOGLOBIN 8.5 g/dL (13.5-17.5); LYMPHOCYTES # (AUTO) 1.3 K/uL (1.0-4.8); LYMPHOCYTES % (AUTO) 27.1 % (22.0-44.0); MEAN CORPUSCULAR HEMOGLOBIN 31.7 pg (26.0-34.0); MEAN CORPUSCULAR VOLUME 96 fL (80-100); MONOCYTES # (AUTO) 0.6 K/uL (0.1-1.0); NEUTROPHILS # (AUTO) 2.6 K/uL (1.8-7.7); NEUTROPHILS % (AUTO) 55.4 % (40.0-70.0); PLATELET COUNT (AUTO) 250 K/uL (150-450); RED BLOOD CELL COUNT(AUTO) 2.69 MIL/uL (4.50-5.90); RED CELL DISTRIBUTION WIDTH 14.4 % (11.5-14.5)
[2019-04-25 01:32] LABS: CREATININE 3.03 mg/dL (0.60-1.30); POTASSIUM 4.3 mmol/L (3.5-5.1)
[2019-04-25 01:35] LABS: INR 1.1 (0.9-1.1); PROTHROMBIN TIME 11.4 SEC (9.4-11.6)
[2019-04-25 01:38] LABS: ALBUMIN 2.7 g/dL (3.4-5.0); BILIRUBIN,TOTAL 0.4 mg/dL (0.1-1.0)
[2019-04-25 01:54] LABS: GLUCOSE,POINT OF CARE 152 MG/DL (70-110)
[2019-04-25] MEDS ORDERED: FUROSEMIDE 40 MG/4 ML VIAL IVP ONE (02:15)
[2019-04-25] MEDS ORDERED: ACETAMINOPHEN 325 MG TABLET PO PRN ×2 (02:30→05:15)
[2019-04-25] MEDS ORDERED: ONDANSETRON HCL 4 MG/2 ML VIAL IVP PRN (02:30)
[2019-04-25] MEDS ORDERED: 0.9% SODIUM CHLORIDE 10 ML SYRINGE IVP PRN ×2 (02:30→05:15)
[2019-04-25 04:07] VITALS: BP 156/94
[2019-04-25 04:22] LABS: APPEARANCE,URINE CLEAR (CLEAR); BILIRUBIN,URINE NEGATIVE (NEGATIVE); GLUCOSE, URINE (UA) NEGATIVE (NEGATIVE); KETONES,URINE NEGATIVE (NEGATIVE); LEUKOCYTE ESTERASE ,URINE NEGATIVE (NEGATIVE); NITRATE,URINE NEGATIVE (NEGATIVE); OCCULT BLOOD,URINE NEGATIVE (NEGATIVE); PROTEIN,URINE SEE CONFIRM (NEGATIVE); UROBILINOGEN,URINE 0.2 mg/dL (<=1.0)
[2019-04-25 04:23] LABS: SULFOSALICYLIC ACID,URINE 3+ (Negative)
[2019-04-25 04:25] LABS: BACTERIA,URINE Few /HPF (None Seen); RBC,URINE 0-2 /HPF (0-2); WBC,URINE 0-2 /HPF (0-5)
[2019-04-25] MEDS ORDERED: ALBUTEROL SULFATE 2.5 MG/0.5 ML NEB SOLUTION NEB PRN (04:40)
[2019-04-25] MEDS ORDERED: 0.9% SODIUM CHLORIDE 5 ML NEB SOLUTION NEB ONE (04:50)
[2019-04-25] MEDS ORDERED: DEXTROSE 50%-WATER 25 GM/50 ML SYRINGE IVP PRN (05:15)
[2019-04-25 07:36] VITALS: BP 175/98
[2019-04-25] MEDS ORDERED: IPRATROPIUM BROMIDE 0.5 MG/2.5 ML NEB SOLUTION NEB SCH (08:00)
[2019-04-25] MEDS ORDERED: ALBUTEROL SULFATE 2.5 MG/0.5 ML NEB SOLUTION NEB SCH (08:00)
[2019-04-25] MEDS: RANOLAZINE 500 MG ER TABLET PO SCH ×2 (08:13→20:20)
[2019-04-25] MEDS: BUMETANIDE 0.25 MG/ML 4 ML VIAL IVP SCH ×4 (08:13→20:19)
[2019-04-25] MEDS: DOCUSATE SODIUM 100 MG CAPSULE PO SCH ×2 (08:14→20:20)
[2019-04-25] MEDS: APIXABAN 5 MG TABLET PO SCH ×2 (08:14→20:20)
[2019-04-25] MEDS: TAMSULOSIN HCL 0.4 MG CAPSULE PO SCH (08:14)
[2019-04-25] MEDS: FOLIC ACID 1 MG TABLET PO SCH (08:14)
[2019-04-25] MEDS: HydrALAZINE HCL 50 MG TABLET PO SCH (08:14)
[2019-04-25] MEDS: PANTOPRAZOLE SODIUM 40 MG DR TABLET PO SCH (08:14)
[2019-04-25] MEDS: PYRIDOXINE HCL 50 MG TABLET PO SCH (08:14)
[2019-04-25] MEDS: INSULIN GLARGINE,HUM.REC.ANLOG 100 UNITS/ML SQ SCH (08:15)
[2019-04-25] MEDS ORDERED: CARVEDILOL 6.25 MG TABLET PO SCH (09:00)
[2019-04-25] MEDS ORDERED: CloNIDine HCL 0.1 MG TABLET PO PRN (10:15)
[2019-04-25] MEDS: ALBUTEROL SULFATE 2.5 MG/0.5 ML NEB SOLUTION NEB SCH ×4 (10:44→23:18)
[2019-04-25] MEDS: IPRATROPIUM BROMIDE 0.5 MG/2.5 ML NEB SOLUTION NEB PRN (10:45)
[2019-04-25 11:36] VITALS: BP 149/81
[2019-04-25] MEDS: IPRATROPIUM BROMIDE 0.5 MG/2.5 ML NEB SOLUTION NEB SCH ×3 (14:43→23:18)
[2019-04-25 16:17] VITALS: BP 153/87
[2019-04-25 19:26] VITALS: BP 132/76
[2019-04-25] MEDS: CARVEDILOL 6.25 MG TABLET PO SCH (20:19)
[2019-04-25] MEDS: ROSUVASTATIN CALCIUM 20 MG TABLET PO SCH (20:20)
[2019-04-25] MEDS: ALBUTEROL SULFATE/IPRATROPIUM 100-20 MCG/SPRAY 4 GM INHALER IH SCH (20:21)
[2019-04-25 20:30] LABS: GLUCOMETER DEV NAME(LOC) 5S.1; GLUCOSE,POINT OF CARE 172 MG/DL (70-110)
[2019-04-25 20:30] LABS: GLUCOMETER DEV NAME(LOC) 5S.1; GLUCOSE,POINT OF CARE 129 MG/DL (70-110)
[2019-04-25 20:31] LABS: GLUCOMETER DEV NAME(LOC) 5S.1; GLUCOSE,POINT OF CARE 175 MG/DL (70-110)
[2019-04-25] MEDS: INSULIN LISPRO 100 UNITS/ML SQ PRN (20:44)
[2019-04-25 21:35] LABS: GLUCOMETER DEV NAME(LOC) 5N.2; GLUCOSE,POINT OF CARE 198 MG/DL (70-110)
[2019-04-25 21:35] LABS: GLUCOMETER DEV NAME(LOC) 5N.2; GLUCOSE,POINT OF CARE 169 MG/DL (70-110)
[2019-04-26] VITALS (8 sets, daily range): BP systolic 145–156; BP diastolic 76–103
[2019-04-26] MEDS: IPRATROPIUM BROMIDE 0.5 MG/2.5 ML NEB SOLUTION NEB SCH ×6 (03:35→22:06)
[2019-04-26] MEDS: ALBUTEROL SULFATE 2.5 MG/0.5 ML NEB SOLUTION NEB SCH ×6 (03:35→22:06)
[2019-04-26 05:00] LABS: GLUCOMETER DEV NAME(LOC) 5S.2A; GLUCOSE,POINT OF CARE 146 MG/DL (70-110)
[2019-04-26 06:44] LABS: BASOPHILS % (AUTO) 0.8 % (0.0-2.0); EOSINOPHILS % (AUTO) 3.1 % (1.0-6.0); HEMATOCRIT 27.9 % (41-53); HEMOGLOBIN 9.1 g/dL (13.5-17.5); LYMPHOCYTES % (AUTO) 20.1 % (22.0-44.0); MEAN CORPUSCULAR HEMOGLOBIN 31.4 pg (26.0-34.0); MEAN CORPUSCULAR HGB CONC 32.6 G/dL (31.0-37.0); MEAN CORPUSCULAR VOLUME 97 fL (80-100); MONOCYTES # (AUTO) 0.6 K/uL (0.1-1.0); MONOCYTES % (AUTO) 12.5 % (2.0-9.0); NEUTROPHILS # (AUTO) 3.1 K/uL (1.8-7.7); NEUTROPHILS % (AUTO) 63.5 % (40.0-70.0); PLATELET COUNT (AUTO) 258 K/uL (150-450); RED CELL DISTRIBUTION WIDTH 14.5 % (11.5-14.5)
[2019-04-26 07:18] LABS: ALBUMIN 2.6 g/dL (3.4-5.0); BILIRUBIN,TOTAL 0.4 mg/dL (0.1-1.0); CALCIUM, TOTAL 9.1 mg/dL (8.8-10.5); CREATININE 2.76 mg/dL (0.60-1.30); MAGNESIUM 1.7 mg/dL (1.80-2.40); POTASSIUM 4.4 mmol/L (3.5-5.1)
[2019-04-26] MEDS: INSULIN GLARGINE,HUM.REC.ANLOG 100 UNITS/ML SQ SCH (09:00)
[2019-04-26] MEDS: ALBUTEROL SULFATE/IPRATROPIUM 100-20 MCG/SPRAY 4 GM INHALER IH SCH ×3 (09:00→20:22)
[2019-04-26] MEDS: DOCUSATE SODIUM 100 MG CAPSULE PO SCH ×2 (09:01→20:20)
[2019-04-26] MEDS: HydrALAZINE HCL 50 MG TABLET PO SCH (09:01)
[2019-04-26] MEDS: BUMETANIDE 0.25 MG/ML 4 ML VIAL IVP SCH ×4 (09:01→20:22)
[2019-04-26] MEDS: CARVEDILOL 6.25 MG TABLET PO SCH ×2 (09:02→20:20)
[2019-04-26] MEDS: APIXABAN 5 MG TABLET PO SCH ×2 (09:02→20:20)
[2019-04-26] MEDS: FOLIC ACID 1 MG TABLET PO SCH (09:03)
[2019-04-26] MEDS: TAMSULOSIN HCL 0.4 MG CAPSULE PO SCH (09:03)
[2019-04-26] MEDS: PANTOPRAZOLE SODIUM 40 MG DR TABLET PO SCH (09:04)
[2019-04-26] MEDS: RANOLAZINE 500 MG ER TABLET PO SCH ×2 (09:04→20:20)
[2019-04-26] MEDS: PYRIDOXINE HCL 50 MG TABLET PO SCH (09:04)
[2019-04-26 10:20] LABS: GLUCOMETER DEV NAME(LOC) 5S.1; GLUCOSE,POINT OF CARE 225 MG/DL (70-110)
[2019-04-26 10:20] LABS: GLUCOMETER DEV NAME(LOC) 5S.1; GLUCOSE,POINT OF CARE 222 MG/DL (70-110)
[2019-04-26] MEDS ORDERED: MAGNESIUM SULFATE 2 GM/WATER 50 ML IV ONE (11:00)
[2019-04-26 11:36] LABS: GLUCOMETER DEV NAME(LOC) 5N.1; GLUCOSE,POINT OF CARE 297 MG/DL (70-110)
[2019-04-26 11:46] LABS: GLUCOMETER DEV NAME(LOC) 5N.2; GLUCOSE,POINT OF CARE 262 MG/DL (70-110)
[2019-04-26] MEDS ORDERED: SODIUM CHLORIDE 0.9% 100 ML ONE (12:30)
[2019-04-26 17:21] LABS: GLUCOMETER DEV NAME(LOC) 5S.1; GLUCOSE,POINT OF CARE 251 MG/DL (70-110)
[2019-04-26] MEDS: INSULIN LISPRO 100 UNITS/ML SQ PRN ×2 (17:45→21:03)
[2019-04-26] MEDS: ALBUTEROL SULFATE 2.5 MG/0.5 ML NEB SOLUTION NEB PRN (19:43)
[2019-04-26] MEDS: IPRATROPIUM BROMIDE 0.5 MG/2.5 ML NEB SOLUTION NEB PRN (19:43)
[2019-04-26] MEDS: ROSUVASTATIN CALCIUM 20 MG TABLET PO SCH (20:20)
[2019-04-26] MEDS ORDERED: 0.9% SODIUM CHLORIDE 5 ML NEB SOLUTION NEB ONE (22:00)
[2019-04-27] VITALS (7 sets, daily range): BP systolic 102–164; BP diastolic 66–91
[2019-04-27] MEDS ORDERED: 0.9% SODIUM CHLORIDE 5 ML NEB SOLUTION NEB ONE ×4 (01:06→22:40)
[2019-04-27] MEDS: ALBUTEROL SULFATE 2.5 MG/0.5 ML NEB SOLUTION NEB SCH ×6 (01:10→22:42)
[2019-04-27] MEDS: IPRATROPIUM BROMIDE 0.5 MG/2.5 ML NEB SOLUTION NEB SCH ×6 (01:10→22:42)
[2019-04-27 03:40] LABS: GLUCOMETER DEV NAME(LOC) 5N.1; GLUCOSE,POINT OF CARE 213 MG/DL (70-110)
[2019-04-27 03:40] LABS: GLUCOMETER DEV NAME(LOC) 5N.1; GLUCOSE,POINT OF CARE 204 MG/DL (70-110)
[2019-04-27] MEDS: IPRATROPIUM BROMIDE 0.5 MG/2.5 ML NEB SOLUTION NEB PRN ×2 (05:27→17:03)
[2019-04-27] MEDS: ALBUTEROL SULFATE 2.5 MG/0.5 ML NEB SOLUTION NEB PRN ×2 (05:28→17:04)
[2019-04-27 06:28] LABS: BASOPHILS % (AUTO) 0.7 % (0.0-2.0); EOSINOPHILS % (AUTO) 2.4 % (1.0-6.0); HEMATOCRIT 30.1 % (41-53); HEMOGLOBIN 9.8 g/dL (13.5-17.5); LYMPHOCYTES # (AUTO) 1.2 K/uL (1.0-4.8); LYMPHOCYTES % (AUTO) 22.3 % (22.0-44.0); MEAN CORPUSCULAR HEMOGLOBIN 31.4 pg (26.0-34.0); MEAN CORPUSCULAR HGB CONC 32.6 G/dL (31.0-37.0); MEAN CORPUSCULAR VOLUME 96 fL (80-100); MONOCYTES # (AUTO) 0.7 K/uL (0.1-1.0); MONOCYTES % (AUTO) 12.7 % (2.0-9.0); NEUTROPHILS # (AUTO) 3.5 K/uL (1.8-7.7); NEUTROPHILS % (AUTO) 61.9 % (40.0-70.0); PLATELET COUNT (AUTO) 249 K/uL (150-450); RED BLOOD CELL COUNT(AUTO) 3.12 MIL/uL (4.50-5.90); RED CELL DISTRIBUTION WIDTH 14.4 % (11.5-14.5)
[2019-04-27 06:45] LABS: CALCIUM, TOTAL 9.2 mg/dL (8.8-10.5); CREATININE 2.75 mg/dL (0.60-1.30); MAGNESIUM 2.2 mg/dL (1.80-2.40); POTASSIUM 4.4 mmol/L (3.5-5.1)
[2019-04-27] MEDS: INSULIN LISPRO 100 UNITS/ML SQ PRN (06:48)
[2019-04-27] MEDS: LORazepam 2 MG/ML VIAL IVP PRN (06:49)
[2019-04-27] MEDS: PANTOPRAZOLE SODIUM 40 MG DR TABLET PO SCH (08:10)
[2019-04-27] MEDS: DOCUSATE SODIUM 100 MG CAPSULE PO SCH ×2 (08:10→20:32)
[2019-04-27] MEDS: TAMSULOSIN HCL 0.4 MG CAPSULE PO SCH (08:10)
[2019-04-27] MEDS: CARVEDILOL 6.25 MG TABLET PO SCH ×2 (08:10→20:33)
[2019-04-27] MEDS: PYRIDOXINE HCL 50 MG TABLET PO SCH (08:11)
[2019-04-27] MEDS: FOLIC ACID 1 MG TABLET PO SCH (08:11)
[2019-04-27] MEDS: HydrALAZINE HCL 50 MG TABLET PO SCH (08:11)
[2019-04-27] MEDS: BUMETANIDE 0.25 MG/ML 4 ML VIAL IVP SCH ×4 (08:12→20:33)
[2019-04-27] MEDS: APIXABAN 5 MG TABLET PO SCH ×2 (08:12→20:33)
[2019-04-27] MEDS: RANOLAZINE 500 MG ER TABLET PO SCH ×2 (08:12→20:33)
[2019-04-27] MEDS: ALBUTEROL SULFATE/IPRATROPIUM 100-20 MCG/SPRAY 4 GM INHALER IH SCH ×3 (08:13→20:32)
[2019-04-27] MEDS: INSULIN GLARGINE,HUM.REC.ANLOG 100 UNITS/ML SQ SCH (08:18)
[2019-04-27 15:16] LABS: GLUCOMETER DEV NAME(LOC) 5S.1; GLUCOSE,POINT OF CARE 247 MG/DL (70-110)
[2019-04-27 15:16] LABS: GLUCOMETER DEV NAME(LOC) 5N.1; GLUCOSE,POINT OF CARE 277 MG/DL (70-110)
[2019-04-27] MEDS: ROSUVASTATIN CALCIUM 20 MG TABLET PO SCH (20:33)
[2019-04-28] MEDS ORDERED: 0.9% SODIUM CHLORIDE 5 ML NEB SOLUTION NEB ONE ×2 (01:43→04:57)
[2019-04-28] MEDS: ALBUTEROL SULFATE 2.5 MG/0.5 ML NEB SOLUTION NEB PRN ×3 (01:47→21:35)
[2019-04-28] MEDS: IPRATROPIUM BROMIDE 0.5 MG/2.5 ML NEB SOLUTION NEB PRN ×3 (01:47→21:35)
[2019-04-28] MEDS: IPRATROPIUM BROMIDE 0.5 MG/2.5 ML NEB SOLUTION NEB SCH ×6 (03:00→23:10)
[2019-04-28] MEDS: ALBUTEROL SULFATE 2.5 MG/0.5 ML NEB SOLUTION NEB SCH ×6 (03:00→23:10)
[2019-04-28 03:58] VITALS: BP 153/87
[2019-04-28 05:33] LABS: BASOPHILS % (AUTO) 0.9 % (0.0-2.0); HEMATOCRIT 27.1 % (41-53); HEMOGLOBIN 8.9 g/dL (13.5-17.5); LYMPHOCYTES # (AUTO) 1.1 K/uL (1.0-4.8); LYMPHOCYTES % (AUTO) 19.4 % (22.0-44.0); MEAN CORPUSCULAR HEMOGLOBIN 31.6 pg (26.0-34.0); MEAN CORPUSCULAR HGB CONC 32.9 G/dL (31.0-37.0); MEAN CORPUSCULAR VOLUME 96 fL (80-100); MONOCYTES # (AUTO) 0.8 K/uL (0.1-1.0); MONOCYTES % (AUTO) 14.4 % (2.0-9.0); NEUTROPHILS # (AUTO) 3.4 K/uL (1.8-7.7); NEUTROPHILS % (AUTO) 62.3 % (40.0-70.0); PLATELET COUNT (AUTO) 221 K/uL (150-450); RED BLOOD CELL COUNT(AUTO) 2.83 MIL/uL (4.50-5.90); RED CELL DISTRIBUTION WIDTH 14.2 % (11.5-14.5)
[2019-04-28 05:45] LABS: CALCIUM, TOTAL 8.9 mg/dL (8.8-10.5); CREATININE 2.78 mg/dL (0.60-1.30); POTASSIUM 4.4 mmol/L (3.5-5.1)
[2019-04-28 07:20] VITALS: BP 156/89
[2019-04-28] MEDS: PYRIDOXINE HCL 50 MG TABLET PO SCH (08:14)
[2019-04-28] MEDS: RANOLAZINE 500 MG ER TABLET PO SCH ×2 (08:14→20:05)
[2019-04-28] MEDS: APIXABAN 5 MG TABLET PO SCH ×2 (08:14→20:06)
[2019-04-28] MEDS: BUMETANIDE 0.25 MG/ML 4 ML VIAL IVP SCH ×4 (08:14→20:05)
[2019-04-28] MEDS: FOLIC ACID 1 MG TABLET PO SCH (08:15)
[2019-04-28] MEDS: CARVEDILOL 6.25 MG TABLET PO SCH ×2 (08:15→20:05)
[2019-04-28] MEDS: PANTOPRAZOLE SODIUM 40 MG DR TABLET PO SCH (08:15)
[2019-04-28] MEDS: HydrALAZINE HCL 50 MG TABLET PO SCH ×2 (08:15→20:05)
[2019-04-28] MEDS: DOCUSATE SODIUM 100 MG CAPSULE PO SCH ×2 (08:16→20:06)
[2019-04-28] MEDS: TAMSULOSIN HCL 0.4 MG CAPSULE PO SCH (08:16)
[2019-04-28] MEDS: INSULIN GLARGINE,HUM.REC.ANLOG 100 UNITS/ML SQ SCH (08:18)
[2019-04-28] MEDS: ALBUTEROL SULFATE/IPRATROPIUM 100-20 MCG/SPRAY 4 GM INHALER IH SCH ×3 (08:24→20:06)
[2019-04-28 11:25] LABS: GLUCOMETER DEV NAME(LOC) 5S.1; GLUCOSE,POINT OF CARE 221 MG/DL (70-110)
[2019-04-28 11:26] LABS: GLUCOMETER DEV NAME(LOC) 5S.1; GLUCOSE,POINT OF CARE 287 MG/DL (70-110)
[2019-04-28 11:32] VITALS: BP 163/83
[2019-04-28] MEDS: INSULIN LISPRO 100 UNITS/ML SQ PRN (12:07)
[2019-04-28 15:47] VITALS: BP 149/77
[2019-04-28 16:51] LABS: GLUCOMETER DEV NAME(LOC) 5N.2; GLUCOSE,POINT OF CARE 260 MG/DL (70-110)
[2019-04-28 16:52] LABS: GLUCOMETER DEV NAME(LOC) 5N.2; GLUCOSE,POINT OF CARE 331 MG/DL (70-110)
[2019-04-28 16:52] LABS: GLUCOMETER DEV NAME(LOC) 5N.2; GLUCOSE,POINT OF CARE 260 MG/DL (70-110)
[2019-04-28 19:24] VITALS: BP 154/88
[2019-04-28] MEDS: ROSUVASTATIN CALCIUM 20 MG TABLET PO SCH (20:06)
[2019-04-28] MEDS: LORazepam 2 MG/ML VIAL IVP PRN (21:51)
[2019-04-28 23:45] LABS: GLUCOMETER DEV NAME(LOC) 5N.2; GLUCOSE,POINT OF CARE 115 MG/DL (70-110)
[2019-04-29 00:18] VITALS: BP 136/83
[2019-04-29] MEDS: IPRATROPIUM BROMIDE 0.5 MG/2.5 ML NEB SOLUTION NEB SCH ×3 (02:14→11:04)
[2019-04-29] MEDS: ALBUTEROL SULFATE 2.5 MG/0.5 ML NEB SOLUTION NEB SCH ×3 (02:14→11:04)
[2019-04-29] MEDS: ALBUTEROL SULFATE 2.5 MG/0.5 ML NEB SOLUTION NEB PRN ×3 (04:04→13:44)
[2019-04-29] MEDS: IPRATROPIUM BROMIDE 0.5 MG/2.5 ML NEB SOLUTION NEB PRN ×3 (04:04→13:44)
[2019-04-29 04:55] VITALS: BP 155/88
[2019-04-29 06:09] LABS: BASOPHILS % (AUTO) 0.5 % (0.0-2.0); EOSINOPHILS % (AUTO) 1.7 % (1.0-6.0); HEMATOCRIT 26.7 % (41-53); HEMOGLOBIN 8.9 g/dL (13.5-17.5); LYMPHOCYTES # (AUTO) 1.1 K/uL (1.0-4.8); LYMPHOCYTES % (AUTO) 14.5 % (22.0-44.0); MEAN CORPUSCULAR HEMOGLOBIN 31.8 pg (26.0-34.0); MEAN CORPUSCULAR HGB CONC 33.4 G/dL (31.0-37.0); MEAN CORPUSCULAR VOLUME 95 fL (80-100); MONOCYTES # (AUTO) 0.9 K/uL (0.1-1.0); MONOCYTES % (AUTO) 11.9 % (2.0-9.0); NEUTROPHILS # (AUTO) 5.6 K/uL (1.8-7.7); NEUTROPHILS % (AUTO) 71.4 % (40.0-70.0); PLATELET COUNT (AUTO) 214 K/uL (150-450); RED CELL DISTRIBUTION WIDTH 14.1 % (11.5-14.5)
[2019-04-29 06:18] LABS: CREATININE 2.86 mg/dL (0.60-1.30); POTASSIUM 4.6 mmol/L (3.5-5.1)
[2019-04-29 07:06] LABS: GLUCOMETER DEV NAME(LOC) 5S.1; GLUCOSE,POINT OF CARE 236 MG/DL (70-110)
[2019-04-29 07:06] LABS: GLUCOMETER DEV NAME(LOC) 5N.1; GLUCOSE,POINT OF CARE 162 MG/DL (70-110)
[2019-04-29 07:15] VITALS: BP 152/82
[2019-04-29] MEDS: PYRIDOXINE HCL 50 MG TABLET PO SCH (08:15)
[2019-04-29] MEDS: BUMETANIDE 0.25 MG/ML 4 ML VIAL IVP SCH ×2 (08:15→12:28)
[2019-04-29] MEDS: HydrALAZINE HCL 50 MG TABLET PO SCH (08:16)
[2019-04-29] MEDS: FOLIC ACID 1 MG TABLET PO SCH (08:16)
[2019-04-29] MEDS: TAMSULOSIN HCL 0.4 MG CAPSULE PO SCH (08:16)
[2019-04-29] MEDS: DOCUSATE SODIUM 100 MG CAPSULE PO SCH (08:16)
[2019-04-29] MEDS: APIXABAN 5 MG TABLET PO SCH (08:16)
[2019-04-29] MEDS: CARVEDILOL 6.25 MG TABLET PO SCH (08:16)
[2019-04-29] MEDS: RANOLAZINE 500 MG ER TABLET PO SCH (08:17)
[2019-04-29] MEDS: PANTOPRAZOLE SODIUM 40 MG DR TABLET PO SCH (08:17)
[2019-04-29] MEDS: INSULIN GLARGINE,HUM.REC.ANLOG 100 UNITS/ML SQ SCH (08:21)
[2019-04-29 11:29] VITALS: BP 142/78
[2019-04-29 11:56] LABS: GLUCOMETER DEV NAME(LOC) 5N.2; GLUCOSE,POINT OF CARE 241 MG/DL (70-110)
[2019-04-29] MEDS: ALBUTEROL SULFATE/IPRATROPIUM 100-20 MCG/SPRAY 4 GM INHALER IH SCH (12:26)
[2019-04-29] MEDS ORDERED: BUME1TAB34 PO (12:36)
[2019-04-30 00:40] LABS: GLUCOMETER DEV NAME(LOC) 5N.1; GLUCOSE,POINT OF CARE 285 MG/DL (70-110)
[2019-04-30 00:45] LABS: GLUCOMETER DEV NAME(LOC) 5S.1; GLUCOSE,POINT OF CARE 305 MG/DL (70-110)
== END 2019-04-29 13:35 | disposition home or self-care (01) | DRG 291 ==
LOC: EMS 01:07 → 5S 02:00
PROVIDERS: ADMIT Internal Medicine; ATTEND Internal Medicine
DX: I13.0 Hypertensive heart and chronic kidney disease with heart failure and stage 1 through stage 4 chronic kidney disease, or unspecified chronic kidney disease (principal); J96.20 Acute and chronic respiratory failure, unspecified whether with hypoxia or hypercapnia; I50.31 Acute diastolic (congestive) heart failure; N18.4 Chronic kidney disease, stage 4 (severe); E11.22 Type 2 diabetes mellitus with diabetic chronic kidney disease; J44.9 Chronic obstructive pulmonary disease, unspecified; I25.10 Atherosclerotic heart disease of native coronary artery without angina pectoris; J45.909 Unspecified asthma, uncomplicated; E78.5 Hyperlipidemia, unspecified; Z79.01 Long term (current) use of anticoagulants; Z82.5 Family history of asthma and other chronic lower respiratory diseases; Z95.5 Presence of coronary angioplasty implant and graft
CPT/HCPCS: 83735; 93005; 93306; 94640; 96374; G0378; J1815; J1940; J2060; J3475; J3490; J7050

== ENCOUNTER 2019-04-29 19:18 | Inpatient (IN) | payer MEDICARE, MEDICAID ==
[~2019-04-29] VITALS: Ht 182.9 cm; Wt 91.2 kg
[~2019-04-29 19:18] MED LIST changes: +BUME1TAB34 PO
[2019-04-29 20:02] LABS: BASOPHILS % (AUTO) 0.6 % (0.0-2.0); EOSINOPHILS % (AUTO) 0.9 % (1.0-6.0); HEMOGLOBIN 9.3 g/dL (13.5-17.5); LYMPHOCYTES # (AUTO) 1.1 K/uL (1.0-4.8); LYMPHOCYTES % (AUTO) 13.5 % (22.0-44.0); MEAN CORPUSCULAR HEMOGLOBIN 31.7 pg (26.0-34.0); MEAN CORPUSCULAR HGB CONC 33.2 G/dL (31.0-37.0); MEAN CORPUSCULAR VOLUME 95 fL (80-100); MONOCYTES % (AUTO) 11.7 % (2.0-9.0); NEUTROPHILS # (AUTO) 6.2 K/uL (1.8-7.7); NEUTROPHILS % (AUTO) 73.3 % (40.0-70.0); PLATELET COUNT (AUTO) 215 K/uL (150-450); RED BLOOD CELL COUNT(AUTO) 2.93 MIL/uL (4.50-5.90); RED CELL DISTRIBUTION WIDTH 14.2 % (11.5-14.5)
[2019-04-29 20:15] LABS: INR 1.1 (0.9-1.1)
[2019-04-29 20:16] LABS: CALCIUM, TOTAL 9.3 mg/dL (8.8-10.5); CREATININE 3.06 mg/dL (0.60-1.30)
[2019-04-29 20:22] LABS: BILIRUBIN,TOTAL 0.4 mg/dL (0.1-1.0); TOTAL PROTEIN, SERUM 6.7 g/dL (6.4-8.2)
[2019-04-29] MEDS ORDERED: ALBUTEROL SULFATE 5 MG/ML 20 ML NEB SOLN [BULK] NEB ONE (21:15)
[2019-04-29] MEDS ORDERED: MethylPREDNISolone SOD SUCC 125 MG/2 ML VIAL IVP ONE (21:15)
[2019-04-29] MEDS ORDERED: IPRATROPIUM BROMIDE 0.5 MG/2.5 ML NEB SOLUTION NEB ONE (21:15)
[2019-04-29] MEDS ORDERED: ACETAMINOPHEN 325 MG TABLET PO PRN (22:30)
[2019-04-29] MEDS ORDERED: BISACODYL 10 MG RECTAL RECTAL SUPPOSITORY PR PRN (22:30)
[2019-04-29] MEDS ORDERED: OxyCODONE HCL/ACETAMINOPHEN 5-325 MG TABLET PO PRN (22:30)
[2019-04-29] MEDS ORDERED: DEXTROSE 50%-WATER 25 GM/50 ML SYRINGE IVP PRN (22:30)
[2019-04-29] MEDS ORDERED: INSULIN LISPRO 100 UNITS/ML SQ PRN (22:30)
[2019-04-29 23:40] LABS: APPEARANCE,URINE CLEAR (CLEAR); BILIRUBIN,URINE NEGATIVE (NEGATIVE); GLUCOSE, URINE (UA) 100 mg/dL (NEGATIVE); KETONES,URINE NEGATIVE (NEGATIVE); LEUKOCYTE ESTERASE ,URINE NEGATIVE (NEGATIVE); NITRATE,URINE NEGATIVE (NEGATIVE); OCCULT BLOOD,URINE NEGATIVE (NEGATIVE); PH,URINE 5.5 (5.0-8.0); PROTEIN,URINE SEE CONFIRM (NEGATIVE); UROBILINOGEN,URINE 0.2 mg/dL (<=1.0)
[2019-04-29 23:47] LABS: AMPHET/METH SCREEN,URINE NEGATIVE (NEGATIVE); BARBITURATE SCREEN, URINE NEGATIVE (NEGATIVE); BENZODIAZEPINES SCREEN,URINE NEGATIVE (NEGATIVE); CANNABINOID SCREEN,URINE NEGATIVE (NEGATIVE); COCAINE SCREEN,URINE NEGATIVE (NEGATIVE); METHADONE SCREEN, URINE NEGATIVE (NEGATIVE); OPIATE SCREEN,URINE NEGATIVE (NEGATIVE)
[2019-04-30] VITALS (7 sets, daily range): BP systolic 100–177; BP diastolic 73–91
[2019-04-30 00:06] LABS: PHENCYCLIDINE SCREEN,URINE NEGATIVE (NEGATIVE); SULFOSALICYLIC ACID,URINE 4+ (Negative)
[2019-04-30 00:07] LABS: BACTERIA,URINE None Seen /HPF (None Seen); RBC,URINE 0-2 /HPF (0-2); SQUAMOUS EPITHELIAL CELL,UR Few /LPF (None Seen); WBC,URINE 0-2 /HPF (0-5)
[2019-04-30 00:46] LABS: GLUCOSE,POINT OF CARE 245 MG/DL (70-110)
[2019-04-30] MEDS: IPRATROPIUM BROMIDE 0.5 MG/2.5 ML NEB SOLUTION NEB PRN ×2 (03:17→07:40)
[2019-04-30] MEDS: ALBUTEROL SULFATE 2.5 MG/0.5 ML NEB SOLUTION NEB PRN ×2 (03:17→07:40)
[2019-04-30] MEDS ORDERED: MethylPREDNISolone SOD SUCC 40 MG/ML VIAL IVP SCH ×2 (06:00→16:00)
[2019-04-30 06:50] LABS: GLUCOMETER DEV NAME(LOC) 5N.1; GLUCOSE,POINT OF CARE 324 MG/DL (70-110)
[2019-04-30] MEDS: BUMETANIDE 1 MG TABLET PO SCH ×2 (08:40→21:17)
[2019-04-30] MEDS: AZITHROMYCIN 250 MG TABLET PO SCH (08:40)
[2019-04-30] MEDS: DOCUSATE SODIUM 100 MG CAPSULE PO SCH ×2 (08:40→21:17)
[2019-04-30] MEDS: APIXABAN 5 MG TABLET PO SCH ×2 (08:40→21:20)
[2019-04-30] MEDS ORDERED: FAMOTIDINE 20 MG TABLET PO SCH (09:00)
[2019-04-30] MEDS ORDERED: HEPARIN SODIUM,PORCINE 5,000 UNITS/ML VIAL SQ SCH (09:00)
[2019-04-30] MEDS ORDERED: INSULIN GLARGINE,HUM.REC.ANLOG 100 UNITS/ML SQ ONE ×2 (10:30→12:15)
[2019-04-30] MEDS ORDERED: ALBUTEROL SULFATE 2.5 MG/0.5 ML NEB SOLUTION NEB SCH (11:00)
[2019-04-30] MEDS ORDERED: IPRATROPIUM BROMIDE 0.5 MG/2.5 ML NEB SOLUTION NEB SCH (11:00)
[2019-04-30 12:00] LABS: GLUCOMETER DEV NAME(LOC) 5N.1; GLUCOSE,POINT OF CARE 509 MG/DL (70-110)
[2019-04-30] MEDS: INSULIN LISPRO 100 UNITS/ML SQ PRN ×3 (12:00→21:21)
[2019-04-30] MEDS: ALBUTEROL SULFATE/IPRATROPIUM 100-20 MCG/SPRAY 4 GM INHALER IH SCH ×2 (12:00→15:08)
[2019-04-30] MEDS: ALBUTEROL SULFATE 2.5 MG/0.5 ML NEB SOLUTION NEB SCH ×2 (14:55→20:15)
[2019-04-30] MEDS: IPRATROPIUM BROMIDE 0.5 MG/2.5 ML NEB SOLUTION NEB SCH ×2 (14:55→20:15)
[2019-04-30] MEDS: MethylPREDNISolone SOD SUCC 125 MG/2 ML VIAL IVP SCH ×3 (15:17→23:52)
[2019-04-30] MEDS: HydrALAZINE HCL 50 MG TABLET PO SCH ×2 (16:15→21:17)
[2019-04-30 17:20] LABS: GLUCOMETER DEV NAME(LOC) 5S.1; GLUCOSE,POINT OF CARE 341 MG/DL (70-110)
[2019-04-30 19:55] LABS: GLUCOMETER DEV NAME(LOC) 5N.1; GLUCOSE,POINT OF CARE 384 MG/DL (70-110)
[2019-04-30] MEDS: TAMSULOSIN HCL 0.4 MG CAPSULE PO SCH (21:17)
[2019-04-30] MEDS: ROSUVASTATIN CALCIUM 10 MG TABLET PO SCH (21:17)
[2019-05-01] VITALS (7 sets, daily range): BP systolic 147–168; BP diastolic 79–98
[2019-05-01] MEDS ORDERED: ALBUTEROL SULFATE/IPRATROPIUM 100-20 MCG/SPRAY 4 GM INHALER IH SCH
[2019-05-01 01:09] LABS: GLUCOMETER DEV NAME(LOC) 5S.1; GLUCOSE,POINT OF CARE 321 MG/DL (70-110)
[2019-05-01] MEDS: IPRATROPIUM BROMIDE 0.5 MG/2.5 ML NEB SOLUTION NEB SCH ×4 (02:11→19:18)
[2019-05-01] MEDS: ALBUTEROL SULFATE 2.5 MG/0.5 ML NEB SOLUTION NEB SCH ×4 (02:11→19:18)
[2019-05-01] MEDS: MethylPREDNISolone SOD SUCC 125 MG/2 ML VIAL IVP SCH ×3 (05:14→18:03)
[2019-05-01] MEDS: INSULIN LISPRO 100 UNITS/ML SQ PRN ×4 (05:20→21:05)
[2019-05-01 06:28] LABS: BASOPHILS % (AUTO) 0.1 % (0.0-2.0); EOSINOPHILS % (AUTO) 0 % (1.0-6.0); HEMATOCRIT 27.8 % (41-53); HEMOGLOBIN 9.2 g/dL (13.5-17.5); LYMPHOCYTES # (AUTO) 0.9 K/uL (1.0-4.8); LYMPHOCYTES % (AUTO) 10.1 % (22.0-44.0); MEAN CORPUSCULAR HEMOGLOBIN 31.5 pg (26.0-34.0); MEAN CORPUSCULAR VOLUME 95 fL (80-100); MONOCYTES # (AUTO) 0.1 K/uL (0.1-1.0); MONOCYTES % (AUTO) 1.6 % (2.0-9.0); NEUTROPHILS # (AUTO) 7.7 K/uL (1.8-7.7); PLATELET COUNT (AUTO) 231 K/uL (150-450); RED BLOOD CELL COUNT(AUTO) 2.92 MIL/uL (4.50-5.90); RED CELL DISTRIBUTION WIDTH 14.1 % (11.5-14.5)
[2019-05-01 06:41] LABS: CALCIUM, TOTAL 9.3 mg/dL (8.8-10.5); CREATININE 3.16 mg/dL (0.60-1.30); MAGNESIUM 2.2 mg/dL (1.80-2.40); POTASSIUM 4.8 mmol/L (3.5-5.1)
[2019-05-01 06:58] LABS: NEUTROPHILS % (AUTO) 88.2 % (40.0-70.0)
[2019-05-01] MEDS: DOCUSATE SODIUM 100 MG CAPSULE PO SCH ×2 (09:00→20:58)
[2019-05-01] MEDS ORDERED: INSULIN GLARGINE,HUM.REC.ANLOG 100 UNITS/ML SQ SCH (09:00)
[2019-05-01] MEDS: AZITHROMYCIN 250 MG TABLET PO SCH (10:18)
[2019-05-01] MEDS: BUMETANIDE 1 MG TABLET PO SCH ×2 (10:19→20:57)
[2019-05-01] MEDS: PANTOPRAZOLE SODIUM 40 MG DR TABLET PO SCH (10:19)
[2019-05-01] MEDS: APIXABAN 5 MG TABLET PO SCH ×2 (10:20→20:58)
[2019-05-01] MEDS: HydrALAZINE HCL 50 MG TABLET PO SCH ×2 (10:21→20:58)
[2019-05-01] MEDS: EPOETIN ALFA 10,000 UNITS/ML VIAL SQ SCH (10:36)
[2019-05-01 11:41] LABS: GLUCOMETER DEV NAME(LOC) 5N.1; GLUCOSE,POINT OF CARE 318 MG/DL (70-110)
[2019-05-01 11:41] LABS: GLUCOMETER DEV NAME(LOC) 5S.1; GLUCOSE,POINT OF CARE 270 MG/DL (70-110)
[2019-05-01] MEDS: GuaiFENesin SR 600 MG ER TABLET PO SCH ×2 (16:31→20:57)
[2019-05-01] MEDS: IPRATROPIUM BROMIDE 0.5 MG/2.5 ML NEB SOLUTION NEB PRN ×2 (16:45→23:42)
[2019-05-01] MEDS: ALBUTEROL SULFATE 2.5 MG/0.5 ML NEB SOLUTION NEB PRN ×2 (16:46→23:43)
[2019-05-01 17:26] LABS: GLUCOMETER DEV NAME(LOC) 5S.1; GLUCOSE,POINT OF CARE 344 MG/DL (70-110)
[2019-05-01] MEDS ORDERED: 0.9% SODIUM CHLORIDE 5 ML NEB SOLUTION NEB ONE ×2 (19:10→22:23)
[2019-05-01] MEDS: BUDESONIDE 0.5 MG/2 ML NEB SOLUTION NEB SCH (19:18)
[2019-05-01] MEDS: BENZONATATE 100 MG CAPSULE PO SCH (20:57)
[2019-05-01] MEDS: ROSUVASTATIN CALCIUM 10 MG TABLET PO SCH (20:57)
[2019-05-01] MEDS: TAMSULOSIN HCL 0.4 MG CAPSULE PO SCH (20:58)
[2019-05-02] MEDS: MethylPREDNISolone SOD SUCC 125 MG/2 ML VIAL IVP SCH ×2 (00:07→05:51)
[2019-05-02] MEDS: ALBUTEROL SULFATE 2.5 MG/0.5 ML NEB SOLUTION NEB SCH ×4 (02:09→20:17)
[2019-05-02] MEDS: IPRATROPIUM BROMIDE 0.5 MG/2.5 ML NEB SOLUTION NEB SCH ×4 (02:09→20:17)
[2019-05-02 04:41] VITALS: BP 178/80
[2019-05-02] MEDS: ALBUTEROL SULFATE 2.5 MG/0.5 ML NEB SOLUTION NEB PRN ×3 (04:52→23:31)
[2019-05-02] MEDS: IPRATROPIUM BROMIDE 0.5 MG/2.5 ML NEB SOLUTION NEB PRN ×3 (04:52→23:31)
[2019-05-02 06:23] LABS: BASOPHILS % (AUTO) 0.1 % (0.0-2.0); EOSINOPHILS % (AUTO) 0 % (1.0-6.0); HEMATOCRIT 29.4 % (41-53); HEMOGLOBIN 9.7 g/dL (13.5-17.5); LYMPHOCYTES # (AUTO) 0.7 K/uL (1.0-4.8); LYMPHOCYTES % (AUTO) 7.8 % (22.0-44.0); MEAN CORPUSCULAR HEMOGLOBIN 31.9 pg (26.0-34.0); MEAN CORPUSCULAR VOLUME 96 fL (80-100); MONOCYTES # (AUTO) 0.2 K/uL (0.1-1.0); MONOCYTES % (AUTO) 2.3 % (2.0-9.0); NEUTROPHILS # (AUTO) 7.7 K/uL (1.8-7.7); PLATELET COUNT (AUTO) 248 K/uL (150-450); RED BLOOD CELL COUNT(AUTO) 3.04 MIL/uL (4.50-5.90); RED CELL DISTRIBUTION WIDTH 14.2 % (11.5-14.5)
[2019-05-02 06:29] LABS: CALCIUM, TOTAL 9.5 mg/dL (8.8-10.5); CREATININE 3.2 mg/dL (0.60-1.30); POTASSIUM 4.4 mmol/L (3.5-5.1)
[2019-05-02 07:12] LABS: NEUTROPHILS % (AUTO) 89.8 % (40.0-70.0)
[2019-05-02 07:26] VITALS: BP 155/105
[2019-05-02] MEDS: AZITHROMYCIN 250 MG TABLET PO SCH (07:51)
[2019-05-02] MEDS: DOCUSATE SODIUM 100 MG CAPSULE PO SCH ×2 (07:51→21:00)
[2019-05-02] MEDS: PANTOPRAZOLE SODIUM 40 MG DR TABLET PO SCH (07:51)
[2019-05-02] MEDS: BENZONATATE 100 MG CAPSULE PO SCH ×3 (07:52→21:31)
[2019-05-02] MEDS: GuaiFENesin SR 600 MG ER TABLET PO SCH ×2 (07:52→21:30)
[2019-05-02] MEDS: APIXABAN 5 MG TABLET PO SCH ×2 (07:52→21:30)
[2019-05-02] MEDS: HydrALAZINE HCL 50 MG TABLET PO SCH ×2 (07:53→21:31)
[2019-05-02] MEDS: BUMETANIDE 1 MG TABLET PO SCH ×2 (07:53→21:31)
[2019-05-02] MEDS: BUDESONIDE 0.5 MG/2 ML NEB SOLUTION NEB SCH ×2 (08:20→20:18)
[2019-05-02] MEDS ORDERED: INSULIN GLARGINE,HUM.REC.ANLOG 100 UNITS/ML SQ SCH (09:00)
[2019-05-02 09:50] LABS: GLUCOMETER DEV NAME(LOC) 5N.2; GLUCOSE,POINT OF CARE 416 MG/DL (70-110)
[2019-05-02 09:50] LABS: GLUCOMETER DEV NAME(LOC) 5N.2; GLUCOSE,POINT OF CARE 318 MG/DL (70-110)
[2019-05-02 09:51] LABS: GLUCOMETER DEV NAME(LOC) 5N.2; GLUCOSE,POINT OF CARE 239 MG/DL (70-110)
[2019-05-02] MEDS ORDERED: ONDANSETRON HCL 4 MG/2 ML VIAL IVP PRN (10:30)
[2019-05-02 11:08] VITALS: BP 156/80
[2019-05-02] MEDS ORDERED: INSULIN GLARGINE,HUM.REC.ANLOG 100 UNITS/ML SQ ONE (11:45)
[2019-05-02] MEDS ORDERED: INSULIN LISPRO 100 UNITS/ML SQ ONE (11:45)
[2019-05-02] MEDS: MethylPREDNISolone SOD SUCC 40 MG/ML VIAL IVP SCH ×2 (11:55→18:02)
[2019-05-02] MEDS ORDERED: 0.9% SODIUM CHLORIDE 5 ML NEB SOLUTION NEB ONE ×2 (13:35→19:30)
[2019-05-02 15:16] VITALS: BP 146/85
[2019-05-02] MEDS: INSULIN LISPRO 100 UNITS/ML SQ PRN ×2 (18:07→21:32)
[2019-05-02 19:24] VITALS: BP 142/81
[2019-05-02 20:10] LABS: GLUCOMETER DEV NAME(LOC) 5N.1; GLUCOSE,POINT OF CARE 444 MG/DL (70-110)
[2019-05-02 20:10] LABS: GLUCOMETER DEV NAME(LOC) 5S.1; GLUCOSE,POINT OF CARE 239 MG/DL (70-110)
[2019-05-02 20:10] LABS: GLUCOMETER DEV NAME(LOC) 5S.1; GLUCOSE,POINT OF CARE 322 MG/DL (70-110)
[2019-05-02] MEDS: TAMSULOSIN HCL 0.4 MG CAPSULE PO SCH (21:30)
[2019-05-02] MEDS: ROSUVASTATIN CALCIUM 10 MG TABLET PO SCH (21:30)
[2019-05-03] MEDS: MethylPREDNISolone SOD SUCC 40 MG/ML VIAL IVP SCH ×3 (00:18→11:22)
[2019-05-03 00:34] VITALS: BP 186/99
[2019-05-03] MEDS: HydrALAZINE HCL 20 MG/ML VIAL IVP PRN (01:02)
[2019-05-03 01:25] LABS: GLUCOMETER DEV NAME(LOC) 5N.1; GLUCOSE,POINT OF CARE 278 MG/DL (70-110)
[2019-05-03] MEDS: ALBUTEROL SULFATE 2.5 MG/0.5 ML NEB SOLUTION NEB SCH ×4 (02:24→19:34)
[2019-05-03] MEDS: IPRATROPIUM BROMIDE 0.5 MG/2.5 ML NEB SOLUTION NEB SCH ×4 (02:24→19:34)
[2019-05-03 04:47] VITALS: BP 179/90
[2019-05-03] MEDS: IPRATROPIUM BROMIDE 0.5 MG/2.5 ML NEB SOLUTION NEB PRN ×4 (05:42→22:01)
[2019-05-03] MEDS: ALBUTEROL SULFATE 2.5 MG/0.5 ML NEB SOLUTION NEB PRN ×4 (05:42→22:01)
[2019-05-03] MEDS: INSULIN LISPRO 100 UNITS/ML SQ PRN ×4 (05:48→20:45)
[2019-05-03 06:40] LABS: EOSINOPHILS % (AUTO) 0 % (1.0-6.0); HEMATOCRIT 30.3 % (41-53); HEMOGLOBIN 10.1 g/dL (13.5-17.5); LYMPHOCYTES # (AUTO) 0.5 K/uL (1.0-4.8); LYMPHOCYTES % (AUTO) 6.5 % (22.0-44.0); MEAN CORPUSCULAR HEMOGLOBIN 31.8 pg (26.0-34.0); MEAN CORPUSCULAR HGB CONC 33.2 G/dL (31.0-37.0); MEAN CORPUSCULAR VOLUME 96 fL (80-100); MONOCYTES # (AUTO) 0.3 K/uL (0.1-1.0); MONOCYTES % (AUTO) 3.4 % (2.0-9.0); NEUTROPHILS # (AUTO) 7.1 K/uL (1.8-7.7); PLATELET COUNT (AUTO) 257 K/uL (150-450); RED BLOOD CELL COUNT(AUTO) 3.17 MIL/uL (4.50-5.90); RED CELL DISTRIBUTION WIDTH 14.4 % (11.5-14.5)
[2019-05-03 06:52] LABS: NEUTROPHILS % (AUTO) 90.1 % (40.0-70.0)
[2019-05-03 07:30] LABS: GLUCOMETER DEV NAME(LOC) 5N.1; GLUCOSE,POINT OF CARE 387 MG/DL (70-110)
[2019-05-03 07:31] LABS: CALCIUM, TOTAL 9.5 mg/dL (8.8-10.5); CREATININE 3.4 mg/dL (0.60-1.30); POTASSIUM 4.8 mmol/L (3.5-5.1)
[2019-05-03 07:35] LABS: GLUCOMETER DEV NAME(LOC) 5S.1; GLUCOSE,POINT OF CARE 362 MG/DL (70-110)
[2019-05-03] MEDS: BUDESONIDE 0.5 MG/2 ML NEB SOLUTION NEB SCH ×2 (07:50→22:01)
[2019-05-03] MEDS: BUMETANIDE 1 MG TABLET PO SCH ×2 (08:17→20:21)
[2019-05-03] MEDS: APIXABAN 5 MG TABLET PO SCH ×2 (08:18→20:23)
[2019-05-03] MEDS: BENZONATATE 100 MG CAPSULE PO SCH ×3 (08:18→20:21)
[2019-05-03] MEDS: AZITHROMYCIN 250 MG TABLET PO SCH (08:18)
[2019-05-03] MEDS: PANTOPRAZOLE SODIUM 40 MG DR TABLET PO SCH (08:18)
[2019-05-03] MEDS: EPOETIN ALFA 10,000 UNITS/ML VIAL SQ SCH (08:19)
[2019-05-03] MEDS: GuaiFENesin SR 600 MG ER TABLET PO SCH ×2 (08:19→20:20)
[2019-05-03] MEDS: HydrALAZINE HCL 50 MG TABLET PO SCH ×2 (08:19→20:23)
[2019-05-03] MEDS: DOCUSATE SODIUM 100 MG CAPSULE PO SCH ×2 (08:19→20:48)
[2019-05-03] MEDS: INSULIN GLARGINE,HUM.REC.ANLOG 100 UNITS/ML SQ SCH (08:22)
[2019-05-03 08:31] VITALS: BP 180/95
[2019-05-03 11:33] VITALS: BP 154/86
[2019-05-03 11:40] LABS: GLUCOMETER DEV NAME(LOC) 5N.2; GLUCOSE,POINT OF CARE 382 MG/DL (70-110)
[2019-05-03 11:56] LABS: GLUCOMETER DEV NAME(LOC) 5S.1; GLUCOSE,POINT OF CARE 391 MG/DL (70-110)
[2019-05-03 15:00] VITALS: BP 170/88
[2019-05-03 20:06] VITALS: BP 157/87
[2019-05-03] MEDS: TAMSULOSIN HCL 0.4 MG CAPSULE PO SCH (20:23)
[2019-05-03] MEDS: ROSUVASTATIN CALCIUM 10 MG TABLET PO SCH (20:24)
[2019-05-03] MEDS: PredniSONE 10 MG TABLET PO SCH (20:28)
[2019-05-03] MEDS ORDERED: PredniSONE 20 MG TABLET PO SCH (21:00)
[2019-05-03 21:30] LABS: GLUCOMETER DEV NAME(LOC) 5S.2A; GLUCOSE,POINT OF CARE 313 MG/DL (70-110)
[2019-05-03 23:20] LABS: GLUCOMETER DEV NAME(LOC) 5N.1; GLUCOSE,POINT OF CARE 268 MG/DL (70-110)
[2019-05-04 00:07] VITALS: BP 178/89
[2019-05-04] MEDS: HydrALAZINE HCL 20 MG/ML VIAL IVP PRN (00:24)
[2019-05-04] MEDS: ALBUTEROL SULFATE 2.5 MG/0.5 ML NEB SOLUTION NEB SCH ×3 (01:18→13:21)
[2019-05-04] MEDS: IPRATROPIUM BROMIDE 0.5 MG/2.5 ML NEB SOLUTION NEB SCH ×3 (01:18→13:21)
[2019-05-04] MEDS: ALBUTEROL SULFATE 2.5 MG/0.5 ML NEB SOLUTION NEB PRN ×2 (04:04→10:21)
[2019-05-04] MEDS: IPRATROPIUM BROMIDE 0.5 MG/2.5 ML NEB SOLUTION NEB PRN ×2 (04:04→10:21)
[2019-05-04 05:09] VITALS: BP 174/90
[2019-05-04] MEDS: BUDESONIDE 0.5 MG/2 ML NEB SOLUTION NEB SCH (07:15)
[2019-05-04 07:40] LABS: GLUCOMETER DEV NAME(LOC) 5N.2; GLUCOSE,POINT OF CARE 157 MG/DL (70-110)
[2019-05-04 07:59] VITALS: BP 142/109
[2019-05-04] MEDS: INSULIN GLARGINE,HUM.REC.ANLOG 100 UNITS/ML SQ SCH ×2 (08:18→11:51)
[2019-05-04] MEDS: HydrALAZINE HCL 50 MG TABLET PO SCH (08:19)
[2019-05-04] MEDS: BUMETANIDE 1 MG TABLET PO SCH (08:19)
[2019-05-04] MEDS: DOCUSATE SODIUM 100 MG CAPSULE PO SCH (08:19)
[2019-05-04] MEDS: GuaiFENesin SR 600 MG ER TABLET PO SCH (08:20)
[2019-05-04] MEDS: APIXABAN 5 MG TABLET PO SCH (08:20)
[2019-05-04] MEDS: PANTOPRAZOLE SODIUM 40 MG DR TABLET PO SCH (08:20)
[2019-05-04] MEDS: PredniSONE 10 MG TABLET PO SCH (08:20)
[2019-05-04] MEDS: AZITHROMYCIN 250 MG TABLET PO SCH (08:21)
[2019-05-04] MEDS: BENZONATATE 100 MG CAPSULE PO SCH (08:21)
[2019-05-04 11:01] VITALS: BP 164/78
[2019-05-04] MEDS ORDERED: PRED20 PO (15:31)
[2019-05-04] MEDS ORDERED: PRED10 PO (15:31)
[2019-05-04 18:26] LABS: GLUCOMETER DEV NAME(LOC) 5N.2; GLUCOSE,POINT OF CARE 194 MG/DL (70-110)
[2019-05-05 08:21] LABS: GLUCOMETER DEV NAME(LOC) 5N.1; GLUCOSE,POINT OF CARE 407 MG/DL (70-110)
== END 2019-05-04 16:00 | disposition home or self-care (01) | DRG 189 ==
LOC: EMS 19:20 → 5S 23:50
PROVIDERS: ADMIT Internal Medicine; ATTEND Internal Medicine
DX: J96.21 Acute and chronic respiratory failure with hypoxia (principal); J44.1 Chronic obstructive pulmonary disease with (acute) exacerbation; I50.22 Chronic systolic (congestive) heart failure; N18.4 Chronic kidney disease, stage 4 (severe); I13.0 Hypertensive heart and chronic kidney disease with heart failure and stage 1 through stage 4 chronic kidney disease, or unspecified chronic kidney disease; E46 Unspecified protein-calorie malnutrition; N17.9 Acute kidney failure, unspecified; N25.81 Secondary hyperparathyroidism of renal origin; R64 Cachexia; I48.0 Paroxysmal atrial fibrillation; I34.0 Nonrheumatic mitral (valve) insufficiency; E11.22 Type 2 diabetes mellitus with diabetic chronic kidney disease; D63.8 Anemia in other chronic diseases classified elsewhere; E78.5 Hyperlipidemia, unspecified; E83.39 Other disorders of phosphorus metabolism; E83.51 Hypocalcemia; F17.200 Nicotine dependence, unspecified, uncomplicated; I25.10 Atherosclerotic heart disease of native coronary artery without angina pectoris; K21.9 Gastro-esophageal reflux disease without esophagitis; N40.0 Benign prostatic hyperplasia without lower urinary tract symptoms; R62.7 Adult failure to thrive; Z79.4 Long term (current) use of insulin; Z91.19 Patient's noncompliance with other medical treatment and regimen; Z82.5 Family history of asthma and other chronic lower respiratory diseases; Z95.1 Presence of aortocoronary bypass graft; Z95.5 Presence of coronary angioplasty implant and graft; Z99.2 Dependence on renal dialysis; Z68.27 Body mass index [BMI] 27.0-27.9, adult
CPT/HCPCS: 82728; 83735; 84466; 87081; 93005; 94640; 96374; J0360; J0885; J1815; J2405; J2920; J2930

== ENCOUNTER 2019-05-28 11:44 | Inpatient (IN) | payer MEDICARE, MEDICAID ==
[~2019-05-28] VITALS: Ht 182.9 cm; Wt 99.4 kg
[~2019-05-28 11:44] MED LIST changes: -CARV6 PO; +FLUT16H NASAL; -FURO40 PO; +GUAIF600 PO; +LEVO250 PO; +MONT10TA21 PO; +PRED10 PO
[2019-05-28] MEDS ORDERED: ALBUTEROL SULFATE 2.5 MG/0.5 ML NEB SOLUTION NEB ONE (12:15)
[2019-05-28] MEDS ORDERED: IPRATROPIUM BROMIDE 0.5 MG/2.5 ML NEB SOLUTION NEB ONE (12:15)
[2019-05-28 12:29] LABS: BASOPHILS % (AUTO) 0.5 % (0.0-2.0); HEMATOCRIT 28.7 % (41-53); HEMOGLOBIN 9.2 g/dL (13.5-17.5); LYMPHOCYTES % (AUTO) 21.6 % (22.0-44.0); MEAN CORPUSCULAR HEMOGLOBIN 31.2 pg (26.0-34.0); MEAN CORPUSCULAR HGB CONC 32.2 G/dL (31.0-37.0); MEAN CORPUSCULAR VOLUME 97 fL (80-100); MONOCYTES # (AUTO) 0.5 K/uL (0.1-1.0); MONOCYTES % (AUTO) 11.3 % (2.0-9.0); NEUTROPHILS # (AUTO) 2.9 K/uL (1.8-7.7); NEUTROPHILS % (AUTO) 64.6 % (40.0-70.0); PLATELET COUNT (AUTO) 155 K/uL (150-450); RED BLOOD CELL COUNT(AUTO) 2.96 MIL/uL (4.50-5.90); RED CELL DISTRIBUTION WIDTH 14.8 % (11.5-14.5)
[2019-05-28 12:45] LABS: CALCIUM, TOTAL 8.3 mg/dL (8.8-10.5); POTASSIUM 4.3 mmol/L (3.5-5.1); PROTHROMBIN TIME 10.4 SEC (9.4-11.6)
[2019-05-28 12:48] LABS: ALBUMIN 2.4 g/dL (3.4-5.0); BILIRUBIN,TOTAL 0.3 mg/dL (0.1-1.0)
[2019-05-28 13:16] LABS: GLUCOSE,POINT OF CARE 115 MG/DL (70-110)
[2019-05-28] MEDS ORDERED: ACETAMINOPHEN 325 MG TABLET PO PRN ×2 (14:00→18:45)
[2019-05-28] MEDS ORDERED: 0.9% SODIUM CHLORIDE 10 ML SYRINGE IVP PRN (14:00)
[2019-05-28 17:31] LABS: GLUCOSE,POINT OF CARE 128 MG/DL (70-110)
[2019-05-28 18:00] VITALS: BP 123/75
[2019-05-28] MEDS ORDERED: BISACODYL 10 MG RECTAL RECTAL SUPPOSITORY PR PRN (18:45)
[2019-05-28] MEDS ORDERED: ONDANSETRON HCL 4 MG/2 ML VIAL IVP PRN (18:45)
[2019-05-28] MEDS ORDERED: ZOLPIDEM TARTRATE 5 MG TABLET PO PRN (18:45)
[2019-05-28] MEDS ORDERED: OxyCODONE HCL/ACETAMINOPHEN 5-325 MG TABLET PO PRN (18:45)
[2019-05-28] MEDS ORDERED: MORPHINE SULFATE 2 MG/ML SYRINGE IVP PRN (18:45)
[2019-05-28] MEDS ORDERED: MAGNESIUM HYDROXIDE SUSPENSION 30 ML UDCUP PO PRN (18:45)
[2019-05-28] MEDS: IPRATROPIUM BROMIDE 0.5 MG/2.5 ML NEB SOLUTION NEB SCH ×2 (19:11→23:27)
[2019-05-28] MEDS: ALBUTEROL SULFATE 2.5 MG/0.5 ML NEB SOLUTION NEB SCH ×2 (19:11→23:30)
[2019-05-28 20:07] VITALS: BP 130/69
[2019-05-28] MEDS: DOCUSATE SODIUM 100 MG CAPSULE PO SCH (20:55)
[2019-05-28 21:11] LABS: GLUCOMETER DEV NAME(LOC) 5N.2; GLUCOSE,POINT OF CARE 165 MG/DL (70-110)
[2019-05-29] VITALS (7 sets, daily range): BP systolic 142–179; BP diastolic 77–111
[2019-05-29] MEDS: MethylPREDNISolone SOD SUCC 125 MG/2 ML VIAL IVP SCH ×3 (00:11→12:48)
[2019-05-29] MEDS: HEPARIN SODIUM,PORCINE 5,000 UNITS/ML VIAL SQ SCH ×3 (00:11→16:08)
[2019-05-29] MEDS: ALBUTEROL SULFATE 2.5 MG/0.5 ML NEB SOLUTION NEB SCH ×6 (02:40→22:49)
[2019-05-29] MEDS: IPRATROPIUM BROMIDE 0.5 MG/2.5 ML NEB SOLUTION NEB SCH ×6 (02:40→22:49)
[2019-05-29] MEDS ORDERED: DEXTROSE 50%-WATER 25 GM/50 ML SYRINGE IVP PRN (06:30)
[2019-05-29] MEDS: INSULIN LISPRO 100 UNITS/ML SQ PRN ×3 (06:38→17:21)
[2019-05-29 07:00] LABS: GLUCOMETER DEV NAME(LOC) 5N.2; GLUCOSE,POINT OF CARE 306 MG/DL (70-110)
[2019-05-29] MEDS: PANTOPRAZOLE SODIUM 40 MG DR TABLET PO SCH (08:35)
[2019-05-29] MEDS: DOCUSATE SODIUM 100 MG CAPSULE PO SCH ×2 (08:36→20:53)
[2019-05-29] MEDS: HydrALAZINE HCL 20 MG/ML VIAL IVP PRN (08:39)
[2019-05-29 12:22] LABS: GLUCOMETER DEV NAME(LOC) 5S.1; GLUCOSE,POINT OF CARE 452 MG/DL (70-110)
[2019-05-29] MEDS ORDERED: INSULIN LISPRO 100 UNITS/ML SQ ONE ×4 (12:45→16:30)
[2019-05-29 13:46] LABS: GLUCOMETER DEV NAME(LOC) 5S.1; GLUCOSE,POINT OF CARE 456 MG/DL (70-110)
[2019-05-29 13:46] LABS: GLUCOMETER DEV NAME(LOC) 5S.1; GLUCOSE,POINT OF CARE 528 MG/DL (70-110)
[2019-05-29] MEDS ORDERED: PredniSONE 20 MG TABLET PO ONE (15:45)
[2019-05-29] MEDS ORDERED: BUMETANIDE 1 MG TABLET PO SCH ×2 (16:00→21:00)
[2019-05-29] MEDS ORDERED: HydrALAZINE HCL 20 MG/ML VIAL IVP SCH (16:00)
[2019-05-29] MEDS: HydrALAZINE HCL 50 MG TABLET PO SCH ×2 (16:08→20:53)
[2019-05-29 16:55] LABS: GLUCOMETER DEV NAME(LOC) 5S.1; GLUCOSE,POINT OF CARE 472 MG/DL (70-110)
[2019-05-29 16:56] LABS: GLUCOMETER DEV NAME(LOC) 5S.1; GLUCOSE,POINT OF CARE 401 MG/DL (70-110)
[2019-05-29 17:31] LABS: GLUCOMETER DEV NAME(LOC) 5S.1; GLUCOSE,POINT OF CARE 334 MG/DL (70-110)
[2019-05-29 19:30] LABS: GLUCOMETER DEV NAME(LOC) 5N.2; GLUCOSE,POINT OF CARE 507 MG/DL (70-110)
[2019-05-29] MEDS: ROSUVASTATIN CALCIUM 20 MG TABLET PO SCH (20:53)
[2019-05-29] MEDS: RANOLAZINE 500 MG ER TABLET PO SCH (20:53)
[2019-05-29] MEDS: BUMETANIDE 0.25 MG/ML 4 ML VIAL IVP SCH (21:20)
[2019-05-30] VITALS (9 sets, daily range): BP systolic 118–188; BP diastolic 59–97
[2019-05-30] MEDS: HydrALAZINE HCL 20 MG/ML VIAL IVP PRN ×2 (00:34→12:18)
[2019-05-30] MEDS: HEPARIN SODIUM,PORCINE 5,000 UNITS/ML VIAL SQ SCH ×2 (00:34→08:00)
[2019-05-30 01:00] LABS: GLUCOMETER DEV NAME(LOC) 5N.1; GLUCOSE,POINT OF CARE 143 MG/DL (70-110)
[2019-05-30 01:00] LABS: GLUCOMETER DEV NAME(LOC) 5N.1; GLUCOSE,POINT OF CARE 162 MG/DL (70-110)
[2019-05-30] MEDS: ALBUTEROL SULFATE 2.5 MG/0.5 ML NEB SOLUTION NEB SCH ×6 (03:00→23:00)
[2019-05-30] MEDS: IPRATROPIUM BROMIDE 0.5 MG/2.5 ML NEB SOLUTION NEB SCH ×6 (03:00→23:00)
[2019-05-30] MEDS: IPRATROPIUM BROMIDE 0.5 MG/2.5 ML NEB SOLUTION NEB PRN (04:15)
[2019-05-30] MEDS: ALBUTEROL SULFATE 2.5 MG/0.5 ML NEB SOLUTION NEB PRN (04:15)
[2019-05-30 06:17] LABS: GLUCOMETER DEV NAME(LOC) 5N.1; GLUCOSE,POINT OF CARE 230 MG/DL (70-110)
[2019-05-30] MEDS: BUMETANIDE 0.25 MG/ML 4 ML VIAL IVP SCH ×3 (08:30→20:09)
[2019-05-30] MEDS: HydrALAZINE HCL 50 MG TABLET PO SCH ×4 (08:30→20:09)
[2019-05-30] MEDS: DOCUSATE SODIUM 100 MG CAPSULE PO SCH ×2 (08:31→20:08)
[2019-05-30] MEDS: PANTOPRAZOLE SODIUM 40 MG DR TABLET PO SCH (08:31)
[2019-05-30] MEDS: APIXABAN 5 MG TABLET PO SCH ×2 (08:31→20:16)
[2019-05-30] MEDS: TAMSULOSIN HCL 0.4 MG CAPSULE PO SCH (08:31)
[2019-05-30] MEDS: PYRIDOXINE HCL 50 MG TABLET PO SCH (08:32)
[2019-05-30] MEDS: MONTELUKAST SODIUM 10 MG TABLET PO SCH (08:32)
[2019-05-30] MEDS: RANOLAZINE 500 MG ER TABLET PO SCH ×2 (08:32→20:08)
[2019-05-30] MEDS: INSULIN GLARGINE,HUM.REC.ANLOG 100 UNITS/ML SQ SCH (08:34)
[2019-05-30] MEDS ORDERED: PANTOPRAZOLE SODIUM 40 MG DR TABLET PO SCH (09:00)
[2019-05-30] MEDS: VALSARTAN 160 MG TABLET PO SCH (09:22)
[2019-05-30] MEDS: INSULIN LISPRO 100 UNITS/ML SQ PRN ×3 (12:19→20:08)
[2019-05-30 14:45] LABS: GLUCOMETER DEV NAME(LOC) 5N.2; GLUCOSE,POINT OF CARE 394 MG/DL (70-110)
[2019-05-30] MEDS: ROSUVASTATIN CALCIUM 20 MG TABLET PO SCH (20:08)
[2019-05-30] MEDS ORDERED: INSULIN LISPRO 100 UNITS/ML SQ ONE (21:45)
[2019-05-31] MEDS: ALBUTEROL SULFATE 2.5 MG/0.5 ML NEB SOLUTION NEB SCH ×6 (02:22→23:33)
[2019-05-31] MEDS: IPRATROPIUM BROMIDE 0.5 MG/2.5 ML NEB SOLUTION NEB SCH ×6 (02:23→23:33)
[2019-05-31 04:24] VITALS: BP 147/74
[2019-05-31] MEDS ORDERED: 0.9% SODIUM CHLORIDE 5 ML NEB SOLUTION NEB ONE (06:35)
[2019-05-31 08:34] VITALS: BP 151/90
[2019-05-31] MEDS: DOCUSATE SODIUM 100 MG CAPSULE PO SCH ×2 (09:00→20:26)
[2019-05-31] MEDS: TAMSULOSIN HCL 0.4 MG CAPSULE PO SCH (09:07)
[2019-05-31] MEDS: RANOLAZINE 500 MG ER TABLET PO SCH ×2 (09:07→20:27)
[2019-05-31] MEDS: MONTELUKAST SODIUM 10 MG TABLET PO SCH (09:08)
[2019-05-31] MEDS: PANTOPRAZOLE SODIUM 40 MG DR TABLET PO SCH (09:08)
[2019-05-31] MEDS: APIXABAN 5 MG TABLET PO SCH ×2 (09:08→20:26)
[2019-05-31] MEDS: PYRIDOXINE HCL 50 MG TABLET PO SCH (09:09)
[2019-05-31] MEDS: VALSARTAN 160 MG TABLET PO SCH (09:09)
[2019-05-31] MEDS: HydrALAZINE HCL 50 MG TABLET PO SCH ×3 (09:10→20:26)
[2019-05-31] MEDS: INSULIN GLARGINE,HUM.REC.ANLOG 100 UNITS/ML SQ SCH (09:12)
[2019-05-31] MEDS: IPRATROPIUM BROMIDE 0.5 MG/2.5 ML NEB SOLUTION NEB PRN ×2 (09:17→19:01)
[2019-05-31] MEDS: BUMETANIDE 0.25 MG/ML 4 ML VIAL IVP SCH ×3 (09:17→20:26)
[2019-05-31] MEDS: ALBUTEROL SULFATE 2.5 MG/0.5 ML NEB SOLUTION NEB PRN ×2 (09:17→19:02)
[2019-05-31 11:52] LABS: GLUCOMETER DEV NAME(LOC) 5N.2; GLUCOSE,POINT OF CARE 137 MG/DL (70-110)
[2019-05-31 11:52] LABS: GLUCOMETER DEV NAME(LOC) 5N.1; GLUCOSE,POINT OF CARE 422 MG/DL (70-110)
[2019-05-31 11:52] LABS: GLUCOMETER DEV NAME(LOC) 5N.2; GLUCOSE,POINT OF CARE 193 MG/DL (70-110)
[2019-05-31 11:52] LABS: GLUCOMETER DEV NAME(LOC) 5N.2; GLUCOSE,POINT OF CARE 376 MG/DL (70-110)
[2019-05-31] MEDS: INSULIN LISPRO 100 UNITS/ML SQ PRN ×2 (12:06→17:49)
[2019-05-31 12:12] LABS: GLUCOMETER DEV NAME(LOC) 5N.2; GLUCOSE,POINT OF CARE 422 MG/DL (70-110)
[2019-05-31 12:48] VITALS: BP 142/81
[2019-05-31 15:26] VITALS: BP 151/80
[2019-05-31 16:45] LABS: GLUCOMETER DEV NAME(LOC) 5N.1; GLUCOSE,POINT OF CARE 331 MG/DL (70-110)
[2019-05-31 20:05] VITALS: BP 126/62
[2019-05-31] MEDS: ROSUVASTATIN CALCIUM 20 MG TABLET PO SCH (20:26)
[2019-05-31 23:15] LABS: GLUCOMETER DEV NAME(LOC) 5N.1; GLUCOSE,POINT OF CARE 198 MG/DL (70-110)
[2019-05-31 23:59] VITALS: BP 128/67
[2019-06-01] MEDS: ALBUTEROL SULFATE 2.5 MG/0.5 ML NEB SOLUTION NEB SCH ×6 (03:00→23:15)
[2019-06-01] MEDS: IPRATROPIUM BROMIDE 0.5 MG/2.5 ML NEB SOLUTION NEB SCH ×6 (03:00→23:15)
[2019-06-01] MEDS: IPRATROPIUM BROMIDE 0.5 MG/2.5 ML NEB SOLUTION NEB PRN ×2 (04:26→16:56)
[2019-06-01] MEDS: ALBUTEROL SULFATE 2.5 MG/0.5 ML NEB SOLUTION NEB PRN ×2 (04:26→16:56)
[2019-06-01 05:01] VITALS: BP 150/71
[2019-06-01 06:52] LABS: BASOPHILS % (AUTO) 0.2 % (0.0-2.0); EOSINOPHILS % (AUTO) 0.7 % (1.0-6.0); HEMATOCRIT 27.2 % (41-53); LYMPHOCYTES % (AUTO) 25.1 % (22.0-44.0); MEAN CORPUSCULAR HGB CONC 33.2 G/dL (31.0-37.0); MEAN CORPUSCULAR VOLUME 96 fL (80-100); MONOCYTES # (AUTO) 0.6 K/uL (0.1-1.0); MONOCYTES % (AUTO) 14.4 % (2.0-9.0); NEUTROPHILS # (AUTO) 2.4 K/uL (1.8-7.7); NEUTROPHILS % (AUTO) 59.6 % (40.0-70.0); PLATELET COUNT (AUTO) 163 K/uL (150-450); RED BLOOD CELL COUNT(AUTO) 2.83 MIL/uL (4.50-5.90); RED CELL DISTRIBUTION WIDTH 15.7 % (11.5-14.5)
[2019-06-01 07:12] LABS: ALBUMIN 2.2 g/dL (3.4-5.0); BILIRUBIN,TOTAL 0.3 mg/dL (0.1-1.0); CALCIUM, TOTAL 8.4 mg/dL (8.8-10.5); CREATININE 2.96 mg/dL (0.60-1.30); POTASSIUM 4.5 mmol/L (3.5-5.1); TOTAL PROTEIN, SERUM 4.8 g/dL (6.4-8.2)
[2019-06-01 07:47] VITALS: BP 158/76
[2019-06-01 08:45] LABS: GLUCOMETER DEV NAME(LOC) 5N.2; GLUCOSE,POINT OF CARE 184 MG/DL (70-110)
[2019-06-01 08:45] LABS: GLUCOMETER DEV NAME(LOC) 5N.1; GLUCOSE,POINT OF CARE 107 MG/DL (70-110)
[2019-06-01 08:45] LABS: GLUCOMETER DEV NAME(LOC) 5N.1; GLUCOSE,POINT OF CARE 158 MG/DL (70-110)
[2019-06-01 08:45] LABS: GLUCOMETER DEV NAME(LOC) 5N.1; GLUCOSE,POINT OF CARE 170 MG/DL (70-110)
[2019-06-01 08:45] LABS: GLUCOMETER DEV NAME(LOC) 5N.2; GLUCOSE,POINT OF CARE 148 MG/DL (70-110)
[2019-06-01] MEDS: INSULIN GLARGINE,HUM.REC.ANLOG 100 UNITS/ML SQ SCH (09:00)
[2019-06-01] MEDS: RANOLAZINE 500 MG ER TABLET PO SCH ×2 (09:17→21:02)
[2019-06-01] MEDS: BUMETANIDE 0.25 MG/ML 4 ML VIAL IVP SCH (09:17)
[2019-06-01] MEDS: PANTOPRAZOLE SODIUM 40 MG DR TABLET PO SCH (09:17)
[2019-06-01] MEDS: TAMSULOSIN HCL 0.4 MG CAPSULE PO SCH (09:17)
[2019-06-01] MEDS: DOCUSATE SODIUM 100 MG CAPSULE PO SCH ×2 (09:17→21:03)
[2019-06-01] MEDS: VALSARTAN 160 MG TABLET PO SCH (09:18)
[2019-06-01] MEDS: MONTELUKAST SODIUM 10 MG TABLET PO SCH (09:18)
[2019-06-01] MEDS: APIXABAN 5 MG TABLET PO SCH ×2 (09:18→21:03)
[2019-06-01] MEDS: PYRIDOXINE HCL 50 MG TABLET PO SCH (09:20)
[2019-06-01] MEDS: HydrALAZINE HCL 50 MG TABLET PO SCH ×3 (09:21→21:06)
[2019-06-01 11:28] VITALS: BP 151/78
[2019-06-01 15:31] VITALS: BP 147/74
[2019-06-01] MEDS: INSULIN LISPRO 100 UNITS/ML SQ PRN (21:01)
[2019-06-01] MEDS: BUMETANIDE 1 MG TABLET PO SCH (21:02)
[2019-06-01] MEDS: ROSUVASTATIN CALCIUM 20 MG TABLET PO SCH (21:03)
[2019-06-01 21:28] VITALS: BP 140/75
[2019-06-02 01:14] VITALS: BP 152/68
[2019-06-02] MEDS: IPRATROPIUM BROMIDE 0.5 MG/2.5 ML NEB SOLUTION NEB SCH ×4 (02:46→15:05)
[2019-06-02] MEDS: ALBUTEROL SULFATE 2.5 MG/0.5 ML NEB SOLUTION NEB SCH ×4 (02:47→15:05)
[2019-06-02 04:55] VITALS: BP 143/70
[2019-06-02 06:45] LABS: BASOPHILS % (AUTO) 0.3 % (0.0-2.0); EOSINOPHILS % (AUTO) 0.8 % (1.0-6.0); HEMATOCRIT 28.2 % (41-53); HEMOGLOBIN 9.4 g/dL (13.5-17.5); LYMPHOCYTES # (AUTO) 0.8 K/uL (1.0-4.8); LYMPHOCYTES % (AUTO) 21.7 % (22.0-44.0); MEAN CORPUSCULAR HEMOGLOBIN 31.8 pg (26.0-34.0); MEAN CORPUSCULAR HGB CONC 33.3 G/dL (31.0-37.0); MEAN CORPUSCULAR VOLUME 96 fL (80-100); MONOCYTES # (AUTO) 0.6 K/uL (0.1-1.0); NEUTROPHILS # (AUTO) 2.3 K/uL (1.8-7.7); NEUTROPHILS % (AUTO) 60.2 % (40.0-70.0); PLATELET COUNT (AUTO) 183 K/uL (150-450); RED BLOOD CELL COUNT(AUTO) 2.95 MIL/uL (4.50-5.90); RED CELL DISTRIBUTION WIDTH 15.3 % (11.5-14.5)
[2019-06-02 07:11] LABS: ALBUMIN 2.3 g/dL (3.4-5.0); BILIRUBIN,TOTAL 0.4 mg/dL (0.1-1.0); CALCIUM, TOTAL 8.4 mg/dL (8.8-10.5); CREATININE 2.89 mg/dL (0.60-1.30); POTASSIUM 4.4 mmol/L (3.5-5.1); TOTAL PROTEIN, SERUM 5.1 g/dL (6.4-8.2)
[2019-06-02 07:55] VITALS: BP 158/98
[2019-06-02] MEDS: DOCUSATE SODIUM 100 MG CAPSULE PO SCH (09:00)
[2019-06-02] MEDS: INSULIN GLARGINE,HUM.REC.ANLOG 100 UNITS/ML SQ SCH (09:00)
[2019-06-02] MEDS: PYRIDOXINE HCL 50 MG TABLET PO SCH (09:04)
[2019-06-02] MEDS: TAMSULOSIN HCL 0.4 MG CAPSULE PO SCH (09:04)
[2019-06-02] MEDS: VALSARTAN 160 MG TABLET PO SCH (09:04)
[2019-06-02] MEDS: RANOLAZINE 500 MG ER TABLET PO SCH (09:04)
[2019-06-02] MEDS: MONTELUKAST SODIUM 10 MG TABLET PO SCH (09:04)
[2019-06-02] MEDS: APIXABAN 5 MG TABLET PO SCH (09:05)
[2019-06-02] MEDS: PANTOPRAZOLE SODIUM 40 MG DR TABLET PO SCH (09:05)
[2019-06-02] MEDS: HydrALAZINE HCL 50 MG TABLET PO SCH ×2 (09:05→16:20)
[2019-06-02] MEDS: BUMETANIDE 1 MG TABLET PO SCH (09:05)
[2019-06-02 11:25] VITALS: BP 160/89
[2019-06-02] MEDS: INSULIN LISPRO 100 UNITS/ML SQ PRN (11:45)
[2019-06-02] MEDS ORDERED: VALS160T2 PO (13:23)
[2019-06-02 15:30] VITALS: BP 154/80
[2019-06-03 06:56] LABS: GLUCOMETER DEV NAME(LOC) 5N.1; GLUCOSE,POINT OF CARE 288 MG/DL (70-110)
[2019-06-03 06:57] LABS: GLUCOMETER DEV NAME(LOC) 5N.2; GLUCOSE,POINT OF CARE 346 MG/DL (70-110)
[2019-06-03 06:57] LABS: GLUCOMETER DEV NAME(LOC) 5N.1; GLUCOSE,POINT OF CARE 191 MG/DL (70-110)
[2019-06-03 06:57] LABS: GLUCOMETER DEV NAME(LOC) 5N.1; GLUCOSE,POINT OF CARE 170 MG/DL (70-110)
[2019-06-03 06:57] LABS: GLUCOMETER DEV NAME(LOC) 5N.2; GLUCOSE,POINT OF CARE 300 MG/DL (70-110)
[2019-06-03 06:57] LABS: GLUCOMETER DEV NAME(LOC) 5N.1; GLUCOSE,POINT OF CARE 294 MG/DL (70-110)
[2019-06-05] MEDS ORDERED: EPOETIN ALFA 10,000 UNITS/ML VIAL SQ SCH (09:00)
== END 2019-06-02 16:30 | disposition home or self-care (01) | DRG 291 ==
LOC: EMS 11:46 → 5N 15:02
PROVIDERS: ADMIT Hospitalist; ATTEND Hospitalist
DX: I13.2 Hypertensive heart and chronic kidney disease with heart failure and with stage 5 chronic kidney disease, or end stage renal disease (principal); I50.23 Acute on chronic systolic (congestive) heart failure; E43 Unspecified severe protein-calorie malnutrition; J44.1 Chronic obstructive pulmonary disease with (acute) exacerbation; N18.5 Chronic kidney disease, stage 5; N25.81 Secondary hyperparathyroidism of renal origin; R64 Cachexia; N40.0 Benign prostatic hyperplasia without lower urinary tract symptoms; E11.65 Type 2 diabetes mellitus with hyperglycemia; E83.39 Other disorders of phosphorus metabolism; E83.51 Hypocalcemia; R62.7 Adult failure to thrive; D63.8 Anemia in other chronic diseases classified elsewhere; E11.22 Type 2 diabetes mellitus with diabetic chronic kidney disease; I25.10 Atherosclerotic heart disease of native coronary artery without angina pectoris; Z82.49 Family history of ischemic heart disease and other diseases of the circulatory system; Z99.2 Dependence on renal dialysis; Z82.5 Family history of asthma and other chronic lower respiratory diseases; Z83.3 Family history of diabetes mellitus; Z91.11 Patient's noncompliance with dietary regimen; Z95.1 Presence of aortocoronary bypass graft; Z95.5 Presence of coronary angioplasty implant and graft; Z88.8 Allergy status to other drugs, medicaments and biological substances; Z68.29 Body mass index [BMI] 29.0-29.9, adult
CPT/HCPCS: 83036; 93005; 93971; 94640; 96374; J0360; J1644; J1815; J2930; J3490

== ENCOUNTER → 2019-09-09 | Outpatient (CLI) | payer MEDICARE, MEDICAID ==
[~2019-09-09] MED LIST changes: +ADV250 IH; -BUME1TAB34 PO; +CARV25 PO; +CARV6.2534 PO; +FINA5TAB2 PO; +FURO20TA4 PO; -GUAIF600 PO; +HYDR25TA84 PO; +IPRNEB IH; -LEVO250 PO; +OXYC-627 PO; +PARI1CAP3 PO; -PRED10 PO; +TAMS-13 PO; -TAMS0.4C32 PO; +TRIA15CR48 TP
[2019-09-09 11:00] VITALS: BP 109/52
== END | disposition home or self-care (01) ==
LOC: SRCNTR 10:59
PROVIDERS: ATTEND Internal Medicine
DX: I13.0 Hypertensive heart and chronic kidney disease with heart failure and stage 1 through stage 4 chronic kidney disease, or unspecified chronic kidney disease (principal); E11.22 Type 2 diabetes mellitus with diabetic chronic kidney disease; N18.4 Chronic kidney disease, stage 4 (severe); I50.9 Heart failure, unspecified; E78.5 Hyperlipidemia, unspecified; J44.9 Chronic obstructive pulmonary disease, unspecified; I25.10 Atherosclerotic heart disease of native coronary artery without angina pectoris; Z95.5 Presence of coronary angioplasty implant and graft
CPT/HCPCS: G0463

== ENCOUNTER → 2019-09-30 | Outpatient (CLI) | payer MEDICARE, MEDICAID ==
[~2019-09-30] VITALS: Ht 30.5 cm; Wt 85.0 kg
[~2019-09-30] MED LIST changes: -APIX5TAB PO; -MONT10TA21 PO
[2019-09-30 14:49] VITALS: BP 136/72
== END | disposition home or self-care (01) ==
LOC: SRCNTR 14:48
PROVIDERS: ATTEND Internal Medicine Cardiovascular Disease
DX: I13.0 Hypertensive heart and chronic kidney disease with heart failure and stage 1 through stage 4 chronic kidney disease, or unspecified chronic kidney disease (principal); N18.9 Chronic kidney disease, unspecified; I50.9 Heart failure, unspecified; I25.10 Atherosclerotic heart disease of native coronary artery without angina pectoris; J44.9 Chronic obstructive pulmonary disease, unspecified; E78.5 Hyperlipidemia, unspecified
CPT/HCPCS: G0463

== ENCOUNTER → 2020-03-18 | Outpatient (CLI) | payer MEDICARE, MEDICAID ==
[~2020-03-18] MED LIST changes: -ADV250 IH; +AMLO5TAB66 PO; +ATOR40TA28 PO; +BUME1TAB34 PO; -CARV6.2534 PO; +FINA-27 PO; -FLUT16H NASAL; -FOLI1 PO; -FURO20TA4 PO; +FURO40 PO; -HYDR25TA84 PO; -IPRNEB IH; +OSEL30CA PO; -OXYC-627 PO; +PANT-31 PO; -PANT40TA25 PO; -PARI1CAP3 PO; +PRED10 PO; +PRED20 PO; +PRED5 PO; -PYRI-12 PO; -RANO500T3 PO; -ROSU20TA23 PO; -TRIA15CR48 TP
== END | disposition home or self-care (01) ==
LOC: SRCNTR 12:33
PROVIDERS: ATTEND Hospitalist
DX: I11.0 Hypertensive heart disease with heart failure (principal); I50.9 Heart failure, unspecified; I25.10 Atherosclerotic heart disease of native coronary artery without angina pectoris; J44.9 Chronic obstructive pulmonary disease, unspecified; E11.9 Type 2 diabetes mellitus without complications; E78.5 Hyperlipidemia, unspecified; R06.02 Shortness of breath; M62.81 Muscle weakness (generalized); Z79.899 Other long term (current) drug therapy
CPT/HCPCS: Q3014

== ENCOUNTER 2020-03-24 20:35 | Inpatient (IN) | payer MEDICARE, MEDICAID ==
[~2020-03-24] VITALS: Ht 182.9 cm; Wt 92.3 kg
[~2020-03-24 20:35] MED LIST changes: -ATOR40TA28 PO; -BUME1TAB34 PO; -FINA-27 PO
[2020-03-24 21:53] LABS: BASOPHILS % (AUTO) 0.3 % (0.0-2.0); EOSINOPHILS % (AUTO) 0.1 % (1.0-6.0); HEMATOCRIT 29.8 % (41-53); LYMPHOCYTES # (AUTO) 0.7 K/uL (1.0-4.8); LYMPHOCYTES % (AUTO) 10.4 % (22.0-44.0); MEAN CORPUSCULAR HEMOGLOBIN 31.6 pg (26.0-34.0); MEAN CORPUSCULAR HGB CONC 33.6 G/dL (31.0-37.0); MEAN CORPUSCULAR VOLUME 94 fL (80-100); MONOCYTES # (AUTO) 0.3 K/uL (0.1-1.0); MONOCYTES % (AUTO) 4.7 % (2.0-9.0); NEUTROPHILS % (AUTO) 84.5 % (40.0-70.0); PLATELET COUNT (AUTO) 146 K/uL (150-450); RED BLOOD CELL COUNT(AUTO) 3.16 MIL/uL (4.50-5.90); RED CELL DISTRIBUTION WIDTH 14.6 % (11.5-14.5)
[2020-03-24 22:09] LABS: ALBUMIN 2.6 g/dL (3.4-5.0); BILIRUBIN,TOTAL 0.3 mg/dL (0.1-1.0); CREATININE 2.52 mg/dL (0.60-1.30); POTASSIUM 4.9 mmol/L (3.5-5.1); PROTHROMBIN TIME 10.4 SEC (9.4-11.6); TOTAL PROTEIN, SERUM 6.3 g/dL (6.4-8.2)
[2020-03-24] MEDS ORDERED: GuaiFENesin/D-METHORPHAN [SUGAR-FREE] 200-20MG/10 ML SYRUP UDCUP PO ONE (23:00)
[2020-03-24] MEDS ORDERED: ALBUTEROL SULFATE HFA 90 MCG/PUFF 8 GM INHALER IH ONE (23:00)
[2020-03-24] MEDS ORDERED: INSULIN REGULAR, HUMAN 100 UNITS/ML IVP ONE (23:00)
[2020-03-24] MEDS ORDERED: MethylPREDNISolone SOD SUCC 125 MG/2 ML VIAL IVP ONE (23:00)
[2020-03-24] MEDS ORDERED: FUROSEMIDE 40 MG/4 ML VIAL IVP ONE (23:00)
[2020-03-24] MEDS ORDERED: ONDANSETRON HCL 4 MG/2 ML VIAL IVP PRN (23:45)
[2020-03-24] MEDS ORDERED: 0.9% SODIUM CHLORIDE 10 ML SYRINGE IVP PRN (23:45)
[2020-03-24] MEDS ORDERED: ACETAMINOPHEN 325 MG TABLET PO PRN (23:45)
[2020-03-25] MEDS: ASPIRIN 81 MG EC TABLET PO SCH ×2 (00:30→08:12)
[2020-03-25] MEDS ORDERED: ONDANSETRON HCL 4 MG/2 ML VIAL IVP PRN (00:30)
[2020-03-25] MEDS ORDERED: INSULIN LISPRO 100 UNITS/ML SQ PRN ×2 (00:30→11:45)
[2020-03-25] MEDS ORDERED: INSULIN GLARGINE,HUM.REC.ANLOG 100 UNITS/ML SQ SCH (00:30)
[2020-03-25] MEDS ORDERED: DEXTROSE 50%-WATER 25 GM/50 ML SYRINGE IVP PRN ×2 (00:30→11:45)
[2020-03-25] MEDS ORDERED: ALBUTEROL SULFATE 2.5 MG/0.5 ML NEB SOLUTION NEB ONE (00:30)
[2020-03-25] MEDS ORDERED: FUROSEMIDE 40 MG/4 ML VIAL IVP SCH ×2 (00:45→09:00)
[2020-03-25] MEDS: ATORVASTATIN CALCIUM 40 MG TABLET PO SCH ×2 (01:12→20:45)
[2020-03-25 02:12] LABS: GLUCOSE,POINT OF CARE 364 MG/DL (70-110)
[2020-03-25 02:24] LABS: % IRON SATURATION 27.5 % (30-44)
[2020-03-25 02:38] VITALS: BP 169/88
[2020-03-25 04:34] VITALS: BP 171/60
[2020-03-25 06:44] LABS: GLUCOMETER DEV NAME(LOC) 5S.1; GLUCOSE,POINT OF CARE 245 MG/DL (70-110)
[2020-03-25 07:05] LABS: BASOPHILS % (AUTO) 0.3 % (0.0-2.0); EOSINOPHILS % (AUTO) 0 % (1.0-6.0); HEMATOCRIT 29.8 % (41-53); LYMPHOCYTES # (AUTO) 0.5 K/uL (1.0-4.8); LYMPHOCYTES % (AUTO) 8.4 % (22.0-44.0); MEAN CORPUSCULAR HEMOGLOBIN 31.4 pg (26.0-34.0); MEAN CORPUSCULAR HGB CONC 33.6 G/dL (31.0-37.0); MEAN CORPUSCULAR VOLUME 93 fL (80-100); MONOCYTES % (AUTO) 0.7 % (2.0-9.0); NEUTROPHILS # (AUTO) 5.8 K/uL (1.8-7.7); PLATELET COUNT (AUTO) 143 K/uL (150-450); RED BLOOD CELL COUNT(AUTO) 3.19 MIL/uL (4.50-5.90); RED CELL DISTRIBUTION WIDTH 14.7 % (11.5-14.5)
[2020-03-25 07:12] LABS: NEUTROPHILS % (AUTO) 90.6 % (40.0-70.0)
[2020-03-25 07:16] VITALS: BP 186/81
[2020-03-25 07:21] LABS: CALCIUM, TOTAL 8.3 mg/dL (8.8-10.5); CREATININE 2.34 mg/dL (0.60-1.30); MAGNESIUM 1.8 mg/dL (1.80-2.40); POTASSIUM 4.4 mmol/L (3.5-5.1)
[2020-03-25] MEDS: HEPARIN SODIUM,PORCINE 5,000 UNITS/ML VIAL SQ SCH ×2 (08:00→15:54)
[2020-03-25] MEDS: CARVEDILOL 25 MG TABLET PO SCH ×2 (08:12→20:48)
[2020-03-25] MEDS: PANTOPRAZOLE SODIUM 40 MG DR TABLET PO SCH (08:13)
[2020-03-25] MEDS: TAMSULOSIN HCL 0.4 MG CAPSULE PO SCH (08:13)
[2020-03-25] MEDS ORDERED: HydrALAZINE HCL 50 MG TABLET PO SCH ×2 (09:00)
[2020-03-25 11:30] VITALS: BP 174/86
[2020-03-25] MEDS: INSULIN LISPRO 100 UNITS/ML SQ PRN (11:51)
[2020-03-25] MEDS: HydrALAZINE HCL 50 MG TABLET PO SCH ×3 (13:20→20:45)
[2020-03-25] MEDS: ALBUTEROL SULFATE/IPRATROPIUM 100-20 MCG/SPRAY 4 GM INHALER IH PRN (14:18)
[2020-03-25 16:33] VITALS: BP 165/80
[2020-03-25 17:16] LABS: GLUCOMETER DEV NAME(LOC) 5N.1; GLUCOSE,POINT OF CARE 476 MG/DL (70-110)
[2020-03-25 19:03] LABS: GLUCOMETER DEV NAME(LOC) 5S.1; GLUCOSE,POINT OF CARE 210 MG/DL (70-110)
[2020-03-25 19:44] VITALS: BP 135/72
[2020-03-25] MEDS: BUMETANIDE 0.25 MG/ML 4 ML VIAL IVP SCH (20:44)
[2020-03-25] MEDS: FINASTERIDE 5 MG TABLET PO SCH (20:45)
[2020-03-25] MEDS: INSULIN GLARGINE,HUM.REC.ANLOG 100 UNITS/ML SQ SCH (20:55)
[2020-03-25 22:51] LABS: GLUCOMETER DEV NAME(LOC) 5S.1; GLUCOSE,POINT OF CARE 174 MG/DL (70-110)
[2020-03-26 00:51] VITALS: BP 159/76
[2020-03-26] MEDS: ALBUTEROL SULFATE/IPRATROPIUM 100-20 MCG/SPRAY 4 GM INHALER IH PRN ×2 (02:07→23:49)
[2020-03-26 04:00] VITALS: BP 162/84
[2020-03-26 07:07] LABS: GLUCOMETER DEV NAME(LOC) 5S.1; GLUCOSE,POINT OF CARE 236 MG/DL (70-110)
[2020-03-26] MEDS: HydrALAZINE HCL 50 MG TABLET PO SCH ×4 (08:03→21:11)
[2020-03-26] MEDS: BUMETANIDE 0.25 MG/ML 4 ML VIAL IVP SCH ×2 (08:04→21:10)
[2020-03-26] MEDS: TAMSULOSIN HCL 0.4 MG CAPSULE PO SCH (08:04)
[2020-03-26] MEDS: ASPIRIN 81 MG EC TABLET PO SCH (08:05)
[2020-03-26] MEDS: HEPARIN SODIUM,PORCINE 5,000 UNITS/ML VIAL SQ SCH ×4 (08:06→23:49)
[2020-03-26] MEDS: PANTOPRAZOLE SODIUM 40 MG DR TABLET PO SCH (08:06)
[2020-03-26] MEDS: CARVEDILOL 25 MG TABLET PO SCH ×2 (09:14→21:12)
[2020-03-26 09:15] VITALS: BP 157/73
[2020-03-26 09:26] LABS: BASOPHILS % (AUTO) 0.3 % (0.0-2.0); EOSINOPHILS % (AUTO) 0.1 % (1.0-6.0); HEMATOCRIT 28.6 % (41-53); HEMOGLOBIN 9.7 g/dL (13.5-17.5); MEAN CORPUSCULAR HEMOGLOBIN 31.3 pg (26.0-34.0); MEAN CORPUSCULAR HGB CONC 33.8 G/dL (31.0-37.0); MEAN CORPUSCULAR VOLUME 93 fL (80-100); MONOCYTES # (AUTO) 0.8 K/uL (0.1-1.0); MONOCYTES % (AUTO) 10.7 % (2.0-9.0); NEUTROPHILS # (AUTO) 5.8 K/uL (1.8-7.7); NEUTROPHILS % (AUTO) 75.9 % (40.0-70.0); PLATELET COUNT (AUTO) 147 K/uL (150-450); RED BLOOD CELL COUNT(AUTO) 3.09 MIL/uL (4.50-5.90)
[2020-03-26 09:55] LABS: CREATININE 2.61 mg/dL (0.60-1.30); POTASSIUM 4.1 mmol/L (3.5-5.1)
[2020-03-26] MEDS: INSULIN LISPRO 100 UNITS/ML SQ PRN ×2 (12:30→21:02)
[2020-03-26 15:31] VITALS: BP 147/74
[2020-03-26 19:50] VITALS: BP 141/63
[2020-03-26 20:25] LABS: GLUCOMETER DEV NAME(LOC) 5S.1; GLUCOSE,POINT OF CARE 262 MG/DL (70-110)
[2020-03-26 20:25] LABS: GLUCOMETER DEV NAME(LOC) 5S.1; GLUCOSE,POINT OF CARE 213 MG/DL (70-110)
[2020-03-26 20:25] LABS: GLUCOMETER DEV NAME(LOC) 5S.1; GLUCOSE,POINT OF CARE 354 MG/DL (70-110)
[2020-03-26] MEDS: INSULIN GLARGINE,HUM.REC.ANLOG 100 UNITS/ML SQ SCH (21:06)
[2020-03-26] MEDS: ATORVASTATIN CALCIUM 40 MG TABLET PO SCH (21:09)
[2020-03-26] MEDS: 0.9% SODIUM CHLORIDE 10 ML SYRINGE IVP PRN (21:10)
[2020-03-26] MEDS: FINASTERIDE 5 MG TABLET PO SCH (21:13)
[2020-03-27] VITALS (7 sets, daily range): BP systolic 133–160; BP diastolic 66–75
[2020-03-27 07:08] LABS: BASOPHILS % (AUTO) 0.3 % (0.0-2.0); EOSINOPHILS % (AUTO) 0.6 % (1.0-6.0); HEMATOCRIT 27.7 % (41-53); HEMOGLOBIN 9.3 g/dL (13.5-17.5); MEAN CORPUSCULAR HEMOGLOBIN 31.1 pg (26.0-34.0); MEAN CORPUSCULAR HGB CONC 33.4 G/dL (31.0-37.0); MEAN CORPUSCULAR VOLUME 93 fL (80-100); MONOCYTES # (AUTO) 0.6 K/uL (0.1-1.0); MONOCYTES % (AUTO) 11.7 % (2.0-9.0); NEUTROPHILS # (AUTO) 3.3 K/uL (1.8-7.7); NEUTROPHILS % (AUTO) 67.4 % (40.0-70.0); PLATELET COUNT (AUTO) 150 K/uL (150-450); RED BLOOD CELL COUNT(AUTO) 2.98 MIL/uL (4.50-5.90); RED CELL DISTRIBUTION WIDTH 15.1 % (11.5-14.5)
[2020-03-27 07:21] LABS: CALCIUM, TOTAL 7.9 mg/dL (8.8-10.5); CREATININE 2.7 mg/dL (0.60-1.30); POTASSIUM 3.8 mmol/L (3.5-5.1)
[2020-03-27] MEDS: HydrALAZINE HCL 50 MG TABLET PO SCH ×4 (08:38→19:56)
[2020-03-27] MEDS: ALBUTEROL SULFATE/IPRATROPIUM 100-20 MCG/SPRAY 4 GM INHALER IH PRN ×4 (08:38→20:52)
[2020-03-27] MEDS: TAMSULOSIN HCL 0.4 MG CAPSULE PO SCH (08:39)
[2020-03-27] MEDS: CARVEDILOL 25 MG TABLET PO SCH ×2 (08:39→19:56)
[2020-03-27] MEDS: PANTOPRAZOLE SODIUM 40 MG DR TABLET PO SCH (08:39)
[2020-03-27] MEDS: ASPIRIN 81 MG EC TABLET PO SCH (08:39)
[2020-03-27] MEDS: BUMETANIDE 0.25 MG/ML 4 ML VIAL IVP SCH ×2 (08:40→19:57)
[2020-03-27] MEDS: HEPARIN SODIUM,PORCINE 5,000 UNITS/ML VIAL SQ SCH ×2 (08:40→16:42)
[2020-03-27] MEDS: INSULIN LISPRO 100 UNITS/ML SQ PRN ×2 (11:22→16:44)
[2020-03-27 15:32] LABS: GLUCOMETER DEV NAME(LOC) 5S.1; GLUCOSE,POINT OF CARE 121 MG/DL (70-110)
[2020-03-27 15:32] LABS: GLUCOMETER DEV NAME(LOC) 5S.1; GLUCOSE,POINT OF CARE 351 MG/DL (70-110)
[2020-03-27 16:57] LABS: GLUCOMETER DEV NAME(LOC) 5S.1; GLUCOSE,POINT OF CARE 97 MG/DL (70-110)
[2020-03-27] MEDS: ATORVASTATIN CALCIUM 40 MG TABLET PO SCH (19:56)
[2020-03-27] MEDS: ACETAMINOPHEN 325 MG TABLET PO PRN (19:57)
[2020-03-27] MEDS: 0.9% SODIUM CHLORIDE 10 ML SYRINGE IVP PRN (20:08)
[2020-03-27] MEDS: INSULIN GLARGINE,HUM.REC.ANLOG 100 UNITS/ML SQ SCH (20:14)
[2020-03-27] MEDS: FINASTERIDE 5 MG TABLET PO SCH (20:14)
[2020-03-27 23:50] LABS: GLUCOMETER DEV NAME(LOC) 5S.1; GLUCOSE,POINT OF CARE 151 MG/DL (70-110)
[2020-03-28] MEDS: HEPARIN SODIUM,PORCINE 5,000 UNITS/ML VIAL SQ SCH ×4 (00:01→23:28)
[2020-03-28] MEDS: ACETAMINOPHEN 325 MG TABLET PO PRN ×2 (01:15→21:21)
[2020-03-28] MEDS: ALBUTEROL SULFATE/IPRATROPIUM 100-20 MCG/SPRAY 4 GM INHALER IH PRN ×4 (04:13→20:46)
[2020-03-28 05:07] VITALS: BP 150/67
[2020-03-28 05:36] LABS: GLUCOMETER DEV NAME(LOC) 5S.1; GLUCOSE,POINT OF CARE 238 MG/DL (70-110)
[2020-03-28 06:59] LABS: BASOPHILS % (AUTO) 0.4 % (0.0-2.0); EOSINOPHILS % (AUTO) 0.7 % (1.0-6.0); HEMATOCRIT 28.1 % (41-53); HEMOGLOBIN 9.4 g/dL (13.5-17.5); LYMPHOCYTES # (AUTO) 0.7 K/uL (1.0-4.8); LYMPHOCYTES % (AUTO) 13.9 % (22.0-44.0); MEAN CORPUSCULAR HEMOGLOBIN 31.2 pg (26.0-34.0); MEAN CORPUSCULAR HGB CONC 33.5 G/dL (31.0-37.0); MEAN CORPUSCULAR VOLUME 93 fL (80-100); MONOCYTES # (AUTO) 0.5 K/uL (0.1-1.0); PLATELET COUNT (AUTO) 157 K/uL (150-450); RED BLOOD CELL COUNT(AUTO) 3.01 MIL/uL (4.50-5.90)
[2020-03-28 07:02] VITALS: BP 147/64
[2020-03-28 07:08] LABS: CALCIUM, TOTAL 7.9 mg/dL (8.8-10.5); CREATININE 2.75 mg/dL (0.60-1.30); POTASSIUM 4.4 mmol/L (3.5-5.1)
[2020-03-28] MEDS: BUMETANIDE 0.25 MG/ML 4 ML VIAL IVP SCH ×2 (07:57→21:20)
[2020-03-28] MEDS: TAMSULOSIN HCL 0.4 MG CAPSULE PO SCH (07:58)
[2020-03-28] MEDS: CARVEDILOL 25 MG TABLET PO SCH ×2 (07:58→21:19)
[2020-03-28] MEDS: ASPIRIN 81 MG EC TABLET PO SCH (07:58)
[2020-03-28] MEDS: PANTOPRAZOLE SODIUM 40 MG DR TABLET PO SCH (07:58)
[2020-03-28] MEDS: HydrALAZINE HCL 50 MG TABLET PO SCH ×4 (07:58→21:19)
[2020-03-28 11:37] VITALS: BP 147/72
[2020-03-28] MEDS: INSULIN LISPRO 100 UNITS/ML SQ PRN ×3 (11:54→21:18)
[2020-03-28 12:11] LABS: GLUCOMETER DEV NAME(LOC) 5N.3; GLUCOSE,POINT OF CARE 409 MG/DL (70-110)
[2020-03-28 16:02] VITALS: BP 139/72
[2020-03-28 17:04] LABS: GLUCOMETER DEV NAME(LOC) 5N.3; GLUCOSE,POINT OF CARE 145 MG/DL (70-110)
[2020-03-28] MEDS: ALBUTEROL SULFATE/IPRATROPIUM 100-20 MCG/SPRAY 4 GM INHALER IH SCH ×2 (18:53→23:28)
[2020-03-28 19:55] VITALS: BP 144/81
[2020-03-28] MEDS: INSULIN GLARGINE,HUM.REC.ANLOG 100 UNITS/ML SQ SCH (21:00)
[2020-03-28] MEDS: ATORVASTATIN CALCIUM 40 MG TABLET PO SCH (21:19)
[2020-03-28] MEDS: FINASTERIDE 5 MG TABLET PO SCH (21:19)
[2020-03-28] MEDS ORDERED: HYDROCODONE/ACETAMINOPHEN 5-325 MG TABLET PO ONE (23:30)
[2020-03-28 23:33] VITALS: BP 137/62
[2020-03-29 00:21] LABS: GLUCOMETER DEV NAME(LOC) 5N.3; GLUCOSE,POINT OF CARE 324 MG/DL (70-110)
[2020-03-29] MEDS: ALBUTEROL SULFATE/IPRATROPIUM 100-20 MCG/SPRAY 4 GM INHALER IH PRN ×3 (02:02→13:43)
[2020-03-29 04:22] VITALS: BP 158/84
[2020-03-29] MEDS: ALBUTEROL SULFATE/IPRATROPIUM 100-20 MCG/SPRAY 4 GM INHALER IH SCH ×2 (04:57→11:56)
[2020-03-29 05:21] LABS: GLUCOMETER DEV NAME(LOC) 5N.3; GLUCOSE,POINT OF CARE 160 MG/DL (70-110)
[2020-03-29 06:59] LABS: TPROTEIN TIMED,URINE 75 mg/dL
[2020-03-29 07:02] LABS: COLLECTION TIME,URINE 24 HR; TPROTEIN URINE, 24HRS COLL 1050 mg/24Hr (0-165)
[2020-03-29 07:09] LABS: BASOPHILS % (AUTO) 0.6 % (0.0-2.0); EOSINOPHILS % (AUTO) 1.8 % (1.0-6.0); HEMATOCRIT 27.9 % (41-53); HEMOGLOBIN 9.4 g/dL (13.5-17.5); LYMPHOCYTES % (AUTO) 25.6 % (22.0-44.0); MEAN CORPUSCULAR HEMOGLOBIN 31.6 pg (26.0-34.0); MEAN CORPUSCULAR HGB CONC 33.9 G/dL (31.0-37.0); MEAN CORPUSCULAR VOLUME 93 fL (80-100); MONOCYTES # (AUTO) 0.5 K/uL (0.1-1.0); MONOCYTES % (AUTO) 13.9 % (2.0-9.0); NEUTROPHILS # (AUTO) 2.3 K/uL (1.8-7.7); NEUTROPHILS % (AUTO) 58.1 % (40.0-70.0); PLATELET COUNT (AUTO) 166 K/uL (150-450); RED BLOOD CELL COUNT(AUTO) 2.99 MIL/uL (4.50-5.90); RED CELL DISTRIBUTION WIDTH 15.1 % (11.5-14.5)
[2020-03-29 07:16] LABS: CALCIUM, TOTAL 8.3 mg/dL (8.8-10.5); CREATININE 2.85 mg/dL (0.60-1.30); POTASSIUM 4.3 mmol/L (3.5-5.1)
[2020-03-29 07:21] VITALS: BP 157/82
[2020-03-29] MEDS: HEPARIN SODIUM,PORCINE 5,000 UNITS/ML VIAL SQ SCH (08:21)
[2020-03-29] MEDS: TAMSULOSIN HCL 0.4 MG CAPSULE PO SCH (08:22)
[2020-03-29] MEDS: CARVEDILOL 25 MG TABLET PO SCH (08:22)
[2020-03-29] MEDS: ASPIRIN 81 MG EC TABLET PO SCH (08:22)
[2020-03-29] MEDS: HydrALAZINE HCL 50 MG TABLET PO SCH ×2 (08:22→11:55)
[2020-03-29] MEDS: PANTOPRAZOLE SODIUM 40 MG DR TABLET PO SCH (08:22)
[2020-03-29] MEDS: BUMETANIDE 0.25 MG/ML 4 ML VIAL IVP SCH (08:23)
[2020-03-29 11:01] VITALS: BP 150/87
[2020-03-29] MEDS: INSULIN LISPRO 100 UNITS/ML SQ PRN (12:02)
[2020-03-29] MEDS ORDERED: ATOR40TA28 PO (13:09)
[2020-03-29] MEDS ORDERED: HYDR-2924 PO (13:11)
[2020-03-29] MEDS ORDERED: BUME1TAB34 PO (13:16)
[2020-03-29 23:20] LABS: GLUCOMETER DEV NAME(LOC) 5N.3; GLUCOSE,POINT OF CARE 203 MG/DL (70-110)
[2020-03-29 23:20] LABS: GLUCOMETER DEV NAME(LOC) 5N.3; GLUCOSE,POINT OF CARE 255 MG/DL (70-110)
[2020-03-29 23:20] LABS: GLUCOMETER DEV NAME(LOC) 5N.3; GLUCOSE,POINT OF CARE 209 MG/DL (70-110)
[2020-03-29 23:20] LABS: GLUCOMETER DEV NAME(LOC) 5N.3; GLUCOSE,POINT OF CARE 242 MG/DL (70-110)
== END 2020-03-29 15:15 | disposition home or self-care (01) | DRG 291 ==
LOC: EMS 20:37 → 5S 23:39
PROVIDERS: ADMIT Internal Medicine; ATTEND Internal Medicine
DX: I13.2 Hypertensive heart and chronic kidney disease with heart failure and with stage 5 chronic kidney disease, or end stage renal disease (principal); I50.33 Acute on chronic diastolic (congestive) heart failure; N18.6 End stage renal disease; E46 Unspecified protein-calorie malnutrition; N25.81 Secondary hyperparathyroidism of renal origin; N17.9 Acute kidney failure, unspecified; R64 Cachexia; J44.1 Chronic obstructive pulmonary disease with (acute) exacerbation; N39.0 Urinary tract infection, site not specified; E11.22 Type 2 diabetes mellitus with diabetic chronic kidney disease; E11.65 Type 2 diabetes mellitus with hyperglycemia; E11.51 Type 2 diabetes mellitus with diabetic peripheral angiopathy without gangrene; R62.7 Adult failure to thrive; Z68.27 Body mass index [BMI] 27.0-27.9, adult; E87.5 Hyperkalemia; E83.51 Hypocalcemia; E83.39 Other disorders of phosphorus metabolism; I25.10 Atherosclerotic heart disease of native coronary artery without angina pectoris; Z79.4 Long term (current) use of insulin; D63.8 Anemia in other chronic diseases classified elsewhere; Z79.899 Other long term (current) drug therapy; J98.01 Acute bronchospasm; Z91.19 Patient's noncompliance with other medical treatment and regimen; E87.70 Fluid overload, unspecified; Z83.3 Family history of diabetes mellitus; Z82.49 Family history of ischemic heart disease and other diseases of the circulatory system; E78.5 Hyperlipidemia, unspecified; E11.319 Type 2 diabetes mellitus with unspecified diabetic retinopathy without macular edema; Z91.14 Patient's other noncompliance with medication regimen; Z95.5 Presence of coronary angioplasty implant and graft; Z20.828 Contact with and (suspected) exposure to other viral communicable diseases
CPT/HCPCS: 76775; 81050; 83540; 83550; 83735; 84156; 87081; 93005; 93306; 93976; 94640; J1644; J1815; J1940; J2930; J3490; J3535; 36415-L1; 36415-TC; 71045-TC; 71046; 71046-TC

== ENCOUNTER → 2020-04-07 | Outpatient (CLI) | payer MEDICARE, MEDICAID ==
[~2020-04-07] MED LIST changes: -ALBU8.5H8 IH; -AMLO5TAB66 PO; +ATOR40TA28 PO; -AUD NEB; +BUME1TAB34 PO; -FURO40 PO; -OSEL30CA PO; -PRED10 PO; -PRED20 PO; -PRED5 PO
== END | disposition home or self-care (01) ==
LOC: SRCNTR 13:41
PROVIDERS: ATTEND Internal Medicine
DX: I11.0 Hypertensive heart disease with heart failure (principal); I50.30 Unspecified diastolic (congestive) heart failure; J44.9 Chronic obstructive pulmonary disease, unspecified; I25.10 Atherosclerotic heart disease of native coronary artery without angina pectoris; E11.9 Type 2 diabetes mellitus without complications
CPT/HCPCS: 99441

== ENCOUNTER 2020-04-22 23:54 | Inpatient (IN) | payer MEDICARE, MEDICAID ==
[~2020-04-22] VITALS: Ht 182.9 cm; Wt 190.0 kg
[2020-04-23] MEDS ORDERED: ALBUTEROL SULFATE 5 MG/ML 20 ML NEB SOLN [BULK] NEB ONE (00:45)
[2020-04-23] MEDS ORDERED: MethylPREDNISolone SOD SUCC 125 MG/2 ML VIAL IVP ONE (00:45)
[2020-04-23] MEDS ORDERED: IPRATROPIUM BROMIDE 0.5 MG/2.5 ML NEB SOLUTION NEB ONE (00:45)
[2020-04-23] MEDS ORDERED: 0.9% SODIUM CHLORIDE 15 ML NEB SOLUTION NEB ONE (00:55)
[2020-04-23 00:57] LABS: HEMATOCRIT 27.8 % (41-53); HEMOGLOBIN 9.3 g/dL (13.5-17.5); LYMPHOCYTES # (AUTO) 1.5 K/uL (1.0-4.8); LYMPHOCYTES % (AUTO) 25.8 % (22.0-44.0); MEAN CORPUSCULAR HEMOGLOBIN 30.9 pg (26.0-34.0); MEAN CORPUSCULAR HGB CONC 33.6 G/dL (31.0-37.0); MEAN CORPUSCULAR VOLUME 92 fL (80-100); MONOCYTES # (AUTO) 0.7 K/uL (0.1-1.0); MONOCYTES % (AUTO) 13.2 % (2.0-9.0); NEUTROPHILS # (AUTO) 3.2 K/uL (1.8-7.7); PLATELET COUNT (AUTO) 308 K/uL (150-450); RED BLOOD CELL COUNT(AUTO) 3.03 MIL/uL (4.50-5.90); RED CELL DISTRIBUTION WIDTH 14.9 % (11.5-14.5)
[2020-04-23 01:05] LABS: CALCIUM, TOTAL 9.3 mg/dL (8.8-10.5); CREATININE 3.56 mg/dL (0.60-1.30); POTASSIUM 3.6 mmol/L (3.5-5.1)
[2020-04-23 01:11] LABS: ALBUMIN 2.7 g/dL (3.4-5.0); BILIRUBIN,TOTAL 0.2 mg/dL (0.1-1.0); TOTAL PROTEIN, SERUM 6.8 g/dL (6.4-8.2)
[2020-04-23] MEDS ORDERED: ONDANSETRON HCL 4 MG/2 ML VIAL IVP PRN ×2 (02:30→07:30)
[2020-04-23] MEDS ORDERED: 0.9% SODIUM CHLORIDE 10 ML SYRINGE IVP PRN (02:30)
[2020-04-23] MEDS ORDERED: ACETAMINOPHEN 325 MG TABLET PO PRN ×2 (02:30→07:30)
[2020-04-23] MEDS ORDERED: SODIUM CHLORIDE 0.9% 1,000 ML IV ONE (02:30)
[2020-04-23] MEDS ORDERED: HydrALAZINE HCL 20 MG/ML VIAL IVP ONE (03:00)
[2020-04-23 04:00] VITALS: BP 169/90
[2020-04-23] MEDS ORDERED: CloNIDine HCL 0.1 MG TABLET PO PRN (04:30)
[2020-04-23] MEDS ORDERED: DEXTROSE 50%-WATER 25 GM/50 ML SYRINGE IVP PRN (04:30)
[2020-04-23 05:28] VITALS: BP 121/84
[2020-04-23] MEDS ORDERED: PNEUMOCOCCAL VACCINE POLYVALENT 0.5 ML VIAL [PPSV23] IM ONE (06:15)
[2020-04-23] MEDS ORDERED: ZOLPIDEM TARTRATE 5 MG TABLET PO PRN (07:30)
[2020-04-23] MEDS ORDERED: MAGNESIUM HYDROXIDE SUSPENSION 30 ML UDCUP PO PRN (07:30)
[2020-04-23] MEDS ORDERED: HYDROCODONE/ACETAMINOPHEN 5-325 MG TABLET PO PRN (07:30)
[2020-04-23] MEDS ORDERED: BISACODYL 10 MG RECTAL RECTAL SUPPOSITORY PR PRN (07:30)
[2020-04-23] MEDS ORDERED: MORPHINE SULFATE 2 MG/ML SYRINGE IVP PRN (07:30)
[2020-04-23 07:46] LABS: GLUCOMETER DEV NAME(LOC) 5S.1; GLUCOSE,POINT OF CARE 237 MG/DL (70-110)
[2020-04-23] MEDS: TAMSULOSIN HCL 0.4 MG CAPSULE PO SCH (07:56)
[2020-04-23] MEDS: HydrALAZINE HCL 50 MG TABLET PO SCH ×3 (07:57→20:50)
[2020-04-23] MEDS: BENZONATATE 100 MG CAPSULE PO SCH ×3 (07:57→20:50)
[2020-04-23] MEDS: CARVEDILOL 25 MG TABLET PO SCH ×2 (07:57→20:50)
[2020-04-23] MEDS: GuaiFENesin SR 600 MG ER TABLET PO SCH ×2 (07:57→20:50)
[2020-04-23] MEDS: HEPARIN SODIUM,PORCINE 5,000 UNITS/ML VIAL SQ SCH ×2 (07:58→16:10)
[2020-04-23] MEDS: PANTOPRAZOLE SODIUM 40 MG DR TABLET PO SCH (07:58)
[2020-04-23] MEDS: DOCUSATE SODIUM 100 MG CAPSULE PO SCH ×2 (07:59→09:10)
[2020-04-23] MEDS: ALBUTEROL SULFATE HFA 90 MCG/PUFF 8 GM INHALER IH PRN (08:00)
[2020-04-23] MEDS: IPRATROPIUM BROMIDE HFA 17 MCG/PUFF 12.9 GM INHALER IH PRN (08:00)
[2020-04-23 08:06] VITALS: BP 160/93
[2020-04-23] MEDS ORDERED: SODIUM CHLORIDE 0.9% 250 ML IV ONE (08:22)
[2020-04-23] MEDS: INSULIN GLARGINE,HUM.REC.ANLOG 100 UNITS/ML SQ SCH (09:00)
[2020-04-23] MEDS: CefTRIAXone 1 GM/DEXTROSE 50 ML IV SCH (09:08)
[2020-04-23] MEDS: BUMETANIDE 1 MG TABLET PO SCH ×2 (09:09→21:10)
[2020-04-23 10:49] VITALS: BP 124/70
[2020-04-23] MEDS: AZITHROMYCIN 500 MG/NS 250 ML IV SCH (11:21)
[2020-04-23] MEDS: MethylPREDNISolone SOD SUCC 125 MG/2 ML VIAL IVP SCH ×2 (11:52→18:13)
[2020-04-23] MEDS: INSULIN LISPRO 100 UNITS/ML SQ PRN ×3 (11:56→20:55)
[2020-04-23 15:04] LABS: GLUCOMETER DEV NAME(LOC) 5S.1; GLUCOSE,POINT OF CARE 498 MG/DL (70-110)
[2020-04-23 15:20] VITALS: BP 158/86
[2020-04-23 20:04] VITALS: BP 127/73
[2020-04-23] MEDS ORDERED: ATORVASTATIN CALCIUM 40 MG TABLET PO SCH (21:00)
[2020-04-23] MEDS ORDERED: FINASTERIDE 5 MG TABLET PO SCH (21:00)
[2020-04-23 23:16] LABS: GLUCOMETER DEV NAME(LOC) 5N.1; GLUCOSE,POINT OF CARE 362 MG/DL (70-110)
[2020-04-23 23:16] LABS: GLUCOMETER DEV NAME(LOC) 5N.1; GLUCOSE,POINT OF CARE 342 MG/DL (70-110)
[2020-04-24 00:04] VITALS: BP 124/70
[2020-04-24] MEDS: MethylPREDNISolone SOD SUCC 125 MG/2 ML VIAL IVP SCH ×3 (00:48→12:19)
[2020-04-24] MEDS: ALBUTEROL SULFATE HFA 90 MCG/PUFF 8 GM INHALER IH PRN (01:48)
[2020-04-24] MEDS: IPRATROPIUM BROMIDE HFA 17 MCG/PUFF 12.9 GM INHALER IH PRN (01:48)
[2020-04-24 04:50] VITALS: BP 126/72
[2020-04-24] MEDS: INSULIN LISPRO 100 UNITS/ML SQ PRN ×2 (06:18→12:20)
[2020-04-24] MEDS ORDERED: FINA-27 PO (07:54)
[2020-04-24 08:11] VITALS: BP 178/88
[2020-04-24] MEDS: CefTRIAXone 1 GM/DEXTROSE 50 ML IV SCH (09:21)
[2020-04-24] MEDS: AZITHROMYCIN 500 MG/NS 250 ML IV SCH (09:21)
[2020-04-24] MEDS: CARVEDILOL 25 MG TABLET PO SCH (09:22)
[2020-04-24] MEDS: BUMETANIDE 1 MG TABLET PO SCH (09:22)
[2020-04-24] MEDS: TAMSULOSIN HCL 0.4 MG CAPSULE PO SCH (09:22)
[2020-04-24] MEDS: BENZONATATE 100 MG CAPSULE PO SCH (09:22)
[2020-04-24] MEDS: HydrALAZINE HCL 50 MG TABLET PO SCH (09:22)
[2020-04-24] MEDS: GuaiFENesin SR 600 MG ER TABLET PO SCH (09:22)
[2020-04-24] MEDS: PANTOPRAZOLE SODIUM 40 MG DR TABLET PO SCH (09:22)
[2020-04-24] MEDS: DOCUSATE SODIUM 100 MG CAPSULE PO SCH (09:23)
[2020-04-24] MEDS: INSULIN GLARGINE,HUM.REC.ANLOG 100 UNITS/ML SQ SCH (09:35)
[2020-04-24] MEDS: HEPARIN SODIUM,PORCINE 5,000 UNITS/ML VIAL SQ SCH ×2 (09:37)
[2020-04-24 11:07] VITALS: BP 175/85
[2020-04-24 16:59] LABS: GLUCOMETER DEV NAME(LOC) 5N.1; GLUCOSE,POINT OF CARE 491 MG/DL (70-110)
[2020-04-24 19:16] LABS: GLUCOMETER DEV NAME(LOC) 5N.3; GLUCOSE,POINT OF CARE 424 MG/DL (70-110)
== END 2020-04-24 15:45 | disposition home or self-care (01) | DRG 191 ==
LOC: EMS 23:54 → 5N 04-23 02:30
PROVIDERS: ADMIT Internal Medicine; ATTEND Internal Medicine
DX: J44.1 Chronic obstructive pulmonary disease with (acute) exacerbation (principal); I50.22 Chronic systolic (congestive) heart failure; N18.4 Chronic kidney disease, stage 4 (severe); I13.0 Hypertensive heart and chronic kidney disease with heart failure and stage 1 through stage 4 chronic kidney disease, or unspecified chronic kidney disease; N17.9 Acute kidney failure, unspecified; E11.22 Type 2 diabetes mellitus with diabetic chronic kidney disease; E78.5 Hyperlipidemia, unspecified; N40.0 Benign prostatic hyperplasia without lower urinary tract symptoms; I25.10 Atherosclerotic heart disease of native coronary artery without angina pectoris; Z79.4 Long term (current) use of insulin; Z91.19 Patient's noncompliance with other medical treatment and regimen; Z95.1 Presence of aortocoronary bypass graft; Z95.5 Presence of coronary angioplasty implant and graft; Z20.828 Contact with and (suspected) exposure to other viral communicable diseases
CPT/HCPCS: 87081; 93005; 94644; J0456; J0696; J1644; J1815; J2930; J3535; J7030; J7050; 36415-L1; 36415-TC; 71045-TC; J7611; U0003-CS

== ENCOUNTER 2020-05-06 23:24 | Emergency (ER) | payer MEDICARE, MEDICAID ==
[~2020-05-06] VITALS: Ht 188 cm; Wt 90.0 kg
[~2020-05-06 23:24] MED LIST changes: +FINA-27 PO; -FINA5TAB2 PO
[2020-05-06 23:52] LABS: BASOPHILS % (AUTO) 1.4 % (0.0-2.0); EOSINOPHILS % (AUTO) 6.6 % (1.0-6.0); HEMOGLOBIN 9.2 g/dL (13.5-17.5); LYMPHOCYTES # (AUTO) 1.3 K/uL (1.0-4.8); LYMPHOCYTES % (AUTO) 18.9 % (22.0-44.0); MEAN CORPUSCULAR HGB CONC 32.9 G/dL (31.0-37.0); MEAN CORPUSCULAR VOLUME 91 fL (80-100); MONOCYTES # (AUTO) 0.8 K/uL (0.1-1.0); MONOCYTES % (AUTO) 11.7 % (2.0-9.0); NEUTROPHILS # (AUTO) 4.3 K/uL (1.8-7.7); NEUTROPHILS % (AUTO) 61.4 % (40.0-70.0); PLATELET COUNT (AUTO) 208 K/uL (150-450); RED BLOOD CELL COUNT(AUTO) 3.07 MIL/uL (4.50-5.90); RED CELL DISTRIBUTION WIDTH 14.4 % (11.5-14.5)
[2020-05-07 00:04] LABS: CALCIUM, TOTAL 9.2 mg/dL (8.8-10.5); CREATININE 2.85 mg/dL (0.60-1.30); POTASSIUM 4.4 mmol/L (3.5-5.1)
[2020-05-07 00:08] LABS: PROTHROMBIN TIME 10.4 SEC (9.4-11.6)
[2020-05-07 00:11] LABS: ALBUMIN 2.6 g/dL (3.4-5.0); BILIRUBIN,TOTAL 0.2 mg/dL (0.1-1.0); TOTAL PROTEIN, SERUM 6.7 g/dL (6.4-8.2)
[2020-05-07 01:07] LABS: APPEARANCE,URINE CLEAR (CLEAR); BILIRUBIN,URINE NEGATIVE (NEGATIVE); GLUCOSE, URINE (UA) 100 mg/dL (NEGATIVE); KETONES,URINE NEGATIVE (NEGATIVE); LEUKOCYTE ESTERASE ,URINE NEGATIVE (NEGATIVE); NITRATE,URINE NEGATIVE (NEGATIVE); OCCULT BLOOD,URINE NEGATIVE (NEGATIVE); PH,URINE 6.5 (5.0-8.0); PROTEIN,URINE SEE CONFIRM (NEGATIVE); UROBILINOGEN,URINE 0.2 mg/dL (<=1.0)
[2020-05-07 01:17] LABS: SULFOSALICYLIC ACID,URINE 2+ (Negative)
[2020-05-07 01:18] LABS: BACTERIA,URINE None Seen /HPF (None Seen); RBC,URINE None Seen /HPF (0-2); SQUAMOUS EPITHELIAL CELL,UR Rare /LPF (None Seen); WBC,URINE None Seen /HPF (0-5)
[2020-05-07 01:52] VITALS: BP 177/96
== END 2020-05-07 02:29 | disposition home or self-care (01) ==
LOC: EMS 23:24
DX: J44.1 Chronic obstructive pulmonary disease with (acute) exacerbation (principal); I25.10 Atherosclerotic heart disease of native coronary artery without angina pectoris; I11.0 Hypertensive heart disease with heart failure; I50.9 Heart failure, unspecified; E11.9 Type 2 diabetes mellitus without complications; F19.90 Other psychoactive substance use, unspecified, uncomplicated; Z79.4 Long term (current) use of insulin
CPT/HCPCS: 87040; 93005; 36415-L1; 36415-TC; 71045-TC

== ENCOUNTER 2020-05-13 11:19 | Emergency (ER) | payer MEDICARE, MEDICAID ==
[~2020-05-13] VITALS: Ht 180.3 cm; Wt 86.4 kg
[2020-05-13] MEDS ORDERED: ALBUTEROL SULFATE 5 MG/ML 20 ML NEB SOLN [BULK] NEB ONE ×2 (12:00→12:45)
[2020-05-13] MEDS ORDERED: MethylPREDNISolone SOD SUCC 125 MG/2 ML VIAL IVP ONE (12:00)
[2020-05-13] MEDS ORDERED: IPRATROPIUM BROMIDE 0.5 MG/2.5 ML NEB SOLUTION NEB ONE (12:00)
[2020-05-13 12:06] LABS: BASOPHILS % (AUTO) 1.6 % (0.0-2.0); EOSINOPHILS % (AUTO) 12.6 % (1.0-6.0); HEMATOCRIT 29.5 % (41-53); HEMOGLOBIN 10.3 g/dL (13.5-17.5); LYMPHOCYTES # (AUTO) 1.3 K/uL (1.0-4.8); LYMPHOCYTES % (AUTO) 22.8 % (22.0-44.0); MEAN CORPUSCULAR HEMOGLOBIN 31.4 pg (26.0-34.0); MEAN CORPUSCULAR HGB CONC 34.9 G/dL (31.0-37.0); MEAN CORPUSCULAR VOLUME 90 fL (80-100); MONOCYTES # (AUTO) 0.8 K/uL (0.1-1.0); MONOCYTES % (AUTO) 13.7 % (2.0-9.0); NEUTROPHILS # (AUTO) 2.9 K/uL (1.8-7.7); NEUTROPHILS % (AUTO) 49.3 % (40.0-70.0); PLATELET COUNT (AUTO) 445 K/uL (150-450); RED BLOOD CELL COUNT(AUTO) 3.28 MIL/uL (4.50-5.90); RED CELL DISTRIBUTION WIDTH 14.6 % (11.5-14.5)
[2020-05-13] MEDS ORDERED: 0.9% SODIUM CHLORIDE 5 ML NEB SOLUTION NEB ONE ×2 (12:17→12:47)
[2020-05-13 12:18] LABS: CALCIUM, TOTAL 9.3 mg/dL (8.8-10.5); CREATININE 3.53 mg/dL (0.60-1.30); POTASSIUM 4.1 mmol/L (3.5-5.1)
[2020-05-13 12:42] LABS: ALBUMIN 2.7 g/dL (3.4-5.0); BILIRUBIN,TOTAL 0.3 mg/dL (0.1-1.0); TOTAL PROTEIN, SERUM 7.3 g/dL (6.4-8.2)
[2020-05-13 14:54] VITALS: BP 138/79
== END 2020-05-13 14:55 | disposition home or self-care (01) ==
LOC: EMS 11:32
DX: J44.1 Chronic obstructive pulmonary disease with (acute) exacerbation (principal); I25.10 Atherosclerotic heart disease of native coronary artery without angina pectoris; I11.0 Hypertensive heart disease with heart failure; I50.9 Heart failure, unspecified; E11.9 Type 2 diabetes mellitus without complications; F19.90 Other psychoactive substance use, unspecified, uncomplicated; Z79.4 Long term (current) use of insulin
CPT/HCPCS: 36415; 71045; 80053; 82550; 83880; 84484; 85025; 93005; 94640; 94644; 96374; 99285; J2930; J7611

== ENCOUNTER 2020-05-30 22:32 | Emergency (ER) | payer MEDICARE, MEDICAID ==
[~2020-05-30] VITALS: Ht 182.9 cm; Wt 83.5 kg
[~2020-05-30 22:32] MED LIST changes: +PRED5 PO
[2020-05-30] MEDS ORDERED: MethylPREDNISolone SOD SUCC 125 MG/2 ML VIAL IVP ONE (22:45)
[2020-05-30] MEDS ORDERED: ALBUTEROL SULFATE 2.5 MG/0.5 ML NEB SOLUTION NEB ONE (22:45)
[2020-05-30] MEDS ORDERED: IPRATROPIUM BROMIDE 0.5 MG/2.5 ML NEB SOLUTION NEB ONE (22:45)
[2020-05-30 23:01] LABS: BASOPHILS % (AUTO) 1.5 % (0.0-2.0); EOSINOPHILS % (AUTO) 9.6 % (1.0-6.0); HEMATOCRIT 27.9 % (41-53); HEMOGLOBIN 9.2 g/dL (13.5-17.5); LYMPHOCYTES # (AUTO) 1.2 K/uL (1.0-4.8); LYMPHOCYTES % (AUTO) 18.5 % (22.0-44.0); MEAN CORPUSCULAR HEMOGLOBIN 29.6 pg (26.0-34.0); MEAN CORPUSCULAR HGB CONC 32.8 G/dL (31.0-37.0); MEAN CORPUSCULAR VOLUME 90 fL (80-100); MONOCYTES # (AUTO) 0.9 K/uL (0.1-1.0); MONOCYTES % (AUTO) 13.6 % (2.0-9.0); NEUTROPHILS # (AUTO) 3.7 K/uL (1.8-7.7); NEUTROPHILS % (AUTO) 56.8 % (40.0-70.0); PLATELET COUNT (AUTO) 236 K/uL (150-450); RED BLOOD CELL COUNT(AUTO) 3.09 MIL/uL (4.50-5.90); RED CELL DISTRIBUTION WIDTH 14.6 % (11.5-14.5)
[2020-05-30 23:09] LABS: CALCIUM, TOTAL 9.1 mg/dL (8.8-10.5); CREATININE 3.42 mg/dL (0.60-1.30); POTASSIUM 4.2 mmol/L (3.5-5.1)
[2020-05-30 23:14] LABS: PROTHROMBIN TIME 10.4 SEC (9.4-11.6)
[2020-05-30 23:15] LABS: ALBUMIN 2.4 g/dL (3.4-5.0); BILIRUBIN,TOTAL 0.2 mg/dL (0.1-1.0); TOTAL PROTEIN, SERUM 6.7 g/dL (6.4-8.2)
[2020-05-30 23:17] LABS: GLUCOSE,POINT OF CARE 365 MG/DL (70-110)
[2020-05-31 00:30] VITALS: BP 152/80
== END 2020-05-31 01:15 | disposition home or self-care (01) ==
LOC: EMS 22:32
DX: J44.1 Chronic obstructive pulmonary disease with (acute) exacerbation (principal); E11.65 Type 2 diabetes mellitus with hyperglycemia; I11.0 Hypertensive heart disease with heart failure; I50.9 Heart failure, unspecified; I25.10 Atherosclerotic heart disease of native coronary artery without angina pectoris; Z79.899 Other long term (current) drug therapy
CPT/HCPCS: 36415; 71045; 80053; 82550; 82962; 83880; 84484; 85025; 85610; 85730; 93005; 94640; 96374; 99285; J2930; 94060; J7613

== ENCOUNTER → 2020-06-03 | Outpatient (CLI) | payer MEDICARE, MEDICAID | END | disposition home or self-care (01) | LOC: SRCNTR 11:48 | PROVIDERS: ATTEND Hospitalist | DX: I50.33 Acute on chronic diastolic (congestive) heart failure (principal); E11.65 Type 2 diabetes mellitus with hyperglycemia; I82.409 Acute embolism and thrombosis of unspecified deep veins of unspecified lower extremity; K21.9 Gastro-esophageal reflux disease without esophagitis; N40.0 Benign prostatic hyperplasia without lower urinary tract symptoms; E11.22 Type 2 diabetes mellitus with diabetic chronic kidney disease; N18.9 Chronic kidney disease, unspecified; Z79.899 Other long term (current) drug therapy | CPT/HCPCS: Q3014 ==

== ENCOUNTER 2020-06-27 11:30 | Emergency (ER) | payer MEDICARE, MEDICAID ==
[~2020-06-27] VITALS: Ht 172.7 cm; Wt 80.0 kg
[2020-06-27 12:24] LABS: GLUCOSE,POINT OF CARE 130 MG/DL (70-110)
[2020-06-27] MEDS ORDERED: DEXAMETHASONE SOD PHOS 4 MG/ML VIAL IVP ONE (13:00)
[2020-06-27] MEDS ORDERED: ALBUTEROL SULFATE/IPRATROPIUM 100-20 MCG/SPRAY 4 GM INHALER IH ONE (13:00)
[2020-06-27 13:31] LABS: BASOPHILS % (AUTO) 1.7 % (0.0-2.0); EOSINOPHILS % (AUTO) 7.4 % (1.0-6.0); HEMATOCRIT 27.7 % (41-53); HEMOGLOBIN 9.5 g/dL (13.5-17.5); LYMPHOCYTES # (AUTO) 1.1 K/uL (1.0-4.8); LYMPHOCYTES % (AUTO) 15.9 % (22.0-44.0); MEAN CORPUSCULAR HEMOGLOBIN 31.4 pg (26.0-34.0); MEAN CORPUSCULAR HGB CONC 34.4 G/dL (31.0-37.0); MEAN CORPUSCULAR VOLUME 91 fL (80-100); MONOCYTES # (AUTO) 0.9 K/uL (0.1-1.0); MONOCYTES % (AUTO) 13.4 % (2.0-9.0); NEUTROPHILS # (AUTO) 4.2 K/uL (1.8-7.7); NEUTROPHILS % (AUTO) 61.6 % (40.0-70.0); PLATELET COUNT (AUTO) 254 K/uL (150-450); RED BLOOD CELL COUNT(AUTO) 3.03 MIL/uL (4.50-5.90); RED CELL DISTRIBUTION WIDTH 15.6 % (11.5-14.5)
[2020-06-27 13:45] LABS: CALCIUM, TOTAL 8.3 mg/dL (8.8-10.5); CREATININE 2.51 mg/dL (0.60-1.30); POTASSIUM 5.2 mmol/L (3.5-5.1); PROTHROMBIN TIME 10.6 SEC (9.4-11.6)
[2020-06-27 14:10] LABS: ALBUMIN 2.7 g/dL (3.4-5.0); BILIRUBIN,TOTAL 0.2 mg/dL (0.1-1.0); TOTAL PROTEIN, SERUM 5.9 g/dL (6.4-8.2)
[2020-06-27 14:49] VITALS: BP 177/95
== END 2020-06-27 16:24 | disposition home or self-care (01) ==
LOC: EMS 11:36
DX: J44.9 Chronic obstructive pulmonary disease, unspecified (principal); I13.0 Hypertensive heart and chronic kidney disease with heart failure and stage 1 through stage 4 chronic kidney disease, or unspecified chronic kidney disease; E11.22 Type 2 diabetes mellitus with diabetic chronic kidney disease; N18.9 Chronic kidney disease, unspecified; I50.9 Heart failure, unspecified; I25.10 Atherosclerotic heart disease of native coronary artery without angina pectoris; Z79.4 Long term (current) use of insulin
CPT/HCPCS: 36415; 71045; 80053; 82550; 82962; 83880; 84484; 85025; 85610; 85730; 93005; 94640; 96374; 99285; J1100

== ENCOUNTER 2020-07-09 01:11 | Emergency (ER) | payer MEDICARE, MEDICAID ==
[~2020-07-09] VITALS: Ht 182.9 cm; Wt 84.1 kg
[2020-07-09 01:32] LABS: GLUCOSE,POINT OF CARE 235 MG/DL (70-110)
[2020-07-09 02:16] LABS: BASOPHILS % (AUTO) 1.3 % (0.0-2.0); EOSINOPHILS % (AUTO) 8.1 % (1.0-6.0); HEMATOCRIT 29.1 % (41-53); HEMOGLOBIN 9.9 g/dL (13.5-17.5); LYMPHOCYTES # (AUTO) 1.1 K/uL (1.0-4.8); LYMPHOCYTES % (AUTO) 21.8 % (22.0-44.0); MEAN CORPUSCULAR HEMOGLOBIN 30.9 pg (26.0-34.0); MEAN CORPUSCULAR HGB CONC 33.9 G/dL (31.0-37.0); MEAN CORPUSCULAR VOLUME 91 fL (80-100); MONOCYTES # (AUTO) 0.6 K/uL (0.1-1.0); MONOCYTES % (AUTO) 12.8 % (2.0-9.0); NEUTROPHILS # (AUTO) 2.8 K/uL (1.8-7.7); PLATELET COUNT (AUTO) 287 K/uL (150-450); RED CELL DISTRIBUTION WIDTH 16.2 % (11.5-14.5)
[2020-07-09 02:19] LABS: CREATININE 2.98 mg/dL (0.60-1.30); POTASSIUM 4.3 mmol/L (3.5-5.1)
[2020-07-09 02:48] LABS: ALBUMIN 2.8 g/dL (3.4-5.0); BILIRUBIN,TOTAL 0.2 mg/dL (0.1-1.0)
[2020-07-09 03:27] VITALS: BP 193/98
[2020-07-09] MEDS ORDERED: CARVEDILOL 3.125 MG TABLET PO ONE ×2 (03:45)
[2020-07-09] MEDS ORDERED: HydrALAZINE HCL 25 MG TABLET PO ONE (03:45)
[2020-07-09] MEDS ORDERED: DEXTROSE 50%-WATER 25 GM/50 ML SYRINGE IVP PRN (07:30)
[2020-07-09] MEDS ORDERED: INSULIN LISPRO 100 UNITS/ML SQ PRN (07:30)
[2020-07-09] MEDS ORDERED: ALBUTEROL SULFATE 2.5 MG/0.5 ML NEB SOLUTION NEB PRN (07:30)
[2020-07-09] MEDS ORDERED: IPRATROPIUM BROMIDE 0.5 MG/2.5 ML NEB SOLUTION NEB PRN (07:30)
[2020-07-09] MEDS ORDERED: ACETAMINOPHEN 325 MG TABLET PO PRN (07:30)
[2020-07-09] MEDS ORDERED: PredniSONE 20 MG TABLET PO SCH (09:00)
[2020-07-09] MEDS ORDERED: FAMOTIDINE 20 MG TABLET PO SCH (09:00)
[2020-07-09] MEDS ORDERED: ASPIRIN 81 MG CHEWABLE TABLET PO SCH (09:00)
[2020-07-09] MEDS ORDERED: HEPARIN SODIUM,PORCINE 5,000 UNITS/ML VIAL SQ SCH (09:00)
[2020-07-09] MEDS ORDERED: DOCUSATE SODIUM 100 MG CAPSULE PO SCH (09:00)
[2020-07-09] MEDS ORDERED: BUMETANIDE 1 MG TABLET PO SCH (09:00)
[2020-07-09] MEDS ORDERED: IPRA4AER IH (12:39)
[2020-07-09] MEDS ORDERED: TAMSULOSIN HCL 0.4 MG CAPSULE PO SCH (21:00)
[2020-07-09] MEDS ORDERED: CARVEDILOL 6.25 MG TABLET PO SCH (21:00)
[2020-07-10] MEDS ORDERED: FLUT1BLS9 IH (09:54)
== END 2020-07-09 04:44 | disposition home or self-care (01) ==
LOC: EMS 01:11
DX: J44.1 Chronic obstructive pulmonary disease with (acute) exacerbation (principal); I25.10 Atherosclerotic heart disease of native coronary artery without angina pectoris; E11.9 Type 2 diabetes mellitus without complications; I11.0 Hypertensive heart disease with heart failure; I50.9 Heart failure, unspecified; Z79.4 Long term (current) use of insulin
CPT/HCPCS: 93005; 36415-L1; 36415-TC; 71045-TC

== ENCOUNTER 2020-07-22 15:33 | Emergency (ER) | payer MEDICARE, MEDICAID ==
[~2020-07-22] VITALS: Ht 182.9 cm; Wt 84.1 kg
[~2020-07-22 15:33] MED LIST changes: +FLUT1BLS9 IH
[2020-07-22 16:00] LABS: GLUCOSE,POINT OF CARE 213 MG/DL (70-110)
[2020-07-22 16:36] LABS: BASOPHILS % (AUTO) 1.2 % (0.0-2.0); EOSINOPHILS % (AUTO) 10.9 % (1.0-6.0); HEMATOCRIT 29.3 % (41-53); HEMOGLOBIN 9.6 g/dL (13.5-17.5); LYMPHOCYTES # (AUTO) 1.3 K/uL (1.0-4.8); LYMPHOCYTES % (AUTO) 26.4 % (22.0-44.0); MEAN CORPUSCULAR HGB CONC 32.8 G/dL (31.0-37.0); MEAN CORPUSCULAR VOLUME 92 fL (80-100); MONOCYTES # (AUTO) 0.7 K/uL (0.1-1.0); MONOCYTES % (AUTO) 13.7 % (2.0-9.0); NEUTROPHILS # (AUTO) 2.3 K/uL (1.8-7.7); NEUTROPHILS % (AUTO) 47.8 % (40.0-70.0); PLATELET COUNT (AUTO) 290 K/uL (150-450); RED CELL DISTRIBUTION WIDTH 16.1 % (11.5-14.5)
[2020-07-22] MEDS: ALBUTEROL SULFATE HFA 90 MCG/PUFF 8 GM INHALER IH ONE (16:39)
[2020-07-22 16:46] LABS: CALCIUM, TOTAL 8.9 mg/dL (8.8-10.5); CREATININE 2.92 mg/dL (0.60-1.30); POTASSIUM 4.2 mmol/L (3.5-5.1)
[2020-07-22 16:52] LABS: ALBUMIN 2.9 g/dL (3.4-5.0); BILIRUBIN,TOTAL 0.2 mg/dL (0.1-1.0)
[2020-07-22] MEDS: DiphenhydrAMINE HCL 50 MG CAPSULE PO ONE (17:30)
[2020-07-22] MEDS: BUMETANIDE 1 MG TABLET PO ONE (18:04)
[2020-07-22 18:30] LABS: GLUCOSE,POINT OF CARE 127 MG/DL (70-110)
[2020-07-22 18:40] LABS: GLUCOSE,POINT OF CARE 129 MG/DL (70-110)
[2020-07-22 19:13] VITALS: BP 158/83
== END 2020-07-22 21:18 | disposition home or self-care (01) ==
LOC: EMS 15:33
DX: J44.1 Chronic obstructive pulmonary disease with (acute) exacerbation (principal); R21 Rash and other nonspecific skin eruption; I25.10 Atherosclerotic heart disease of native coronary artery without angina pectoris; I11.0 Hypertensive heart disease with heart failure; I50.9 Heart failure, unspecified; E11.9 Type 2 diabetes mellitus without complications; I10 Essential (primary) hypertension; Z79.4 Long term (current) use of insulin
CPT/HCPCS: 93005; 94640; J3535; 36415-L1; 36415-TC; 71045-TC

== ENCOUNTER → 2020-08-12 | Outpatient (CLI) | payer MEDICARE, MEDICAID ==
[~2020-08-12] VITALS: Ht 182.9 cm; Wt 85.0 kg
[~2020-08-12] MED LIST changes: +ASPI-1111 PO; +CARV6 PO; +FLUT16H NASAL; +OXYC10TA59 PO
[2020-08-12 11:48] VITALS: BP 168/79
== END | disposition home or self-care (01) ==
LOC: SRCNTR 11:10
PROVIDERS: ATTEND Hospitalist
DX: I50.33 Acute on chronic diastolic (congestive) heart failure (principal); G89.29 Other chronic pain; E11.22 Type 2 diabetes mellitus with diabetic chronic kidney disease; N18.9 Chronic kidney disease, unspecified; K21.9 Gastro-esophageal reflux disease without esophagitis; N40.0 Benign prostatic hyperplasia without lower urinary tract symptoms; I82.409 Acute embolism and thrombosis of unspecified deep veins of unspecified lower extremity; I26.99 Other pulmonary embolism without acute cor pulmonale
CPT/HCPCS: G0463; Z7500

== ENCOUNTER → 2020-09-02 | Outpatient (CLI) | payer MEDICARE, MEDICAID ==
[~2020-09-02] MED LIST changes: -ATOR40TA28 PO; -CARV25 PO; -FLUT1BLS9 IH; -PANT-31 PO; -TAMS-13 PO
== END | disposition home or self-care (01) ==
LOC: SRCNTR 11:56
PROVIDERS: ATTEND Hospitalist
DX: E11.9 Type 2 diabetes mellitus without complications (principal); I82.409 Acute embolism and thrombosis of unspecified deep veins of unspecified lower extremity; K21.9 Gastro-esophageal reflux disease without esophagitis; N18.9 Chronic kidney disease, unspecified; N40.0 Benign prostatic hyperplasia without lower urinary tract symptoms; R06.02 Shortness of breath; I50.9 Heart failure, unspecified
CPT/HCPCS: Q3014

== ENCOUNTER → 2020-10-14 | Outpatient (CLI) | payer MEDICARE, MEDICAID ==
[~2020-10-14] MED LIST changes: +ATOR40TA71 PO; +LOSA25TA21 PO; +PRED-409 PO; -PRED5 PO
== END | disposition home or self-care (01) ==
LOC: SRCNTR 11:25
PROVIDERS: ATTEND Hospitalist
DX: I10 Essential (primary) hypertension (principal); E78.5 Hyperlipidemia, unspecified; J44.9 Chronic obstructive pulmonary disease, unspecified
CPT/HCPCS: Q3014

== ENCOUNTER 2020-11-09 00:50 | Emergency (ER) | payer MEDICARE, MEDICAID ==
[~2020-11-09] VITALS: Ht 182.9 cm; Wt 81.8 kg
[2020-11-09 01:22] LABS: GLUCOSE,POINT OF CARE 272 MG/DL (70-110)
[2020-11-09] MEDS ORDERED: ALBUTEROL SULFATE 5 MG/ML 20 ML NEB SOLN [BULK] NEB ONE (01:30)
[2020-11-09] MEDS ORDERED: IPRATROPIUM BROMIDE 0.5 MG/2.5 ML NEB SOLUTION NEB ONE (01:30)
[2020-11-09] MEDS ORDERED: LORazepam 2 MG/ML VIAL IVP ONE (01:30)
[2020-11-09 03:16] VITALS: BP 134/99
[2020-11-09] MEDS ORDERED: ALBUTEROL SULFATE HFA 90 MCG/PUFF 8 GM INHALER IH ONE (03:45)
[2020-11-11] MEDS ORDERED: INSU100I26 SQ (11:28)
[2020-11-11] MEDS ORDERED: FURO40 PO (11:28)
[2020-11-11] MEDS ORDERED: PRED20 PO (11:28)
[2020-11-11] MEDS ORDERED: TAMS-13 PO (11:28)
[2020-11-11] MEDS ORDERED: MONT-35 PO (11:28)
[2020-11-11] MEDS ORDERED: IPRA3AMP24 IH (11:29)
== END 2020-11-09 03:38 | disposition home or self-care (01) ==
LOC: EMS 00:51
DX: J44.9 Chronic obstructive pulmonary disease, unspecified (principal); I25.10 Atherosclerotic heart disease of native coronary artery without angina pectoris; I11.0 Hypertensive heart disease with heart failure; I50.9 Heart failure, unspecified; E11.9 Type 2 diabetes mellitus without complications; Z79.82 Long term (current) use of aspirin; Z79.4 Long term (current) use of insulin
CPT/HCPCS: 71045; 82962; 94640; 99285; J2060; J3535; J7611

== ENCOUNTER → 2020-11-11 | Outpatient (CLI) | payer MEDICARE, MEDICAID ==
[~2020-11-11] MED LIST changes: +BUME1TAB PO; -BUME1TAB34 PO; +FURO40 PO; +INSU100I26 SQ; +IPRA3AMP24 IH; +MONT-35 PO; +PRED20 PO; +TAMS-13 PO
[2020-11-11 11:31] VITALS: BP 178/84
== END | disposition home or self-care (01) ==
LOC: SRCNTR 10:59
PROVIDERS: ATTEND Hospitalist
DX: I50.40 Unspecified combined systolic (congestive) and diastolic (congestive) heart failure (principal); E11.65 Type 2 diabetes mellitus with hyperglycemia; I82.409 Acute embolism and thrombosis of unspecified deep veins of unspecified lower extremity; K21.9 Gastro-esophageal reflux disease without esophagitis; N40.0 Benign prostatic hyperplasia without lower urinary tract symptoms; N18.6 End stage renal disease; Z79.82 Long term (current) use of aspirin; Z79.4 Long term (current) use of insulin; Z79.899 Other long term (current) drug therapy; Z79.891 Long term (current) use of opiate analgesic
CPT/HCPCS: G0463; Z7500

== ENCOUNTER 2020-11-20 20:43 | Emergency (ER) | payer MEDICARE, MEDICAID ==
[~2020-11-20] VITALS: Ht 185.4 cm; Wt 85.0 kg
[~2020-11-20 20:43] MED LIST changes: -ASPI-1111 PO; +ASPI-1444 PO; -BUME1TAB PO; -FLUT16H NASAL; -HYDR-2924 PO; -INSLAN SQ; -INSU100I26 SQ; -OXYC10TA59 PO; -PRED-409 PO; -PRED20 PO
[2020-11-20] MEDS ORDERED: ALBUTEROL SULFATE 2.5 MG/0.5 ML NEB SOLUTION NEB ONE ×2 (21:00→21:50)
[2020-11-20] MEDS ORDERED: MethylPREDNISolone SOD SUCC 125 MG/2 ML VIAL IVP ONE (21:00)
[2020-11-20] MEDS ORDERED: IPRATROPIUM BROMIDE 0.5 MG/2.5 ML NEB SOLUTION NEB ONE (21:00)
[2020-11-20 21:23] LABS: BASOPHILS % (AUTO) 0.8 % (0.0-2.0); EOSINOPHILS % (AUTO) 3.8 % (1.0-6.0); HEMATOCRIT 24.5 % (41-53); HEMOGLOBIN 8.2 g/dL (13.5-17.5); LYMPHOCYTES # (AUTO) 1.2 K/uL (1.0-4.8); LYMPHOCYTES % (AUTO) 20.4 % (22.0-44.0); MEAN CORPUSCULAR HEMOGLOBIN 30.7 pg (26.0-34.0); MEAN CORPUSCULAR HGB CONC 33.3 G/dL (31.0-37.0); MEAN CORPUSCULAR VOLUME 92 fL (80-100); MONOCYTES # (AUTO) 0.8 K/uL (0.1-1.0); MONOCYTES % (AUTO) 14.6 % (2.0-9.0); NEUTROPHILS # (AUTO) 3.5 K/uL (1.8-7.7); NEUTROPHILS % (AUTO) 60.4 % (40.0-70.0); PLATELET COUNT (AUTO) 203 K/uL (150-450); RED BLOOD CELL COUNT(AUTO) 2.65 MIL/uL (4.50-5.90); RED CELL DISTRIBUTION WIDTH 15.7 % (11.5-14.5)
[2020-11-20 21:37] LABS: CALCIUM, TOTAL 8.8 mg/dL (8.8-10.5); CREATININE 2.82 mg/dL (0.60-1.30); POTASSIUM 4.9 mmol/L (3.5-5.1)
[2020-11-20 21:38] LABS: PROTHROMBIN TIME 10.7 SEC (9.4-11.6)
[2020-11-20 21:40] LABS: ALBUMIN 2.4 g/dL (3.4-5.0); BILIRUBIN,TOTAL 0.3 mg/dL (0.1-1.0); TOTAL PROTEIN, SERUM 5.8 g/dL (6.4-8.2)
[2020-11-20] MEDS ORDERED: ALBUTEROL SULFATE HFA 90 MCG/PUFF 8 GM INHALER IH ONE (22:30)
[2020-11-20 22:50] LABS: APPEARANCE,URINE CLEAR (CLEAR); BILIRUBIN,URINE NEGATIVE (NEGATIVE); GLUCOSE, URINE (UA) 100 mg/dL (NEGATIVE); KETONES,URINE NEGATIVE (NEGATIVE); LEUKOCYTE ESTERASE ,URINE NEGATIVE (NEGATIVE); NITRATE,URINE NEGATIVE (NEGATIVE); OCCULT BLOOD,URINE NEGATIVE (NEGATIVE); PH,URINE 6.5 (5.0-8.0); PROTEIN,URINE SEE CONFIRM (NEGATIVE); UROBILINOGEN,URINE 0.2 mg/dL (<=1.0)
[2020-11-20 22:58] LABS: BACTERIA,URINE Rare /HPF (None Seen); RBC,URINE 0-2 /HPF (0-2); SQUAMOUS EPITHELIAL CELL,UR Few /LPF (None Seen); SULFOSALICYLIC ACID,URINE 2+ (Negative)
[2020-11-20 23:10] VITALS: BP 187/96
== END 2020-11-20 23:35 | disposition home or self-care (01) ==
LOC: EMS 20:46
DX: J44.1 Chronic obstructive pulmonary disease with (acute) exacerbation (principal); I11.0 Hypertensive heart disease with heart failure; I50.9 Heart failure, unspecified; I25.10 Atherosclerotic heart disease of native coronary artery without angina pectoris; E11.9 Type 2 diabetes mellitus without complications; Z79.899 Other long term (current) drug therapy
CPT/HCPCS: 36415; 71045; 80053; 81001; 82550; 83880; 84484; 85025; 85610; 85730; 93005; 94640; 96374; 99285; J2930; J3535; J7613

== ENCOUNTER 2020-11-27 23:58 | Emergency (ER) | payer MEDICARE, MEDICAID ==
[~2020-11-27] VITALS: Ht 182.9 cm; Wt 84.0 kg
[2020-11-28] MEDS ORDERED: ALBUTEROL SULFATE 5 MG/ML 20 ML NEB SOLN [BULK] NEB ONE (00:30)
[2020-11-28] MEDS ORDERED: IPRATROPIUM BROMIDE 0.5 MG/2.5 ML NEB SOLUTION NEB ONE (00:30)
[2020-11-28 00:34] LABS: BASOPHILS % (AUTO) 0.8 % (0.0-2.0); EOSINOPHILS % (AUTO) 3.8 % (1.0-6.0); HEMATOCRIT 25.1 % (41-53); HEMOGLOBIN 8.3 g/dL (13.5-17.5); LYMPHOCYTES # (AUTO) 1.2 K/uL (1.0-4.8); LYMPHOCYTES % (AUTO) 21.8 % (22.0-44.0); MEAN CORPUSCULAR HEMOGLOBIN 30.8 pg (26.0-34.0); MEAN CORPUSCULAR HGB CONC 33.1 G/dL (31.0-37.0); MEAN CORPUSCULAR VOLUME 93 fL (80-100); MONOCYTES # (AUTO) 0.6 K/uL (0.1-1.0); MONOCYTES % (AUTO) 11.2 % (2.0-9.0); NEUTROPHILS # (AUTO) 3.4 K/uL (1.8-7.7); NEUTROPHILS % (AUTO) 62.4 % (40.0-70.0); PLATELET COUNT (AUTO) 245 K/uL (150-450); RED BLOOD CELL COUNT(AUTO) 2.69 MIL/uL (4.50-5.90); RED CELL DISTRIBUTION WIDTH 16.1 % (11.5-14.5)
[2020-11-28] MEDS ORDERED: 0.9% SODIUM CHLORIDE 5 ML NEB SOLUTION NEB ONE (00:37)
[2020-11-28 00:39] LABS: COVID AG,FIA SOURCE NASOPHARYNGEAL
[2020-11-28 00:45] LABS: CALCIUM, TOTAL 8.5 mg/dL (8.8-10.5); CREATININE 2.56 mg/dL (0.60-1.30); POTASSIUM 4.7 mmol/L (3.5-5.1)
[2020-11-28] MEDS ORDERED: ALBUTEROL SULFATE HFA 90 MCG/PUFF 8 GM INHALER IH ONE (00:45)
[2020-11-28] MEDS ORDERED: PredniSONE 20 MG TABLET PO ONE (00:45)
[2020-11-28 00:59] LABS: ALBUMIN 2.5 g/dL (3.4-5.0); BILIRUBIN,TOTAL 0.3 mg/dL (0.1-1.0); TOTAL PROTEIN, SERUM 5.9 g/dL (6.4-8.2)
[2020-11-28 01:00] LABS: GLUCOSE,POINT OF CARE 267 MG/DL (70-110)
[2020-11-28] MEDS ORDERED: FUROSEMIDE 20 MG TABLET PO ONE (01:15)
[2020-11-28 04:02] VITALS: BP 178/94
== END 2020-11-28 04:08 | disposition home or self-care (01) ==
LOC: EMS 11-28 00:04
DX: J44.1 Chronic obstructive pulmonary disease with (acute) exacerbation (principal); I44.0 Atrioventricular block, first degree; I13.0 Hypertensive heart and chronic kidney disease with heart failure and stage 1 through stage 4 chronic kidney disease, or unspecified chronic kidney disease; E11.22 Type 2 diabetes mellitus with diabetic chronic kidney disease; N18.9 Chronic kidney disease, unspecified; I50.9 Heart failure, unspecified; I25.10 Atherosclerotic heart disease of native coronary artery without angina pectoris; Z20.822 Contact with and (suspected) exposure to COVID-19; Z79.4 Long term (current) use of insulin; Z79.899 Other long term (current) drug therapy
CPT/HCPCS: 36415; 71045; 80053; 82962; 83880; 84484; 85025; 87426; 93005; 94640; 99285; J7512; J3535; J7611

== ENCOUNTER 2020-12-04 21:30 | Emergency (ER) | payer MEDICARE, MEDICAID ==
[~2020-12-04] VITALS: Ht 182.9 cm; Wt 84.1 kg
[2020-12-04 22:07] LABS: GLUCOSE,POINT OF CARE 151 MG/DL (70-110)
[2020-12-04 22:24] LABS: BASOPHILS % (AUTO) 0.6 % (0.0-2.0); EOSINOPHILS % (AUTO) 1.5 % (1.0-6.0); HEMATOCRIT 27.8 % (41-53); HEMOGLOBIN 9.2 g/dL (13.5-17.5); LYMPHOCYTES # (AUTO) 1.3 K/uL (1.0-4.8); LYMPHOCYTES % (AUTO) 14.7 % (22.0-44.0); MEAN CORPUSCULAR HEMOGLOBIN 30.9 pg (26.0-34.0); MEAN CORPUSCULAR HGB CONC 33.2 G/dL (31.0-37.0); MEAN CORPUSCULAR VOLUME 93 fL (80-100); MONOCYTES # (AUTO) 0.8 K/uL (0.1-1.0); MONOCYTES % (AUTO) 8.5 % (2.0-9.0); NEUTROPHILS # (AUTO) 6.8 K/uL (1.8-7.7); NEUTROPHILS % (AUTO) 74.7 % (40.0-70.0); PLATELET COUNT (AUTO) 330 K/uL (150-450); RED BLOOD CELL COUNT(AUTO) 2.98 MIL/uL (4.50-5.90); RED CELL DISTRIBUTION WIDTH 16.2 % (11.5-14.5)
[2020-12-04] MEDS ORDERED: IPRATROPIUM BROMIDE 0.5 MG/2.5 ML NEB SOLUTION NEB ONE (22:45)
[2020-12-04] MEDS ORDERED: ALBUTEROL SULFATE 2.5 MG/0.5 ML NEB SOLUTION NEB ONE (22:45)
[2020-12-04 22:47] LABS: CALCIUM, TOTAL 8.8 mg/dL (8.8-10.5); CREATININE 2.93 mg/dL (0.60-1.30)
[2020-12-04 23:13] LABS: ALBUMIN 2.8 g/dL (3.4-5.0); BILIRUBIN,TOTAL 0.2 mg/dL (0.1-1.0); TOTAL PROTEIN, SERUM 6.2 g/dL (6.4-8.2)
[2020-12-05] MEDS ORDERED: IPRATROPIUM BROMIDE 0.5 MG/2.5 ML NEB SOLUTION NEB ONE (03:45)
[2020-12-05] MEDS ORDERED: ALBUTEROL SULFATE 2.5 MG/0.5 ML NEB SOLUTION NEB ONE (03:45)
[2020-12-05 06:50] LABS: GLUCOSE,POINT OF CARE 255 MG/DL (70-110)
[2020-12-05 08:20] VITALS: BP 182/79
[2020-12-05] MEDS ORDERED: CARV12 PO (12:49)
== END 2020-12-05 08:33 | disposition home or self-care (01) ==
LOC: EMS 21:32
DX: J44.9 Chronic obstructive pulmonary disease, unspecified (principal); I13.0 Hypertensive heart and chronic kidney disease with heart failure and stage 1 through stage 4 chronic kidney disease, or unspecified chronic kidney disease; E11.22 Type 2 diabetes mellitus with diabetic chronic kidney disease; N18.9 Chronic kidney disease, unspecified; I50.9 Heart failure, unspecified; I25.10 Atherosclerotic heart disease of native coronary artery without angina pectoris; J45.909 Unspecified asthma, uncomplicated; Z79.82 Long term (current) use of aspirin; Z79.899 Other long term (current) drug therapy; Z79.4 Long term (current) use of insulin
CPT/HCPCS: 93005; 94640; 99285; 36415-L1; 36415-TC; 71045-TC; J7613

== ENCOUNTER 2020-12-05 09:19 | Emergency (ER) | payer MEDICARE, MEDICAID ==
[~2020-12-05] VITALS: Ht 182.9 cm; Wt 127.3 kg
[2020-12-05] MEDS ORDERED: 0.9% SODIUM CHLORIDE 10 ML SYRINGE IVP PRN ×2 (12:00→12:45)
[2020-12-05] MEDS ORDERED: DOCUSATE SODIUM 100 MG CAPSULE PO PRN (12:45)
[2020-12-05] MEDS ORDERED: DEXTROSE 50%-WATER 25 GM/50 ML SYRINGE IVP PRN (12:45)
[2020-12-05] MEDS ORDERED: IPRATROPIUM BROMIDE 0.5 MG/2.5 ML NEB SOLUTION NEB PRN (12:45)
[2020-12-05] MEDS ORDERED: ALBUTEROL SULFATE 2.5 MG/0.5 ML NEB SOLUTION NEB PRN (12:45)
[2020-12-05] MEDS ORDERED: ONDANSETRON HCL 4 MG/2 ML VIAL IVP PRN (12:45)
[2020-12-05] MEDS ORDERED: INSULIN LISPRO 100 UNITS/ML SQ PRN (12:45)
[2020-12-05] MEDS ORDERED: BISACODYL 10 MG RECTAL RECTAL SUPPOSITORY PR PRN (12:45)
[2020-12-05] MEDS ORDERED: ACETAMINOPHEN 325 MG TABLET PO PRN (12:45)
[2020-12-05] MEDS ORDERED: CARV12 PO (12:49)
[2020-12-05] MEDS ORDERED: ALBUTEROL SULFATE 2.5 MG/0.5 ML NEB SOLUTION NEB SCH (14:00)
[2020-12-05] MEDS ORDERED: IPRATROPIUM BROMIDE 0.5 MG/2.5 ML NEB SOLUTION NEB SCH (14:00)
[2020-12-05 14:36] VITALS: BP 122/72
[2020-12-05] MEDS ORDERED: FUROSEMIDE 40 MG TABLET PO SCH (21:00)
[2020-12-05] MEDS ORDERED: CARVEDILOL 12.5 MG TABLET PO SCH (21:00)
[2020-12-05] MEDS ORDERED: FINASTERIDE 5 MG TABLET PO SCH (21:00)
[2020-12-05] MEDS ORDERED: HEPARIN SODIUM,PORCINE 5,000 UNITS/ML VIAL SQ SCH (21:00)
[2020-12-05] MEDS ORDERED: MethylPREDNISolone SOD SUCC 40 MG/ML VIAL IVP SCH (21:00)
[2020-12-05] MEDS ORDERED: LOSARTAN POTASSIUM 25 MG TABLET PO SCH (21:00)
[2020-12-06] MEDS ORDERED: MONTELUKAST SODIUM 10 MG TABLET PO SCH (09:00)
[2020-12-06] MEDS ORDERED: ATORVASTATIN CALCIUM 40 MG TABLET PO SCH (09:00)
[2020-12-06] MEDS ORDERED: PANTOPRAZOLE SODIUM 40 MG DR TABLET PO SCH (09:00)
[2020-12-06] MEDS ORDERED: TAMSULOSIN HCL 0.4 MG CAPSULE PO SCH (09:00)
[2020-12-06] MEDS ORDERED: ASPIRIN 81 MG DR TABLET PO SCH (09:00)
== END 2020-12-05 14:38 | disposition home or self-care (01) ==
LOC: EMS 10:10
DX: J44.1 Chronic obstructive pulmonary disease with (acute) exacerbation (principal); I13.0 Hypertensive heart and chronic kidney disease with heart failure and stage 1 through stage 4 chronic kidney disease, or unspecified chronic kidney disease; E11.22 Type 2 diabetes mellitus with diabetic chronic kidney disease; N18.9 Chronic kidney disease, unspecified; I50.9 Heart failure, unspecified; J45.909 Unspecified asthma, uncomplicated; I25.10 Atherosclerotic heart disease of native coronary artery without angina pectoris; Z79.82 Long term (current) use of aspirin; Z79.899 Other long term (current) drug therapy
CPT/HCPCS: 99285; Z7502

== ENCOUNTER → 2020-12-17 | Emergency (ER) | payer MEDICARE, MEDICAID ==
[~2020-12-17] VITALS: Ht 182.9 cm; Wt 84.1 kg
[~2020-12-17] MED LIST changes: +0.9% SODIUM CHLORIDE 5 ML NEB SOLUTION NEB ONE; +ALBUTEROL SULFATE 5 MG/ML 20 ML NEB SOLN [BULK] NEB ONE; +ALBUTEROL SULFATE HFA 90 MCG/PUFF 8 GM INHALER IH ONE; +CARV12 PO; -CARV6 PO; +IPRATROPIUM BROMIDE 0.5 MG/2.5 ML NEB SOLUTION NEB ONE
[2020-12-17 02:30] VITALS: BP 145/84
== END | disposition home or self-care (01) ==
LOC: EMS 02:05
DX: J44.9 Chronic obstructive pulmonary disease, unspecified (principal); I25.10 Atherosclerotic heart disease of native coronary artery without angina pectoris; I11.0 Hypertensive heart disease with heart failure; I50.9 Heart failure, unspecified
CPT/HCPCS: 94640; 99284; J3535; Z7502

== ENCOUNTER 2021-02-05 05:45 | Emergency (ER) | payer MEDICARE, MEDICAID ==
[~2021-02-05] VITALS: Ht 180.3 cm; Wt 72.7 kg
[~2021-02-05 05:45] MED LIST changes: -0.9% SODIUM CHLORIDE 5 ML NEB SOLUTION NEB ONE; +ACET-2247 PO; -ALBUTEROL SULFATE 5 MG/ML 20 ML NEB SOLN [BULK] NEB ONE; -ALBUTEROL SULFATE HFA 90 MCG/PUFF 8 GM INHALER IH ONE; +BUME1TAB34 PO; +BUPR150F3 SL; -CARV12 PO; +CARV6 PO; +DOCU-275 PO; +EPOE10003 SQ; +FLUT1DIS6 IH; +HYDR50TA36 PO; +INSLAN SQ; -INSREG SQ; +INSU100V39 SQ; -IPRA3AMP24 IH; -IPRATROPIUM BROMIDE 0.5 MG/2.5 ML NEB SOLUTION NEB ONE; +LIDO1ADH5 TP; +METO-296 PO; +MIDO5TAB29 PO; -MONT-35 PO; +MONT10TA32 PO; +NITR0.4T52 SL; +OXYC10TA48 PO; +PARI5VIA IVP
[2021-02-05 06:21] LABS: BASOPHILS % (AUTO) 0.4 % (0.0-2.0); EOSINOPHILS % (AUTO) 0.8 % (1.0-6.0); HEMATOCRIT 29.8 % (41-53); HEMOGLOBIN 9.8 g/dL (13.5-17.5); LYMPHOCYTES # (AUTO) 1.3 K/uL (1.0-4.8); LYMPHOCYTES % (AUTO) 16.3 % (22.0-44.0); MEAN CORPUSCULAR HEMOGLOBIN 31.7 pg (26.0-34.0); MEAN CORPUSCULAR HGB CONC 32.8 G/dL (31.0-37.0); MEAN CORPUSCULAR VOLUME 97 fL (80-100); MONOCYTES # (AUTO) 1.2 K/uL (0.1-1.0); MONOCYTES % (AUTO) 14.2 % (2.0-9.0); NEUTROPHILS # (AUTO) 5.6 K/uL (1.8-7.7); NEUTROPHILS % (AUTO) 68.3 % (40.0-70.0); PLATELET COUNT (AUTO) 233 K/uL (150-450); RED BLOOD CELL COUNT(AUTO) 3.08 MIL/uL (4.50-5.90); RED CELL DISTRIBUTION WIDTH 16.8 % (11.5-14.5)
[2021-02-05 06:33] LABS: CALCIUM, TOTAL 8.2 mg/dL (8.8-10.5); CREATININE 4.15 mg/dL (0.60-1.30); POTASSIUM 3.6 mmol/L (3.5-5.1)
[2021-02-05 08:09] VITALS: BP 141/49
== END 2021-02-05 08:15 | disposition home or self-care (01) ==
LOC: EMS 05:51
DX: R53.1 Weakness (principal)
CPT/HCPCS: 80048; 85025; 99283

== ENCOUNTER 2021-02-14 17:06 | Emergency (ER) | payer MEDICARE, MEDICAID ==
[~2021-02-14] VITALS: Ht 182.9 cm; Wt 80.1 kg
[2021-02-14 17:39] LABS: GLUCOSE,POINT OF CARE 172 MG/DL (70-110)
[2021-02-14] MEDS ORDERED: ONDANSETRON HCL 4 MG TABLET PO ONE (17:45)
[2021-02-14 18:35] LABS: BASOPHILS % (AUTO) 1.1 % (0.0-2.0); HEMATOCRIT 32.5 % (41-53); HEMOGLOBIN 10.5 g/dL (13.5-17.5); LYMPHOCYTES # (AUTO) 1.3 K/uL (1.0-4.8); MEAN CORPUSCULAR HEMOGLOBIN 31.5 pg (26.0-34.0); MEAN CORPUSCULAR HGB CONC 32.3 G/dL (31.0-37.0); MEAN CORPUSCULAR VOLUME 98 fL (80-100); MONOCYTES # (AUTO) 0.7 K/uL (0.1-1.0); MONOCYTES % (AUTO) 14.3 % (2.0-9.0); NEUTROPHILS # (AUTO) 2.6 K/uL (1.8-7.7); NEUTROPHILS % (AUTO) 54.6 % (40.0-70.0); PLATELET COUNT (AUTO) 272 K/uL (150-450); RED BLOOD CELL COUNT(AUTO) 3.33 MIL/uL (4.50-5.90); RED CELL DISTRIBUTION WIDTH 18.2 % (11.5-14.5)
[2021-02-14 18:45] LABS: CALCIUM, TOTAL 8.3 mg/dL (8.8-10.5); CREATININE 2.69 mg/dL (0.60-1.30); POTASSIUM 3.9 mmol/L (3.5-5.1)
[2021-02-14 21:00] VITALS: BP 122/71
== END 2021-02-14 21:08 | disposition home or self-care (01) ==
LOC: EMS 17:06
DX: R42 Dizziness and giddiness (principal); R11.2 Nausea with vomiting, unspecified; J45.909 Unspecified asthma, uncomplicated; I25.10 Atherosclerotic heart disease of native coronary artery without angina pectoris; E11.22 Type 2 diabetes mellitus with diabetic chronic kidney disease; I13.2 Hypertensive heart and chronic kidney disease with heart failure and with stage 5 chronic kidney disease, or end stage renal disease; I50.9 Heart failure, unspecified; N18.6 End stage renal disease; Z99.2 Dependence on renal dialysis; Z79.4 Long term (current) use of insulin; Z79.899 Other long term (current) drug therapy; Z79.82 Long term (current) use of aspirin
CPT/HCPCS: 36415; 80048; 82962; 85025; 93005; 99284; Q0162